=== PATIENT | female | born 1945 | race Caucasian/White ===

== ENCOUNTER 2016-06-21 13:47 | Inpatient (IN) ==
[2016-06-21] MEDS ORDERED: DUONEB NEB STA (14:13)
[2016-06-21 14:30] LABS: BASOPHILS % (AUTO) 0.3 % (0.0-3.0); EOSINOPHILS # (AUTO) 0.1 K/ul (0.0-0.7); EOSINOPHILS % (AUTO) 0.6 % (0.0-7.0); HEMATOCRIT 41.9 % (37.0-47.0); HEMOGLOBIN 14.2 g/dl (12.0-16.0); IMMATURE GRANULOCYTE % (AUTO) 0.5 % (0.0-5.0); MEAN CORPUSCULAR HEMOGLOBIN 34.8 pg (27.0-31.0); MEAN CORPUSCULAR HGB CONC 33.9 (31.8-35.4); MEAN CORPUSCULAR VOLUME 102.7 fl (81.0-99.0); MONOCYTES % (AUTO) 7.1 (0-10); NEUTROPHILS # (AUTO) 11.1 K/ul (2.0-6.9); NEUTROPHILS % (AUTO) 77.5; PLATELET COUNT 215 10^3/uL (140-440); RED BLOOD COUNT 4.08 10^6/ul (4.20-5.40); WHITE BLOOD COUNT 14.31 K/ul (4.6-10.2)
[2016-06-21 14:37] LABS: ABG BASE EXCESS 1 (-2.0-2.0); ABG HCO3 26.2 (22.0-26.0); ABG PCO2 42.4 mmHg (35-45); ABG PH 7.399 (7.35-7.45); ABG TCO2 28 (22.0-28.0)
[2016-06-21 14:47] LABS: FLU INTERNAL QC INTERNAL QC VALID; RAPID FLU A NEGATIVE (NEGATIVE); RAPID FLU B NEGATIVE (NEGATIVE)
--- NOTE | 2016-06-21 14:48 | DI ---
EXAM: CHEST FRONTAL VIEW HISTORY: Shortness of breath. COMPARISON: None FINDINGS: Heart size within normal limits. There is at least mild aortic atherosclerosis. Left-si ded pacemaker unit is noted. No acute infiltrates are seen. There is no consolidation, visible pleu ral fluid or pneumothorax. Bones reveal no acute fracture. IMPRESSION: No acute cardiopulmonary process.
[2016-06-21 14:56] LABS: CREATINE KINASE 34 U/L
--- NOTE | 2016-06-21 16:35 | ED.PDOC ---
[id number] 4d cough, wheez ,short of air Time Seen by Physician: 13:49 Mode of Arrival: Walk-In Information Source: Patient Exam Limitations: No limitations Primary Care Provider: ROSALINO GRAY Nursing and Triage Documentation Reviewed and Agree: Yes Respiratory Complaint Exam - Shortness of Air Complaint/Exam Onset/Duration: 1 day Symptoms Are: Still present Timing: Constant Initial Severity: Moderate Current Severity: Moderate Character: Reports: Dyspnea at rest, Dyspnea on exertion Aggravating: Reports: None Alleviating: Reports: Bronchodilators Associated Signs and Symptoms: Reports: Cough, Wheezing, Chills, Nasal congestion Related History: Reports: Similar episode Pulmonary Embolism Risk Factors: Reports: Bedrest Review of Systems - Review Of Systems Constitutional: Reports: Malaise, Weakness Eyes: Reports: No symptoms Ears, Nose, Mouth, Throat: Reports: No symptoms Respiratory: Reports: Cough, Short of air, Wheezing Cardiac: Reports: No symptoms GI: Reports: No symptoms : Reports: No symptoms Musculoskeletal: Reports: No symptoms Skin: Reports: No symptoms Neurological: Reports: No symptoms Endocrine: Reports: No symptoms Hematologic/Lymphatic: Reports: No symptoms All Other Systems: Reviewed and Negative Past Medical History - Past Medical History Previously Healthy: No Endocrine: Reports: Hypothyroid, Dyslipidemia Cardiovascular: Reports: Hypertension Respiratory: Reports: COPD Hematological: Reports: None Gastrointestinal: Reports: None Genitourinary: Reports: None Neuro/Psych: Reports: None Musculoskeletal: Reports: None Cancer: Reports: None Last Menstrual Period: n/a - Surgical History General Surgical History: Reports: Unknown - Family History Family History: Reports: Unknown - Social History Smoking Status: Current every day smoker Hx Substance Use: No Alcohol Screening: Occasionally Physical Exam - Physical Exam Appearance: Ill-appearing Ill-appearing: Moderate Pain Distress: Moderate Eyes: HOLGER, EOMI, Conjunctiva clear ENT: Ears normal, Nose normal, Oropharynx normal Respiratory: Wheezes Cardiovascular: RRR, Pulses normal, No rub, No murmur GI/: Soft, Nontender, No masses, Bowel sounds normal, No Organomegaly Musculoskeletal: Normal strength, ROM intact, No edema, No calf tenderness Skin: Warm, Dry, Normal color Neurological: Sensation intact, Motor intact, Reflexes intact, Cranial nerves intact, Alert, Oriented Psychiatric: Affect appropriate, Mood appropriate Physician Notification - Case Discussed Physician Notified: [email or web address] Time of Notification: 16:37 (saw pt in the ED ) Critical Care Note - Critical Care Note Total Time (mins): 0 Course - Course Hematology/Chemistry: 06/26/16 05:18 06/26/16 05:18 Orders, Labs, Meds: Lab Review 06/21/16 06/21/16 06/21/16 14:00 14:14 14:15 WBC RBC Hgb Hct MCV MCH MCHC RDW Coeff of Alisha Plt Count Immature Gran % (Auto) Neut % (Auto) Lymph % (Auto) [place] % (Auto) Eos % (Auto) Baso % (Auto) Immature Gran # (Auto) Neut # Lymph # [place] # Eos # Baso # Puncture Site Rr O2 Saturation 86.0 L ABG pH 7.399 ABG pCO2 42.4 ABG pO2 52.0 L* ABG HCO3 26.2 H ABG Total CO2 28 ABG Base Excess 1 Mal Test + FiO2 % 21.0 Sodium 129 L Potassium 3.9 Chloride 92 L Carbon Dioxide 27 Anion Gap 13.9 BUN 13 Creatinine 0.86 Estimated GFR (MDRD) 65.00 BUN/Creatinine Ratio 15.11 Glucose 99 Lactic Acid Calcium 9.3 Total Bilirubin 0.43 AST 19 ALT 10 L Alkaline Phosphatase 64 Total Creatine Kinase Troponin I B-Natriuretic Peptide Total Protein 7.8 Albumin 3.4 Globulin 4.4 Albumin/Globulin Ratio 0.77 Influenza A (Rapid) Negative Influenza B (Rapid) Negative 06/21/16 14:25 WBC 14.31 H RBC 4.08 L Hgb 14.2 Hct 41.9 MCV 102.7 H MCH 34.8 H MCHC 33.9 RDW Coeff of Alisha 13.1 Plt Count 215 Immature Gran % (Auto) 0.5 Neut % (Auto) 77.5 Lymph % (Auto) 14.0 [place] % (Auto) 7.1 Eos % (Auto) 0.6 Baso % (Auto) 0.3 Immature Gran # (Auto) 0.1 Neut # 11.1 H Lymph # 2.0 [place] # 1.0 Eos # 0.1 Baso # 0.0 Puncture Site O2 Saturation ABG pH ABG pCO2 ABG pO2 ABG HCO3 ABG Total CO2 ABG Base Excess Mal Test FiO2 % Sodium Potassium Chloride Carbon Dioxide Anion Gap BUN Creatinine Estimated GFR (MDRD) BUN/Creatinine Ratio Glucose Lactic Acid 7.0 Calcium Total Bilirubin AST ALT Alkaline Phosphatase Total Creatine Kinase 34 Troponin I < 0.0100 B-Natriuretic Peptide 338 H Total Protein Albumin Globulin Albumin/Globulin Ratio Influenza A (Rapid) Influenza B (Rapid) Orders Category Date Time Status ABG DRAW REQUEST Stat CARDIO 06/21/16 14:14 Completed EKG-(ED ONLY) Stat CARDIO 06/21/16 14:12 Completed NEBULIZER TREATMENT Routine CARDIO 06/21/16 16:40 Active NEBULIZER TREATMENT Stat CARDIO 06/21/16 14:13 Completed ED IV/MEDIPORT/POWERPORT .ONCE EMERGENCY 06/21/16 14:12 Active ABG Stat LAB 06/21/16 14:14 Completed B-TYPE NATRIURETIC PEPTIDE Stat LAB 06/21/16 14:25 Completed BLOOD CULTURE Stat LAB 06/21/16 14:25 Results CBC W/ AUTO DIFF Stat LAB 06/21/16 14:25 Completed COMPREHENSIVE METABOLIC PANEL Stat LAB 06/21/16 14:00 Completed CREATINE KINASE Stat LAB 06/21/16 14:25 Completed LACTIC ACID Stat LAB 06/21/16 14:25 Completed MOLECULAR GROUP A STREP Stat LAB 06/21/16 14:15 Completed RAPID FLU A/B Stat LAB 06/21/16 14:15 Completed STREP SCREEN Stat LAB 06/21/16 14:15 Completed TROPONIN I Stat LAB 06/21/16 14:25 Completed 0.9 % Sodium Chloride [Saline Flush] MEDS 06/21/16 14:13 Active 1 syr IVF PRN PRN Azithromycin Inj [Zithromax] 500 mg MEDS 06/21/16 16:44 Discontinued 0.9 % Sodium Chloride [Sodium Chloride] 250 ml IV ONCE Budesonide [Pulmicort 0.5 mg/2 ml] MEDS 06/21/16 17:00 Discontinued 1 vial NEB ONCE ONE Ceftriaxone Sodium [Rocephin] MEDS 06/21/16 17:13 Discontinued 1 gm .ROUTE .STK-MED ONE Ceftriaxone Sodium [Rocephin] 1 gm MEDS 06/21/16 17:00 Active 0.9 % Sodium Chloride [Sodium Chloride] 50 ml IV DAILY Ipratropium/Albuterol Neb [Duoneb] MEDS 06/21/16 14:13 Discontinued 1 vial NEB ONCE STA Levalbuterol HCl [Xopenex 1.25 mg] MEDS 06/21/16 18:00 Active 1 vial NEB RTQ6H Methylprednisolone Sod Succ/Pf [Solu-Medrol 125 mg] MEDS 06/21/16 21:00 Discontinued 60 mg IVP Q12HR Methylprednisolone Sod Succ/Pf [Solu-Medrol 40 mg] MEDS 06/21/16 16:42 Discontinued 40 mg IVP ONCE STA CHEST, 1V AP ONLY DAILY RADS 06/23/16 06:00 Completed CHEST, 1V AP ONLY Stat RADS 06/21/16 14:12 Completed Medications Generic Name Dose Route Start Last Admin Trade Name Freq PRN Reason Stop Dose Admin Acetaminophen/Hydrocodone Bitart 1 tab 06/21/16 19:06 06/25/16 14:49 [place] 5-325 PO 1 tab BID PRN Administration Mild Pain Aspirin 81 mg 06/22/16 08:00 06/25/16 08:59 Aspirin Chewable PO 81 mg DAILYWM TOM Administration Diazepam 2 mg 06/21/16 21:00 06/25/16 20:50 Valium PO 2 mg BID TOM Administration Diltiazem HCl 60 mg 06/23/16 15:00 06/25/16 20:50 Cardizem PO 60 mg Q12HR TOM Administration Fluoxetine HCl 10 mg 06/22/16 09:00 06/25/16 08:59 Prozac PO 10 mg DAILY TOM Administration Fluoxetine HCl 20 mg 06/22/16 09:00 06/25/16 08:59 Prozac PO 20 mg DAILY TOM Administration Ceftriaxone Sodium 1 gm/ 50 mls @ 75 mls/hr 06/21/16 17:00 06/25/16 08:58 Sodium Chloride IV 75 mls/hr DAILY TOM Administration Insulin Human Regular 0 unit 06/21/16 18:47 06/25/16 20:49 Humulin R SUBCUT 6 unit PRN PRN Administration hyperglycemia Protocol Ketorolac Tromethamine 30 mg 06/23/16 12:46 06/24/16 10:10 Toradol IVP 30 mg Q12H PRN Administration pain Levalbuterol HCl 1 vial 06/21/16 18:00 06/26/16 05:06 Xopenex 1.25 Mg NEB 1 vial RTQ6H TOM Administration Levothyroxine Sodium 50 mcg 06/26/16 06:30 06/26/16 05:48 Synthroid PO 50 mcg QDAC TOM Administration Metformin HCl 500 mg 06/22/16 08:00 06/25/16 16:30 Glucophage PO 500 mg BIDWM TOM Administration Metoprolol Tartrate 100 mg 06/22/16 09:00 06/25/16 20:50 Lopressor PO 100 mg BID TOM Administration Nicotine 1 patch 06/23/16 13:00 06/25/16 09:00 Nicoderm 21 Mg TD 1 patch DAILY TOM Administration Non-Formulary Medication 3 mg 06/22/16 21:00 06/25/16 22:41 Doxepin Hcl [Silenor] PO Not Given BEDTIME TOM Pravastatin Sodium 40 mg 06/21/16 21:00 06/25/16 20:50 Pravachol PO 40 mg BEDTIME TOM Administration Prednisone 10 mg 06/25/16 12:00 06/25/16 16:31 Prednisone PO 10 mg TIDWM TOM Administration Ramipril 20 mg 06/24/16 09:00 06/25/16 08:58 Altace PO 20 mg DAILY TOM Administration Risperidone 0.25 mg 06/21/16 21:00 06/25/16 20:50 Risperdal PO 0.25 mg BID TOM Administration Ropinirole HCl 2 mg 06/22/16 21:00 06/25/16 20:50 Requip PO 2 mg BEDTIME TOM Administration Sitagliptin Phosphate 100 mg 06/22/16 09:00 06/25/16 08:59 Januvia PO 100 mg DAILY TOM Administration Sodium Chloride 1 syr 06/21/16 14:13 06/24/16 05:12 Saline Flush IVF 1 syr PRN PRN Administration To flush IV Sodium Chloride 1 syr 06/26/16 05:45 06/26/16 05:48 Saline Flush IVF 1 syr Q8HR TOM Administration Zolpidem Tartrate 5 mg 06/21/16 21:00 06/25/16 20:50 Ambien PO 5 mg BEDTIME TOM Administration Discontinued Medications Generic Name Dose Route Start Last Admin Trade Name Freq PRN Reason Stop Dose Admin Acetaminophen 500 mg 06/21/16 18:40 06/21/16 19:00 Tylenol PO 06/21/16 18:41 Not Given ONCE STA Albuterol/Ipratropium 1 vial 06/21/16 14:13 06/21/16 14:28 Duoneb NEB 06/21/16 14:14 1 vial ONCE STA Administration Amlodipine Besylate 10 mg 06/22/16 09:00 06/23/16 08:05 Norvasc PO 10 mg DAILY TOM Administration Budesonide 1 vial 06/21/16 17:00 06/21/16 19:00 Pulmicort 0.5 Mg/2 Ml NEB 06/21/16 17:01 Not Given ONCE ONE Furosemide 20 mg 06/25/16 08:28 06/25/16 09:11 Lasix IVP 06/25/16 08:29 20 mg ONCE STA Administration Azithromycin 500 mg/ Sodium 250 mls @ 125 mls/hr 06/21/16 16:44 06/21/16 18: 34 Chloride IV 06/21/16 18:43 125 mls/hr ONCE STA Administration Sodium Chloride 1,000 mls @ 75 mls/hr 06/21/16 17:30 06/25/16 10:01 Sodium Chloride IV Not Given .[id number] TOM Levothyroxine Sodium 75 mcg 06/22/16 06:30 06/25/16 05:44 Synthroid PO 75 mcg QDAC TOM Administration Levothyroxine Sodium 50 mcg 06/25/16 08:29 Synthroid PO QDAC TOM Metformin HCl 500 mg 06/21/16 21:00 06/21/16 22:08 Glucophage PO 500 mg BID TOM Administration Methylprednisolone Sodium Succinate 40 mg 06/21/16 16:42 06/21/16 17:23 Solu-Medrol 40 Mg IVP 06/21/16 16:43 40 mg ONCE STA Administration Methylprednisolone Sodium Succinate 60 mg 06/21/16 21:00 Solu-Medrol 125 Mg IVP Q12HR TOM Methylprednisolone Sodium Succinate 60 mg 06/21/16 19:30 06/22/16 01:19 Solu-Medrol 125 Mg IVP 60 mg Q6H TOM Administration Methylprednisolone Sodium Succinate 60 mg 06/22/16 07:30 06/25/16 05:45 Solu-Medrol 125 Mg IVP 60 mg Q6HR TOM Administration Metoprolol Tartrate 50 mg 06/21/16 19:09 06/21/16 19:58 Lopressor PO 06/21/16 19:10 50 mg ONCE STA Administration Non-Formulary Medication 100 mg 06/21/16 21:00 06/21/16 20:03 Metoprolol Tartrate [Metoprolol Tartrate] PO Not Given BID TOM Non-Formulary Medication 3 mg 06/21/16 21:00 06/21/16 22:17 Doxepin Hcl [Silenor] PO Not Given BEDTIME TOM Non-Formulary Medication 2 mg 06/21/16 21:00 06/21/16 22:11 Ropinirole Hcl [Requip] PO 2 mg BEDTIME TOM Administration Ondansetron HCl 4 mg 06/24/16 10:08 06/24/16 10:10 Zofran 4 Mg/2 Ml IVP 06/24/16 10:09 4 mg ONCE STA Administration Ramipril 10 mg 06/22/16 09:00 06/23/16 15:09 Altace PO Not Given DAILY TOM Ramipril 10 mg 06/24/16 15:00 Altace PO 06/24/16 15:01 ONCE ONE Ramipril 10 mg 06/23/16 15:07 06/23/16 15:09 Altace PO 06/23/16 15:08 10 mg ONCE ONE Administration Ramipril 10 mg 06/23/16 15:00 06/23/16 16:22 Altace PO 06/23/16 15:01 Not Given ONCE ONE Vital Signs: Temp Pulse Resp BP Pulse Ox 06/21/16 13:49 98.4 F 78 20 125/70 86 L Departure - Departure Time of Disposition: 07:00 Disposition: ADMITTED INPATIENT Discharge Problem: COPD exacerbation, Cough Condition: Good Pt referred to PMD for follow-up: Yes Allergies/Adverse Reactions: Allergies No Known Allergies Allergy (Unverified 06/21/16 13:56) Home Medications: Ambulatory Orders Amlodipine Besylate 10 mg PO DAILY 06/21/16 Aspirin [Aspirin Chewable] 81 mg PO DAILYWM 06/21/16 Diazepam [Valium] 2 mg PO BID 06/21/16 Doxepin HCl [Silenor] 3 mg PO BEDTIME 06/21/16 Fluoxetine HCl [Prozac] 10 mg PO DAILY 06/21/16 Fluoxetine HCl [Prozac] 20 mg PO DAILY 06/21/16 Hydrocodone/Acetaminophen [Hydrocodon-Acetaminophen 5-325] 1 each PO BID PRN 11/30 Levothyroxine Sodium [Synthroid] 75 mcg PO QDAC 06/21/16 Metformin HCl [Glucophage] 500 mg PO BID 06/21/16 Metoprolol Tartrate 100 mg PO BID 06/21/16 Pravastatin Sodium [Pravachol] 40 mg PO BEDTIME 06/21/16 Ramipril 10 mg PO DAILY 06/21/16 Risperidone [Risperdal] 0.25 mg PO BID 06/21/16 Ropinirole HCl [Requip] 2 mg PO BEDTIME 06/21/16 Sitagliptin Phosphate [Januvia] 100 mg PO DAILY 06/21/16 Zolpidem Tartrate [Ambien] 5 mg PO BEDTIME 06/21/16
[2016-06-21 16:37] LABS: ALBUMIN 3.4 g/dL (3.4-5.0); ALBUMIN/GLOBULIN RATIO 0.77; ANION GAP 13.9; BILIRUBIN,TOTAL 0.43 mg/dL (0.00-1.20); BUN/CREATININE RATIO 15.11; CALCIUM 9.3 mg/dL (8.2-10.2); CREATININE 0.86 mg/dL (0.60-1.30); POTASSIUM 3.9 mmol/L (3.5-5.10); TOTAL PROTEIN 7.8 g/dL (5.8-8.1)
[2016-06-21] MEDS ORDERED: SOLU-MEDROL 40 MG IVP STA (16:42)
[2016-06-21] MEDS ORDERED: ZITHROMAX 500 MG in SODIUM CHLORIDE 250 ML IV STA (16:44)
[2016-06-21] MEDS ORDERED: PULMICORT 0.5 MG/2 ML NEB ONE (17:00)
[2016-06-21] MEDS ORDERED: ROCEPHIN ONE (17:13)
[2016-06-21] MEDS: ROCEPHIN 1 GM in SODIUM CHLORIDE 50 ML IV SCH (17:24)
[2016-06-21] MEDS: XOPENEX 1.25 MG NEB SCH ×2 (18:25→22:53)
[2016-06-21] MEDS: SODIUM CHLORIDE 1,000 ML IV SCH (18:34)
[2016-06-21] MEDS ORDERED: TYLENOL ONE (18:35)
[2016-06-21] MEDS ORDERED: TYLENOL PO STA (18:40)
[2016-06-21] MEDS ORDERED: LOPRESSOR PO STA (19:09)
[2016-06-21] MEDS: SOLU-MEDROL 125 MG IVP SCH (20:15)
[2016-06-21] MEDS ORDERED: SOLU-MEDROL 125 MG IVP SCH (21:00)
[2016-06-21] MEDS ORDERED: GLUCOPHAGE PO SCH (21:00)
[2016-06-21] MEDS ORDERED: NON-FORMULARY MEDICATION (Metoprolol Tartrate [Metoprolol Tartrate] 100 MG) PO SCH (21:00)
[2016-06-21] MEDS ORDERED: NON-FORMULARY MEDICATION (Doxepin Hcl [Silenor] 3 MG) PO SCH (21:00)
[2016-06-21] MEDS ORDERED: NON-FORMULARY MEDICATION (Ropinirole Hcl [Requip] 2 MG) PO SCH ×22 (21:00)
[2016-06-21 21:14] VITALS: BMI 29.9
[2016-06-21] MEDS ORDERED: GLUCOPHAGE ONE (21:57)
[2016-06-21] MEDS ORDERED: RISPERDAL ONE (21:58)
[2016-06-21] MEDS ORDERED: REQUIP ONE ×2 (21:58→22:11)
[2016-06-21] MEDS: HUMULIN R SUBCUT PRN (22:08)
[2016-06-21] MEDS: AMBIEN PO SCH (22:08)
[2016-06-21] MEDS: PRAVACHOL PO SCH (22:10)
[2016-06-21] MEDS: VALIUM PO SCH (22:12)
[2016-06-21] MEDS: RISPERDAL PO SCH (22:15)
[2016-06-21 23:38] LABS: CREATINE KINASE 36 U/L
[2016-06-22] MEDS: SOLU-MEDROL 125 MG IVP SCH ×4 (01:19→18:16)
[2016-06-22] MEDS: XOPENEX 1.25 MG NEB SCH ×4 (05:15→22:05)
[2016-06-22] MEDS: SYNTHROID PO SCH (06:24)
[2016-06-22] MEDS: HUMULIN R SUBCUT PRN ×4 (06:29→23:15)
[2016-06-22 07:40] LABS: BASOPHILS % (AUTO) 0.1 % (0.0-3.0); HEMATOCRIT 39.2 % (37.0-47.0); HEMOGLOBIN 13.5 g/dl (12.0-16.0); IMMATURE GRANULOCYTE % (AUTO) 0.6 % (0.0-5.0); MEAN CORPUSCULAR HEMOGLOBIN 35.1 pg (27.0-31.0); MEAN CORPUSCULAR HGB CONC 34.4 (31.8-35.4); MEAN CORPUSCULAR VOLUME 101.8 fl (81.0-99.0); MONOCYTES # (AUTO) 0.1 K/uL (0.4-2.0); MONOCYTES % (AUTO) 0.8 (0-10); NEUTROPHILS # (AUTO) 7.5 K/ul (2.0-6.9); NEUTROPHILS % (AUTO) 87.5; PLATELET COUNT 183 10^3/uL (140-440); RED BLOOD COUNT 3.85 10^6/ul (4.20-5.40)
[2016-06-22 08:18] LABS: ALANINE AMINOTRANSFERASE 10 U/L (12-78); ALBUMIN/GLOBULIN RATIO 0.68; ALKALINE PHOSPHATASE 55 U/L (53-141); ANION GAP 15.2; ASPARTATE AMINO TRANSFERASE 15 U/L (15-37); BLOOD UREA NITROGEN 14 mg/dL (7-18); CALCIUM 9.1 mg/dL (8.2-10.2); CARBON DIOXIDE 25 mmol/L (23-31); CHLORIDE 93 mmol/L (98-107); CREATINE KINASE 28 U/L; GLUCOSE 201 mg/dL (82-115); POTASSIUM 4.2 mmol/L (3.5-5.10); SODIUM 129 mmol/L (136-145); TOTAL PROTEIN 7.4 g/dL (5.8-8.1)
[2016-06-22] MEDS: ALTACE PO SCH (08:24)
[2016-06-22] MEDS: NORVASC PO SCH (08:26)
[2016-06-22] MEDS: JANUVIA PO SCH (08:26)
[2016-06-22] MEDS: ASPIRIN CHEWABLE PO SCH (08:26)
[2016-06-22] MEDS: PROZAC PO SCH ×2 (08:27)
[2016-06-22] MEDS: VALIUM PO SCH ×2 (08:28→21:15)
[2016-06-22] MEDS: LOPRESSOR PO SCH ×2 (08:28→21:16)
[2016-06-22] MEDS: RISPERDAL PO SCH ×2 (08:28→21:16)
[2016-06-22] MEDS: NORCO 5-325 PO PRN ×2 (08:29→15:39)
[2016-06-22] MEDS: GLUCOPHAGE PO SCH ×2 (08:29→16:56)
[2016-06-22] MEDS: ROCEPHIN 1 GM in SODIUM CHLORIDE 50 ML IV SCH (08:38)
[2016-06-22] MEDS ORDERED: NON-FORMULARY MEDICATION (Amlodipine Besylate [Amlodipine Besylate] 10 MG) PO SCH ×22 (09:00)
[2016-06-22] MEDS ORDERED: RAMIPRIL 10 MG PO SCH (09:00)
[2016-06-22] MEDS ORDERED: JANUVIA PO SCH (09:00)
[2016-06-22] MEDS: SODIUM CHLORIDE 1,000 ML IV SCH (13:27)
[2016-06-22] MEDS: REQUIP PO SCH (21:15)
[2016-06-22] MEDS: AMBIEN PO SCH (21:16)
[2016-06-22] MEDS: PRAVACHOL PO SCH (21:17)
[2016-06-22] MEDS: NON-FORMULARY MEDICATION (Doxepin Hcl [Silenor] 3 MG) PO SCH (23:15)
[2016-06-23] MEDS: SOLU-MEDROL 125 MG IVP SCH ×4 (00:30→18:21)
[2016-06-23] MEDS: SODIUM CHLORIDE 1,000 ML IV SCH ×2 (02:45→16:24)
[2016-06-23] MEDS: XOPENEX 1.25 MG NEB SCH ×4 (05:00→23:11)
[2016-06-23 05:16] LABS: BASOPHILS % (AUTO) 0.1 % (0.0-3.0); HEMATOCRIT 40.7 % (37.0-47.0); HEMOGLOBIN 13.5 g/dl (12.0-16.0); IMMATURE GRANULOCYTE % (AUTO) 0.6 % (0.0-5.0); LYMPHOCYTES # (AUTO) 1.4 K/uL (0.60-3.4); LYMPHOCYTES % (AUTO) 8.7 (10.0-50.0); MEAN CORPUSCULAR HEMOGLOBIN 34.2 pg (27.0-31.0); MEAN CORPUSCULAR HGB CONC 33.2 (31.8-35.4); MONOCYTES # (AUTO) 0.2 K/uL (0.4-2.0); MONOCYTES % (AUTO) 1.4 (0-10); NEUTROPHILS # (AUTO) 14.4 K/ul (2.0-6.9); NEUTROPHILS % (AUTO) 89.2; PLATELET COUNT 202 10^3/uL (140-440); RED BLOOD COUNT 3.95 10^6/ul (4.20-5.40); WHITE BLOOD COUNT 16.14 K/ul (4.6-10.2)
[2016-06-23 05:35] LABS: ALBUMIN/GLOBULIN RATIO 0.68; ANION GAP 15.4; BILIRUBIN,TOTAL 0.28 mg/dL (0.00-1.20); BUN/CREATININE RATIO 21.59; CALCIUM 9.1 mg/dL (8.2-10.2); CREATININE 0.88 mg/dL (0.60-1.30); POTASSIUM 4.4 mmol/L (3.5-5.10); TOTAL PROTEIN 7.4 g/dL (5.8-8.1)
[2016-06-23] MEDS: HUMULIN R SUBCUT PRN ×3 (05:55→20:40)
[2016-06-23] MEDS: SYNTHROID PO SCH (05:58)
[2016-06-23] MEDS: VALIUM PO SCH (08:03)
[2016-06-23] MEDS: ASPIRIN CHEWABLE PO SCH (08:04)
[2016-06-23] MEDS: LOPRESSOR PO SCH ×2 (08:04→21:43)
[2016-06-23] MEDS: PROZAC PO SCH ×2 (08:04→08:05)
[2016-06-23] MEDS: ALTACE PO SCH ×2 (08:04→15:09)
[2016-06-23] MEDS: RISPERDAL PO SCH ×2 (08:04→21:43)
[2016-06-23] MEDS: NORVASC PO SCH (08:05)
[2016-06-23] MEDS: JANUVIA PO SCH (08:05)
[2016-06-23] MEDS: ROCEPHIN 1 GM in SODIUM CHLORIDE 50 ML IV SCH (08:05)
[2016-06-23] MEDS: GLUCOPHAGE PO SCH ×2 (08:06→17:00)
--- NOTE | 2016-06-23 09:32 | DI ---
EXAM: Single view chest COMPARISON: Chest Xray from 06/21/2016 HISTORY: Shortness of breath FINDINGS: There is decreasing visualization of the left costophrenic angle which probably represents some pleural fluid and perhaps some atelectasis. There is some relative elevation of the left mars diaphragm. There is no lobar infiltrate or failure or large effusion. Cardiac and mediastinal si lhouettes are unremarkable. No acute soft tissue or osseous abnormalities. Pacemaker is stable. IMPRESSION: 1. Increasing volume loss and perhaps a small effusion left base.
[2016-06-23] MEDS: NORCO 5-325 PO PRN (10:38)
[2016-06-23] MEDS: NICODERM 21 MG TD SCH (12:51)
[2016-06-23] MEDS: TORADOL IVP PRN (12:53)
[2016-06-23] MEDS ORDERED: ALTACE PO ONE ×3 (14:49→15:07)
[2016-06-23] MEDS ORDERED: CARDIZEM ONE (15:03)
[2016-06-23] MEDS: CARDIZEM PO SCH ×2 (15:05→21:45)
[2016-06-23] MEDS: REQUIP PO SCH (21:43)
[2016-06-23] MEDS: AMBIEN PO SCH (21:43)
[2016-06-23] MEDS: PRAVACHOL PO SCH (21:43)
[2016-06-23] MEDS: NON-FORMULARY MEDICATION (Doxepin Hcl [Silenor] 3 MG) PO SCH (21:44)
[2016-06-23] MEDS ORDERED: CARDIZEM CD ONE (21:52)
[2016-06-24] MEDS: SOLU-MEDROL 125 MG IVP SCH ×5 (00:14→23:40)
[2016-06-24] MEDS: VALIUM PO SCH ×3 (01:52→21:48)
[2016-06-24] MEDS: XOPENEX 1.25 MG NEB SCH ×4 (05:01→23:15)
[2016-06-24 05:09] LABS: BASOPHILS % (AUTO) 0.2 % (0.0-3.0); HEMATOCRIT 36.8 % (37.0-47.0); HEMOGLOBIN 12.6 g/dl (12.0-16.0); IMMATURE GRANULOCYTE % (AUTO) 1.3 % (0.0-5.0); LYMPHOCYTES # (AUTO) 0.8 K/uL (0.60-3.4); LYMPHOCYTES % (AUTO) 6.4 (10.0-50.0); MEAN CORPUSCULAR HEMOGLOBIN 35.2 pg (27.0-31.0); MEAN CORPUSCULAR HGB CONC 34.2 (31.8-35.4); MEAN CORPUSCULAR VOLUME 102.8 fl (81.0-99.0); MONOCYTES # (AUTO) 0.2 K/uL (0.4-2.0); MONOCYTES % (AUTO) 1.1 (0-10); NEUTROPHILS # (AUTO) 11.9 K/ul (2.0-6.9); PLATELET COUNT 171 10^3/uL (140-440); RED BLOOD COUNT 3.58 10^6/ul (4.20-5.40); WHITE BLOOD COUNT 13.05 K/ul (4.6-10.2)
[2016-06-24 05:30] LABS: ALBUMIN 2.9 g/dL (3.4-5.0); ALBUMIN/GLOBULIN RATIO 0.78; ANION GAP 11.6; BILIRUBIN,TOTAL 0.28 mg/dL (0.00-1.20); BUN/CREATININE RATIO 29.62; CALCIUM 8.9 mg/dL (8.2-10.2); CREATININE 0.81 mg/dL (0.60-1.30); POTASSIUM 4.6 mmol/L (3.5-5.10); TOTAL PROTEIN 6.6 g/dL (5.8-8.1)
[2016-06-24] MEDS: SODIUM CHLORIDE 1,000 ML IV SCH ×2 (05:51→21:58)
--- NOTE | 2016-06-24 09:13 | CT ---
EXAM:CT head with and without contrast HISTORY: Headache for [id number] weeks COMPARISON: None TECHNIQUE: Serial axial images of the brain were obtained from the skull base to the vertex with an d without IV contrast. Contrast enhanced images were performed after 75 mL is of Omnipaque 300 IV co ntrast was administered. FINDINGS: The ventricles, cisterns and sulci demonstrates scattered generalized volume loss. There is scattered low attenuation throughout the periventricular white matter most pronounced in the sup erior frontal lobes. The castle-white matter junction is otherwise maintained. There is a focal area of low attenuation in the right basal ganglia likely representing old lacunar infarct. No midline shift or mass is identified. There is no intra or extra axial fluid collection. The paranasal sinuse s demonstrate mild mucosal thickening. The mastoid air cells are clear. The Osseous calvarium is i ntact. Contrast enhanced images demonstrate no abnormal contrast enhancing lesions. IMPRESSION: 1. No acute intracranial abnormality or contrast enhancing lesion. If further evaluation is clinic ally indicated, MRI may be obtained. 2. Scattered low attenuation throughout the periventricular white matter most consistent with micro angiopathy and questionable chronic right basal ganglia lacunar infarct. 3. Mild generalized volume loss. The 4. Minimal paranasal sinus mucosal thickening.
[2016-06-24] MEDS: LOPRESSOR PO SCH ×2 (10:00→21:47)
[2016-06-24] MEDS: CARDIZEM PO SCH ×2 (10:00→21:46)
[2016-06-24] MEDS: ALTACE PO SCH (10:00)
[2016-06-24] MEDS: ASPIRIN CHEWABLE PO SCH (10:00)
[2016-06-24] MEDS: GLUCOPHAGE PO SCH ×2 (10:00→17:58)
[2016-06-24] MEDS: PROZAC PO SCH ×2 (10:00)
[2016-06-24] MEDS: RISPERDAL PO SCH ×2 (10:00→21:46)
[2016-06-24] MEDS: NICODERM 21 MG TD SCH (10:00)
[2016-06-24] MEDS: ROCEPHIN 1 GM in SODIUM CHLORIDE 50 ML IV SCH (10:00)
[2016-06-24] MEDS: SYNTHROID PO SCH (10:00)
[2016-06-24] MEDS ORDERED: ZOFRAN 4 MG/2 ML IVP STA (10:08)
[2016-06-24] MEDS: TORADOL IVP PRN (10:10)
[2016-06-24] MEDS: JANUVIA PO SCH (10:25)
--- NOTE | 2016-06-24 10:52 | HP ---
DATE OF SERVICE: 06/21/16 REASON FOR HOSPITALIZATION: Respiratory distress. HISTORY OF PRESENT ILLNESS: 71-year-old white female was brought to the emergency room by family because of shortness of breath. The patient had cough, congestion of nearly 3 to 4 days duration getting worse. The patient says she is coughing up yellowish sputum and becoming short of breath with wheezing. REVIEW OF SYSTEMS: CONSTITUTIONAL: Fatigue, Weakness. No fever or chills. HEENT: Eyes: No visual changes. No eye pain. No eye discharge. ENT: Nasal drainage. No epistaxis. No sinus pain. Mild sore throat. No odynophagia. No ear pain. No congestion. RESPIRATORY: Cough and congestion with yellow sputum production. No hemoptysis. CARDIOVASCULAR: Pleuritic type of pain left-sided. Cough. Shortness of breath on exertion. No PND, no orthopnea. GASTROINTESTINAL: Poor appetite. She hasn't eaten for the past 24 hours. No abdominal pain. No nausea or vomiting. No diarrhea or constipation. No hematemesis. No hematochezia. GENITOURINARY: No urgency. No frequency. No dysuria. No hematuria. No obstructive symptoms. No discharge. No pain. No significant abnormal bleeding. MUSCULOSKELETAL: Generalized aches and pains as usual. NEUROLOGICAL: No double vision. No headache. No neck pain. No syncope. No seizures. No dizziness. PSYCHIATRIC: Anxious feeling. No depression. No suicidal thoughts. No homicidal thoughts. SKIN: Dry. ENDOCRINE: No weight gain, no weight loss. HEMATOLOGIC/LYMPHATIC: No anemia. No purpura. No petechiae. No prolonged or excessive bleeding. No palpable lymph nodes. PERSONAL/FAMILY/SOCIAL HISTORY: The patient's father is ; mother is , has four brothers and one sister, who are all alive. The patient is with two children. She is retired. Heavy smoker, smokes more than one pack a day. No alcohol abuse. PAST MEDICAL/SURGICAL PROBLEMS: 1. History of cholecystectomy 2. Gastric sleeve surgery 3. Hypertension 4. Depression 5. Diabetes mellitus 6. Dyslipidemia 7. Coronary artery disease 8. Hypertension 9. Dyslipidemia 10. Restless leg syndrome MEDICATIONS: (HOME) 1. Zolpidem 5 mg p.o. bedtime 2. Ropinirole 2 mg p.o. bedtime 3. Doxepin (Silenor) 3 mg p.o. bedtime 4. Ramipril 10 mg p.o. daily 5. Pravastatin 40 mg p.o. bedtime 6. Metoprolol 100 mg p.o. b.i.d. 7. Metformin 500 mg p.o. b.i.d. 8. Sitagliptin 100 g p.o. daily 9. Levothyroxine(Synthroid) 75 mcg p.o. q.d a.c. 10. Fluoxetine (Prozac) 20 mg p.o. daily 11. Hydrocodone/Acetaminophen one each p.o. b.i.d. p.r.n. 12. Diazepam (Valium) 2 mg p.o. b.i.d. 13. Aspirin 81 mg p.o. daily with meal 14. Risperidone 0.25 mg p.o. b.i.d. 15. Amlodipine 10 mg p.o. daily ALLERGIES: NKDA PHYSICAL EXAMINATION: GENERAL: The patient is oriented to time, place and person. VITAL SIGNS: Temperature 98.5, pulse 80, respiratory rate 15, BP 130/70. HEENT: Head normocephalic, atraumatic. Eyes: Extraocular muscles are intact. Pupils are equal, round and reactive to light and accommodation. Ears: No lesions. Nose appeared normal. Throat: No exudate or erythema. NECK: Supple. No JVP, no carotid bruit. No lymphadenopathy or thyromegaly. LUNGS: Decreased breath sounds with mild wheeze but good air entry. Percussion note normal. Chest symmetrical. HEART: S1, S2, no S3. No murmurs. No cyanosis or clubbing. No ascites. Pulses: Dorsalis pedis and posterior tibial pulses +1 bilaterally. ABDOMEN: Soft. Nontender. Bowel sounds active. No ascites. No CVA tenderness. No mass felt. EXTREMITIES: No edema. Full range of motion of all extremities, equal. NEUROLOGIC: No focal deficit. Cranial nerves II through XII are grossly intact. No headache, no double vision or headache. SKIN: Dry. Intact. Turgor - normal. LYMPHATIC: No palpable lymph nodes/no lymphedema. MUSCULOSKELETAL: Normal joints with no swelling. Muscle tone is normal. LABS: The patient's WBC count is borderline high. Arterial blood gases p02 52, pc02 43 , pH 7.39 with 86% saturation on room air. EKG sinus rhythm. LVH no acute changes. Poor R wave progression. Other significant findings: The patient has hyponatremia otherwise creatinine, BUN, liver profile all acceptable. ASSESSMENT: 1. ACUTE RESPIRATORY FAILURE LIKELY FROM ACUTE BRONCHITIS WITH SEVERE CHRONIC LUNG DISEASE. 2. HEAVY SMOKING. 3. PACEMAKER PLACEMENT. 4. DIABETES MELLITUS. 5. DYSLIPIDEMIA. 6. HYPOTHYROIDISM. 7. DEPRESSION. 8. HYPERTENSION. PLAN: 1. IV Solu-Medrol q.6 60 mg. 2. Rocephin IV. 3. Zithromax IV daily. 4. Nebs treatment with Xopenex and Pulmicort. 5. Daily CBC, CMP. 6. Telemetry. 7. ABGs to be monitored. 8. Oximetry to be monitored. 9. Continue most of the home medications like Amlodipine, Valium, Prozac, Levothyroxine, Januvia, Metoprolol, Pravastatin. 10. Also give IV fluids 1000 cc. Normal Saline to be infused 75 cc/hr. EDUCATION CARRIED OUT ABOUT: Counseling done for smoking. Strongly advised to quit. The patient seems to have moderate to severe COPD with multiple other medical problems. Pulmonary rehabilitation recommended strongly. CONDITION: Stable. TIME SPENT: More than 60 minutes. MTDD
--- NOTE | 2016-06-24 10:58 | PN ---
DATE OF SERVICE: 06/22/16 SUBJECTIVE: The son Gilbert is present in the room and he is also happy with her progress. He is the one that brought her down to the emergency room. Oxygen saturation on 2L is 100%. REVIEW OF SYSTEMS: CONSTITUTIONAL: No night sweats. No fever or chills. HEENT: Eyes: No visual changes. No eye pain. No eye discharge. ENT: No runny nose. No epistaxis. No sinus pain. No sore throat. No odynophagia. No congestion. RESPIRATORY: Mild cough with shortness of breath at times. CARDIOVASCULAR: No angina symptoms. No CHF symptoms. No atypical chest pain for CAD. No palpitations. Mild shortness of breath. No pleuritic pain. GASTROINTESTINAL: Appetite has improved. No abdominal pain. No nausea or vomiting. No diarrhea or constipation. No hematemesis. No hematochezia. GENITOURINARY: No urgency. No frequency. No dysuria. No hematuria. No obstructive symptoms. No discharge. No pain. No significant abnormal bleeding. MUSCULOSKELETAL: No musculoskeletal pain; no joint swelling. NEUROLOGICAL: No headache. No neck pain. No syncope. No seizures. No dizziness. PSYCHIATRIC: Not anxious. No depression. No suicidal thoughts. No homicidal thoughts. SKIN: No rash. No lesions. No wounds. ENDOCRINE: No unexplained weight loss. No weight gain. HEMATOLOGIC/LYMPHATIC: No anemia. No purpura. No petechiae. No prolonged or excessive bleeding. No palpable lymph nodes. PHYSICAL EXAMINATION: GENERAL: The patient is oriented to time, place and person. VITAL SIGNS: Temperature 98, pulse 100, respiratory rate 18, BP 160/95, pulse ox 100%. HEENT: Head normocephalic, atraumatic. Eyes: Extraocular muscles are intact. Pupils are equal, round and reactive to light and accommodation. Ears: No lesions. Nose appeared normal. Throat: No exudate or erythema. NECK: Supple. No JVD, no carotid bruit. No lymphadenopathy or thyromegaly. LUNGS: Decreased breath sounds with mild wheeze but good air entry. HEART: S1, S2, no S3. No murmurs. No cyanosis or clubbing. No ascites. Pulses: Dorsalis pedis and posterior tibial pulses +1 to +2 both sides. ABDOMEN: Soft. Nontender. Bowel sounds active. No CVA tenderness. No mass felt. EXTREMITIES: No edema. Full range of motion of all extremities, equal. NEUROLOGIC: No focal deficit. Cranial nerves II through XII are grossly intact. No headache, no double vision or headache. SKIN: Not dry. Intact. Turgor - normal. LYMPHATIC: No palpable lymph nodes/no lymphedema. MUSCULOSKELETAL: Normal joints with no swelling. Muscle tone is normal. LABS: Hemoglobin 14.2, hematocrit 41.9, WBC 14,000, normal differential. Creatinine 0.8, BUN 13, potassium 3.9. ASSESSMENT: 1. ACUTE RESPIRATORY FAILURE RESOLVED. 2. ACUTE BRONCHITIS. 3. CHRONIC LUNG DISEASE. 4. HYPERTENSION. 5. HYPONATREMIA. 6. DEPRESSION. 7. HYPOTHYROIDISM. PLAN: 1. Continue IV steroids. 2. Continue all antihypertensive medications. 3. Continue IV antibiotics. 4. Continue Nebs treatment. 5. Will do echocardiogram tomorrow. 6. Again, counseling for smoking done. Strongly advised to quit smoking. The patient seems to have moderate to severe COPD with multiple other medical problems. CONDITION: Stable. TIME SPENT: More than 30 minutes. Plan and coordination of the patient's care discussed in the presence of nurse. TY
--- NOTE | 2016-06-24 11:22 | PN ---
DATE OF SERVICE: 06/23/16 SUBJECTIVE: 71-year-old white female hospitalized with acute respiratory failure, COPD. The patient's condition has steadily improved. Her ABG on room air done yesterday showed pH 7.39 with p02 of 52, pc02 of 42, 86% saturation. The patient's saturation on 2L is 98% today. The blood pressure is also much better. REVIEW OF SYSTEMS: CONSTITUTIONAL: No night sweats. No fatigue, malaise, lethargy. No fever or chills. HEENT: Eyes: No visual changes. No eye pain. No eye discharge. ENT: No runny nose. No epistaxis. No sinus pain. No sore throat. No odynophagia. No congestion. RESPIRATORY: Mild cough and congestion. No hemoptysis. CARDIOVASCULAR: No angina symptoms. No CHF symptoms. No atypical chest pain for CAD. No palpitations. No shortness of breath. No PND, no orthopnea. No palpitations. GASTROINTESTINAL: Appetite improved. No abdominal pain. No nausea or vomiting. No diarrhea or constipation. No hematemesis. No hematochezia. GENITOURINARY: No urgency. No frequency. No dysuria. No hematuria. No obstructive symptoms. No discharge. No pain. No significant abnormal bleeding. MUSCULOSKELETAL: No musculoskeletal pain; no joint swelling. NEUROLOGICAL: No headache. No neck pain. No syncope. No seizures. No dizziness. PSYCHIATRIC: Not anxious. No depression. No suicidal thoughts. No homicidal thoughts. SKIN: No rash. No lesions. No wounds. ENDOCRINE: No unexplained weight loss. No weight gain. HEMATOLOGIC/LYMPHATIC: No anemia. No purpura. No petechiae. No prolonged or excessive bleeding. No palpable lymph nodes. PHYSICAL EXAMINATION: GENERAL: The patient is oriented to time, place and person. VITAL SIGNS: Temperature 97.8, pulse 87, respiratory rate 18, BP 138/78, pulse ox 98%. HEENT: Head normocephalic, atraumatic. Eyes: Extraocular muscles are intact. Pupils are equal, round and reactive to light and accommodation. Ears: No lesions. Nose appeared normal. Throat: No exudate or erythema. NECK: Supple. No JVD, no carotid bruit. No lymphadenopathy or thyromegaly. LUNGS: Decreased breath sounds with mild wheeze. Percussion note normal. Chest symmetrical. HEART: S1, S2, no S3. No murmurs. No cyanosis or clubbing. No ascites. Pulses: Dorsalis pedis and posterior tibial pulses +1 to +2 both sides. ABDOMEN: Soft. Nontender. Bowel sounds active. No CVA tenderness. No mass felt. EXTREMITIES: No edema. Full range of motion of all extremities, equal. NEUROLOGIC: No focal deficit. Cranial nerves II through XII are grossly intact. No headache, no double vision or headache. SKIN: Not dry. Intact. Turgor - normal. LYMPHATIC: No palpable lymph nodes/no lymphedema. MUSCULOSKELETAL: Normal joints with no swelling. Muscle tone is normal. LABS: Hemoglobin 13.5, hematocrit 40, WBC 16,000, normal differential. Creatinine 0.8 , BUN 19, potassium 4.4, glucose 188. Echocardiogram shows LVH, normal LV contractility, enlarged LA cavity. ASSESSMENT: 1. ACUTE RESPIRATORY FAILURE WITH ACUTE BRONCHITIS 2. HEAVY SMOKING (The patient's daughter, Trini, is in the room and she says she is not going to buy her anymore cigarettes, she has decided to quit). 3. HYPERTENSION 4. PACEMAKER 5. HISTORY OF DIABETES 6. HISTORY OF CHRONIC HYPONATREMIA PLAN: 1. Continue the same IV antibiotics, steroids, nebs treatment. 2. Will discontinue Amlodipine and put her on Cardizem 60 mg twice a day. 3. Altace to be increased to 20 mg p.o. daily. 4. The patient has been having some headaches lately the past several months. The family wants CT scan or MRI to be done, will do it. 5. The patient is again advised not to drink too much water or fluids because of hyponatremia. The patient's hyponatremia could be from chronic antipsychotic and depression medications that she has been on. CONDITION: Stable. TIME SPENT: More than 30 minutes. Plan and coordination of the patient's care discussed in the presence of nurse. TY
[2016-06-24] MEDS: HUMULIN R SUBCUT PRN ×3 (12:20→22:02)
[2016-06-24] MEDS ORDERED: ALTACE PO ONE ×2 (15:00)
[2016-06-24] MEDS: REQUIP PO SCH (21:45)
[2016-06-24] MEDS: AMBIEN PO SCH (21:47)
[2016-06-24] MEDS: PRAVACHOL PO SCH (21:48)
[2016-06-24] MEDS: NON-FORMULARY MEDICATION (Doxepin Hcl [Silenor] 3 MG) PO SCH (21:49)
[2016-06-25] MEDS: XOPENEX 1.25 MG NEB SCH ×4 (04:49→23:04)
[2016-06-25 05:30] LABS: BASOPHILS % (AUTO) 0.2 % (0.0-3.0); HEMOGLOBIN 12.7 g/dl (12.0-16.0); IMMATURE GRANULOCYTE % (AUTO) 1.7 % (0.0-5.0); LYMPHOCYTES # (AUTO) 0.8 K/uL (0.60-3.4); LYMPHOCYTES % (AUTO) 7.4 (10.0-50.0); MEAN CORPUSCULAR HEMOGLOBIN 34.4 pg (27.0-31.0); MEAN CORPUSCULAR HGB CONC 33.4 (31.8-35.4); MONOCYTES # (AUTO) 0.2 K/uL (0.4-2.0); MONOCYTES % (AUTO) 1.6 (0-10); NEUTROPHILS # (AUTO) 9.3 K/ul (2.0-6.9); NEUTROPHILS % (AUTO) 89.1; PLATELET COUNT 193 10^3/uL (140-440); RED BLOOD COUNT 3.69 10^6/ul (4.20-5.40); WHITE BLOOD COUNT 10.46 K/ul (4.6-10.2)
[2016-06-25] MEDS: SYNTHROID PO SCH (05:44)
[2016-06-25] MEDS: SOLU-MEDROL 125 MG IVP SCH (05:45)
[2016-06-25 06:05] LABS: ALBUMIN 2.9 g/dL (3.4-5.0); ALBUMIN/GLOBULIN RATIO 0.83; ANION GAP 12.3; BILIRUBIN,TOTAL 0.3 mg/dL (0.00-1.20); BUN/CREATININE RATIO 26.82; CALCIUM 8.7 mg/dL (8.2-10.2); CREATININE 0.82 mg/dL (0.60-1.30); POTASSIUM 4.3 mmol/L (3.5-5.10); TOTAL PROTEIN 6.4 g/dL (5.8-8.1)
[2016-06-25] MEDS: HUMULIN R SUBCUT PRN ×4 (06:29→20:49)
[2016-06-25] MEDS ORDERED: LASIX IVP STA (08:28)
[2016-06-25] MEDS ORDERED: SYNTHROID PO SCH (08:29)
[2016-06-25] MEDS: ALTACE PO SCH (08:58)
[2016-06-25] MEDS: ROCEPHIN 1 GM in SODIUM CHLORIDE 50 ML IV SCH (08:58)
[2016-06-25] MEDS: CARDIZEM PO SCH ×2 (08:59→20:50)
[2016-06-25] MEDS: PROZAC PO SCH ×2 (08:59)
[2016-06-25] MEDS: ASPIRIN CHEWABLE PO SCH (08:59)
[2016-06-25] MEDS: GLUCOPHAGE PO SCH ×2 (08:59→16:30)
[2016-06-25] MEDS: VALIUM PO SCH ×2 (08:59→20:50)
[2016-06-25] MEDS: JANUVIA PO SCH (08:59)
[2016-06-25] MEDS: RISPERDAL PO SCH ×2 (09:00→20:50)
[2016-06-25] MEDS: LOPRESSOR PO SCH ×2 (09:00→20:50)
[2016-06-25] MEDS: NICODERM 21 MG TD SCH (09:00)
[2016-06-25] MEDS: SODIUM CHLORIDE 1,000 ML IV SCH (10:01)
--- NOTE | 2016-06-25 10:58 | PN ---
DATE OF SERVICE: 06/24/16 SUBJECTIVE: The patient is a 71 year old white female hospitalized with acute bronchitis and severe COPD. The patient had bilateral wheezing. At present time she is sitting in the chair and trying to eat her breakfast and she doesn't have any wheezing anymore. She is feeling better and she is able to talk in full sentences. REVIEW OF SYSTEMS: CONSTITUTIONAL: No night sweats. No fatigue, malaise, lethargy. No fever or chills. HEENT: Eyes: No visual changes. No eye pain. No eye discharge. ENT: No runny nose. No epistaxis. No sinus pain. No sore throat. No odynophagia. No congestion. RESPIRATORY: Mild cough, no congestion. No hemoptysis. No wheezing heard. CARDIOVASCULAR: No angina symptoms. No CHF symptoms. No atypical chest pain for CAD. No palpitations. No shortness of breath.No. PND. No Orthopnea. GASTROINTESTINAL: No abdominal pain. No nausea or vomiting. No diarrhea or constipation. No hematemesis. No hematochezia. Appetite has improved. GENITOURINARY: No urgency. No frequency. No dysuria. No hematuria. No obstructive symptoms. No discharge. No pain. No significant abnormal bleeding. MUSCULOSKELETAL: No musculoskeletal pain; no joint swelling. NEUROLOGICAL: No headache. No neck pain. No syncope. No seizures. No dizziness. PSYCHIATRIC: Not anxious. No depression. No suicidal thoughts. No homicidal thoughts. SKIN: No rash. No lesions. No wounds. ENDOCRINE: No unexplained weight loss. No weight gain. HEMATOLOGIC/LYMPHATIC: No anemia. No purpura. No petechiae. No prolonged or excessive bleeding. No palpable lymph nodes. PHYSICAL EXAMINATION: GENERAL: The patient is oriented to time, place and person. VITAL SIGNS: Temperature 97.6, pulse 90, respiratory rate 24, blood pressure 134/67 and pulse ox 91%. HEENT: Head normocephalic, atraumatic. Eyes: Extraocular muscles are intact. Pupils are equal, round and reactive to light and accommodation. Ears: No lesions. Nose appeared normal. Throat: No exudate or erythema. NECK: Supple. No JVD, no carotid bruit. No lymphadenopathy or thyromegaly. LUNGS: Decreased breath sounds but clear to auscultation. Percussion note normal. Chest symmetrical. HEART: S1, S2, no S3. No murmurs. No cyanosis or clubbing. No ascites. Pulses: Dorsalis pedis and posterior tibial pulses +1 to +2 both sides. ABDOMEN: Soft. Nontender. Bowel sounds active. No CVA tenderness. No mass felt. EXTREMITIES: No edema. Full range of motion of all extremities, equal. NEUROLOGIC: No focal deficit. Cranial nerves II through XII are grossly intact. No headache, no double vision or headache. SKIN: Not dry. Intact. Turgor - normal. LYMPHATIC: No palpable lymph nodes/no lymphedema. MUSCULOSKELETAL: Normal joints with no swelling. Muscle tone is normal. LABS: hgb 12.6, hct 36, WBC 13,000 normal differential, creatinine 0.8, BUN 24, potassium 4.6, glucose 191, T4 TSH normal and BNP 338. ASSESSMENT: 1. Acute respiratory failure 2. Acute bronchitis 3. COPD seems to have been brought under control with IV steroids, IV antibiotics. PLAN: 1. The patient's pulse is down and the blood pressure is under control. The patient is on Cardizem 60mg twice a day. 2. Side of effects of steroids discussed including avascular necrosis of femoral head, cataract and osteoporosis. CONDITION: Stable TIME SPENT: More than 30 minutes. Plan and coordination of the patient's care discussed in the presence of nurse. TY
--- NOTE | 2016-06-25 11:45 | DI ---
EXAM: Single AP view of the chest HISTORY: Chest congestion. COMPARISON: Chest x-ray 06/23/2016 FINDINGS: Cardiomediastinal silhouette is unchanged with stable lead wires. There is no pneumothora x or pleural effusion. There are linear opacities in the left lung base which are relatively unchan ged from prior exam. There is no new or acute consolidation. The osseous structures are unremarkab le. IMPRESSION: 1. Linear opacities in the left lung base likely represent atelectasis versus fibrosis. 2. Stable cardiomediastinal silhouette and lead wires.
[2016-06-25] MEDS: PREDNISONE PO SCH ×2 (12:10→16:31)
[2016-06-25] MEDS: NORCO 5-325 PO PRN (14:49)
[2016-06-25] MEDS: REQUIP PO SCH (20:50)
[2016-06-25] MEDS: PRAVACHOL PO SCH (20:50)
[2016-06-25] MEDS: AMBIEN PO SCH (20:50)
[2016-06-25] MEDS: NON-FORMULARY MEDICATION (Doxepin Hcl [Silenor] 3 MG) PO SCH (22:41)
[2016-06-26] MEDS: XOPENEX 1.25 MG NEB SCH ×2 (05:06→11:06)
[2016-06-26 05:23] LABS: BASOPHILS % (AUTO) 0.3 % (0.0-3.0); HEMATOCRIT 37.7 % (37.0-47.0); HEMOGLOBIN 12.8 g/dl (12.0-16.0); IMMATURE GRANULOCYTE % (AUTO) 1.4 % (0.0-5.0); LYMPHOCYTES # (AUTO) 1.1 K/uL (0.60-3.4); LYMPHOCYTES % (AUTO) 9.9 (10.0-50.0); MEAN CORPUSCULAR HEMOGLOBIN 34.6 pg (27.0-31.0); MEAN CORPUSCULAR VOLUME 101.9 fl (81.0-99.0); MONOCYTES # (AUTO) 0.7 K/uL (0.4-2.0); MONOCYTES % (AUTO) 6.6 (0-10); NEUTROPHILS # (AUTO) 9.1 K/ul (2.0-6.9); NEUTROPHILS % (AUTO) 81.8; PLATELET COUNT 199 10^3/uL (140-440); WHITE BLOOD COUNT 11.11 K/ul (4.6-10.2)
[2016-06-26 05:41] LABS: ALBUMIN 2.7 g/dL (3.4-5.0); ALBUMIN/GLOBULIN RATIO 0.82; ANION GAP 12.8; BILIRUBIN,TOTAL 0.35 mg/dL (0.00-1.20); BUN/CREATININE RATIO 27.5; CALCIUM 8.7 mg/dL (8.2-10.2); CREATININE 0.8 mg/dL (0.60-1.30); POTASSIUM 3.8 mmol/L (3.5-5.10)
[2016-06-26 05:51] VITALS: BP 150/77; TEMP 97.8
[2016-06-26] MEDS ORDERED: SYNTHROID PO SCH (06:30)
[2016-06-26] MEDS: ROCEPHIN 1 GM in SODIUM CHLORIDE 50 ML IV SCH (08:37)
[2016-06-26] MEDS: NICODERM 21 MG TD SCH (08:37)
[2016-06-26] MEDS: ALTACE PO SCH (08:37)
[2016-06-26] MEDS: ASPIRIN CHEWABLE PO SCH (08:38)
[2016-06-26] MEDS: GLUCOPHAGE PO SCH (08:38)
[2016-06-26] MEDS: VALIUM PO SCH (08:38)
[2016-06-26] MEDS: PROZAC PO SCH ×2 (08:38→08:39)
[2016-06-26] MEDS: JANUVIA PO SCH (08:38)
[2016-06-26] MEDS: LOPRESSOR PO SCH (08:38)
[2016-06-26] MEDS: CARDIZEM PO SCH (08:38)
[2016-06-26] MEDS: PREDNISONE PO SCH ×2 (08:39→11:38)
[2016-06-26] MEDS: RISPERDAL PO SCH (08:39)
[2016-06-26] MEDS: NORCO 5-325 PO PRN (08:39)
--- NOTE | 2016-06-26 09:36 | PN ---
DATE OF SERVICE: 06/25/16 SUBJECTIVE: The patient is a 71 year old white female hospitalized with acute respiratory failure with acute bronchitis and chronic lungs disease. The patient's condition has steadily improved. She is feeling better and she wants to go home. The patient would benefit from using a nebulizer four times a day. This was discussed with the patient by doctor and case management. The usage and care of the nebulizer was discussed with the patient by embedded case manager and arrangements will be set up for deliver of equipment for tomorrow's discharge. REVIEW OF SYSTEMS: CONSTITUTIONAL: No night sweats. No fatigue, malaise, lethargy. No fever or chills. HEENT: Eyes: No visual changes. No eye pain. No eye discharge. ENT: No runny nose. No epistaxis. No sinus pain. No sore throat. No odynophagia. No congestion. RESPIRATORY: Mild cough, no congestion. No hemoptysis. CARDIOVASCULAR: No angina symptoms. No CHF symptoms. No atypical chest pain for CAD. No palpitations. Less shortness of breath. No PND. No Orthopnea. GASTROINTESTINAL: No abdominal pain. No nausea or vomiting. No diarrhea or constipation. No hematemesis. No hematochezia. GENITOURINARY: No urgency. No frequency. No dysuria. No hematuria. No obstructive symptoms. No discharge. No pain. No significant abnormal bleeding. MUSCULOSKELETAL: No musculoskeletal pain; no joint swelling. NEUROLOGICAL: No headache. No neck pain. No syncope. No seizures. No dizziness. PSYCHIATRIC: Not anxious. No depression. No suicidal thoughts. No homicidal thoughts. SKIN: No rash. No lesions. No wounds. ENDOCRINE: No unexplained weight loss. No weight gain. HEMATOLOGIC/LYMPHATIC: No anemia. No purpura. No petechiae. No prolonged or excessive bleeding. No palpable lymph nodes. PHYSICAL EXAMINATION: GENERAL: The patient is oriented to time, place and person. VITAL SIGNS: Temperature 97.7, pulse 80, respiratory rate 24, blood pressure 154/80 and pulse ox 98% HEENT: Head normocephalic, atraumatic. Eyes: Extraocular muscles are intact. Pupils are equal, round and reactive to light and accommodation. Ears: No lesions. Nose appeared normal. Throat: No exudate or erythema. NECK: Supple. No JVD, no carotid bruit. No lymphadenopathy or thyromegaly. LUNGS: Decreased breath sounds with mild wheeze but good air entry. Percussion note normal. Chest symmetrical. HEART: S1, S2, no S3. No murmurs. No cyanosis or clubbing. No ascites. Pulses: Dorsalis pedis and posterior tibial pulses +1 to +2 both sides. ABDOMEN: Soft. Nontender. Bowel sounds active. No CVA tenderness. No mass felt. EXTREMITIES: No edema. Full range of motion of all extremities, equal. NEUROLOGIC: No focal deficit. Cranial nerves II through XII are grossly intact. No headache, no double vision or headache. SKIN: Not dry. Intact. Turgor - normal. LYMPHATIC: No palpable lymph nodes/no lymphedema. MUSCULOSKELETAL: Normal joints with no swelling. Muscle tone is normal. LABS: Hgb 12.7, hct 38, WBC 10,400 normal differential, creatinine 0.8, BUN 22, potassium 4.3, glucose 191, BNP 338 on 06/21/16, T4 TSH level high so patient's dose of Synthroid was decreased to 50mcg from 75mg. ASSESSMENT: 1. Acute respiratory failure 2. Acute bronchitis 3. Chronic lungs disease PLAN: 1. Discontinue The Solu-Medrol 2. begin Prednisone 10mg PO three times a day 3. Discontinue IV fluids 4. Give Lasix 20mg IC x1 dose only 5. CXR and BNP CONDITION: Stable TIME SPENT: More than 30 minutes. Plan and coordination of the patient's care discussed in the presence of nurse. APRILD
--- NOTE | 2016-06-26 12:05 | ECHO2D ---
Date of Exam: 06/23/16 Ordering Physician: ROSALINO GRAY Reason for Echo: RESPIRATORY FAILURE, PACEMAKER, CHF M-Mode Normal Adult Results LV Dimensions Normal Adult Results AoV Opening excursions >1.6 >1.8 LVEDD-base- 3.5-5.8 4.6 Ao root dimensions 2.0-3.7 3.4 LVESD-base- 3.1-4.6 L. Atrium dimensions 1.9-3.8 4.1 Post. Wall thickness 0.8-1.1 1.2 IV septum (thickness) 0.7-1.2 1.3 Post. Wall excursion 0.72-1.3 NORMAL Septal motion NORMAL Systolic motion R. Ventricular cavity 1.5-2.0 NORMAL LVEF 60% 56% Paradoxical septal wall motion NORMAL 2-D : NORMAL VALVES--NORMAL LEFT VENTRICULAR CONTRACTILITY--NO EFFUSION, NO THROMBUS, ENLARGED LEFT ATRIAL CAVITY--NORMAL LEFT VENTRICLE CAVITY SIZE M-MODE: MV: NORMAL AV: NORMAL TV: NORMAL PV: CHAMBER SIZE: ENLARGED LEFT ATRIAL CAVITY WALL MOTION: NORMAL PERICARDIUM: NORMAL INTERPRETATION: 1. LEFT VENTRICULAR HYPERTROPHY WITH ENLARGED LEFT ATRIAL CAVITY 2. NORMAL LEFT VENTRICULAR CONTRACTILITY 3. NORMAL VALVES MTDD
--- NOTE | 2016-06-26 15:48 | CM.DICTOOL ---
ADMISSION: 06/21/16 17:16 DISCHARGE: 06/26/16 DATE OF SERVICE: 06/26/16 FINAL DIAGNOSIS COPD EXACERBATION, ACUTE ACUTE RESPIRATORY FAILURE HYPERTENSION DM, TYPE 2 DYSLIPIDEMIA CAD DEPRESSION/ANXIETY GASTRIC SLEEVE SURGERY CHOLECYSTECTOMY LAST VITALS Temp Pulse Resp BP Pulse Ox 97.8 F 96 H 22 150/77 H 95 06/26/16 05:49 06/26/16 05:49 06/26/16 05:49 06/26/16 05:49 06/26/16 05:49 ACTIVE MEDICATIONS Acetaminophen/Hydrocodone Bitart ([place] 5-325) 1 tab PO BID PRN PRN Reason: Mild Pain Last Admin: 06/26/16 08:39 Dose: 1 tab Aspirin (Aspirin Chewable) 81 mg PO DAILYWM [facility] Last Admin: 06/26/16 08:38 Dose: 81 mg Diazepam (Valium) 2 mg PO BID [facility] Last Admin: 06/26/16 08:38 Dose: 2 mg Diltiazem HCl (Cardizem) 60 mg PO Q12HR [facility] (NEWLY ADDED) Last Admin: 06/26/16 08:38 Dose: 60 mg Fluoxetine HCl (Prozac) 30 mg PO DAILY [facility] Last Admin: 06/26/16 08:39 Dose: 10 mg Levothyroxine Sodium (Synthroid) 50 mcg PO QDAC [facility] (WAS 75 MCG) Last Admin: 06/26/16 05:48 Dose: 50 mcg Metformin HCl (Glucophage) 500 mg PO BIDWM [facility] Last Admin: 06/26/16 08:38 Dose: 500 mg Metoprolol Tartrate (Lopressor) 100 mg PO BID [facility] Last Admin: 06/26/16 08:38 Dose: 100 mg Doxepin Hcl [Silenor] 3 mg PO BEDTIME [facility] Last Admin: 06/25/16 22:41 Dose: Not Given Pravastatin Sodium (Pravachol) 40 mg PO BEDTIME [facility] Last Admin: 06/25/16 20:50 Dose: 40 mg Prednisone (Prednisone) 10 mg PO TAPER [facility] (NEW RX) Last Admin: 06/26/16 11:38 Dose: 10 mg Ramipril (Altace) 20 mg PO DAILY [facility] (WAS 10 MG) Last Admin: 06/26/16 08:37 Dose: 20 mg Risperidone (Risperdal) 0.25 mg PO BID [facility] Last Admin: 06/26/16 08:39 Dose: 0.25 mg Ropinirole HCl (Requip) 2 mg PO BEDTIME [facility] Last Admin: 06/25/16 20:50 Dose: 2 mg Sitagliptin Phosphate (Januvia) 100 mg PO DAILY [facility] Last Admin: 06/26/16 08:38 Dose: 100 mg Zolpidem Tartrate (Ambien) 5 mg PO BEDTIME [facility] Last Admin: 06/25/16 20:50 Dose: 5 mg AMLODIPINE 10 MG PO DAILY WAS DISCONTINUED DURING THE HOSPITAL STAY DENOTES MEDICATION CHANGES OR NEW MEDICATIONS ADDED DURING THIS STAY THAT WILL BE CONTINUED AFTER DISCHARGE ALLERGIES No Known Allergies Allergy (Unverified 06/21/16 13:56) NEW PRESCRIPTIONS: 1) KEFLEX 500 MG, TAKE ONE TABLET BY MOUTH EVERY 8 HOURS FOR 5 (FIVE) DAYS 2) PREDNISONE 10 MG, TAKE ONE TABLET BY MOUTH THREE TIMES DAILY FOR 5 DAYS, THEN 10 MG TWICE DAILY FOR 5 DAYS, THEN 10 MG DAILY FOR 5 DAYS THEN STOP. TAKE THIS MEDICATION WITH FOOD 3) DUONEBS FOUR TIMES DAILY AND PRN (ONE MONTH PRESCRIPTION FOR [employer]) [facility] PATIENT WILL REFILL 4) ZOLPIDEM TRTRATE (AMBIEN) 5 MG, TAKE ONE BY MOUTH AT BEDTIME PRN INSOMNIA 5) CARDIZEM 60 MG, TAKE ONE TABLET BY MOUTH EVERY 12 HOURS 6) LEVOTHYROXINE SODIUM (SYNTHROID) 50 MCG, TAKE ONE TABLET BY MOUTH EVERY MORNING 7) RAMIPRIL (ALTACE) 20 MG, TAKE ONE TABLET BY MOUTH DAILY SMOKING: SMOKING CESSATION TEACHING PROVIDED DURING THIS STAY AVOID SECONDHAND SMOKE DISEASE SPECIFIC EDUCATION: COPD NEBULIZER BREATHING TREATMENTS HOME MEDICATIONS NEW PRESCRIPTIONS FOLLOW UP LAB REVIEW: 06/26/16 05:18 06/26/16 05:18 06/26/16 05:18: WBC 11.11 H, RBC 3.70 L, Hgb 12.8, Hct 37.7, MCV 101.9 H, MCH 34.6 H, MCHC 34.0, RDW Coeff of Alisha 12.9, Plt Count 199, Immature Gran % (Auto) 1.4, Neut % (Auto) 81.8, Lymph % (Auto) 9.9 L, [place] % (Auto) 6.6, Eos % (Auto) 0.0, Baso % (Auto) 0.3, Immature Gran # (Auto) 0.2, Neut # 9.1 H, Lymph # 1.1, [place] # 0.7, Eos # 0.0, Baso # 0.0, Sodium 132 L, Potassium 3.8, Chloride 97 L, Carbon Dioxide 26, Anion Gap 12.8, BUN 22 H, Creatinine 0.80, Estimated GFR ( MDRD) 70.00, BUN/Creatinine Ratio 27.50, Glucose 145 H, Calcium 8.7, Total Bilirubin 0.35, AST 15, ALT 19, Alkaline Phosphatase 55, Total Protein 6.0, Albumin 2.7 L, Globulin 3.3, Albumin/Globulin Ratio 0.82 PLAN: DISCHARGE HOME TODAY. RETURN TO THE OFFICE TO SEE DR. GRAY IN 5-7 DAYS. PLEASE PHONE TO SCHEDULE YOUR APPOINTMENT ([phone]) [facility] PATIENT WILL CALL TO MAKE ARRANGEMENTS TO DELIVER YOUR NEBULIZER FOR BREATHING TREATMENTS PHONE # [phone] RESUME YOUR HOME MEDICATIONS PER LIST PROVIDED BY THE NURSING STAFF DO NOT TAKE YOUR AMLODIPINE BESYLATE (NORVASC) NOTE THE CHANGE IN SYNTHROID (LEVOTHYROXINE SODIUM) DOSE NOTE THE CHANGE IN ALTACE (RAMIPRIL) DOSE NEW PRESCRIPTIONS: 1) KEFLEX 500 MG, TAKE ONE TABLET BY MOUTH EVERY 8 HOURS FOR 5 (FIVE) DAYS 2) PREDNISONE 10 MG, TAKE ONE TABLET BY MOUTH THREE TIMES DAILY FOR 5 DAYS, THEN 10 MG TWICE DAILY FOR 5 DAYS, THEN 10 MG DAILY FOR 5 DAYS THEN STOP. TAKE THIS MEDICATION WITH FOOD 3) DUONEBS FOUR TIMES DAILY AND PRN (ONE MONTHS SUPPLY FROM [employer]) [facility] PATIENT WILL REFILL 4) ZOLPIDEM TRTRATE (AMBIEN) 5 MG, TAKE ONE BY MOUTH AT BEDTIME PRN INSOMNIA 5) CARDIZEM 60 MG, TAKE ONE TABLET BY MOUTH EVERY 12 HOURS 6) LEVOTHYROXINE SODIUM (SYNTHROID) 50 MCG, TAKE ONE TABLET BY MOUTH EVERY MORNING 7) RAMIPRIL (ALTACE) 20 MG, TAKE ONE TABLET BY MOUTH DAILY ACTIVITY: GET PLENTY OF REST AT HOME. GRADUALLY INCREASE YOUR ACTIVITY LEVEL ACCORDING TO YOUR TOLERATION DIET: HEALTHY HEART STAY WELL HYDRATED SUMMARY: THE PATIENT IS ALERT AND ORIENTED X3. SHE CURRENTLY RESIDES AT HOME WITH HER DAUGHTER AND SON-IN-LAW. SHE DESIRES TO RETURN THERE AT DISCHARGE. SHE HAS A ROLLING WALKER TO ASSIST WITH AMBULATING AND OXYGEN AT HOME. WE HAVE ARRANGED FOR A NEBULIZER FOR BREATHING TREATMENTS WELL. HER SKIN TURGOR IS INTACT. THE HYDRATION STATUS IS IMPROVED. THERE ARE NO DECUBITUS ULCERS AT DISCHARGE. THE PATIENT IS AFEBRILE AND HAS SHOWN CLINICAL IMPROVEMENT. SHE WILL BE DISCHARGED HOME TODAY. ROSALINO GRAY M.D.
--- NOTE | 2016-06-27 10:49 | PN ---
DATE OF SERVICE: 06/26/16 SUBJECTIVE: The patient is a 71 year old white female hospitalized with acute respiratory failure, acute bronchitis, severe chronic lung disease. She patient has continued to smoke. Hopefully she will quit smoking because her lung functions are poor. REVIEW OF SYSTEMS: CONSTITUTIONAL: No night sweats. No fatigue, malaise, lethargy. No fever or chills. Feeling a lot better and wants to go home. HEENT: Eyes: No visual changes. No eye pain. No eye discharge. ENT: No runny nose. No epistaxis. No sinus pain. No sore throat. No odynophagia. No congestion. RESPIRATORY: Still cough some, no congestion. No hemoptysis. No audible wheezing. CARDIOVASCULAR: No angina symptoms. No CHF symptoms. No atypical chest pain for CAD. No palpitations. No shortness of breath. No PND. No orthopnea. GASTROINTESTINAL: No abdominal pain. No nausea or vomiting. No diarrhea or constipation. No hematemesis. No hematochezia. GENITOURINARY: No urgency. No frequency. No dysuria. No hematuria. No obstructive symptoms. No discharge. No pain. No significant abnormal bleeding. MUSCULOSKELETAL: No musculoskeletal pain; no joint swelling. NEUROLOGICAL: No headache. No neck pain. No syncope. No seizures. No dizziness. PSYCHIATRIC: Not anxious. No depression. No suicidal thoughts. No homicidal thoughts. SKIN: No rash. No lesions. No wounds. ENDOCRINE: No unexplained weight loss. No weight gain. HEMATOLOGIC/LYMPHATIC: No anemia. No purpura. No petechiae. No prolonged or excessive bleeding. No palpable lymph nodes. PHYSICAL EXAMINATION: GENERAL: The patient is oriented to time, place and person. VITAL SIGNS: Temperature 97.8, pulse 96, respiratory rate 22, blood pressure 150/77 and pulse ox 95%. HEENT: Head normocephalic, atraumatic. Eyes: Extraocular muscles are intact. Pupils are equal, round and reactive to light and accommodation. Ears: No lesions. Nose appeared normal. Throat: No exudate or erythema. NECK: Supple. No JVD, no carotid bruit. No lymphadenopathy or thyromegaly. LUNGS: Decreased breath sounds with mild wheeze. Percussion note normal. Chest symmetrical. HEART: S1, S2, no S3. No murmurs. No cyanosis or clubbing. No ascites. Pulses: Dorsalis pedis and posterior tibial pulses +1 to +2 both sides. ABDOMEN: Soft. Nontender. Bowel sounds active. No CVA tenderness. No mass felt. EXTREMITIES: No edema. Full range of motion of all extremities, equal. NEUROLOGIC: No focal deficit. Cranial nerves II through XII are grossly intact. No headache, no double vision or headache. SKIN: Not dry. Intact. Turgor - normal. LYMPHATIC: No palpable lymph nodes/no lymphedema. MUSCULOSKELETAL: Normal joints with no swelling. Muscle tone is normal. LABS: Hgb 12.8, hct 37, WBC 11,000 normal differential, creatinine 0.8, BUN 22, potassium 3.8 and glucose 145. ASSESSMENT: 1. Acute respiratory failure, resolved 2. Chronic lung disease 3. Smoking 4. Hypertension 5. Diabetes Mellitus 6. BMI of 30 PLAN : 1. Discharge the patient home on Keflex and Prednisone 2. NEBS treatment to be started as patient is not on NEBS 3. The patient's BMI is 30, counseling done for weight loss TIME SPENT: More than 30 minutes. Plan and coordination of the patient's care discussed in the presence of nurse. TY
--- NOTE | 2016-06-27 11:16 | DS ---
DATE OF SERVICE: 06/26/16 FINAL DIAGNOSIS: 1. GAS TESTER exacerbation, acute 2. Acute respiratory failure 3. Hypertension 4. Diabetes Mellitus, type 2 5. Dyslipidemia 6. Coronary artery disease 7. Depression/ anxiety 8. Gastric sleeve surgery 9. Cholecystectomy LAST VITALS: Temperature 97.8, pulse 96, respiratory 22, blood pressure 150/77 and pulse ox 95%. DISCHARGE INSTRUCTIONS: Discharge home today. Return to the office to see Dr. Mckeon in 5-7 days. [facility] will call to make arrangements to deliver nebulizer for breathing treatments. Resume home medications as per list provided by nursing staff. Do not take Amlodipine Besylate. Note the change in Synthroid dose. Not the change in Altace dose. Counseling for smoking done. The patient hasn't smoked ever since she has been in the hospital. The daughter was present for few days and she says that she will not buy anymore cigarettes for her. MEDICATIONS AT DISCHARGE: [place] 5-325 PO twice a day PRN Aspirin 81mg PO daily Valium 2mg PO twice a day Cardizem 60mg PO Q 12 hours Prozac 30mg PO daily Synthroid 50mcg Po QDAC Glucophage 500mg PO twice a day Lopressor 100mg PO twice a day Silenor 3mg PO bedtime Pravachol 40mg PO bedtime Prednisone 10mg PO Taper Altace 20mg PO daily Risperdal 2mg PO bedtime Januvia 100mg PO daily Ambien 5mg PO bedtime Amlodipine discontinued during hospital stay ALLERGIES: No known allergies NEW PRESCRIPTIONS: Keflex 500mg Take one tablet by mouth every 8 hours for 5 days Prednisone 10mg take one tablet by mouth three times daily for 5 days, then 10mg twice daily for 5 days, then 10mg daily for 5 days then stop. Take this medication with food DUONEBS four times daily and PRN (one Month prescription for [facility]) [facility] will refill Ambien 5mg take one by mouth at bedtime PRN insomnia Cardizem 60mg take one tablet by mouth every 12 hours Synthroid 50mcg take one tablet by mouth every morning Altace 20mg take one tablet by mouth daily. DIET INSTRUCTIONS: Healthy heart Stay well hydrated. ACTIVITY: Get plenty of rest at home. Gradually increase your activity level according to toleration. SMOKING: Smoking Cessation teaching provided during this stay Avoid secondhand smoke DISEASE SPECIFIC EDUCATION: COPD Nebulizer breathing treatment Home medications New prescriptions Follow up HOSPITAL COURSE: The patient is a 71 year old white female hospitalized with acute respiratory failure, acute bronchitis and chronic lung disease. The patient was treated with IV steroids, IV antibiotics Zithromax and Rocephin. The patient's condition improved and she was also given NEBS and oxygen. The patient's oxygen saturation on room air was more than 90%. The Synthroid dose was decreased to 50mg as her T4 level was slightly elevated. The patient is strongly advised to lose weight. She has BMI of 30. Also counseling for smoking done. Side effects of Prednisone discussed like avascular necrosis of the femoral bone and osteoporosis. The patient was able to transfer as she hasn't been as active.at home. TIME SPENT: More than 60 minutes. TY
--- NOTE | 2016-06-27 11:21 | PN ---
06/21/16: Level 5 06/22/16: Intermediate 06/23/16: Intermediate 06/24/16: Intermediate 06/25/16: Intermediate 06/26/16: D as in discharged. MTDD
== END 2016-06-26 16:00 | disposition home or self-care (01) | DRG 190 ==
LOC: ED 13:47 → MEDSURG B 17:16
PROVIDERS: ADMIT Internal Medicine; ATTEND Internal Medicine
DX: J44.0 Chronic obstructive pulmonary disease with (acute) lower respiratory infection (principal); J96.00 Acute respiratory failure, unspecified whether with hypoxia or hypercapnia; E87.1 Hypo-osmolality and hyponatremia; J90 Pleural effusion, not elsewhere classified; J20.9 Acute bronchitis, unspecified; J44.1 Chronic obstructive pulmonary disease with (acute) exacerbation; I10 Essential (primary) hypertension; E11.9 Type 2 diabetes mellitus without complications; F32.9 Major depressive disorder, single episode, unspecified; E03.9 Hypothyroidism, unspecified; I51.7 Cardiomegaly; F17.210 Nicotine dependence, cigarettes, uncomplicated; R05 Cough; Z68.30 Body mass index [BMI] 30.0-30.9, adult; Z79.899 Other long term (current) drug therapy; Z79.84 Long term (current) use of oral hypoglycemic drugs; Z95.0 Presence of cardiac pacemaker
CPT/HCPCS: 36415; 80053; 82550; 82803; 82962; 83605; 83880; 84439; 84443; 84484; 85025; 87040; 87651; 87804; 87880; 93005; 93010; 94640; 96365; 96375; 99284

== ENCOUNTER 2016-10-04 10:28 | Outpatient (CLI) ==
--- NOTE | 2016-10-04 11:36 | US ---
EXAM: Ultrasound venous Doppler bilateral lower extremity HISTORY: Bilateral leg pain and edema COMPARISON: None TECHNIQUE: Venous duplex ultrasound of the right and left lower extremity was performed using color , castle-scale, and Doppler flow imaging. FINDINGS: There is normal color flow and castle scale appearance of the right and left common femoral , greater saphenous, profunda femoral, femoral, popliteal, peroneal, posterior tibial, and (left) an terior tibial veins without evidence of intraluminal thrombus. Compression and augmentation is norm al. Right anterior tibial veins not visualized. Left lower extremity subcutaneous edema. IMPRESSION: No right or left lower extremity deep venous thrombosis at the visualized levels.
--- NOTE | 2016-10-04 11:44 | DI ---
EXAM: Chest two views HISTORY: Shortness of breath, smoking COMPARISON: 06/25/2016 TECHNIQUE: Two views of the chest were performed FINDINGS: Left-sided cardiac pacer. Left basilar subsegmental atelectasis and/or scarring, unchang ed. No airspace consolidation There is no pleural effusion or pneumothorax. The heart is normal i n size. The mediastinal contour is unchanged, noting atherosclerosis. There are no acute abnormali ties of the bones. Mild chronic compression deformity T12. IMPRESSION: No acute cardiopulmonary process.
== END 2016-10-04 10:29 | disposition home or self-care (01) ==
LOC: RAD 10:28
PROVIDERS: ATTEND Internal Medicine
DX: R06.02 Shortness of breath (principal); R60.0 Localized edema; M79.605 Pain in left leg; M79.604 Pain in right leg; F17.210 Nicotine dependence, cigarettes, uncomplicated

== ENCOUNTER 2016-12-18 06:16 | Inpatient (IN) ==
[2016-12-18] MEDS ORDERED: SODIUM CHLORIDE 1,000 ML IV STA (06:35)
[2016-12-18] MEDS ORDERED: ZOFRAN 4 MG/2 ML IVP STA (06:36)
--- NOTE | 2016-12-18 06:42 | ED.PDOC ---
General Stated Complaint: shes got uri symptoms with nausea Time Seen by Physician: 06:41 Mode of Arrival: Wheelchair Information Source: Patient Exam Limitations: No limitations Nursing and Triage Documentation Reviewed and Agree: Yes <MACVANDANA - Last Filed: 12/18/16 06:43> <EMMA RAYGOZA - Last Filed: 12/18/16 10:13> ED Provider: Dr. EMMA RAYGOZA Chief Complaint: Respiratory Complaint Primary Care Provider: ROSALINO GRAY Respiratory Complaint Exam - Respiratory Complaint/Exam Onset/Duration: less than 24hrs Symptoms Are: Still present Timing: Constant Initial Severity: Mild Current Severity: Mild Location: Chest Character: Reports: Non-productive cough Aggravating: Reports: URI Alleviating: Reports: Spontaneous resolution Associated Signs and Symptoms: Reports: Fever, URI, Nasal congestion, Decreased oral intake. Denies: Rapid breathing, Dyspnea, Chills, Chest pain, Pleuritic chest pain, Wheezing, Hemoptysis, Dizziness, Calf pain, Calf swelling, Edema, Hoarseness, Sinus discomfort, Vomiting, Sore throat, Weight loss, Increased thirst, Increased appetite, Increased urination History of Healthcare-Acquired Pneumonia: No Pseudomonas Risk Factors: Reports: None Status Asthmaticus Risk Factors: Reports: None Home Oxygen Use: No Recent Stress Test: No Recent Echo/LV Function: No Current Antibiotic Use: No Current Asthma Medication Use: No Respiratory Distress: None Inadequate Respiratory Effort: No Dysphagia Present: No Stridor Present: No JVD Present: No Accessory Muscle Use: No Retractions: Not Present Diminished Breath Sounds: No Sinus Tenderness: None Grunting Respirations: No Kussmaul Respirations: No Differential Diagnoses: Pneumonia, Bronchitis Non-Traumatic Chest Pain Syncope: EKG Performed <MACVANDANA Last Filed: 12/18/16 06:43> Review of Systems - Review Of Systems Constitutional: Reports: No symptoms Eyes: Reports: No symptoms Ears, Nose, Mouth, Throat: Reports: No symptoms Respiratory: Reports: Cough Cardiac: Reports: No symptoms GI: Reports: Nausea : Reports: No symptoms Musculoskeletal: Reports: No symptoms Skin: Reports: No symptoms Neurological: Reports: No symptoms Endocrine: Reports: No symptoms Hematologic/Lymphatic: Reports: No symptoms All Other Systems: Reviewed and Negative <MACVANDANA - Last Filed: 12/18/16 06:43> Past Medical History - Past Medical History Previously Healthy: No Endocrine: Reports: Hypothyroid, Dyslipidemia Cardiovascular: Reports: Hypertension Respiratory: Reports: COPD Hematological: Reports: None Gastrointestinal: Reports: None Genitourinary: Reports: None Neuro/Psych: Reports: None Musculoskeletal: Reports: None Cancer: Reports: None Last Menstrual Period: hysterectomy - Surgical History General Surgical History: Reports: Unknown - Family History Family History: Reports: Unknown - Social History Smoking Status: Current every day smoker, Heavy tobacco smoker Hx Substance Use: No Alcohol Screening: Occasionally Lives: With family <VANDANA WATTS - Last Filed: 12/18/16 06:43> Physical Exam - Physical Exam Appearance: Well-appearing, No pain distress, Well-nourished Eyes: HOLGER ENT: Ears normal, Nose normal, Oropharynx normal Neck: Supple Respiratory: Airway patent, Breath sounds clear, Breath sounds equal, Respirations nonlabored Cardiovascular: RRR, Pulses normal, No rub, No murmur GI/: Soft, Nontender, No masses, Bowel sounds normal, No Organomegaly Musculoskeletal: Normal strength, ROM intact, No edema, No calf tenderness Skin: Warm Neurological: Sensation intact Psychiatric: Affect appropriate <VANDANA WATTS - Last Filed: 12/18/16 06:43> Physician Notification - Case Discussed Physician Notified: dr raygoza Time of Notification: 07:00 <VANDANA WATTS - Last Filed: 12/18/16 06:43> Critical Care Note - Critical Care Note Total Time (mins): 0 <EMMA RAYGOZA - Last Filed: 12/18/16 10:13> Course - Course Hematology/Chemistry: 12/18/16 07:00 12/18/16 07:00 <EMMA RAYGOZA - Last Filed: 12/18/16 10:13> - Course Orders, Labs, Meds: Lab Review 12/18/16 12/18/16 12/18/16 06:50 07:00 07:41 WBC 16.71 H RBC 4.35 Hgb 14.3 Hct 40.8 MCV 93.8 MCH 32.9 H MCHC 35.0 RDW Coeff of Alisha 14.8 Plt Count 252 Immature Gran % (Auto) 0.5 Neut % (Auto) 87.6 Lymph % (Auto) 6.5 L Coffey % (Auto) 4.8 Eos % (Auto) 0.4 Baso % (Auto) 0.2 Immature Gran # (Auto) 0.1 Neut # 14.6 H Lymph # 1.1 Coffey # 0.8 Eos # 0.1 Baso # 0.0 PT INR APTT D-Dimer (Manual) 1418.55 Puncture Site R rad O2 Saturation 82.0 L ABG pH 7.454 H ABG pCO2 47.2 H ABG pO2 45.0 L* ABG HCO3 33.1 H ABG Total CO2 35 H ABG Base Excess 9 H Mal Test + FiO2 % 21.0 Sodium 136 Potassium 3.2 L Chloride 94 L Carbon Dioxide 33 H Anion Gap 12.2 BUN 10 Creatinine 0.79 Estimated GFR (MDRD) 71.00 BUN/Creatinine Ratio 12.65 Glucose 154 H Calcium 8.9 Total Bilirubin 0.47 AST 30 ALT 23 Alkaline Phosphatase 53 Total Creatine Kinase 48 Troponin I 0.0130 B-Natriuretic Peptide 570 H Total Protein 6.9 Albumin 3.3 L Globulin 3.6 Albumin/Globulin Ratio 0.92 Amylase 82 Lipase 61 TSH 1.787 Free T4 1.32 H Urine Color Yellow Urine Clarity Clear Urine pH 7.0 Ur Specific [place] 1.020 Urine Protein 3+ Urine Glucose (UA) Negative Urine Ketones Negative Urine Blood Trace-lysed Urine Nitrite Negative Urine Bilirubin Negative Urine Urobilinogen 0.2 Ur Leukocyte Esterase Negative Urine Microscopic RBC 0-2 Urine Microscopic WBC 0-2 Ur Squamous Epith Cells 5-10 Ur Renal Epithelial Cell 0-2 Amorphous Sediment 1+ Urine Bacteria Trace Urine Mucus Trace Influenza A (Rapid) Negative Influenza B (Rapid) Negative 12/18/16 08:18 WBC RBC Hgb Hct MCV MCH MCHC RDW Coeff of Alisha Plt Count Immature Gran % (Auto) Neut % (Auto) Lymph % (Auto) Coffey % (Auto) Eos % (Auto) Baso % (Auto) Immature Gran # (Auto) Neut # Lymph # Coffey # Eos # Baso # PT 10.0 INR 0.97 APTT 23.0 L D-Dimer (Manual) Puncture Site O2 Saturation ABG pH ABG pCO2 ABG pO2 ABG HCO3 ABG Total CO2 ABG Base Excess Mal Test FiO2 % Sodium Potassium Chloride Carbon Dioxide Anion Gap BUN Creatinine Estimated GFR (MDRD) BUN/Creatinine Ratio Glucose Calcium Total Bilirubin AST ALT Alkaline Phosphatase Total Creatine Kinase Troponin I B-Natriuretic Peptide Total Protein Albumin Globulin Albumin/Globulin Ratio Amylase Lipase TSH Free T4 Urine Color Urine Clarity Urine pH Ur Specific [place] Urine Protein Urine Glucose (UA) Urine Ketones Urine Blood Urine Nitrite Urine Bilirubin Urine Urobilinogen Ur Leukocyte Esterase Urine Microscopic RBC Urine Microscopic WBC Ur Squamous Epith Cells Ur Renal Epithelial Cell Amorphous Sediment Urine Bacteria Urine Mucus Influenza A (Rapid) Influenza B (Rapid) Orders Category Date Time Status ADMIT PATIENT INPATIENT .TO [facility] (MONITORED BED) ADMISSION 12/18/16 10: 00 Ordered ABG DRAW REQUEST Stat CARDIO 12/18/16 06:35 Completed EKG-(ED ONLY) Stat CARDIO 12/18/16 06:34 Completed EKG-(ED ONLY) Stat CARDIO 12/18/16 08:18 Ordered EKG-(IP & OP ONLY) DAILY CARDIO 12/19/16 06:00 Ordered EKG-(IP & OP ONLY) DAILY CARDIO 12/20/16 06:00 Ordered EKG-(IP & OP ONLY) DAILY CARDIO 12/21/16 06:00 Ordered NEBULIZER TREATMENT Routine CARDIO 12/18/16 10:07 Ordered OXYGEN Routine CARDIO 12/18/16 10:01 Ordered ACTIVITY .Complete BR CARE 12/18/16 10:00 Ordered BLOOD GLUCOSE MONITORING ACCUCHECK Q6H CARE 12/18/16 10:05 Ordered GIVE HS SNACK 2100 CARE 12/18/16 10:05 Ordered INTAKE & OUTPUT Q8HR CARE 12/18/16 10:05 Ordered NPO REMINDER: IMAGING ONCE CARE 12/18/16 08:14 Active TELEMETRY MONITORING TELE CARE 12/18/16 10:01 Ordered VITAL SIGNS Q8HR CARE 12/18/16 10:00 Ordered ADA 1800 IVON. DIET DIETARY 12/18/16 Lunch Ordered HS SNACK DIETARY 12/18/16 Dinner Ordered REGULAR DIET DIETARY 12/18/16 Lunch Ordered [employer] [ED DIRECTOR PRODUCT MANAGEMENT APPLIED] .ONCE EMERGENCY 12/18/16 06:54 Active IV [ED IV/MEDIPORT/POWERPORT] .ONCE EMERGENCY 12/18/16 06:35 Active ABG Stat LAB 12/18/16 06:50 Completed AMYLASE Stat LAB 12/18/16 07:00 Completed BLOOD CULTURE Stat LAB 12/18/16 07:00 Received BNP [B-TYPE NATRIURETIC PEPTIDE] Stat LAB 12/18/16 07:00 Completed CBC W/ AUTO DIFF DAILY@0600 LAB 12/19/16 06:00 Ordered CBC W/ AUTO DIFF DAILY@0600 LAB 12/20/16 06:00 Ordered CBC W/ AUTO DIFF DAILY@0600 LAB 12/21/16 06:00 Ordered CBC W/ AUTO DIFF DAILY@0600 LAB 12/22/16 06:00 Ordered CBC W/ AUTO DIFF DAILY@0600 LAB 12/23/16 06:00 Ordered CBC W/ AUTO DIFF DAILY@0600 LAB 12/24/16 06:00 Ordered CBC W/ AUTO DIFF DAILY@0600 LAB 12/25/16 06:00 Ordered CBC W/ AUTO DIFF DAILY@0600 LAB 12/26/16 06:00 Ordered CBC W/ AUTO DIFF DAILY@0600 LAB 12/27/16 06:00 Ordered CBC W/ AUTO DIFF DAILY@0600 LAB 12/28/16 06:00 Ordered CBC W/ AUTO DIFF DAILY@0600 LAB 12/29/16 06:00 Ordered CBC W/ AUTO DIFF DAILY@0600 LAB 12/30/16 06:00 Ordered CBC W/ AUTO DIFF DAILY@0600 LAB 12/31/16 06:00 Ordered CBC W/ AUTO DIFF DAILY@0600 LAB 01/01/17 06:00 Ordered CBC W/ AUTO DIFF DAILY@0600 LAB 01/02/17 06:00 Ordered CBC W/ AUTO DIFF DAILY@0600 LAB 01/03/17 06:00 Ordered CBC W/ AUTO DIFF DAILY@0600 LAB 01/04/17 06:00 Ordered CBC W/ AUTO DIFF DAILY@0600 LAB 01/05/17 06:00 Ordered CBC W/ AUTO DIFF DAILY@0600 LAB 01/06/17 06:00 Ordered CBC W/ AUTO DIFF DAILY@0600 LAB 01/07/17 06:00 Ordered CBC W/ AUTO DIFF Stat LAB 12/18/16 07:00 Completed COMPREHENSIVE METABOLIC PANEL DAILY@0600 LAB 12/19/16 06:00 Ordered COMPREHENSIVE METABOLIC PANEL DAILY@0600 LAB 12/20/16 06:00 Ordered COMPREHENSIVE METABOLIC PANEL DAILY@0600 LAB 12/21/16 06:00 Ordered COMPREHENSIVE METABOLIC PANEL DAILY@0600 LAB 12/22/16 06:00 Ordered COMPREHENSIVE METABOLIC PANEL DAILY@0600 LAB 12/23/16 06:00 Ordered COMPREHENSIVE METABOLIC PANEL DAILY@0600 LAB 12/24/16 06:00 Ordered COMPREHENSIVE METABOLIC PANEL DAILY@0600 LAB 12/25/16 06:00 Ordered COMPREHENSIVE METABOLIC PANEL DAILY@0600 LAB 12/26/16 06:00 Ordered COMPREHENSIVE METABOLIC PANEL DAILY@0600 LAB 12/27/16 06:00 Ordered COMPREHENSIVE METABOLIC PANEL DAILY@0600 LAB 12/28/16 06:00 Ordered COMPREHENSIVE METABOLIC PANEL DAILY@0600 LAB 12/29/16 06:00 Ordered COMPREHENSIVE METABOLIC PANEL DAILY@0600 LAB 12/30/16 06:00 Ordered COMPREHENSIVE METABOLIC PANEL DAILY@0600 LAB 12/31/16 06:00 Ordered COMPREHENSIVE METABOLIC PANEL DAILY@0600 LAB 01/01/17 06:00 Ordered COMPREHENSIVE METABOLIC PANEL DAILY@0600 LAB 01/02/17 06:00 Ordered COMPREHENSIVE METABOLIC PANEL DAILY@0600 LAB 01/03/17 06:00 Ordered COMPREHENSIVE METABOLIC PANEL DAILY@0600 LAB 01/04/17 06:00 Ordered COMPREHENSIVE METABOLIC PANEL DAILY@0600 LAB 01/05/17 06:00 Ordered COMPREHENSIVE METABOLIC PANEL DAILY@0600 LAB 01/06/17 06:00 Ordered COMPREHENSIVE METABOLIC PANEL DAILY@0600 LAB 01/07/17 06:00 Ordered COMPREHENSIVE METABOLIC PANEL Stat LAB 12/18/16 07:00 Completed CREATINE KINASE Q8H LAB 12/18/16 16:15 Ordered CREATINE KINASE Q8H LAB 12/19/16 00:15 Ordered CREATINE KINASE Stat LAB 12/18/16 07:00 Completed D-DIMER Stat LAB 12/18/16 07:00 Completed FREE T4 (FREE THYROXINE) Stat LAB 12/18/16 07:00 Completed LIPASE Stat LAB 12/18/16 07:00 Completed MOLECULAR GROUP A STREP Stat LAB 12/18/16 07:00 Results PARTIAL THROMBOPLASTIN TIME Stat LAB 12/18/16 08:18 Completed PT WITH INR Stat LAB 12/18/16 08:18 Completed RAPID FLU A/B Stat LAB 12/18/16 07:00 Completed STREP SCREEN Stat LAB 12/18/16 07:00 Results THYROID STIMULATING HORMONE Stat LAB 12/18/16 07:00 Completed TROPONIN I Q8H LAB 12/18/16 16:15 Ordered TROPONIN I Q8H LAB 12/19/16 00:15 Ordered TROPONIN I Stat LAB 12/18/16 07:00 Completed URINALYSIS C & S IF INDICATED Stat LAB 12/18/16 07:41 Completed 0.9 % Sodium Chloride [Saline Flush] MEDS 12/18/16 06:35 Active 1 syr IVF PRN PRN Amlodipine Besylate [Amlodipine Besylate] MEDS 12/19/16 09:00 Ordered 10 mg PO DAILY Aspirin [Aspirin Chewable] MEDS 12/19/16 08:00 Ordered 81 mg PO DAILYWM Aztreonam [Azactam] 1 gm MEDS 12/18/16 10:10 Ordered 0.9 % Sodium Chloride [Sodium Chloride] 50 ml IV ONCE Ceftriaxone Sodium [Rocephin] 1 gm MEDS 12/18/16 10:00 Ordered 0.9 % Sodium Chloride [Sodium Chloride] 50 ml IV DAILY Diazepam [Valium] MEDS 12/18/16 21:00 Ordered 2 mg PO BID Diltiazem HCl [Cardizem] MEDS 12/19/16 09:00 Ordered 60 mg PO DAILY Enoxaparin Sodium [Lovenox] MEDS 12/18/16 10:08 Stat 80 mg SUBCUT ONCE STA Insulin Regular, Human [Humulin R] MEDS 12/18/16 10:06 Ordered See Protocol SUBCUT PRN PRN Ipratropium/Albuterol Neb [Duoneb] MEDS 12/18/16 12:00 Ordered 1 vial NEB RTQ6H Levothyroxine Sodium [Synthroid] MEDS 12/19/16 06:30 Ordered 50 mcg PO QDAC Methylprednisolone Sod Succ/Pf [Solu-Medrol 125 mg] MEDS 12/18/16 10:08 Stat 125 mg IVP ONCE STA Metoprolol Tartrate [Metoprolol Tartrate] MEDS 12/18/16 21:00 Ordered 100 mg PO BID Ondansetron HCl/Pf [Zofran 4 mg/2 ml] MEDS 12/18/16 06:36 Discontinued 4 mg IVP ONCE STA Pravastatin Sodium [Pravachol] MEDS 12/18/16 21:00 Ordered 40 mg PO BEDTIME Ramipril [Ramipril] MEDS 12/19/16 09:00 Ordered 10 mg PO DAILY Ropinirole HCl [Requip] MEDS 12/18/16 21:00 Ordered 2 mg PO BEDTIME Sitagliptin Phosphate [Januvia] MEDS 12/19/16 09:00 Ordered 100 mg PO DAILY Sodium Chloride 0.9% [Sodium Chloride] 1,000 ml MEDS 12/18/16 06:35 Active IV 100 mls/hr Sodium Chloride 0.9% [Sodium Chloride] 1,000 ml MEDS 12/18/16 10:00 Ordered IV 75 mls/hr CHEST, 1V AP ONLY DAILY RADS 12/20/16 06:[address] ABDOMEN/PELVIS WO CONTRAST Stat RADS 12/18/16 06:[address] CHEST PE PROTOCOL Stat RADS 12/18/16 08:[address] CHEST W/O CONTRAST Stat RADS 12/18/16 06:36 Completed U/S VENOUS SCAN SARA LEGS Stat RADS 12/18/16 08:15 Ordered Medications Generic Name Dose Route Start Last Admin Trade Name Freq PRN Reason Stop Dose Admin Albuterol/Ipratropium 1 vial 12/18/16 12:00 Duoneb NEB RTQ6H TOM Aspirin 81 mg 12/19/16 08:00 Aspirin Chewable PO DAILYWM TOM Diazepam 2 mg 12/18/16 21:00 Valium PO BID TOM Diltiazem HCl 60 mg 12/19/16 09:00 Cardizem PO DAILY TOM Sodium Chloride 1,000 mls @ 100 mls/hr 12/18/16 06:35 12/18/16 07:25 Sodium Chloride IV 12/18/16 16:34 100 mls/hr .Q10H STA Administration Sodium Chloride 1,000 mls @ 75 mls/hr 12/18/16 10:00 Sodium Chloride IV .[id number] TOM Ceftriaxone Sodium 1 gm/ 50 mls @ 75 mls/hr 12/18/16 10:00 Sodium Chloride IV DAILY TOM Aztreonam 1 gm/ Sodium 50 mls @ 75 mls/hr 12/18/16 10:10 Chloride IV 12/18/16 10:49 ONCE STA Insulin Human Regular 0 unit 12/18/16 10:06 Humulin R SUBCUT PRN PRN Hyperglycemica Protocol Levothyroxine Sodium 50 mcg 12/19/16 06:30 Synthroid PO QDAC TOM Non-Formulary Medication 10 mg 12/19/16 09:00 Amlodipine Besylate [Amlodipine Besylate] PO DAILY TOM Non-Formulary Medication 100 mg 12/18/16 21:00 Metoprolol Tartrate [Metoprolol Tartrate] PO BID TOM Non-Formulary Medication 10 mg 12/19/16 09:00 Ramipril [Ramipril] PO DAILY TOM Non-Formulary Medication 2 mg 12/18/16 21:00 Ropinirole Hcl [Requip] PO BEDTIME TOM Non-Formulary Medication 100 mg 12/19/16 09:00 Sitagliptin Phosphate [Januvia] PO DAILY TOM Pravastatin Sodium 40 mg 12/18/16 21:00 Pravachol PO BEDTIME TOM Sodium Chloride 1 syr 12/18/16 06:35 12/18/16 07:24 Saline Flush IVF 1 syr PRN PRN Administration To flush IV Discontinued Medications Generic Name Dose Route Start Last Admin Trade Name Adri PRN Reason Stop Dose Admin Enoxaparin Sodium 80 mg 12/18/16 10:08 Lovenox SUBCUT 12/18/16 10:09 ONCE STA Methylprednisolone Sodium Succinate 125 mg 12/18/16 10:08 Solu-Medrol 125 Mg IVP 12/18/16 10:09 ONCE STA Ondansetron HCl 4 mg 12/18/16 06:36 12/18/16 07:26 Zofran 4 Mg/2 Ml IVP 12/18/16 06:37 4 mg ONCE STA Administration Vital Signs: Temp Pulse Resp BP Pulse Ox 12/18/16 06:22 97.3 F L 104 H 20 134/69 83 L Departure <CELSOVANDANA OVIEDO - Last Filed: 12/18/16 06:43> - Departure Time of Disposition: 10:11 (ADMITTED AFTER DISCUSSION OF LABS AND IMAGING BY PMD , PMD WOULD LIKE DOUBLE ANTIBIOTICS STEROIDS AND NEB'S ) Pt referred to PMD for follow-up: Yes (ADMITTED ) Disposition Discussed With: Patient <EMMA RAYGOZA - Last Filed: 12/18/16 10:13> - Departure Disposition: ADMITTED INPATIENT Discharge Problem: Pneumonia Qualifiers: Pneumonia type: due to unspecified organism Laterality: right Lung location: lower lobe of lung Qualifier Code: (J18.1) Lobar pneumonia, unspecified organism Condition: Good Additional Instructions: Please call your Family Physician as soon as possible to schedule a follow-up appointment. Allergies/Adverse Reactions: Allergies No Known Allergies Allergy (Verified 12/18/16 06:29) Home Medications: Ambulatory Orders Amlodipine Besylate 10 mg PO DAILY 06/21/16 Aspirin [Aspirin Chewable] 81 mg PO DAILYWM 06/21/16 Diazepam [Valium] 2 mg PO BID 06/21/16 Fluoxetine HCl [Prozac] 10 mg PO DAILY 06/21/16 Fluoxetine HCl [Prozac] 20 mg PO DAILY 06/21/16 Hydrocodone/Acetaminophen [Hydrocodon-Acetaminophen 5-325] 1 each PO BID PRN 11/30 Levothyroxine Sodium [Synthroid] 50 mcg PO QDAC 06/21/16 Metformin HCl [Glucophage] 500 mg PO BID 06/21/16 Metoprolol Tartrate 100 mg PO BID 06/21/16 Pravastatin Sodium [Pravachol] 40 mg PO BEDTIME 06/21/16 Ramipril 10 mg PO DAILY 06/21/16 Risperidone [Risperdal] 0.25 mg PO BID 06/21/16 Ropinirole HCl [Requip] 2 mg PO BEDTIME 06/21/16 Sitagliptin Phosphate [Januvia] 100 mg PO DAILY 06/21/16 Calcium Carbonate [Calcium] 1,500 mg PO DAILY 12/18/16 Diltiazem HCl 60 mg PO DAILY 12/18/16 Melatonin 10 mg PO BEDTIME 12/18/16 Memantine HCl/Donepezil HCl [Namzaric 28 mg-10 mg Capsule] 1 each PO DIRECTED 12/18/16 Multivitamin W-Minerals/Lutein [A Thru Z Advanced Formula Tab] 1 each PO DAILY 12/18/16
[2016-12-18 06:58] LABS: ABG BASE EXCESS 9 (-2.0-2.0); ABG HCO3 33.1 (22.0-26.0); ABG PCO2 47.2 mmHg (35-45); ABG PH 7.454 (7.35-7.45); ABG TCO2 35 (22.0-28.0)
[2016-12-18 07:18] LABS: BASOPHILS % (AUTO) 0.2 % (0.0-3.0); EOSINOPHILS # (AUTO) 0.1 K/ul (0.0-0.7); EOSINOPHILS % (AUTO) 0.4 % (0.0-7.0); HEMATOCRIT 40.8 % (37.0-47.0); HEMOGLOBIN 14.3 g/dl (12.0-16.0); IMMATURE GRANULOCYTE % (AUTO) 0.5 % (0.0-5.0); LYMPHOCYTES # (AUTO) 1.1 K/uL (0.60-3.4); LYMPHOCYTES % (AUTO) 6.5 (10.0-50.0); MEAN CORPUSCULAR HEMOGLOBIN 32.9 pg (27.0-31.0); MEAN CORPUSCULAR VOLUME 93.8 fl (81.0-99.0); MONOCYTES # (AUTO) 0.8 K/uL (0.4-2.0); MONOCYTES % (AUTO) 4.8 (0-10); NEUTROPHILS # (AUTO) 14.6 K/ul (2.0-6.9); NEUTROPHILS % (AUTO) 87.6; PLATELET COUNT 252 10^3/uL (140-440); RED BLOOD COUNT 4.35 10^6/ul (4.20-5.40); WHITE BLOOD COUNT 16.71 K/ul (4.6-10.2)
[2016-12-18 07:32] LABS: FLU INTERNAL QC INTERNAL QC VALID; RAPID FLU A NEGATIVE (NEGATIVE); RAPID FLU B NEGATIVE (NEGATIVE)
[2016-12-18 07:47] LABS: BILIRUBIN,URINE Negative (NEGATIVE); KETONES,URINE Negative (NEGATIVE); LEUKOCYTE ESTERASE ,URINE Negative (NEGATIVE); NITRITE,URINE Negative (NEGATIVE); PROTEIN,URINE 3+ (NEGATIVE); URINE, BLOOD Trace-lysed (NEGATIVE)
[2016-12-18 07:52] LABS: ADD URINE MICROSCOPIC YES
[2016-12-18 07:53] LABS: ALBUMIN 3.3 g/dL (3.4-5.0); ALBUMIN/GLOBULIN RATIO 0.92; ANION GAP 12.2; BILIRUBIN,TOTAL 0.47 mg/dL (0.00-1.20); BUN/CREATININE RATIO 12.65; CALCIUM 8.9 mg/dL (8.2-10.2); CREATININE 0.79 mg/dL (0.60-1.30); POTASSIUM 3.2 mmol/L (3.5-5.10); TOTAL PROTEIN 6.9 g/dL (5.8-8.1); TROPONIN I 0.013 ng/ml (0.0000-0.4000)
[2016-12-18 07:54] LABS: BACTERIA,URINE TRACE (NOT PRESENT)
--- NOTE | 2016-12-18 07:54 | CT ---
EXAM: CT Abdomen without contrast. CT Pelvis without contrast. HISTORY: Nausea. Fever. COMPARISON: None available. TECHNIQUE: Multiple axial images of the abdomen and pelvis were obtained without intravenous contra st. Images were reformatted in the coronal plane. FINDINGS: Please note that evaluation of the abdominal and pelvic structures is limited due to lack of intravenous contrast. Pacemaker leads partially seen in the heart. There is consolidation in the medial left lower lobe w hich may have increased from a chest CT dated 09/06/2015. There is interlobular septal thickening a nd ground-glass opacities in the right lung base. Degenerative changes seen in the spine with mild superior endplate compression deformities of L2 and T12. Osteoarthritic changes of the hips noted, greater on the right which are severe. Liver demonstrates a nodular surface contour. Gallbladder is absent. Pancreas, spleen, adrenal gla nds demonstrate normal contour. Possible exophytic 1.8 cm left renal cortical lesion on axial image 28 with internal density of 28 HU. Punctate nonobstructing right renal calculus versus renal vascu lar calcification. There is no hydronephrosis. The bowel is normal in course and caliber without evidence for obstruction or inflammatory process. Diverticula are present in the colon. The appendix is not seen. Uterus is absent. Small amount o f air noted within the urinary bladder. Extensive atherosclerotic calcifications present. No free fluid or free air detected. IMPRESSION: 1. Air within the urinary bladder which could be due to recent catheterization or cystitis. 2. Cirrhotic liver morphology. 3. Diverticulosis. 4. Extensive atherosclerosis. 5. Chronic left lower lobe consolidation which has worsened. Correlation with chest CT recommended . 6. Right lower lobe ground-glass opacities and interlobular septal thickening could be reflective o f mild effacement edema or pneumonia.
--- NOTE | 2016-12-18 07:59 | CT ---
EXAM: CT chest without contrast HISTORY: Cough with nausea COMPARISON: Chest x-ray 10/04/2016 and multiple priors including CT chest 09/06/2015 TECHNIQUE: Serial axial images of the chest were obtained from the lung apices to the upper abdomen without contrast. These were viewed in multiple planes. FINDINGS: The thyroid is normal. The visualized vessels demonstrates moderate atherosclerotic dise ase of the aorta without aneurysm or stenosis. The heart is normal in size without pericardial effu misty. There are multiple mediastinal lymph nodes present with a precarinal lymph node measuring 1.4 cm in diameter on axial image 29. Hilar lymphadenopathy cannot be evaluated due to lack of contras t. Multiple nonenlarged mediastinal lymph nodes are present. No axillary lymph nodes are identifie d. There is no pneumothorax. There is a left lower lobe consolidation and ground-glass which has mildl y worsened since 09/06/2015 likely representing a chronic process. The adjacent airways demonstrate some mild central debris and narrowing. There is volume loss in the left lower lobe. The airways a re patent. Soft tissues in the upper abdomen demonstrate prior cholecystectomy. There is moderate atherosclero tic disease. The gallbladder has been removed. These are better evaluated on same day CT abdomen p umang. The osseous structures demonstrate superior endplate deformity at T12 unchanged from 2016. IMPRESSION: 1. Consolidation and ground-glass with volume loss in the left lower lobe suggestive of chronic ate lectasis. Component of pneumonia/infection cannot be excluded. 2. Scattered mediastinal lymph nodes and enlarged precarinal lymph node is present and likely react luis. 3. Mild central debris within the left lower lobe airways may represent chronic small airways infla mmation/infection versus mild aspiration. 4. Moderate atherosclerotic disease and unchanged superior endplate compression deformity at T12.
--- NOTE | 2016-12-18 09:41 | CT ---
EXAM: CTA chest for PE HISTORY: Elevated D-dimer and shortness of breath with hysterectomy and pacemaker. COMPARISON: CT chest 12/18/[address] chest 09/05/2016 TECHNIQUE: CTA of the chest was performed from the lung apices to the upper abdomen after 100 ml of Omnipaque IV contrast was administered using PE protocol. 3-D imaging was also provided. FINDINGS: There is no filling defect in the pulmonary arteries to the level of the subsegmental pul monary arteries. The heart is normal without signs of ventricular strain. There is atherosclerotic disease of the aorta. Pulmonary arteries are unchanged. The heart is unchanged. Mediastinal and hilar lymph nodes are redemonstrated as seen on same day CT chest. The thyroid is unremarkable. There is no pneumothorax. The consolidation and ground-glass in the medial left lower lobe demonstr ates mild contrast enhancement consistent with chronic atelectasis. There is airway thickening to t his area in the left lower lobe with volume loss. There is minimal patchy ground-glass and respirato ry motion present. Soft tissues in the upper to our abdomen demonstrate atherosclerotic disease and prior cholecystecto my. The osseous structures are unchanged. IMPRESSION: 1. No pulmonary embolism. 2. Contrast enhancement in the consolidation in the medial left lower lobe with volume loss consist ent with chronic atelectasis with adjacent mild ground-glass. The airway thickening to the left low er lobe may represent chronic process versus retained secretions versus minimal aspiration. 3. Mediastinal lymph nodes are redemonstrated. 4. No significant change when compared to same day study.
--- NOTE | 2016-12-18 10:06 | US ---
EXAM: Bilateral lower extremity venous Doppler HISTORY: Concern for DVT with lower extremity pain and swelling. COMPARISON: Lower extremity Doppler 10/04/[address] PE same day TECHNIQUE: Sonographic and Doppler evaluation of the bilateral lower extremity vessels from the com mon femoral through the anterior tibial veins were obtained. Augmentation and compression technique s were also performed. FINDINGS: There is spontaneous Doppler flow seen in the bilateral lower extremity veins from the co mmon femoral through the anterior tibial veins. There is normal compression and augmentation throug hout the lower extremity veins. There is no visualized reflux. Sonographic appearance of the soft tissues demonstrate calcific atherosclerotic disease. There is lower extremity edema. IMPRESSION: 1. No lower extremity thrombus. 2. Calcific atherosclerotic disease and mild subcutaneous edema.
[2016-12-18] MEDS ORDERED: SOLU-MEDROL 125 MG IVP STA (10:08)
[2016-12-18] MEDS ORDERED: LOVENOX SUBCUT STA ×2 (10:08→10:38)
[2016-12-18] MEDS ORDERED: AZACTAM 1 GM in SODIUM CHLORIDE 50 ML IV STA (10:10)
[2016-12-18] MEDS ORDERED: AZACTAM ONE (10:33)
[2016-12-18 11:27] VITALS: BMI 30.6
[2016-12-18] MEDS: ROCEPHIN 1 GM in SODIUM CHLORIDE 50 ML IV SCH (11:28)
[2016-12-18] MEDS: SODIUM CHLORIDE 1,000 ML IV SCH ×2 (11:29→22:45)
[2016-12-18] MEDS: DUONEB NEB SCH ×3 (11:51→22:30)
[2016-12-18] MEDS: NICODERM 21 MG TD SCH (13:21)
[2016-12-18] MEDS ORDERED: LANOXIN IVP STA (14:47)
[2016-12-18] MEDS: CARDIZEM PO SCH ×2 (15:11→20:48)
[2016-12-18 16:56] LABS: TROPONIN I 0.028 ng/ml (0.0000-0.4000)
[2016-12-18] MEDS: HUMULIN R SUBCUT PRN ×2 (17:17→20:53)
[2016-12-18] MEDS: LOPRESSOR PO SCH (20:48)
[2016-12-18] MEDS: VALIUM PO SCH (20:48)
[2016-12-18] MEDS: PRAVACHOL PO SCH (20:48)
[2016-12-18] MEDS: REQUIP PO SCH (20:48)
[2016-12-18] MEDS ORDERED: NON-FORMULARY MEDICATION (Metoprolol Tartrate [Metoprolol Tartrate] 100 MG) PO SCH (21:00)
[2016-12-18] MEDS ORDERED: NON-FORMULARY MEDICATION (Ropinirole Hcl [Requip] 2 MG) PO SCH ×22 (21:00)
[2016-12-19 00:29] LABS: HEMATOCRIT 37.6 % (37.0-47.0); HEMOGLOBIN 12.7 g/dl (12.0-16.0); IMMATURE GRANULOCYTE % (AUTO) 0.7 % (0.0-5.0); LYMPHOCYTES # (AUTO) 0.7 K/uL (0.60-3.4); LYMPHOCYTES % (AUTO) 10.1 (10.0-50.0); MEAN CORPUSCULAR HEMOGLOBIN 31.9 pg (27.0-31.0); MEAN CORPUSCULAR HGB CONC 33.8 (31.8-35.4); MEAN CORPUSCULAR VOLUME 94.5 fl (81.0-99.0); MONOCYTES # (AUTO) 0.2 K/uL (0.4-2.0); MONOCYTES % (AUTO) 2.4 (0-10); NEUTROPHILS # (AUTO) 5.8 K/ul (2.0-6.9); NEUTROPHILS % (AUTO) 86.8; PLATELET COUNT 211 10^3/uL (140-440); RED BLOOD COUNT 3.98 10^6/ul (4.20-5.40); WHITE BLOOD COUNT 6.72 K/ul (4.6-10.2)
[2016-12-19 01:16] LABS: ALBUMIN 2.7 g/dL (3.4-5.0); ALBUMIN/GLOBULIN RATIO 0.82; ANION GAP 11.9; BILIRUBIN,TOTAL 0.23 mg/dL (0.00-1.20); BUN/CREATININE RATIO 17.64; CALCIUM 8.7 mg/dL (8.2-10.2); CREATININE 0.85 mg/dL (0.60-1.30); POTASSIUM 3.9 mmol/L (3.5-5.10)
[2016-12-19 01:22] LABS: TROPONIN I 0.039 ng/ml (0.0000-0.4000)
[2016-12-19] MEDS: DUONEB NEB SCH (05:02)
[2016-12-19] MEDS: HUMULIN R SUBCUT PRN ×4 (05:45→21:13)
[2016-12-19] MEDS ORDERED: SYNTHROID PO SCH (06:30)
[2016-12-19] MEDS ORDERED: SOLU-MEDROL 125 MG IVP STA (08:04)
[2016-12-19] MEDS ORDERED: XOPENEX 1.25 MG NEB STA (08:06)
[2016-12-19] MEDS ORDERED: LASIX IVP STA (08:30)
[2016-12-19] MEDS: JANUVIA PO SCH (08:57)
[2016-12-19] MEDS: LOPRESSOR PO SCH ×2 (08:57→20:02)
[2016-12-19] MEDS: ASPIRIN CHEWABLE PO SCH (08:57)
[2016-12-19] MEDS: VALIUM PO SCH ×2 (08:57→20:02)
[2016-12-19] MEDS: NORVASC PO SCH (08:58)
[2016-12-19] MEDS ORDERED: RAMIPRIL 10 MG PO SCH (09:00)
[2016-12-19] MEDS: NICODERM 21 MG TD SCH (09:00)
[2016-12-19] MEDS ORDERED: CARDIZEM PO SCH (09:00)
[2016-12-19] MEDS ORDERED: NON-FORMULARY MEDICATION (Amlodipine Besylate [Amlodipine Besylate] 10 MG) PO SCH ×22 (09:00)
[2016-12-19] MEDS ORDERED: ALTACE PO SCH (09:00)
[2016-12-19] MEDS ORDERED: NON-FORMULARY MEDICATION (Sitagliptin Phosphate [Januvia] 100 MG) PO SCH ×22 (09:00)
[2016-12-19] MEDS: LOVENOX SUBCUT SCH (09:01)
--- NOTE | 2016-12-19 09:29 | PCM.PROG ---
Attending Provider: ATTENDING PROVIDER: Dr. ROSALINO GRAY DATE OF SERVICE: 12/19/16 SUBJECTIVE: This 71 year old WHITE/ F was hospitalized 12/18/16. The patient is seen with Elsy, Nurse Practitioner. The patient is lying in bed, states she is feeling sick to her stomach. Cough is worse today. She is afebrile. REVIEW OF SYSTEMS: CONSTITUTIONAL: Weakness. No night sweats. No fever or chills. HEENT: Eyes: No visual changes. No eye pain. No eye discharge. ENT: No runny nose. No epistaxis. No sinus pain. No odynophagia. No congestion. RESPIRATORY: Cough and congestion. No hemoptysis. CARDIOVASCULAR: No angina symptoms. No CHF symptoms. No atypical chest pain for CAD. No palpitations. No shortness of breath. GASTROINTESTINAL: Nausea. No vomiting. No abdominal pain. No diarrhea or constipation. No hematemesis. No hematochezia. GENITOURINARY: No urgency. No frequency. No dysuria. No hematuria. No obstructive symptoms. No discharge. No pain. No significant abnormal bleeding. MUSCULOSKELETAL: No musculoskeletal pain; no joint swelling. NEUROLOGICAL: Awake, alert, oriented to time, place and person. No headache. No neck pain. No syncope. No seizures. No dizziness. PSYCHIATRIC: Not anxious. No depression. No suicidal thoughts. No homicidal thoughts. SKIN: No rash. No lesions. No wounds. ENDOCRINE: No unexplained weight loss. No weight gain. HEMATOLOGIC/LYMPHATIC: No anemia. No purpura. No petechiae. No prolonged or excessive bleeding. No palpable lymph nodes. PHYSICAL EXAMINATION: GENERAL: The patient is awake, alert and oriented, lying in bed in no distress. VITAL SIGNS: Temperature 98.2 F, Pulse 88, Respiratory Rate 24, BP 176/89, Pulse Ox 98% HEENT: Head normocephalic, atraumatic. Eyes: Extraocular muscles are intact. Pupils are equal, round and reactive to light and accommodation. Ears: No lesions. Nose appeared normal. Throat: No exudate or erythema. NECK: Supple. No JVD, no carotid bruit. No lymphadenopathy or thyromegaly. LUNGS: Inspiratory and expiratory wheeze bilaterally. Percussion note normal. Chest symmetrical. HEART: S1, S2, no S3. No murmurs. No cyanosis or clubbing. No ascites. Pulses: Dorsalis pedis and posterior tibial pulses +1 to +2 both sides. ABDOMEN: Soft. Non-tender. Bowel sounds active. No CVA tenderness. No mass felt. EXTREMITIES: No edema. Full range of motion of all extremities, equal. NEUROLOGIC: No focal deficit. Cranial nerves II through XII are grossly intact. No headache, no double vision or headache. SKIN: Not dry. Intact. Turgor-normal. LYMPHATIC: No palpable lymph nodes/no lymphedema. MUSCULOSKELETAL: Normal joints with no swelling. Muscle tone is normal. LAB REVIEW: 12/19/16 00:20 12/19/16 00:20 12/19/16 00:20: WBC 6.72 D, RBC 3.98 L, Hgb 12.7, Hct 37.6, MCV 94.5, MCH 31.9 H, MCHC 33.8, RDW Coeff of Alisha 14.5, Plt Count 211, Immature Gran % (Auto) 0.7, Neut % (Auto) 86.8, Lymph % (Auto) 10.1, Swift % (Auto) 2.4, Eos % (Auto) 0.0, Baso % (Auto) 0.0, Immature Gran # (Auto) 0.1, Neut # 5.8, Lymph # 0.7, Swift # 0.2 L, Eos # 0.0, Baso # 0.0, Sodium 134 L, Potassium 3.9, Chloride 94 L, Carbon Dioxide 32 H, Anion Gap 11.9, BUN 15, Creatinine 0.85, Estimated GFR ( MDRD) 66.00, BUN/Creatinine Ratio 17.64, Glucose 161 H, Calcium 8.7, Total Bilirubin 0.23, AST 21, ALT 21, Alkaline Phosphatase 41 L, Total Creatine Kinase 26, Troponin I 0.0390, Total Protein 6.0, Albumin 2.7 L, Globulin 3.3, Albumin/Globulin Ratio 0.82 12/18/16 16:30: Total Creatine Kinase 38, Troponin I 0.0280 ASSESSMENT: 1. Pneumonia 2. Acute respiratory failure 3. History of CHF 4. Hypertension 5. CAD 6. Dyslipidemia 7. Pacemaker PLAN: 1. Up and about 2. Lasix 20 mg IV push 3. Cardizem increase to 90 mg b.i.d. 4. IV fluids 40 mL/hr 5. Decadron 1 cc 6. Protonix 40 mg once a day 7. Zofran 4 mg q.8 p.r.n. 8. Solu-Medrol IV q.8hr one dose now Plan and coordination of the patient's care discussed in the presence of Sales Support Associate and nurse. CONDITION: Stable SCRIBED BY: MAKI REBOLLEDO Slitter Creaser Slotter Operator scribed while in presence of service performed by Dr. ROSALINO GRAY/ELSY BIANCHI APRN on 12/19/16 ([id number])
[2016-12-19] MEDS: PROTONIX PO SCH (09:30)
--- NOTE | 2016-12-19 09:42 | PN ---
DATE OF SERVICE: 12/18/16 ADMIT NOTE SUBJECTIVE: The patient was seen and examined in the emergency room. The patient had acute respiratory failure, pneumonia. REVIEW OF SYSTEMS: CONSTITUTIONAL: No night sweats. No fatigue, malaise, lethargy. No fever or chills. HEENT: Eyes: No visual changes. No eye pain. No eye discharge. ENT: No runny nose. No epistaxis. No sinus pain. No sore throat. No odynophagia. No congestion. RESPIRATORY: No cough, no congestion. No hemoptysis. CARDIOVASCULAR: No angina symptoms. No CHF symptoms. No atypical chest pain for CAD. No palpitations. No shortness of breath. GASTROINTESTINAL: No abdominal pain. No nausea or vomiting. No diarrhea or constipation. No hematemesis. No hematochezia. GENITOURINARY: No urgency. No frequency. No dysuria. No hematuria. No obstructive symptoms. No discharge. No pain. No significant abnormal bleeding. MUSCULOSKELETAL: No musculoskeletal pain; no joint swelling. NEUROLOGICAL: No headache. No neck pain. No syncope. No seizures. No dizziness. PSYCHIATRIC: Not anxious. No depression. No suicidal thoughts. No homicidal thoughts. SKIN: No rash. No lesions. No wounds. ENDOCRINE: No unexplained weight loss. No weight gain. HEMATOLOGIC/LYMPHATIC: No anemia. No purpura. No petechiae. No prolonged or excessive bleeding. No palpable lymph nodes. PHYSICAL EXAMINATION: GENERAL: The patient is alert. VITAL SIGNS: Oxygen saturation 92% with 2 liters. HEENT: Head normocephalic, atraumatic. Eyes: Extraocular muscles are intact. Pupils are equal, round and reactive to light and accommodation. Ears: No lesions. Nose appeared normal. Throat: No exudate or erythema. NECK: Supple. No JVD, no carotid bruit. No lymphadenopathy or thyromegaly. LUNGS: Decreased with mild wheeze bilaterally. Percussion note normal. Chest symmetrical. HEART: S1, S2, no S3. No murmurs. No cyanosis or clubbing. No ascites. Pulses: Dorsalis pedis and posterior tibial pulses +1 to +2 both sides. ABDOMEN: Soft. Nontender. Bowel sounds active. No CVA tenderness. No mass felt. EXTREMITIES: Trace edema. Full range of motion of all extremities, equal. NEUROLOGIC: No focal deficit. Cranial nerves II through XII are grossly intact. No headache, no double vision or headache. SKIN: Not dry. Intact. Turgor - normal. LYMPHATIC: No palpable lymph nodes/no lymphedema. MUSCULOSKELETAL: Normal joints with no swelling. Muscle tone is normal. LABS: Hgb 14, hct 40, WBC 16,000 normal differential, creatinine 0.7, BUN 10, potassium 3.2, T4 TSH normal, BNP 570. ASSESSMENT: 1. Pneumonia 2. Respiratory failure 3. Acute respiratory failure on chronic respiratory failure which was compensated. 4. History of chronic disease 5. Dementia 6. Mild Multiple CVA 7. Depression 8. Diabetes Mellitus 9. Hypertension 10.Severe DJD, generalized 11.Coronary artery disease 12.Status post cholecystectomy 13.Gastric stapled surgery several years ago 14.Status post pacemaker CONDITION: Stable PLAN: 1. The patient is going to be on IV steroids 2. IV antibiotics 3. NEBS Treatment TIME SPENT: More than 30 minutes. Plan and coordination of the patient's care discussed in the presence of nurse. TY
[2016-12-19] MEDS: CARDIZEM PO SCH ×2 (09:55→20:03)
[2016-12-19] MEDS: ROCEPHIN 1 GM in SODIUM CHLORIDE 50 ML IV SCH (09:55)
[2016-12-19] MEDS: XOPENEX 1.25 MG NEB SCH ×3 (12:42→22:40)
--- NOTE | 2016-12-19 13:10 | HP ---
DATE OF SERVICE: 12/18/16 HISTORY OF PRESENT ILLNESS: This is a 71-year-old female who was brought in from home by her son complaining of shortness of breath along with nausea. She states she had been coughing for the past two days with worsening shortness of breath. She had eaten this morning, had not vomited but was still feeling nauseated. The patient has been a long time smoker and has COPD and wears oxygen at night at home. SOCIAL HISTORY: The patient is a one pack per day smoker for the past 50 years. She currently lives at home with her daughter. She has assistance of a daytime sitter off and on. She recently has become more forgetful and had been started on Namzaric for dementia. The patient denies any alcohol or illicit drug use. PAST MEDICAL: 1. Mild dementia 2. History of CVA, multiple 3. COPD 4. Diabetes mellitus type 2 5. Hypertension 6. Dyslipidemia 7. Osteoarthritis 8. Degenerative joint disease of the spine 9. Insomnia 10. General anxiety disorder 11. Depression 12. Coronary artery disease 13. Restless leg syndrome 14. CHF 15. History of leg edema 16. Pacemaker put in by Dr. Ballesteros PAST SURGICAL HISTORY: 1. Status post cholecystectomy 2. Pacemaker Dr. Ballesteros MEDICATIONS: (HOME) 1. Ropinirole 2 mg p.o. bedtime 2. Ramipril 10 mg p.o. daily 3. Pravastatin 40 mg p.o. bedtime 4. Metoprolol 100 mg p.o. b.i.d. 5. Metformin 500 mg p.o. b.i.d. 6. Sitagliptin 100 mg p.o. daily 7. Levothyroxine 50 mcg p.o. q.d a.c. 8. Fluoxetine 20 mg p.o. daily 9. Hydrocodone/Acetaminophen one each p.o. b.i.d. p.r.n. 10. Diazepam 2 mg p.o. b.i.d. 11. Aspirin 81 mg p.o. daily with meal 12. Risperidone 0.25 mg p.o. b.i.d. 13. Amlodipine 10 mg p.o. daily 14. Melatonin 10 mg p.o. bedtime 15. Calcium Carbonate 1,500 mg p.o. daily 16. Multivitamin W-minerals/lutein (A-Z advanced formula) one each p.o. daily 17. Memantine/Donepezil one each p.o. as directed 18. Diltiazem 60 mg p.o. daily ALLERGIES: NKDA LABS AT TIME OF ADMISSION: White blood count was 16.71, hemoglobin 14.3, hematocrit 40.8, platelets 252. D. dimer was 1,418. ABGs showed an 02 saturation of 82, pc02 47.2, p02 45, bicarb 33.1, total c02 35 with a base excess of 9. Potassium 3.2, sodium 136, BUN 10, creatinine 0.79, glucose 154, AST 30, ALT 23, Alkaline phosphatase 53. BNP 570, TSH 1.787. Amylase 82, lipase 61. Urine had 3+ protein with trace ketones, trace bacteria, trace mucus, was negative for leuks. IMAGING: CT of the abdomen showed chronic left lower lobe consolidation which has worsened with right lower lobe ground glass opacities which could be mild effacement edema or pneumonia, cirrhosis of the liver. CTA of the chest showed no pulmonary embolism. Venous scan was negative for DVT. REVIEW OF SYSTEMS: CONSTITUTIONAL: Reports generalized weakness. No night sweats. No fever or chills. HEENT: Eyes: No visual changes. No eye pain. No eye discharge. ENT: No runny nose. No epistaxis. No sinus pain. No sore throat. No odynophagia. No ear pain. No congestion. RESPIRATORY: Shortness of breath and cough, no congestion. No hemoptysis. CARDIOVASCULAR: No angina symptoms. No CHF symptoms. No atypical chest pain for CAD. No palpitations. No shortness of breath. No PND, no orthopnea. GASTROINTESTINAL: Nausea with no vomiting. No abdominal pain. No diarrhea or constipation. No hematemesis. No hematochezia. GENITOURINARY: No urgency. No frequency. No dysuria. No hematuria. No obstructive symptoms. No discharge. No pain. No significant abnormal bleeding. MUSCULOSKELETAL: Generalized weakness. No musculoskeletal pain. No joint swelling. No arthritis. NEUROLOGICAL: No headache. No neck pain. No syncope. No seizures. No dizziness. PSYCHIATRIC: Not anxious. No depression. No suicidal thoughts. No homicidal thoughts. SKIN: No breakdown. ENDOCRINE: No unexplained weight loss. No weight gain. HEMATOLOGIC/LYMPHATIC: No anemia. No purpura. No petechiae. No prolonged or excessive bleeding. No palpable lymph nodes. PHYSICAL EXAMINATION: GENERAL: The patient is well-appearing in mild respiratory distress. Well- nourished. HEENT: Head normocephalic, atraumatic. Eyes: Extraocular muscles are intact. Pupils are equal, round and reactive to light and accommodation. Ears: No lesions. Nose appeared normal. Throat: No exudate or erythema. NECK: Supple, no carotid bruits. No JVD. LUNGS: Diminished bilaterally. Clear to auscultation. Percussion note normal. Chest symmetrical. HEART: Regular rate and rhythm. S1, S2, no S3. No murmurs, clicks or rubs. ABDOMEN: Soft. Nontender. Bowel sounds active times four quadrants. No hepatosplenomegaly. No CVA tenderness. No mass felt. EXTREMITIES: Trace edema bilateral lower extremities. Full range of motion of all extremities, equal. NEUROLOGIC: Alert and oriented times three. No focal deficit. Cranial nerves II through XII are grossly intact. No headache, no double vision or headache. SKIN: Not dry. Intact. Turgor - normal. LYMPHATIC: No palpable lymph nodes/no lymphedema. MUSCULOSKELETAL: Generalized weakness. Range of motion intact. Normal joints with no swelling. Muscle tone is normal. ASSESSMENT: 1. ACUTE RESPIRATORY FAILURE AND PNEUMONIA 2. HISTORY OF CHRONIC RENAL FAILURE 3. SEVERE COPD 4. LIVER CIRRHOSIS BY CT SCAN PLAN: 1. The patient will be admitted to the floor, placed on routine telemetry orders. 2. Routine nebulizer will be ordered to be done q.4 to 6 hr. 3. Oxygen as needed to keep 02 sat above 90%. 4. Accu-Cheks q.6hr. 5. Monitor intake and output q.8hr. 6. Regular diet. 7. CBC and CMP daily. 8. The patient will be started on Rocephin 1 gm q.24hr. 9. We will continue home medications. 10. Sliding scale insulin. 11. She will be placed on Solu-Medrol 125 mg q.8hr. 12. I will place her on DVT precautions with Lovenox 80 mg daily. 13. Zofran 4 mg q.8hr as needed for nausea. 14. We will follow with her daily during the course of her stay. TIME SPENT: More than 70 minutes. [facility]
[2016-12-19] MEDS: SODIUM CHLORIDE 1,000 ML IV SCH ×2 (13:38→16:02)
[2016-12-19] MEDS: SOLU-MEDROL 125 MG IVP SCH ×2 (13:40→20:02)
[2016-12-19] MEDS ORDERED: TYLENOL PO STA (19:50)
[2016-12-19] MEDS: REQUIP PO SCH (20:02)
[2016-12-19] MEDS: PRAVACHOL PO SCH (20:03)
[2016-12-20 04:58] LABS: BASOPHILS % (AUTO) 0.2 % (0.0-3.0); HEMATOCRIT 38.5 % (37.0-47.0); HEMOGLOBIN 13.2 g/dl (12.0-16.0); IMMATURE GRANULOCYTE % (AUTO) 0.9 % (0.0-5.0); LYMPHOCYTES # (AUTO) 0.7 K/uL (0.60-3.4); LYMPHOCYTES % (AUTO) 5.7 (10.0-50.0); MEAN CORPUSCULAR HGB CONC 34.3 (31.8-35.4); MEAN CORPUSCULAR VOLUME 93.2 fl (81.0-99.0); MONOCYTES # (AUTO) 0.2 K/uL (0.4-2.0); MONOCYTES % (AUTO) 1.4 (0-10); NEUTROPHILS # (AUTO) 11.7 K/ul (2.0-6.9); NEUTROPHILS % (AUTO) 91.8; PLATELET COUNT 233 10^3/uL (140-440); RED BLOOD COUNT 4.13 10^6/ul (4.20-5.40); WHITE BLOOD COUNT 12.74 K/ul (4.6-10.2)
[2016-12-20] MEDS: XOPENEX 1.25 MG NEB SCH ×4 (05:13→23:34)
[2016-12-20 05:23] LABS: ALBUMIN 3.1 g/dL (3.4-5.0); ALBUMIN/GLOBULIN RATIO 0.89; ANION GAP 16.4; BILIRUBIN,TOTAL 0.29 mg/dL (0.00-1.20); BUN/CREATININE RATIO 25.58; CALCIUM 8.8 mg/dL (8.2-10.2); CREATININE 0.86 mg/dL (0.60-1.30); POTASSIUM 4.4 mmol/L (3.5-5.10); TOTAL PROTEIN 6.6 g/dL (5.8-8.1)
[2016-12-20] MEDS: SYNTHROID PO SCH (05:55)
[2016-12-20] MEDS: PROTONIX PO SCH (05:55)
[2016-12-20] MEDS: HUMULIN R SUBCUT PRN ×3 (05:55→21:03)
[2016-12-20] MEDS: SOLU-MEDROL 125 MG IVP SCH ×3 (05:56→20:50)
[2016-12-20 08:36] LABS: ABG BASE EXCESS 6 (-2.0-2.0); ABG HCO3 30.1 (22.0-26.0); ABG PCO2 45.3 mmHg (35-45); ABG PH 7.431 (7.35-7.45); ABG TCO2 31 (22.0-28.0)
--- NOTE | 2016-12-20 08:55 | PCM.PROG ---
Attending Provider: ATTENDING PROVIDER: Dr. ROSALINO GRAY DATE OF SERVICE: 12/20/16 SUBJECTIVE: This 71 year old WHITE/ F was hospitalized 12/18/16. The patient is seen with Elsy, Nurse Practitioner. The patient is lying in bed; still wheezing but shortness of breath has improved from yesterday. The patient is drinking lots of water. She is tolerating diet. REVIEW OF SYSTEMS: CONSTITUTIONAL: No night sweats. No fatigue, malaise, lethargy. No fever or chills. HEENT: Eyes: No visual changes. No eye pain. No eye discharge. ENT: No runny nose. No epistaxis. No sinus pain. No odynophagia. No congestion. RESPIRATORY: Cough and congestion. No hemoptysis. CARDIOVASCULAR: No angina symptoms. No CHF symptoms. No atypical chest pain for CAD. No palpitations. Shortness of breath. GASTROINTESTINAL: No abdominal pain. No nausea or vomiting. No diarrhea or constipation. No hematemesis. No hematochezia. GENITOURINARY: No urgency. No frequency. No dysuria. No hematuria. No obstructive symptoms. No discharge. No pain. No significant abnormal bleeding. MUSCULOSKELETAL: No musculoskeletal pain; no joint swelling. NEUROLOGICAL: Awake, alert, oriented to time, place and person. No headache. No neck pain. No syncope. No seizures. No dizziness. PSYCHIATRIC: Not anxious. No depression. No suicidal thoughts. No homicidal thoughts. SKIN: No rash. No lesions. No wounds. ENDOCRINE: No unexplained weight loss. No weight gain. HEMATOLOGIC/LYMPHATIC: No anemia. No purpura. No petechiae. No prolonged or excessive bleeding. No palpable lymph nodes. PHYSICAL EXAMINATION: GENERAL: The patient is awake, alert and oriented, lying in bed in no distress. VITAL SIGNS: Temperature 98.1 F, Pulse 87, Respiratory Rate 20, BP 184/85, Pulse Ox 96% HEENT: Head normocephalic, atraumatic. Eyes: Extraocular muscles are intact. Pupils are equal, round and reactive to light and accommodation. Ears: No lesions. Nose appeared normal. Throat: No exudate or erythema. NECK: Supple. No JVD, no carotid bruit. No lymphadenopathy or thyromegaly. LUNGS: Bilateral inspiratory and expiratory wheezing. Percussion note normal. Chest symmetrical. HEART: S1, S2, no S3. Irregular. No murmurs. No cyanosis or clubbing. No ascites. Pulses: Dorsalis pedis and posterior tibial pulses +1 to +2 both sides. ABDOMEN: Soft. Non-tender. Bowel sounds active. No CVA tenderness. No mass felt. EXTREMITIES: No edema. Full range of motion of all extremities, equal. NEUROLOGIC: No focal deficit. Cranial nerves II through XII are grossly intact. No headache, no double vision or headache. SKIN: Not dry. Intact. Turgor-normal. LYMPHATIC: No palpable lymph nodes/no lymphedema. MUSCULOSKELETAL: Normal joints with no swelling. Muscle tone is normal. LAB REVIEW: 12/20/16 04:30 12/20/16 04:30 12/20/16 04:30: WBC 12.74 H D, RBC 4.13 L, Hgb 13.2, Hct 38.5, MCV 93.2, MCH 32.0 H, MCHC 34.3, RDW Coeff of Alisha 14.6, Plt Count 233, Immature Gran % (Auto) 0.9, Neut % (Auto) 91.8, Lymph % (Auto) 5.7 L, Bremer % (Auto) 1.4, Eos % (Auto) 0.0, Baso % (Auto) 0.2, Immature Gran # (Auto) 0.1, Neut # 11.7 H, Lymph # 0.7, Bremer # 0.2 L, Eos # 0.0, Baso # 0.0, Sodium 130 L, Potassium 4.4, Chloride 89 L , Carbon Dioxide 29, Anion Gap 16.4, BUN 22 H, Creatinine 0.86, Estimated GFR ( MDRD) 65.00, BUN/Creatinine Ratio 25.58, Glucose 191 H, Calcium 8.8, Total Bilirubin 0.29, AST 27, ALT 25, Alkaline Phosphatase 50 L, Total Protein 6.6, Albumin 3.1 L, Globulin 3.5, Albumin/Globulin Ratio 0.89 ASSESSMENT: 1. Pneumonia 2. Acute respiratory failure 3. History of CHF 4. Hypertension 5. CAD 6. Dyslipidemia 7. Pacemaker 8. Hyponatremia PLAN: 1. Repeat chest x-ray 2. Up and about 3. Continue Duonebs 4. Continue Xopenex Plan and coordination of the patient's care discussed in the presence of Seo Team Lead and nurse. CONDITION: Stable SCRIBED BY: MAKI REBOLLEDO, Hydrostatic Tester scribed while in presence of service performed by Dr. ROSALINO GRAY/ESLY BIANCHI APRN on 12/20/16 ([id number])
[2016-12-20] MEDS: ASPIRIN CHEWABLE PO SCH (08:57)
[2016-12-20] MEDS: CARDIZEM PO SCH ×2 (08:58→20:17)
[2016-12-20] MEDS: NORVASC PO SCH (08:58)
[2016-12-20] MEDS: JANUVIA PO SCH (08:59)
[2016-12-20] MEDS: VALIUM PO SCH ×2 (08:59→20:18)
[2016-12-20] MEDS: LOPRESSOR PO SCH ×2 (08:59→20:17)
[2016-12-20] MEDS: COZAAR PO SCH (08:59)
[2016-12-20] MEDS: HYDROCHLOROTHIAZIDE PO SCH (08:59)
[2016-12-20] MEDS: NICODERM 21 MG TD SCH (09:00)
[2016-12-20] MEDS: LOVENOX SUBCUT SCH (09:00)
[2016-12-20] MEDS: ROCEPHIN 1 GM in SODIUM CHLORIDE 50 ML IV SCH (09:02)
--- NOTE | 2016-12-20 09:55 | PN ---
DATE OF SERVICE: 12/19/16 SUBJECTIVE: The patient was seen with Nurse Practitioner The patient is a 71 year old white female was hospitalized with pneumonia and respiratory failure. The patient's condition has steadily improved but this morning she was wheezing and in mild distress. REVIEW OF SYSTEMS: CONSTITUTIONAL: No night sweats. No fatigue, malaise, lethargy. No fever or chills. HEENT: Eyes: No visual changes. No eye pain. No eye discharge. ENT: No runny nose. No epistaxis. No sinus pain. No sore throat. No odynophagia. No congestion. RESPIRATORY: No cough, no congestion. No hemoptysis. CARDIOVASCULAR: No angina symptoms. No CHF symptoms. No atypical chest pain for CAD. No palpitations. No shortness of breath. GASTROINTESTINAL: No abdominal pain. No nausea or vomiting. No diarrhea or constipation. No hematemesis. No hematochezia. GENITOURINARY: No urgency. No frequency. No dysuria. No hematuria. No obstructive symptoms. No discharge. No pain. No significant abnormal bleeding. MUSCULOSKELETAL: No musculoskeletal pain; no joint swelling. NEUROLOGICAL: No headache. No neck pain. No syncope. No seizures. No dizziness. PSYCHIATRIC: Not anxious. No depression. No suicidal thoughts. No homicidal thoughts. SKIN: No rash. No lesions. No wounds. ENDOCRINE: No unexplained weight loss. No weight gain. HEMATOLOGIC/LYMPHATIC: No anemia. No purpura. No petechiae. No prolonged or excessive bleeding. No palpable lymph nodes. PHYSICAL EXAMINATION: GENERAL: The patient is oriented to time, place and person. VITAL SIGNS: Blood pressure 176/89 and pulse 88. HEENT: Head normocephalic, atraumatic. Eyes: Extraocular muscles are intact. Pupils are equal, round and reactive to light and accommodation. Ears: No lesions. Nose appeared normal. Throat: No exudate or erythema. NECK: Supple. No JVD, no carotid bruit. No lymphadenopathy or thyromegaly. LUNGS: Decreased breath sounds with mild wheeze. Percussion note normal. Chest symmetrical. HEART: S1, S2, no S3. No murmurs. No cyanosis or clubbing. No ascites. Pulses: Dorsalis pedis and posterior tibial pulses +1 to +2 both sides. ABDOMEN: Soft. Nontender. Bowel sounds active. No CVA tenderness. No mass felt. EXTREMITIES: No edema. Full range of motion of all extremities, equal. NEUROLOGIC: No focal deficit. Cranial nerves II through XII are grossly intact. No headache, no double vision or headache. SKIN: Not dry. Intact. Turgor - normal. LYMPHATIC: No palpable lymph nodes/no lymphedema. MUSCULOSKELETAL: Normal joints with no swelling. Muscle tone is normal. LABS: Are acceptable PLAN: 1. Increase the Cardizem dose to 90mg twice a day 2. 20mg IV Lasix 3. Solu-Cortef 125mg 4. Navane Q 8 hours Later on I checked the patient at 2 pm and the patient was feeling a lot better and she had no distress and no wheezing. Ate good lunch. TIME SPENT: More than 30 minutes. Plan and coordination of the patient's care discussed in the presence of nurse. TY
[2016-12-20] MEDS: SODIUM CHLORIDE 1,000 ML IV SCH ×2 (10:00→21:03)
--- NOTE | 2016-12-20 15:03 | DI ---
Exam: Two x-rays of the chest. Comparison: CTA PE protocol performed 12/18/2016. Reason for exam: Wheezing short of breath. Pneumonia. FINDINGS: No pneumothorax or pleural effusion. There is a retrocardiac airspace opacity with air b ronchograms. The cardiac silhouette is unchanged. Operative changes are seen after implanted intra cardiac device placement. Degenerative changes are seen in both shoulders. Impression: 1. Similar appearing retrocardiac consolidation likely pneumonia. 2. Otherwise, no significant interval change.
[2016-12-20] MEDS: TYLENOL PO PRN (17:47)
[2016-12-20] MEDS: REQUIP PO SCH (20:17)
[2016-12-20] MEDS: PRAVACHOL PO SCH (20:18)
[2016-12-21] MEDS: SOLU-MEDROL 125 MG IVP SCH ×3 (03:59→20:16)
[2016-12-21 04:52] LABS: BASOPHILS % (AUTO) 0.2 % (0.0-3.0); HEMATOCRIT 37.8 % (37.0-47.0); HEMOGLOBIN 13.3 g/dl (12.0-16.0); LYMPHOCYTES # (AUTO) 0.7 K/uL (0.60-3.4); LYMPHOCYTES % (AUTO) 5.8 (10.0-50.0); MEAN CORPUSCULAR HEMOGLOBIN 32.2 pg (27.0-31.0); MEAN CORPUSCULAR HGB CONC 35.2 (31.8-35.4); MEAN CORPUSCULAR VOLUME 91.5 fl (81.0-99.0); MONOCYTES # (AUTO) 0.2 K/uL (0.4-2.0); MONOCYTES % (AUTO) 1.7 (0-10); NEUTROPHILS # (AUTO) 10.5 K/ul (2.0-6.9); NEUTROPHILS % (AUTO) 91.3; PLATELET COUNT 255 10^3/uL (140-440); RED BLOOD COUNT 4.13 10^6/ul (4.20-5.40); WHITE BLOOD COUNT 11.46 K/ul (4.6-10.2)
[2016-12-21] MEDS: XOPENEX 1.25 MG NEB SCH ×4 (05:03→23:26)
[2016-12-21 05:12] LABS: ALBUMIN/GLOBULIN RATIO 0.94; ANION GAP 16.5; BILIRUBIN,TOTAL 0.31 mg/dL (0.00-1.20); BUN/CREATININE RATIO 27.83; CALCIUM 8.5 mg/dL (8.2-10.2); CREATININE 0.97 mg/dL (0.60-1.30); POTASSIUM 4.5 mmol/L (3.5-5.10); TOTAL PROTEIN 6.2 g/dL (5.8-8.1)
[2016-12-21] MEDS: PROTONIX PO SCH (05:43)
[2016-12-21] MEDS: HUMULIN R SUBCUT PRN ×4 (05:43→20:21)
[2016-12-21] MEDS: SYNTHROID PO SCH (05:43)
[2016-12-21] MEDS: ROCEPHIN 1 GM in SODIUM CHLORIDE 50 ML IV SCH (08:34)
[2016-12-21] MEDS: ASPIRIN CHEWABLE PO SCH (08:35)
[2016-12-21] MEDS: LOVENOX SUBCUT SCH (08:35)
[2016-12-21] MEDS: COZAAR PO SCH (08:35)
[2016-12-21] MEDS: JANUVIA PO SCH (08:35)
[2016-12-21] MEDS: LOPRESSOR PO SCH ×2 (08:35→20:15)
[2016-12-21] MEDS: HYDROCHLOROTHIAZIDE PO SCH (08:36)
[2016-12-21] MEDS: NORVASC PO SCH (08:36)
[2016-12-21] MEDS: CARDIZEM PO SCH ×2 (08:36→20:15)
[2016-12-21] MEDS: NICODERM 21 MG TD SCH (08:37)
[2016-12-21] MEDS: VALIUM PO SCH ×2 (08:37→20:14)
[2016-12-21] MEDS: PRAVACHOL PO SCH (20:14)
[2016-12-21] MEDS: REQUIP PO SCH (20:14)
[2016-12-22] MEDS: XOPENEX 1.25 MG NEB SCH ×4 (05:09→23:03)
[2016-12-22] MEDS: SYNTHROID PO SCH (05:31)
[2016-12-22] MEDS: PROTONIX PO SCH (05:31)
[2016-12-22] MEDS: SOLU-MEDROL 125 MG IVP SCH (05:31)
[2016-12-22 05:59] LABS: BASOPHILS % (AUTO) 0.1 % (0.0-3.0); HEMATOCRIT 40.3 % (37.0-47.0); HEMOGLOBIN 14.2 g/dl (12.0-16.0); IMMATURE GRANULOCYTE % (AUTO) 1.4 % (0.0-5.0); LYMPHOCYTES # (AUTO) 0.5 K/uL (0.60-3.4); LYMPHOCYTES % (AUTO) 5.1 (10.0-50.0); MEAN CORPUSCULAR HEMOGLOBIN 31.8 pg (27.0-31.0); MEAN CORPUSCULAR HGB CONC 35.2 (31.8-35.4); MEAN CORPUSCULAR VOLUME 90.4 fl (81.0-99.0); MONOCYTES # (AUTO) 0.2 K/uL (0.4-2.0); MONOCYTES % (AUTO) 2.2 (0-10); NEUTROPHILS # (AUTO) 9.4 K/ul (2.0-6.9); NEUTROPHILS % (AUTO) 91.2; PLATELET COUNT 269 10^3/uL (140-440); RED BLOOD COUNT 4.46 10^6/ul (4.20-5.40); WHITE BLOOD COUNT 10.34 K/ul (4.6-10.2)
[2016-12-22] MEDS: HUMULIN R SUBCUT PRN ×4 (06:07→20:27)
[2016-12-22 06:26] LABS: ALBUMIN 3.1 g/dL (3.4-5.0); ALBUMIN/GLOBULIN RATIO 0.94; ANION GAP 16.2; BILIRUBIN,TOTAL 0.34 mg/dL (0.00-1.20); BUN/CREATININE RATIO 31.18; CALCIUM 8.8 mg/dL (8.2-10.2); CREATININE 0.93 mg/dL (0.60-1.30); POTASSIUM 4.2 mmol/L (3.5-5.10); TOTAL PROTEIN 6.4 g/dL (5.8-8.1)
[2016-12-22] MEDS: NORVASC PO SCH (08:09)
[2016-12-22] MEDS: JANUVIA PO SCH (08:09)
[2016-12-22] MEDS: HYDROCHLOROTHIAZIDE PO SCH (08:09)
[2016-12-22] MEDS: COZAAR PO SCH (08:09)
[2016-12-22] MEDS: CARDIZEM PO SCH ×2 (08:09→20:25)
[2016-12-22] MEDS: LOVENOX SUBCUT SCH (08:10)
[2016-12-22] MEDS: LOPRESSOR PO SCH ×2 (08:10→20:26)
[2016-12-22] MEDS: ASPIRIN CHEWABLE PO SCH (08:10)
[2016-12-22] MEDS: NICODERM 21 MG TD SCH (08:10)
[2016-12-22] MEDS: ROCEPHIN 1 GM in SODIUM CHLORIDE 50 ML IV SCH (08:14)
[2016-12-22] MEDS: VALIUM PO SCH ×2 (08:19→20:27)
[2016-12-22] MEDS ORDERED: PREDNISONE PO STA (12:42)
[2016-12-22] MEDS ORDERED: PHENERGAN WITH CODEINE 6.25/10 MG/5 ML PO PRN (12:46)
[2016-12-22] MEDS ORDERED: APRESOLINE ONE (12:57)
[2016-12-22] MEDS: APRESOLINE PO SCH (13:01)
[2016-12-22] MEDS: GLUCOPHAGE PO SCH (17:00)
[2016-12-22] MEDS: REQUIP PO SCH (20:25)
[2016-12-22] MEDS: PRAVACHOL PO SCH (20:25)
[2016-12-23] MEDS ORDERED: APRESOLINE ONE (00:22)
[2016-12-23] MEDS: APRESOLINE PO SCH ×3 (00:24→20:55)
[2016-12-23 04:58] LABS: BASOPHILS % (AUTO) 0.1 % (0.0-3.0); HEMATOCRIT 39.3 % (37.0-47.0); HEMOGLOBIN 13.8 g/dl (12.0-16.0); LYMPHOCYTES # (AUTO) 0.7 K/uL (0.60-3.4); LYMPHOCYTES % (AUTO) 5.7 (10.0-50.0); MEAN CORPUSCULAR HEMOGLOBIN 31.8 pg (27.0-31.0); MEAN CORPUSCULAR HGB CONC 35.1 (31.8-35.4); MEAN CORPUSCULAR VOLUME 90.6 fl (81.0-99.0); MONOCYTES # (AUTO) 0.7 K/uL (0.4-2.0); MONOCYTES % (AUTO) 5.7 (0-10); NEUTROPHILS # (AUTO) 10.9 K/ul (2.0-6.9); NEUTROPHILS % (AUTO) 87.5; PLATELET COUNT 278 10^3/uL (140-440); RED BLOOD COUNT 4.34 10^6/ul (4.20-5.40); WHITE BLOOD COUNT 12.48 K/ul (4.6-10.2)
[2016-12-23] MEDS: XOPENEX 1.25 MG NEB SCH ×4 (05:03→23:50)
[2016-12-23 05:28] LABS: ALBUMIN 2.9 g/dL (3.4-5.0); ALBUMIN/GLOBULIN RATIO 0.81; ANION GAP 15.9; BILIRUBIN,TOTAL 0.31 mg/dL (0.00-1.20); BUN/CREATININE RATIO 33.69; CALCIUM 8.6 mg/dL (8.2-10.2); CREATININE 0.92 mg/dL (0.60-1.30); POTASSIUM 3.9 mmol/L (3.5-5.10); TOTAL PROTEIN 6.5 g/dL (5.8-8.1)
[2016-12-23] MEDS: PROTONIX PO SCH (05:35)
[2016-12-23] MEDS: SYNTHROID PO SCH (05:35)
[2016-12-23] MEDS: HUMULIN R SUBCUT PRN ×4 (05:35→21:15)
[2016-12-23] MEDS: LOPRESSOR PO SCH ×2 (08:23→20:56)
[2016-12-23] MEDS: ROCEPHIN 1 GM in SODIUM CHLORIDE 50 ML IV SCH (08:23)
[2016-12-23] MEDS: CARDIZEM PO SCH ×2 (08:24→20:56)
[2016-12-23] MEDS: NORVASC PO SCH (08:24)
[2016-12-23] MEDS: GLUCOPHAGE PO SCH (08:24)
[2016-12-23] MEDS: PREDNISONE PO SCH (08:24)
[2016-12-23] MEDS: JANUVIA PO SCH (08:24)
[2016-12-23] MEDS: ASPIRIN CHEWABLE PO SCH (08:25)
[2016-12-23] MEDS: HYDROCHLOROTHIAZIDE PO SCH (08:25)
[2016-12-23] MEDS: NICODERM 21 MG TD SCH (08:26)
[2016-12-23] MEDS: LOVENOX SUBCUT SCH (08:26)
[2016-12-23] MEDS: VALIUM PO SCH ×2 (08:26→20:55)
[2016-12-23] MEDS: COZAAR PO SCH (08:26)
--- NOTE | 2016-12-23 08:56 | PN ---
DATE OF SERVICE: 12/20/16 SUBJECTIVE: The patient is a 71 year old white female hospitalized with pneumonia. The patient's condition has steadily improved. Yesterday she was wheezing and was mild respiratory distress in the morning and after that she was given steroids and diarrhetic. The patient's condition has improved. The patient was seen and examined with the Nurse Practitioner. PHYSICAL EXAMINATION: GENERAL: The patient is , lying/sitting in bed in no distress. VITAL SIGNS: 184/85 HEENT: Head normocephalic, atraumatic. Eyes: Extraocular muscles are intact. Pupils are equal, round and reactive to light and accommodation. Ears: No lesions. Nose appeared normal. Throat: No exudate or erythema. NECK: Supple. No JVD, no carotid bruit. No lymphadenopathy or thyromegaly. LUNGS: More air entry with much less wheezing then before. Percussion note normal. Chest symmetrical. HEART: S1, S2, no S3. No murmurs. No cyanosis or clubbing. No ascites. Pulses: Dorsalis pedis and posterior tibial pulses +1 to +2 both sides. ABDOMEN: Soft. Nontender. Bowel sounds active. No CVA tenderness. No mass felt. EXTREMITIES: No edema. Full range of motion of all extremities, equal. NEUROLOGIC: No focal deficit. Cranial nerves II through XII are grossly intact. No headache, no double vision or headache. SKIN: Not dry. Intact. Turgor - normal. LYMPHATIC: No palpable lymph nodes/no lymphedema. MUSCULOSKELETAL: Normal joints with no swelling. Muscle tone is normal. PLAN: 1. Altace has been discontinued 2. Hyzaar has been added. CONDITION: Stable. TIME SPENT: More than 30 minutes. Plan and coordination of the patient's care discussed in the presence of nurse. TY
--- NOTE | 2016-12-23 09:40 | PN ---
DATE OF SERVICE: 12/21/16 SUBJECTIVE: The patient is a 71 year old white female hospitalized with pneumonia and COPD with wheezing. The patient's condition has steadily improved. REVIEW OF SYSTEMS: CONSTITUTIONAL: No night sweats. No fatigue, malaise, lethargy. No fever or chills. HEENT: Eyes: No visual changes. No eye pain. No eye discharge. ENT: No runny nose. No epistaxis. No sinus pain. No sore throat. No odynophagia. No congestion. RESPIRATORY: No cough, no congestion. No hemoptysis. CARDIOVASCULAR: No angina symptoms. No CHF symptoms. No atypical chest pain for CAD. No palpitations. Mild shortness of breath. No. PND. No Orthopnea. GASTROINTESTINAL: No abdominal pain. No nausea or vomiting. No diarrhea or constipation. No hematemesis. No hematochezia. Appetite has improved. GENITOURINARY: No urgency. No frequency. No dysuria. No hematuria. No obstructive symptoms. No discharge. No pain. No significant abnormal bleeding. MUSCULOSKELETAL: No musculoskeletal pain; no joint swelling. NEUROLOGICAL: No headache. No neck pain. No syncope. No seizures. No dizziness. PSYCHIATRIC: Not anxious. No depression. No suicidal thoughts. No homicidal thoughts. SKIN: No rash. No lesions. No wounds. ENDOCRINE: No unexplained weight loss. No weight gain. HEMATOLOGIC/LYMPHATIC: No anemia. No purpura. No petechiae. No prolonged or excessive bleeding. No palpable lymph nodes. PHYSICAL EXAMINATION: GENERAL: The patient is oriented to time, place and person. VITAL SIGNS: Temperature 97, pulse 80, respiratory rate 20, blood pressure 160/ 80 and pulse ox 95%. HEENT: Head normocephalic, atraumatic. Eyes: Extraocular muscles are intact. Pupils are equal, round and reactive to light and accommodation. Ears: No lesions. Nose appeared normal. Throat: No exudate or erythema. NECK: Supple. No JVD, no carotid bruit. No lymphadenopathy or thyromegaly. LUNGS: Decreased breath sounds with mild expiratory wheeze. Percussion note normal. Chest symmetrical. HEART: S1, S2, no S3. No murmurs. No cyanosis or clubbing. No ascites. Pulses: Dorsalis pedis and posterior tibial pulses +1 to +2 both sides. ABDOMEN: Soft. Nontender. Bowel sounds active. No CVA tenderness. No mass felt. EXTREMITIES: No edema. Full range of motion of all extremities, equal. NEUROLOGIC: No focal deficit. Cranial nerves II through XII are grossly intact. No headache, no double vision or headache. SKIN: Not dry. Intact. Turgor - normal. LYMPHATIC: No palpable lymph nodes/no lymphedema. MUSCULOSKELETAL: Normal joints with no swelling. Muscle tone is normal. LABS: Hgb 13, hct 37, WBC 11,000 normal differential, creatinine 0.9, BUN 77, sodium 126. ASSESSMENT: 1. Acute pneumonitis 2. Asthmatic bronchitis, resolving 3. Hypertension 4. CVA 5. Dyslipidemia 6. Diabetes Mellitus, seems to be resolving PLAN: 1. Will discontinue IV fluids 2. Fluid restriction 1,500 cc 3. Daily CBC and CMP 4. Again advised deep breathing exercises 5. Spirometry discussed with the patient. TIME SPENT: More than 30 minutes. Plan and coordination of the patient's care discussed in the presence of nurse. TY
--- NOTE | 2016-12-23 10:29 | PCM.PROG ---
Attending Provider: ATTENDING PROVIDER: Dr. ROSALINO GRAY DATE OF SERVICE: 12/23/16 SUBJECTIVE: This 71 year old WHITE/ F was hospitalized 12/18/16. The patient is seen with Elsy Bianchi APRN. The patient is sleeping in bed. She is alert. Condition is stable. The patient is still coughing which is nonproductive. The patient has been up, walks with walker. REVIEW OF SYSTEMS: CONSTITUTIONAL: Weakness. No night sweats. No fever or chills. HEENT: Eyes: No visual changes. No eye pain. No eye discharge. ENT: No runny nose. No epistaxis. No sinus pain. No odynophagia. No congestion. RESPIRATORY: No cough, no congestion. No hemoptysis. CARDIOVASCULAR: No angina symptoms. No CHF symptoms. No atypical chest pain for CAD. No palpitations. No shortness of breath. GASTROINTESTINAL: No abdominal pain. No nausea or vomiting. No diarrhea or constipation. No hematemesis. No hematochezia. GENITOURINARY: No urgency. No frequency. No dysuria. No hematuria. No obstructive symptoms. No discharge. No pain. No significant abnormal bleeding. MUSCULOSKELETAL: No musculoskeletal pain; no joint swelling. NEUROLOGICAL: Awake, alert, oriented to time, place and person. No headache. No neck pain. No syncope. No seizures. No dizziness. PSYCHIATRIC: Not anxious. No depression. No suicidal thoughts. No homicidal thoughts. SKIN: No rash. No lesions. No wounds. ENDOCRINE: No unexplained weight loss. No weight gain. HEMATOLOGIC/LYMPHATIC: No anemia. No purpura. No petechiae. No prolonged or excessive bleeding. No palpable lymph nodes. PHYSICAL EXAMINATION: GENERAL: The patient is awake, alert and oriented, lying in bed in no distress. VITAL SIGNS: Temperature 98.1 F, Pulse 101, Respiratory Rate 22, BP 122/74, Pulse Ox 91% HEENT: Head normocephalic, atraumatic. Eyes: Extraocular muscles are intact. Pupils are equal, round and reactive to light and accommodation. Ears: No lesions. Nose appeared normal. Throat: No exudate or erythema. NECK: Supple. No JVD, no carotid bruit. No lymphadenopathy or thyromegaly. LUNGS: Diminished breath sounds bilaterally, bilateral wheezing. Clear to auscultation. Percussion note normal. Chest symmetrical. HEART: S1, S2, no S3. Irregular with atrial fibrillation. No cyanosis or clubbing. No ascites. Pulses: Dorsalis pedis and posterior tibial pulses +1 to +2 both sides. ABDOMEN: Soft. Non-tender. Bowel sounds active. No CVA tenderness. No mass felt. EXTREMITIES: No edema. Full range of motion of all extremities, equal. NEUROLOGIC: No focal deficit. Cranial nerves II through XII are grossly intact. No headache, no double vision or headache. SKIN: Not dry. Intact. Turgor-normal. LYMPHATIC: No palpable lymph nodes/no lymphedema. MUSCULOSKELETAL: Normal joints with no swelling. Muscle tone is normal. LAB REVIEW: 12/23/16 04:45 12/23/16 04:45 12/23/16 04:45: WBC 12.48 H, RBC 4.34, Hgb 13.8, Hct 39.3, MCV 90.6, MCH 31.8 H , MCHC 35.1, RDW Coeff of Alisha 13.8, Plt Count 278, Immature Gran % (Auto) 1.0, Neut % (Auto) 87.5, Lymph % (Auto) 5.7 L, [place] % (Auto) 5.7, Eos % (Auto) 0.0, Baso % (Auto) 0.1, Immature Gran # (Auto) 0.1, Neut # 10.9 H, Lymph # 0.7, [place] # 0.7, Eos # 0.0, Baso # 0.0, Sodium 130 L, Potassium 3.9, Chloride 89 L, Carbon Dioxide 29, Anion Gap 15.9, BUN 31 H, Creatinine 0.92, Estimated GFR ( MDRD) 60.00, BUN/Creatinine Ratio 33.69, Glucose 186 H, Calcium 8.6, Total Bilirubin 0.31, AST 33, ALT 67, Alkaline Phosphatase 55, Total Protein 6.5, Albumin 2.9 L, Globulin 3.6, Albumin/Globulin Ratio 0.81 ASSESSMENT: 1. Pneumonia 2. Acute respiratory failure 3. History of CHF 4. Hypertension 5. CAD 6. Dyslipidemia 7. Pacemaker 8. Hyponatremia improving PLAN: 1. Continue present treatment 2. The patient is up and about as tolerated Plan and coordination of the patient's care discussed in the presence of Leaf Size Picker and nurse. CONDITION: Stable SCRIBED BY: MAKI REBOLLEDO, Floor Molder scribed while in presence of service performed by Dr. ROSALINO GRAY/ELSY BIANCHI APRN on 12/23/16 ([id number])
--- NOTE | 2016-12-23 11:31 | PN ---
DATE OF SERVICE: 12/22/16 SUBJECTIVE: The patient is a 71 year old white female hospitalized with pneumonia, asthmatic bronchitis type of symptoms. The patient has been treated with Steroids and antibiotics. The patient's condition has improved. The patient's Lazcano Catheter was taken out and she has been able to urinate without any problems. She has dry cough especially at night. We put on her Phenergan with codeine as needed. REVIEW OF SYSTEMS: CONSTITUTIONAL: No night sweats. No fatigue, malaise, lethargy. No fever or chills. HEENT: Eyes: No visual changes. No eye pain. No eye discharge. ENT: No runny nose. No epistaxis. No sinus pain. No sore throat. No odynophagia. No congestion. RESPIRATORY: Mild cough and congestion. No hemoptysis. CARDIOVASCULAR: No angina symptoms. No CHF symptoms. No atypical chest pain for CAD. No palpitations. No shortness of breath. GASTROINTESTINAL: No abdominal pain. No nausea or vomiting. No diarrhea or constipation. No hematemesis. No hematochezia. Improved appetite. GENITOURINARY: No urgency. No frequency. No dysuria. No hematuria. No obstructive symptoms. No discharge. No pain. No significant abnormal bleeding. MUSCULOSKELETAL: No musculoskeletal pain; no joint swelling. NEUROLOGICAL: No headache. No neck pain. No syncope. No seizures. No dizziness. PSYCHIATRIC: Not anxious. No depression. No suicidal thoughts. No homicidal thoughts. SKIN: No rash. No lesions. No wounds. ENDOCRINE: No unexplained weight loss. No weight gain. HEMATOLOGIC/LYMPHATIC: No anemia. No purpura. No petechiae. No prolonged or excessive bleeding. No palpable lymph nodes. PHYSICAL EXAMINATION: GENERAL: The patient is oriented to time, place and person. VITAL SIGNS: Temperature 97.4, pulse 76, respiratory rate 20, blood pressure 160/78 and pulse ox 95%. HEENT: Head normocephalic, atraumatic. Eyes: Extraocular muscles are intact. Pupils are equal, round and reactive to light and accommodation. Ears: No lesions. Nose appeared normal. Throat: No exudate or erythema. NECK: Supple. No JVD, no carotid bruit. No lymphadenopathy or thyromegaly. LUNGS: Decreased breath sounds but clear with mild wheeze. Percussion note normal. Chest symmetrical. HEART: S1, S2, no S3. No murmurs. No cyanosis or clubbing. No ascites. Pulses: Dorsalis pedis and posterior tibial pulses +1 to +2 both sides. ABDOMEN: Soft. Nontender. Bowel sounds active. No CVA tenderness. No mass felt. EXTREMITIES: No edema. Full range of motion of all extremities, equal. NEUROLOGIC: No focal deficit. Cranial nerves II through XII are grossly intact. No headache, no double vision or headache. SKIN: Not dry. Intact. Turgor - normal. LYMPHATIC: No palpable lymph nodes/no lymphedema. MUSCULOSKELETAL: Normal joints with no swelling. Muscle tone is normal. LABS: hgb 14.2, hct 40, WBC 10,000 normal differential, creatinine 0.9, BUN 29 and potassium 4.2 and sodium 128 which is rising. ASSESSMENT: 1. Acute bronchitis/pneumonitis resolving 2. Hyponatremia seems to be resolving PLAN: 1. Lazcano Catheter is out and still has dry cough. 2. The patient's blood sugar is 211 will discontinue IV Solu-Medrol and put her on Prednisone 20mg PO daily 3. The patient's hypertension is difficult to control with lots of medications she is on. Will add Hydralazine 25mg twice a day 4. The patient's Altace has been discontinued and put her on Cozaar 100mg PO daily, Hydrochlorothiazide along with all of her other medications. CONDITION: Stable. TIME SPENT: More than 30 minutes. Plan and coordination of the patient's care discussed in the presence of nurse. TY
--- NOTE | 2016-12-23 16:52 | RS.BEDDYS ---
Subjective Number of treatment sessions: 1 Date of Evaluation: 12/23/16 Date of Onset/Injury/Change in Status: 12/18/16 Treatment Diagnosis: Pneumonia, acute respiratory failure Prior Level of Function.....Patient was independent with: Caregiving (Pt lived with daughter and son-in-law and received assistance for ADLS. Pt was reported to have poor self-care. No prior hx of swallowing deficits were reported. ) Current Level of Function: This 71 year old female was referred for skilled ST due to consistent chest congestion without change control manager five hospitalized days of steriod and antibiotic treatment. Pt has a hx of CVA, COPD, and CHF which may attribute to chest congestion. At the bedside no overt s/s of aspiration were noted and pt maintained oxygen saturation levels with numbers dropping 1-2 levels with swallowing tasks. Audible wheezes were noted during evaluation. Pt became SOB with swallowing tasks. Current Diet: regular with thin liquids. Current Subjective/complaints:: Pt reported no concerns with swallow function. MEDICARE SALES REPRESENTATIVE noted pt with residual facial and lingual weakness with right side droop, from prior CVA. Nursing reported no deficits with swallow function during meals or medication administration. Medical History Comments:: Pneumonia, hx of CVA, acute respiratory failure, hx CHF, CAD, pacemaker, dementia, COPD, depression. Hx Home Medications: Refer to current medications for complete list. Patient's Goals: Pt to clear chest congestion. MEDICARE SALES REPRESENTATIVE to place pt on safest and least restrictive diet texture. General Information - General Patient Orientation: Person, Situation Ability to Follow Directions: Good Oral Expression Ability: Mild Impairment (Mild-moderate slurred speech quality.) Oral-Facial Assessment - Face Facial Symmetry: Right Droop - Dental/Labial Teeth Characteristics: Missing (edentulous) Lip Protrusion: Droops Right Lip Retraction: Droops Right Puff Cheeks: Reduced Strength - Lingual Protrusion: Reduced ROM Retraction: Reduced ROM Tip Lateralization: Discoordination Tip Elevation: Discoordination Comments: Moderate deficits with all lingual movements. Large tongue. Food Presentation - Solids Food Presented: Mechanical Soft (Finger food. self fed.) Behaviors/Comments: No difficulty with textures noted. Pt masticated with minimal difficulty due to edentulous status. Cleared texture with minimal to no oral residue. - Liquids Liquid Presented: Thin (Via straw and open cup) Behaviors/Comments: No overt s/s of aspiration noted over 10 trials. Pt noted with SOB 3x, oxygen saturation dropped 1-2 numbers. Audible wheezes throughout evaluation. - Recommendations: Dysphagia Evaluation Dietary Recommendations: Normal Dysphagia Swallow Precautions/Strategies: Sitting Upright (90 deg) - Summary Dysphagia Evaluation Summary: At the bedside pt appears to have no difficulty with thin liquids or mechanical soft diet texture. No overt s/s of aspiration were noted. Pt had audible wheezes prior to evaluation and verbalized SOB had been consistent during hospital stay. MEDICARE SALES REPRESENTATIVE recommends a modified barium swallow study to rule out silent aspiration. Further Therapy Indicated?: Yes Rehab Potential: Good Functional Reporting G Codes: Current CI Goal CI Severity Impairment Rationale: Pt at risk for aspiration due to hx of stroke. Short Term Goals Problem: Chest congestion Goal #1: Pt to follow safe swallow strategies with 100% accuracy Goal to be met by: 12/27/16 Problem: SOB Goal #2: Pt to complete pacing with meals to decrease SOB Goal to be met by: 12/27/16 Sporting Goods Sales Associate Goals Problem: Swallowing Goal #1: Pt to tolerate thin liquids with regular diet w/o overt s/s of aspiration Plan Duration of Treatment: 1 Week Frequency of Treatment: 1-2 times a week. Anticipated Discharge Destination: Home (With daughter as caregiver.) Comments: MEDICARE SALES REPRESENTATIVE recommends a MBSS to rule out silent aspiration due to consistent chest congestion and hx of CVA may have residual sensory affects.
[2016-12-23] MEDS: ZOFRAN TAB PO PRN (17:29)
[2016-12-23] MEDS: REQUIP PO SCH (20:55)
[2016-12-23] MEDS: PRAVACHOL PO SCH (20:56)
[2016-12-24 04:45] LABS: BASOPHILS % (AUTO) 0.2 % (0.0-3.0); EOSINOPHILS % (AUTO) 0.2 % (0.0-7.0); HEMOGLOBIN 13.6 g/dl (12.0-16.0); IMMATURE GRANULOCYTE % (AUTO) 1.4 % (0.0-5.0); LYMPHOCYTES # (AUTO) 1.9 K/uL (0.60-3.4); LYMPHOCYTES % (AUTO) 16.8 (10.0-50.0); MEAN CORPUSCULAR HEMOGLOBIN 31.7 pg (27.0-31.0); MEAN CORPUSCULAR HGB CONC 34.9 (31.8-35.4); MEAN CORPUSCULAR VOLUME 90.9 fl (81.0-99.0); MONOCYTES # (AUTO) 1.2 K/uL (0.4-2.0); MONOCYTES % (AUTO) 10.7 (0-10); NEUTROPHILS # (AUTO) 7.8 K/ul (2.0-6.9); NEUTROPHILS % (AUTO) 70.7; PLATELET COUNT 249 10^3/uL (140-440); RED BLOOD COUNT 4.29 10^6/ul (4.20-5.40); WHITE BLOOD COUNT 10.99 K/ul (4.6-10.2)
[2016-12-24] MEDS: XOPENEX 1.25 MG NEB SCH ×4 (04:48→23:05)
[2016-12-24 05:04] LABS: ALBUMIN 2.8 g/dL (3.4-5.0); ALBUMIN/GLOBULIN RATIO 0.93; ANION GAP 14.8; CALCIUM 8.5 mg/dL (8.2-10.2); POTASSIUM 3.8 mmol/L (3.5-5.10); TOTAL PROTEIN 5.8 g/dL (5.8-8.1)
[2016-12-24 05:05] LABS: BILIRUBIN,TOTAL 0.35 mg/dL (0.00-1.20); BUN/CREATININE RATIO 31.7; CREATININE 0.82 mg/dL (0.60-1.30)
[2016-12-24] MEDS: SYNTHROID PO SCH (05:38)
[2016-12-24] MEDS: PROTONIX PO SCH (05:39)
[2016-12-24] MEDS: GLUCOPHAGE PO SCH ×3 (06:59→17:45)
[2016-12-24] MEDS: APRESOLINE PO SCH ×2 (09:35→20:29)
[2016-12-24] MEDS: CARDIZEM PO SCH ×2 (09:37→20:30)
[2016-12-24] MEDS: COZAAR PO SCH (09:38)
[2016-12-24] MEDS: VALIUM PO SCH ×2 (09:38→20:30)
[2016-12-24] MEDS: ELIQUIS PO SCH ×2 (09:39→20:28)
[2016-12-24] MEDS: KEFLEX PO SCH ×3 (09:40→20:28)
[2016-12-24] MEDS: JANUVIA PO SCH (09:40)
[2016-12-24] MEDS: PREDNISONE PO SCH (09:41)
[2016-12-24] MEDS: LOPRESSOR PO SCH ×2 (09:41→20:29)
[2016-12-24] MEDS: HYDROCHLOROTHIAZIDE PO SCH (09:42)
[2016-12-24] MEDS: NORVASC PO SCH (09:43)
[2016-12-24] MEDS: NICODERM 21 MG TD SCH (09:43)
[2016-12-24] MEDS: ASPIRIN CHEWABLE PO SCH (09:59)
--- NOTE | 2016-12-24 10:00 | PN ---
DATE OF SERVICE: 12/23/16 SUBJECTIVE: The patient is a 71 year old white female seen with the Nurse Practitioner. The patient's condition is stable and her chest x-ray still shows retrocardiac consolidation which I think is atelectasis. REVIEW OF SYSTEMS: CONSTITUTIONAL: No night sweats. No fatigue, malaise, lethargy. No fever or chills. HEENT: Eyes: No visual changes. No eye pain. No eye discharge. ENT: No runny nose. No epistaxis. No sinus pain. No sore throat. No odynophagia. No congestion. RESPIRATORY: No cough, no congestion. No hemoptysis. CARDIOVASCULAR: No angina symptoms. No CHF symptoms. No atypical chest pain for CAD. No palpitations. No shortness of breath. No. PND. No Orthopnea. GASTROINTESTINAL: No abdominal pain. No nausea or vomiting. No diarrhea or constipation. No hematemesis. No hematochezia. GENITOURINARY: No urgency. No frequency. No dysuria. No hematuria. No obstructive symptoms. No discharge. No pain. No significant abnormal bleeding. MUSCULOSKELETAL: No musculoskeletal pain; no joint swelling. NEUROLOGICAL: No headache. No neck pain. No syncope. No seizures. No dizziness. PSYCHIATRIC: Not anxious. No depression. No suicidal thoughts. No homicidal thoughts. SKIN: No rash. No lesions. No wounds. ENDOCRINE: No unexplained weight loss. No weight gain. HEMATOLOGIC/LYMPHATIC: No anemia. No purpura. No petechiae. No prolonged or excessive bleeding. No palpable lymph nodes. PHYSICAL EXAMINATION: VITAL SIGNS: Blood pressure is better today 122/74. HEENT: Head normocephalic, atraumatic. Eyes: Extraocular muscles are intact. Pupils are equal, round and reactive to light and accommodation. Ears: No lesions. Nose appeared normal. Throat: No exudate or erythema. NECK: Supple. No JVD, no carotid bruit. No lymphadenopathy or thyromegaly. LUNGS: Clear to auscultation. Percussion note normal. Chest symmetrical. HEART: S1, S2, no S3. No murmurs. No cyanosis or clubbing. No ascites. Pulses: Dorsalis pedis and posterior tibial pulses +1 to +2 both sides. ABDOMEN: Soft. Nontender. Bowel sounds active. No CVA tenderness. No mass felt. EXTREMITIES: No edema. Full range of motion of all extremities, equal. NEUROLOGIC: No focal deficit. Cranial nerves II through XII are grossly intact. No headache, no double vision or headache. SKIN: Not dry. Intact. Turgor - normal. LYMPHATIC: No palpable lymph nodes/no lymphedema. MUSCULOSKELETAL: Normal joints with no swelling. Muscle tone is normal. PLAN: 1. Hydralazine was added yesterday. 2. The patient had echocardiogram done today which showed LVH with normal LV contractility and calcified mitral anulus. LA cavity is 4.5cm. 3. The patient is stable and will discharged on Eliquis 4. Eliquis and Norval blood thinners discussed. The patient's prefers Norval blood thinners. No Coumadin. Side effects like GI bleed and intracranial bleed been discussed. TIME SPENT: More than 30 minutes. Plan and coordination of the patient's care discussed in the presence of nurse. TY
--- NOTE | 2016-12-24 11:22 | PCM.PROG ---
Attending Provider: ATTENDING PROVIDER: Dr. ROSALINO GRAY DATE OF SERVICE: 12/24/16 SUBJECTIVE: This 71 year old WHITE/ F was hospitalized 12/18/16. The patient is seen with Elsy, Nurse Practitioner. The patient is alert. She is eating well and is up and about. Swallow study done yesterday and recommendation for barium swallow to be done for aspiration. The patient is encouraged to be up and about more today. REVIEW OF SYSTEMS: CONSTITUTIONAL: No night sweats. No fatigue, malaise, lethargy. No fever or chills. HEENT: Eyes: No visual changes. No eye pain. No eye discharge. ENT: No runny nose. No epistaxis. No sinus pain. No odynophagia. No congestion. RESPIRATORY: Less cough and congestion. No hemoptysis. CARDIOVASCULAR: No angina symptoms. No CHF symptoms. No atypical chest pain for CAD. No palpitations. No shortness of breath. GASTROINTESTINAL: Appetite is good. No abdominal pain. No nausea or vomiting. No diarrhea or constipation. No hematemesis. No hematochezia. GENITOURINARY: No urgency. No frequency. No dysuria. No hematuria. No obstructive symptoms. No discharge. No pain. No significant abnormal bleeding. MUSCULOSKELETAL: No musculoskeletal pain; no joint swelling. NEUROLOGICAL: Awake, alert, oriented to time, place and person. No headache. No neck pain. No syncope. No seizures. No dizziness. PSYCHIATRIC: Not anxious. No depression. No suicidal thoughts. No homicidal thoughts. SKIN: No rash. No lesions. No wounds. ENDOCRINE: No unexplained weight loss. No weight gain. HEMATOLOGIC/LYMPHATIC: No anemia. No purpura. No petechiae. No prolonged or excessive bleeding. No palpable lymph nodes. PHYSICAL EXAMINATION: GENERAL: The patient is awake, alert and oriented, lying/sitting in bed in no distress. VITAL SIGNS: Temperature 97.4 F, Pulse 84, Respiratory Rate 20, BP 140/62, Pulse Ox 97% HEENT: Head normocephalic, atraumatic. Eyes: Extraocular muscles are intact. Pupils are equal, round and reactive to light and accommodation. Ears: No lesions. Nose appeared normal. Throat: No exudate or erythema. NECK: Supple. No JVD, no carotid bruit. No lymphadenopathy or thyromegaly. LUNGS: Diminished breath sounds bilaterally but improved. No wheezing. Percussion note normal. Chest symmetrical. HEART: S1, S2, no S3. No murmurs. Irregular consistent with atrial fibrillation. No cyanosis or clubbing. No ascites. Pulses: Dorsalis pedis and posterior tibial pulses +1 to +2 both sides. ABDOMEN: Soft. Non-tender. Bowel sounds active. No CVA tenderness. No mass felt. EXTREMITIES: No edema. Full range of motion of all extremities, equal. NEUROLOGIC: No focal deficit. Cranial nerves II through XII are grossly intact. No headache, no double vision or headache. SKIN: Not dry. Intact. Turgor-normal. LYMPHATIC: No palpable lymph nodes/no lymphedema. MUSCULOSKELETAL: Normal joints with no swelling. Muscle tone is normal. LAB REVIEW: 12/24/16 04:42 12/24/16 04:42 12/24/16 04:42: WBC 10.99 H, RBC 4.29, Hgb 13.6, Hct 39.0, MCV 90.9, MCH 31.7 H , MCHC 34.9, RDW Coeff of Alisha 14.1, Plt Count 249, Immature Gran % (Auto) 1.4, Neut % (Auto) 70.7, Lymph % (Auto) 16.8, [place] % (Auto) 10.7 H, Eos % (Auto) 0.2 , Baso % (Auto) 0.2, Immature Gran # (Auto) 0.2, Neut # 7.8 H, Lymph # 1.9, [place] # 1.2, Eos # 0.0, Baso # 0.0, Sodium 129 L, Potassium 3.8, Chloride 87 L, Carbon Dioxide 31, Anion Gap 14.8, BUN 26 H, Creatinine 0.82, Estimated GFR ( MDRD) 68.00, BUN/Creatinine Ratio 31.70, Glucose 130 H D, Calcium 8.5, Total Bilirubin 0.35, AST 35, ALT 66, Alkaline Phosphatase 59, Total Protein 5.8, Albumin 2.8 L, Globulin 3.0, Albumin/Globulin Ratio 0.93 ASSESSMENT: 1. Pneumonia improved 2. Acute respiratory failure resolved 3. History of CHF 4. Hypertension 5. CAD 6. Dyslipidemia 7. Pacemaker 8. Hyponatremia improving PLAN: 1. Change to Keflex 500 mg p.o. t.i.d. 2. Encouraged to walk more. 3. Schedule Barium Swallow. Plan and coordination of the patient's care discussed in the presence of Heading Machine Operator and nurse. CONDITION: Stable SCRIBED BY: Grace LLANOSist scribed while in presence of service performed by Dr. ROSALINO GRAY/ELSY BIANCHI APRN on 12/24/16 ([id number])
[2016-12-24] MEDS: HUMULIN R SUBCUT PRN ×3 (11:37→20:26)
[2016-12-24] MEDS: PRAVACHOL PO SCH (20:29)
[2016-12-24] MEDS: REQUIP PO SCH (20:30)
[2016-12-25 04:49] LABS: BASOPHILS % (AUTO) 0.3 % (0.0-3.0); EOSINOPHILS # (AUTO) 0.1 K/ul (0.0-0.7); EOSINOPHILS % (AUTO) 1.1 % (0.0-7.0); HEMATOCRIT 37.7 % (37.0-47.0); HEMOGLOBIN 13.4 g/dl (12.0-16.0); IMMATURE GRANULOCYTE % (AUTO) 1.1 % (0.0-5.0); LYMPHOCYTES # (AUTO) 2.2 K/uL (0.60-3.4); LYMPHOCYTES % (AUTO) 19.9 (10.0-50.0); MEAN CORPUSCULAR HEMOGLOBIN 32.4 pg (27.0-31.0); MEAN CORPUSCULAR HGB CONC 35.5 (31.8-35.4); MEAN CORPUSCULAR VOLUME 91.1 fl (81.0-99.0); MONOCYTES % (AUTO) 9.4 (0-10); NEUTROPHILS # (AUTO) 7.5 K/ul (2.0-6.9); NEUTROPHILS % (AUTO) 68.2; PLATELET COUNT 236 10^3/uL (140-440); RED BLOOD COUNT 4.14 10^6/ul (4.20-5.40); WHITE BLOOD COUNT 10.96 K/ul (4.6-10.2)
[2016-12-25] MEDS: XOPENEX 1.25 MG NEB SCH ×2 (05:03→12:37)
[2016-12-25 05:09] LABS: ALBUMIN 2.8 g/dL (3.4-5.0); ALBUMIN/GLOBULIN RATIO 1.08; ANION GAP 14.1; BILIRUBIN,TOTAL 0.46 mg/dL (0.00-1.20); BUN/CREATININE RATIO 26.58; CALCIUM 8.2 mg/dL (8.2-10.2); CREATININE 0.79 mg/dL (0.60-1.30); POTASSIUM 4.1 mmol/L (3.5-5.10); TOTAL PROTEIN 5.4 g/dL (5.8-8.1)
[2016-12-25] MEDS: KEFLEX PO SCH ×2 (05:29→12:37)
[2016-12-25] MEDS: SYNTHROID PO SCH (05:30)
[2016-12-25] MEDS: PROTONIX PO SCH (05:30)
--- NOTE | 2016-12-25 07:20 | ECHO2D ---
Date of Exam: 12/23/16 Ordering Physician: ROSALINO GRAY Reason for Echo: A-FIB, SOB, CHEST CONGESTION, PACEMAKER M-Mode Normal Adult Results LV Dimensions Normal Adult Results AoV Opening excursions >1.6 >1.6 LVEDD-base- 3.5-5.8 4.5 Ao root dimensions 2.0-3.7 3.2 LVESD-base- 3.1-4.6 L. Atrium dimensions 1.9-3.8 4.6 Post. Wall thickness 0.8-1.1 1.3 IV septum (thickness) 0.7-1.2 1.3 Post. Wall excursion 0.72-1.3 NORMAL Septal motion NORMAL Systolic motion R. Ventricular cavity 1.5-2.0 NORMAL LVEF 60% 63% Paradoxical septal wall motion NORMAL 2-D : NORMAL LEFT VENTRICULAR CONTRACTILITY--NO EFFUSION, NO THROMBUS, ENLARGED LEFT ATRIAL CAVITY, NORMAL LEFT VENTRICLE SIZE, NORMAL VALVES DOPPLER WITH COLOR FLOW: MODERATE AORTIC REGURGITATION M-MODE: MV: CALCIFIC MITRAL VALVE ANNULUS AV: NORMAL TV: NORMAL PV: CHAMBER SIZE: ENLARGED LEFT ATRIAL CAVITY WALL MOTION: NORMAL PERICARDIUM: NORMAL INTERPRETATION: 1. LEFT VENTRICULAR HYPERTROPHY WITH ENLARGED LEFT ATRIAL CAVITY 2. NORMAL LEFT VENTRICULAR CONTRACTILITY 3. CALCIFIC MITRAL VALVE ANNULUS MTDD
[2016-12-25] MEDS: TYLENOL PO PRN (07:45)
[2016-12-25] MEDS: ZOFRAN TAB PO PRN (08:57)
[2016-12-25] MEDS: ELIQUIS PO SCH (09:10)
[2016-12-25] MEDS: JANUVIA PO SCH (09:11)
[2016-12-25] MEDS: NORVASC PO SCH (09:11)
[2016-12-25] MEDS: LOPRESSOR PO SCH (09:11)
[2016-12-25] MEDS: VALIUM PO SCH (09:12)
[2016-12-25] MEDS: PREDNISONE PO SCH (09:12)
[2016-12-25] MEDS: COZAAR PO SCH (09:12)
[2016-12-25] MEDS: GLUCOPHAGE PO SCH (09:13)
[2016-12-25] MEDS: HYDROCHLOROTHIAZIDE PO SCH (09:13)
[2016-12-25] MEDS: APRESOLINE PO SCH (09:13)
[2016-12-25] MEDS: CARDIZEM PO SCH (09:13)
[2016-12-25] MEDS: NICODERM 21 MG TD SCH (09:14)
--- NOTE | 2016-12-25 11:04 | PN ---
DATE OF SERVICE: 12/24/16 SUBJECTIVE: The patient was seen with nurse practitioner. This is a 71-year-old white female hospitalized with pneumonia. The patient's condition has been stable. She will be started on Eliquis 5 twice a day because of atrial fibrillation, which has been steady. The left atrium size is 4.5. The hyponatremia is improving. The patient likely has aspiration pneumonitis. The consolidation seen on retrocardiac area likely atelectasis. Barium swallow will be done. Will have patient up and about. The patient has old lacunar infarct. No evidence of hemorrhagic stroke in the past. The side effect of Eliquis with GI bleed and intracranial bleed discussed with the patient and family - daughter. CONDITION: Stable. TIME SPENT: More than 30 minutes. Plan and coordination of the patient's care discussed in the presence of nurse. TY
[2016-12-25 11:07] VITALS: BP 125/69; TEMP 97.1
[2016-12-25] MEDS: HUMULIN R SUBCUT PRN (11:28)
--- NOTE | 2016-12-25 11:43 | PCM.PROG ---
Attending Provider: ATTENDING PROVIDER: Dr. ROSALINO GRAY DATE OF SERVICE: 12/25/16 SUBJECTIVE: This 71 year old WHITE/ F was hospitalized 12/18/16. The patient is seen with Elsy, Nurse Practitioner. The patient states she is ready to go home. She is feeling better, eating well, up and about walking with assistance of a walker. The patient will be discharged ute today, lives with daughter. REVIEW OF SYSTEMS: CONSTITUTIONAL: Weakness, improved. No night sweats. No fever or chills. HEENT: Eyes: No visual changes. No eye pain. No eye discharge. ENT: No runny nose. No epistaxis. No sinus pain. No odynophagia. No congestion. RESPIRATORY: Cough has improved. No hemoptysis. CARDIOVASCULAR: No angina symptoms. No CHF symptoms. No atypical chest pain for CAD. No palpitations. Less shortness of breath. GASTROINTESTINAL: No abdominal pain. No nausea or vomiting. No diarrhea or constipation. No hematemesis. No hematochezia. GENITOURINARY: No urgency. No frequency. No dysuria. No hematuria. No obstructive symptoms. No discharge. No pain. No significant abnormal bleeding. MUSCULOSKELETAL: No musculoskeletal pain; no joint swelling. NEUROLOGICAL: Awake, alert, oriented to time, place and person. No headache. No neck pain. No syncope. No seizures. No dizziness. PSYCHIATRIC: Not anxious. No depression. No suicidal thoughts. No homicidal thoughts. SKIN: No rash. No lesions. No wounds. ENDOCRINE: No unexplained weight loss. No weight gain. HEMATOLOGIC/LYMPHATIC: No anemia. No purpura. No petechiae. No prolonged or excessive bleeding. No palpable lymph nodes. PHYSICAL EXAMINATION: GENERAL: The patient is awake, alert and oriented, sitting in chair in no distress. VITAL SIGNS: Temperature 97.5 F, Pulse 82, Respiratory Rate 20, BP 156/84, Pulse Ox 100% HEENT: Head normocephalic, atraumatic. Eyes: Extraocular muscles are intact. Pupils are equal, round and reactive to light and accommodation. Ears: No lesions. Nose appeared normal. Throat: No exudate or erythema. NECK: Supple. No JVD, no carotid bruit. No lymphadenopathy or thyromegaly. LUNGS: Diminished breath sounds bilaterally. No wheeze. Percussion note normal. Chest symmetrical. HEART: S1, S2, no S3. No murmurs. Irregular. No cyanosis or clubbing. No ascites. Pulses: Dorsalis pedis and posterior tibial pulses +1 to +2 both sides. ABDOMEN: Soft. Non-tender. Bowel sounds active. No CVA tenderness. No mass felt. EXTREMITIES: No edema. Full range of motion of all extremities, equal. NEUROLOGIC: No focal deficit. Cranial nerves II through XII are grossly intact. No headache, no double vision or headache. SKIN: Not dry. Intact. Turgor-normal. LYMPHATIC: No palpable lymph nodes/no lymphedema. MUSCULOSKELETAL: Normal joints with no swelling. Muscle tone is normal. LAB REVIEW: 12/25/16 04:44 12/25/16 04:44 12/25/16 04:44: WBC 10.96 H, RBC 4.14 L, Hgb 13.4, Hct 37.7, MCV 91.1, MCH 32.4 H, MCHC 35.5 H, RDW Coeff of Alisha 14.0, Plt Count 236, Immature Gran % (Auto) 1.1 , Neut % (Auto) 68.2, Lymph % (Auto) 19.9, [place] % (Auto) 9.4, Eos % (Auto) 1.1, Baso % (Auto) 0.3, Immature Gran # (Auto) 0.1, Neut # 7.5 H, Lymph # 2.2, [place] # 1.0, Eos # 0.1, Baso # 0.0, Sodium 128 L, Potassium 4.1, Chloride 84 L, Carbon Dioxide 34 H, Anion Gap 14.1, BUN 21 H, Creatinine 0.79, Estimated GFR ( MDRD) 71.00, BUN/Creatinine Ratio 26.58, Glucose 111, Calcium 8.2, Total Bilirubin 0.46, AST 24, ALT 54, Alkaline Phosphatase 56, Total Protein 5.4 L, Albumin 2.8 L, Globulin 2.6, Albumin/Globulin Ratio 1.08 ASSESSMENT: 1. Pneumonia improved 2. Acute respiratory failure resolved 3. Atrial fibrillation on Eliquis 4. History of CHF 5. Hypertension 6. CAD 7. Dyslipidemia 8. Pacemaker 9. Hyponatremia improving PLAN: 1. Discharge home. 2. Continue Prednisone for 3 more days at 20 mg daily. 3. Continue Elqiuis for new onset atrial fibrillation. Discussed side effects of Eliquis with the patient to include GI bleed, intracranial bleed. She voiced understanding and is in agreement. 4. Continue Keflex 500 mg t.i.d. for 7 more days. 5. Three step test to determine if patient needs oxygen at home. 6. Outpatient barium swallow on Friday. 7. Will have the patient followup in one week. Plan and coordination of the patient's care discussed in the presence of Tan Room Supervisor and nurse CONDITION: Stable SCRIBED BY: MAKI REBOLLEDO Detective Chief scribed while in presence of service performed by Dr. ROSALINO GRAY/ELSY BIANCHI APRN on 12/25/16 ([id number])
--- NOTE | 2016-12-26 13:32 | PN ---
DATE OF SERVICE: 12/25/16 DISCHARGE NOTE SUBJECTIVE: The patient was seen with Nurse Practitioner. The patient is a 71 year old white female hospitalized with pneumonia. The patient's condition has steadily improved and she is feeling a lot better. She is up and about with help. REVIEW OF SYSTEMS: CONSTITUTIONAL: No night sweats. No fatigue, malaise, lethargy. No fever or chills. HEENT: Eyes: No visual changes. No eye pain. No eye discharge. ENT: No runny nose. No epistaxis. No sinus pain. No sore throat. No odynophagia. No congestion. RESPIRATORY: No cough, no congestion. No hemoptysis. CARDIOVASCULAR: No angina symptoms. No CHF symptoms. No atypical chest pain for CAD. No palpitations. No shortness of breath. GASTROINTESTINAL: No abdominal pain. No nausea or vomiting. No diarrhea or constipation. No hematemesis. No hematochezia. GENITOURINARY: No urgency. No frequency. No dysuria. No hematuria. No obstructive symptoms. No discharge. No pain. No significant abnormal bleeding. MUSCULOSKELETAL: No musculoskeletal pain; no joint swelling. NEUROLOGICAL: No headache. No neck pain. No syncope. No seizures. No dizziness. PSYCHIATRIC: Not anxious. No depression. No suicidal thoughts. No homicidal thoughts. SKIN: No rash. No lesions. No wounds. ENDOCRINE: No unexplained weight loss. No weight gain. HEMATOLOGIC/LYMPHATIC: No anemia. No purpura. No petechiae. No prolonged or excessive bleeding. No palpable lymph nodes. PHYSICAL EXAMINATION: VITAL SIGNS: Temperature 97.5, pulse 82, respiratory rate 20, blood pressure 156/84 and pulse ox 100%. HEENT: Head normocephalic, atraumatic. Eyes: Extraocular muscles are intact. Pupils are equal, round and reactive to light and accommodation. Ears: No lesions. Nose appeared normal. Throat: No exudate or erythema. NECK: Supple. No JVD, no carotid bruit. No lymphadenopathy or thyromegaly. LUNGS: Decreased breath sounds but clear to auscultation. Percussion note normal. Chest symmetrical. HEART: S1, S2, no S3. No murmurs. No cyanosis or clubbing. No ascites. Pulses: Dorsalis pedis and posterior tibial pulses +1 to +2 both sides. ABDOMEN: Soft. Nontender. Bowel sounds active. No CVA tenderness. No mass felt. EXTREMITIES: No edema. Full range of motion of all extremities, equal. NEUROLOGIC: No focal deficit. Cranial nerves II through XII are grossly intact. No headache, no double vision or headache. SKIN: Not dry. Intact. Turgor - normal. LYMPHATIC: No palpable lymph nodes/no lymphedema. MUSCULOSKELETAL: Normal joints with no swelling. Muscle tone is normal. ASSESSMENT: 1. Pneumonia 2. Atrial fibrillation, discussed the complications and the complications of medication Eliquis like GI bleed and intracranial bleed also advised not to take any non-steroidal anti-inflammatory with it PLAN: 1. The patient will be discharged on Keflex and steroids. CONDITION: Stable. TIME SPENT: More than 30 minutes. Plan and coordination of the patient's care discussed in the presence of nurse. TY
--- NOTE | 2016-12-26 13:34 | PN ---
12/18/16: Level 5 12/19/16: Intermediate 12/20/16: Intermediate 12/21/16: Intermediate 12/22/16: Intermediate 12/23/16: Intermediate 12/24/16: Brief 12/25/16: D as in discharge MTDD
--- NOTE | 2017-01-07 10:39 | DS ---
DATE OF SERVICE: 12/25/16 FINAL DIAGNOSIS: 1. PNEUMONIA 2. HYPONATREMIA 3. POSSIBLE SILENT DYSPHAGIA SECONDARY TO CVA HISTORY 4. ATRIAL FIBRILLATION, CONTROLLED VENTRICULAR RATE 5. HYPERTENSION 6. CAD 7. DYSLIPIDEMIA 8. CONGESTIVE HEART FAILURE 9. MILD DEMENTIA 10. HISTORY OF MULTIPLE CVA'S 11. COPD 12. DIABETES MELLITUS, TYPE 2 13. 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 INSOMNIA 16. GENERAL ANXIETY DISORDER 17. DEPRESSION 18. RESTLESS LEG SYNDROME 19. LEG EDEMA BY HISTORY 20. PACEMAKER INSERTION, DR. HEREDIA 21. CHOLECYSTECTOMY V/S AT DISCHARGE: Temperature 97.1, pulse 18, respiratory rate 70, BP 125/69, pulse ox 97. DISCHARGE INSTRUCTIONS: Followup appointment with Dr. Mckeon in one week. Please phone the office to schedule your followup appointment . MEDICATIONS AT DISCHARGE: 1. Ropinirole (Requip) 2 mg p.o. bedtime 2. Ramipril 10 mg p.o. daily 3. Pravastatin (Pravachol) 40 mg p.o. bedtime 4. Metoprolol 100 mg p.o. b.i.d. 5. Metformin 500 mg p.o. b.i.d. 6. Sitagliptin (Januvia) 100 mg p.o. daily 7. Levothyroxine (Synthroid) 50 mcg p.o. q.d a.c. 8. Fluoxetine (Prozac) 20 mg p.o. daily 9. Hydrocodone/Acetaminophen one each p.o. b.i.d. p.r.n. 10. Diazepam (Valium) 2 mg p.o. b.i.d. 11. Risperidone 0.25 mg p.o. b.i.d. 12. Amlodipine 10 mg p.o. daily 13. Melatonin 10 mg p.o. bedtime 14. Calcium 1,500 mg p.o. daily 15. Multivitamin with minerals/Lutein one each p.o. daily 16. Memantine HCI/Donepezil one each p.o. as directed NEW PRESCRIPTIONS: DO NOT TAKE YOUR ASPIRIN 1. Continue to use your supplemental oxygen at home 2. Diltiazem 90 mg p.o. q.12hr 3. Apixaban (Eliquis) 5 mg p.o.b.i.d. 4. Hydralazine 25 mg p.o.q.12hr 5. Losartan/Hydrochlorothiazide one each p.o. daily 6. Prednisone 20 mg p.o. daily with meal 7. Cephalexin (Keflex) 500 mg p.o. q.12hr p.r.n. DIET INSTRUCTIONS: Consistent carbs ACTIVITY: Get plenty of rest at home. Gradually increase your activity level according to your toleration. SMOKING: Smoking cessation teaching has been provided for the patient. She does not verbalize her intent to stop. She will require reinforcement of teaching and continued encouragement for complete cessation. DISEASE SPECIFIC EDUCATION: Followup HOSPITAL COURSE: This is a 71-year-old female who arrived at [facility] Emergency Room complaining that she was short of breath and had nausea. The patient has a long history of COPD and is a one pack per day smoker and has been for the past 30 to 40 years. ABGs in the emergency room showed an oxygen saturation of 82, pH 7.454, pc02 47.2, p02 45, bicarb 33.1, total co2 35, base excess of 9. Potassium low at 3.2 , BUN 10 and creatinine 0.79. BNP was elevated at 570. Chest x-ray revealed that she had a right lower lobe pneumonia along with acute COPD exacerbation. Her vital signs upon arrival in the ER, temperature 97.3, pulse 104, respirations 20, BP 134/69 and pulse ox 83. The patient was subsequently admitted to the regular Med/Surg floor. SHe was placed on IV Solu-Medrol 120 mg q.8hr along with Rocephin IV daily and IV fluids. She was placed on routine telemetry orders. Over the course of her hospital stay, her routine telemetry began to show consistent atrial fibrillation. She had not had a history of consistent atrial fibrillation in the past. She was placed on Lovenox daily in order to prevent blood clots. Also upon admission, her white count was 16.71 with hemoglobin 14.3 and hematocrit of 40.8. On the second day of the hospital stay, the patient had reported a worsening in respiratory status. She had bilateral rhonchi as well as bilateral wheezing. We increased her neb treatments to q.4 to 6hr. She was up to 3L on oxygen. We increased the frequency of her IV steroids to q.6hr. She also had a venous scan of her legs during the course of her hospital stay, which was negative. After the first two days, the patient started steadily improving. After she began to get up and walk for the past two days her breathing has improved remarkably. On the day of discharge, she no longer has any wheezing. Her oxygen saturation is 100% on 2L. Heart rate is steady at 82, respirations 20. She has been afebrile. Her white count has improved since admission and was 10.96 today along with a steady hemoglobin of 13.4 and 37.7 hematocrit. We were concerned with the possibility of aspiration syndrome and a swallow study was done by Speech Therapy which recommended a followup Barium Swallow. This is scheduled to be done on Friday as an outpatient. She remained on Lovenox during her hospital stay due to her persistent atrial fibrillation, which is a new finding likely brought on due to her acute respiratory failure at admission. Because of this, she was on Lovenox during her hospital stay and yesterday she was placed on Eliquis 5 mg p.o. b.i.d. which she will be discharged home on. Atrial fibrillation risks have been discussed. The benefits and risks with Eliquis regarding GI bleed and intracranial bleed have been discussed in detail with the patient by myself and the nurses. Ms. Montilla also developed some hyponatremia during the course of her stay which she appears to be asymptomatic. Sodium 128 today. She has been placed on 1500 cc fluid restriction which she will go home on. The patient states she is doing much better today. She has been eating 100% of her meals. She had wanted to go home yesterday but we delayed due to placement of starting of Eliquis and persistent atrial fibrillation. Her rate has been controlled. Pulse was 82 on day of discharge today. She will be discharged home on Prednisone 20 mg daily for the next three days. Keflex 500 mg p.o. t.i.d for the next seven days. She will start Eliquis 5 mg b.i.d. and continue this. We will discharge her today. She is to followup with us in the office in one week. She also has an appointment for a barium swallow to be done this Friday in order for her dysphagia. She is encouraged to continue to be up and about and walk with assistance of a walker at home. The nurses will perform a three-step oxygen test to see if she qualifies for a portable oxygen. TIME SPENT: More than 60 minutes. TY
== END 2016-12-25 15:45 | disposition home or self-care (01) | DRG 177 ==
LOC: ED 06:16 → MEDSURG B 10:14
PROVIDERS: ADMIT Internal Medicine; ATTEND Internal Medicine
DX: J69.0 Pneumonitis due to inhalation of food and vomit (principal); J96.20 Acute and chronic respiratory failure, unspecified whether with hypoxia or hypercapnia; J44.1 Chronic obstructive pulmonary disease with (acute) exacerbation; J98.11 Atelectasis; E87.1 Hypo-osmolality and hyponatremia; I48.1 Persistent atrial fibrillation; I51.7 Cardiomegaly; R06.02 Shortness of breath; R13.19 Other dysphagia; I10 Essential (primary) hypertension; I25.10 Atherosclerotic heart disease of native coronary artery without angina pectoris; E78.5 Hyperlipidemia, unspecified; I50.9 Heart failure, unspecified; F03.90 Unspecified dementia, unspecified severity, without behavioral disturbance, psychotic disturbance, mood disturbance, and anxiety; E11.9 Type 2 diabetes mellitus without complications; M19.90 Unspecified osteoarthritis, unspecified site; M47.9 Spondylosis, unspecified; G47.00 Insomnia, unspecified; F41.8 Other specified anxiety disorders; G25.81 Restless legs syndrome; R60.0 Localized edema; R39.9 Unspecified symptoms and signs involving the genitourinary system; R11.0 Nausea; F17.200 Nicotine dependence, unspecified, uncomplicated; Z86.73 Personal history of transient ischemic attack (TIA), and cerebral infarction without residual deficits; Z95.0 Presence of cardiac pacemaker; Z79.4 Long term (current) use of insulin; Z79.899 Other long term (current) drug therapy
CPT/HCPCS: 36415; 80053; 81001; 82150; 82550; 82803; 82962; 83690; 83880; 84439; 84443; 84484; 85025; 85379; 85610; 85730; 87040; 87651; 87804; 87880; 93005; 93010; 94640; 94761; 96361; 96365; 96372; 96375; 99223; 99232; 99239; 99284

== ENCOUNTER 2016-12-27 08:41 | Outpatient (CLI) ==
--- NOTE | 2016-12-27 10:10 | DI ---
EXAM: Modified barium swallow. History: Congestion and cough. Technique: Lateral video fluoroscopy was performed in conjunction with speech therapy using multiple consistencies to evaluate swallowing function. Findings / impression: No aspiration or penetration was observed. No degenerative changes of the v isualized cervical spine. Please see dedicated speech pathology report for additional details.
--- NOTE | 2016-12-27 10:28 | RS.MODBRM ---
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 Pt is independent with feeding and swallowing skills, walks with an assisitive device and can complete toileting routine.) Current Level of Function: This 71 year old female was referred for a bedside swallow evaluation as an inpatient at the hospital on 12/24/16. At the bedside pt presented without overt s/s of aspiration. However, pt has a hx of multiple strokes and moderate residual lingual and facial weakness. Pt also has COPD and CHF. Pt was consuming a regular diet texture with thin liquids. Daughter reported pt has demonstrated coughing episodes with food and liquid textures in the home environment. She also reported recent cognitive changes resulting in decreased expressive communication of wants/needs, initiating requests or conversation, and response to questions. Current Diet: Regular diet texture with thin liquids. Current Subjective/complaints:: REGISTERED RADIATION THERAPIST noted pt with passive behavior requiring verbal questioning to initiate communication or respond to verbal questions. Pt verbalized limited awareness of situation and reasoning why swallow study was to be completed. Pt had no concerns with swallow function. Daughter reported concerns with coughing episodes that occur occasionally. She is also concerned about current cognitive status. REGISTERED RADIATION THERAPIST had recently assesed pt at the bedside due to unresolved chest congestion. No overt s/s of aspiraiton were noted at the bedside. MBSS was completed to rule out silent aspiration due to hx of multiple CVAs, with residual lingual and facial weakness. Medical History Comments:: pneunomia, acute respiratory failure, CHF, HTN, CAD, pacemaker, dementia, COPD, Depression. Hx Home Medications: Refer to current medications for complete list. Patient's Goals: To consume safest and least restrictive diet texture. Food Presented Thin Liquid: cup (multiple trials and consecutive drinks.), straw (1x) Vanilla Wafer: 1/4 cookie (two bites. self fed.) Barium Tablet: Tablet (difficulty with tablet.) Oral Phase - Oral Phase Labial Closure: Mild Impairment Bolus Formation: Mild Impairment Mastication: Mild Impairment Lingual Movement: Moderate Impairment A/P Propulsion: Moderate Impairment Premature Vallecular Pooling: Coating Oral Residue: Scant Comments:: Mild difficulty with lingual ROM resulting in minimal residue, which pt can clear with liquids. Pharyngeal Phase Pharyngeal Response: WFL Base of Tongue: Moderate Impairment Epiglottic Movement: WFL Laryngeal Excursion: WFL Vallecular Residue: Coating Pyriform Residue: Scant Comments:: No aspiration or penetration noted with consecutive drinks of thin liquids. Laryngeal burping noted, which REGISTERED RADIATION THERAPIST attributes to swallowing air with between drinks. Premature spillage to valleculae, however, pt swallow response WNL to clear liquids without risk for aspiration. Summary and Recommendations - Recommendations PO Diet: Mechanical Soft, Thin Liquids, Cup Sips ONLY-NO STRAWS (Due to SOB with drinking.) Comments:: REGISTERED RADIATION THERAPIST recommends pt to utilize compensatory swallow strategies and safe swallow precautions at this time. Pt demonstrates SOB during a short duration of PO intake, which may cause episodes of coughing due to pt taking deep breaths with food residue on base of tongue. Soft texture recommended to decrease residue and time spent with mastication period for shorter duration with PO intake. Pt is at minimal risk for aspiration. Medications to be crushed and placed in pudding/applesauce to reduce risk for aspiration with whole pills. Pt had moderate difficulty clearing barium pill, requiring two swallows with thin liquids. No aspiration observed on MBSS. Further Therapy Indicated?: No Functional Reporting G Codes: Current CJ Goal CJ Discharge CJ Severity Impairment Rationale: Pt is on mechanical soft diet texture with thin liquids. Short Term Goals Problem: Chest congestion Goal #1: Pt to follow safe swallow strategies with 100% accuracy Goal to be met by: 12/27/16 Problem: SOB Goal #2: Pt to complete pacing with meals to decrease SOB Goal to be met by: 12/27/16 Longterm Goals Problem: Swallowing Goal #1: Pt to tolerate thin liquids with [facility] soft diet w/o overt s/s of aspiration Plan Duration of Treatment: One Time Treatment Anticipated Discharge Destination: Home Comments: No further therapy indicated at this time. Future follow-up recommended with ST if coughing episodes increase to frequently.
== END 2016-12-27 08:42 | disposition home or self-care (01) ==
LOC: RAD 08:41
PROVIDERS: ATTEND Internal Medicine
DX: R09.89 Other specified symptoms and signs involving the circulatory and respiratory systems (principal); R05 Cough; Z86.73 Personal history of transient ischemic attack (TIA), and cerebral infarction without residual deficits

== ENCOUNTER 2017-01-12 11:38 | Outpatient (CLI) | END 2017-01-12 11:39 | disposition home or self-care (01) | LOC: NONPT 11:38 | PROVIDERS: ATTEND Family Medicine | DX: A04.7 Enterocolitis due to Clostridium difficile (principal) | CPT/HCPCS: 87015; 87045; 87899 ==

== ENCOUNTER 2017-03-22 11:11 | Emergency (ER) | payer OTHER ==
[2017-03-22] MEDS ORDERED: DUONEB NEB STA (11:23)
[2017-03-22] MEDS ORDERED: SOLU-MEDROL 125 MG IVP STA (11:28)
--- NOTE | 2017-03-22 11:32 | ED.PDOC ---
General ED Provider: Dr. ALEX CALVIN Chief Complaint: Cough Stated Complaint: Luca is a 71 year old female who comes to the ER with 2 days of increasing shortness of breath. Had aspiration Pnemonia 3 months ago and had a prolonged hospitalization. She is brought in by Her niece. Time Seen by Physician: 11:29 Information Source: Patient, Family Primary Care Provider: ROSALINO GRAY Nursing and Triage Documentation Reviewed and Agree: Yes Respiratory Complaint Exam - Shortness of Air Complaint/Exam Onset/Duration: 2 days Symptoms Are: Still present Timing: Constant Initial Severity: Moderate Current Severity: Severe Character: Reports: Dyspnea at rest Aggravating: Reports: Movement, URI, Weather Alleviating: Reports: None Associated Signs and Symptoms: Reports: Cough, Rapid breathing, Labored breathing. Denies: Chest pain, Chills History of Healthcare-Acquired Pneumonia: No Pulmonary Embolism Risk Factors: Reports: None Pseudomonas Risk Factors: Reports: Repeat Antibx in 3 months, Chronic steriod use Tuberculosis Risk Factors: Reports: Corticosteriod use Home Oxygen Use: Yes (30 liters ) Recent Stress Test: No Recent Echo/LV Function: No Respiratory Distress: Moderate Stridor Present: No Tracheal Deviation: No Subcutaneous Emphysema: No Accessory Muscle Use: Yes Retractions: Supraclavicular Diminished Breath Sounds: No Prolonged Expiratory Phase: Yes Unable to Speak Full Sentences: No Fatigue: No Leg Swelling: No Mohsen's Sign Present: No Grunting Respirations: No Kussmaul Respirations: No Differential Diagnoses: Asthma, CHF, Pneumonia, Pneumothorax Quality Indicator For Non-Traumatic Chest Pain/Syncope: EKG Performed Related Surgical History: Reports: None Review of Systems - Review Of Systems Constitutional: Reports: Weakness Respiratory: Reports: Cough, Short of air, Wheezing Cardiac: Denies: Chest pain GI: Reports: No symptoms : Reports: No symptoms Musculoskeletal: Reports: No symptoms Skin: Reports: No symptoms Neurological: Reports: Anxiety All Other Systems: Reviewed and Negative Past Medical History - Past Medical History Previously Healthy: No Endocrine: Reports: Hypothyroid, Dyslipidemia Cardiovascular: Reports: Hypertension Respiratory: Reports: COPD Hematological: Reports: None Gastrointestinal: Reports: None Genitourinary: Reports: None Neuro/Psych: Reports: None Musculoskeletal: Reports: None Cancer: Reports: None - Surgical History General Surgical History: Reports: Unknown - Family History Family History: Reports: Unknown - Social History Smoking Status: Current every day smoker, Heavy tobacco smoker Hx Substance Use: No Alcohol Screening: Occasionally Physical Exam - Physical Exam Appearance: Ill-appearing Ill-appearing: Severe Eyes: HOLGER, EOMI, Conjunctiva clear Respiratory: Rhonchi, Wheezes GI/: Soft, Nontender Musculoskeletal: Normal strength, ROM intact, No edema, No calf tenderness Skin: Warm, Dry, Normal color Neurological: Sensation intact, Motor intact, Cranial nerves intact, Alert, Oriented Psychiatric: Anxious Re-Evaluation - Re-Evaluation Time of Re-Evaluation: 13:00 Status: Improved Lungs: Other (Less wheezing) Physician Notification - Case Discussed Physician Notified: Sarah Time of Notification: 13:10 (accepted to [facility]. ) Physician Notified: Dr Gray Time of Notification: 12:00 (Recommends transfer to [facility] ) Critical Care Note - Critical Care Note Total Time (mins): 45 Course - Course Hematology/Chemistry: 03/22/17 11:25 03/22/17 11:25 Orders, Labs, Meds: Lab Review 03/22/17 03/22/17 03/22/17 10:45 11:23 11:25 WBC 7.82 RBC 3.54 L Hgb 10.9 L Hct 31.7 L MCV 89.5 MCH 30.8 MCHC 34.4 RDW Coeff of Alisha 13.2 Plt Count 175 Immature Gran % (Auto) 0.5 Neut % (Auto) 71.6 Lymph % (Auto) 16.8 [place] % (Auto) 10.0 Eos % (Auto) 0.8 Baso % (Auto) 0.3 Immature Gran # (Auto) 0.0 Neut # 5.6 Lymph # 1.3 [place] # 0.8 Eos # 0.1 Baso # 0.0 D-Dimer (Manual) Puncture Site Rr O2 Saturation 81.0 L ABG pH 7.385 ABG pCO2 61.0 H ABG pO2 48.0 L* ABG HCO3 36.5 H ABG Total CO2 38 H ABG Base Excess 11 H Mal Test + O2 Delivery Device Nc Oxygen Liter Flow 3.00 FiO2 % 34.0 Sodium Potassium Chloride Carbon Dioxide Anion Gap BUN Creatinine Estimated GFR (MDRD) BUN/Creatinine Ratio Glucose Lactic Acid Calcium Total Bilirubin AST ALT Alkaline Phosphatase Total Creatine Kinase Troponin I B-Natriuretic Peptide Total Protein Albumin Globulin Albumin/Globulin Ratio Procalcitonin < 0.05 Influenza A (Rapid) Influenza B (Rapid) 03/22/17 03/22/17 03/22/17 11:25 11:25 11:25 WBC RBC Hgb Hct MCV MCH MCHC RDW Coeff of Alisha Plt Count Immature Gran % (Auto) Neut % (Auto) Lymph % (Auto) [place] % (Auto) Eos % (Auto) Baso % (Auto) Immature Gran # (Auto) Neut # Lymph # [place] # Eos # Baso # D-Dimer (Manual) 917.12 Puncture Site O2 Saturation ABG pH ABG pCO2 ABG pO2 ABG HCO3 ABG Total CO2 ABG Base Excess Mal Test O2 Delivery Device Oxygen Liter Flow FiO2 % Sodium 123 L Potassium 3.6 Chloride 78 L Carbon Dioxide 37 H Anion Gap 11.6 BUN 28 H Creatinine 1.48 H Estimated GFR (MDRD) 35.00 BUN/Creatinine Ratio 18.91 Glucose 101 Lactic Acid Calcium 9.8 Total Bilirubin 0.74 AST 24 ALT 18 Alkaline Phosphatase 45 L Total Creatine Kinase 33 Troponin I 0.0120 B-Natriuretic Peptide 770 H Total Protein 7.2 Albumin 3.7 Globulin 3.5 Albumin/Globulin Ratio 1.06 Procalcitonin Influenza A (Rapid) Influenza B (Rapid) 03/22/17 03/22/17 11:45 12:00 WBC RBC Hgb Hct MCV MCH MCHC RDW Coeff of Alisha Plt Count Immature Gran % (Auto) Neut % (Auto) Lymph % (Auto) [place] % (Auto) Eos % (Auto) Baso % (Auto) Immature Gran # (Auto) Neut # Lymph # [place] # Eos # Baso # D-Dimer (Manual) Puncture Site O2 Saturation ABG pH ABG pCO2 ABG pO2 ABG HCO3 ABG Total CO2 ABG Base Excess Mal Test O2 Delivery Device Oxygen Liter Flow FiO2 % Sodium Potassium Chloride Carbon Dioxide Anion Gap BUN Creatinine Estimated GFR (MDRD) BUN/Creatinine Ratio Glucose Lactic Acid 7.6 Calcium Total Bilirubin AST ALT Alkaline Phosphatase Total Creatine Kinase Troponin I B-Natriuretic Peptide Total Protein Albumin Globulin Albumin/Globulin Ratio Procalcitonin Influenza A (Rapid) Negative Influenza B (Rapid) Negative Orders Category Date Time Status ABG DRAW REQUEST Stat CARDIO 03/22/17 11:24 Completed EKG-(ED ONLY) Stat CARDIO 03/22/17 11:23 Completed NEBULIZER TREATMENT Stat CARDIO 03/22/17 11:24 Completed ED APPLY O2 .ONCE EMERGENCY 03/22/17 11:23 Active ED IV/MEDIPORT/POWERPORT .ONCE EMERGENCY 03/22/17 11:23 Active ABG Stat LAB 03/22/17 11:23 Completed B-TYPE NATRIURETIC PEPTIDE Stat LAB 03/22/17 11:25 Completed BLOOD CULTURE Stat LAB 03/22/17 11:28 Ordered CBC W/ AUTO DIFF Stat LAB 03/22/17 11:25 Completed COMPREHENSIVE METABOLIC PANEL Stat LAB 03/22/17 11:25 Completed CREATINE KINASE Stat LAB 03/22/17 11:25 Completed D-DIMER Stat LAB 03/22/17 11:25 Completed FLU A & B RAPID TEST [RAPID FLU A/B] Stat LAB 03/22/17 12:00 Completed LACTIC ACID Stat LAB 03/22/17 11:45 Completed PROCALCITONIN Stat LAB 03/22/17 10:45 Completed TROPONIN I Stat LAB 03/22/17 11:25 Completed 0.9 % Sodium Chloride [Saline Flush] MEDS 03/22/17 11:23 Discontinued 1 syr IVF PRN PRN Ipratropium/Albuterol Neb [Duoneb] MEDS 03/22/17 11:23 Discontinued 1 vial NEB ONCE STA Methylprednisolone Sod Succ/Pf [Solu-Medrol 125 mg] MEDS 03/22/17 11:28 Discontinued 125 mg IVP ONCE STA Piperacillin Sodium/Tazobactam [Zosyn 3.375 gm] 3.375 MEDS 03/22/17 11:36 Discontinued gm 0.9 % Sodium Chloride [Sodium Chloride] 100 ml IV ONCE CHEST, 1V AP ONLY Stat RADS 03/22/17 11:23 Completed Medications Discontinued Medications Generic Name Dose Route Start Last Admin Trade Name Freq PRN Reason Stop Dose Admin Albuterol/Ipratropium 1 vial 03/22/17 11:23 03/22/17 11:43 Duoneb NEB 03/22/17 11:24 1 vial ONCE STA Administration Piperacillin Sod/Tazobactam 100 mls @ 100 mls/hr 03/22/17 11:36 03/22/17 12: 14 Sod 3.375 gm/ Sodium Chloride IV 03/22/17 12:35 100 mls/hr ONCE STA Administration Methylprednisolone Sodium Succinate 125 mg 03/22/17 11:28 03/22/17 12:16 Solu-Medrol 125 Mg IVP 03/22/17 11:29 125 mg ONCE STA Administration Sodium Chloride 1 syr 03/22/17 11:23 03/22/17 12:16 Saline Flush IVF 1 syr PRN PRN Administration To flush IV Vital Signs: Temp Pulse Resp BP Pulse Ox 03/22/17 12:12 93 L 03/22/17 11:12 96.9 F L 69 20 112/58 L 85 L Departure - Departure Time of Disposition: 13:08 Disposition: TSF SHORT-TRM HOSP Discharge Problem: Pneumonia Qualifiers: Pneumonia type: due to unspecified organism Laterality: left Lung location: lower lobe of lung Qualified Code(s): J18.1 - Lobar pneumonia, unspecified organism Acute renal failure (ARF) Qualifiers: Acute renal failure type: unspecified Qualified Code(s): N17.9 - Acute kidney failure, unspecified Condition: Fair Pt referred to PMD for follow-up: Yes Allergies/Adverse Reactions: Allergies No Known Allergies Allergy (Verified 12/18/16 06:29) Home Medications: Ambulatory Orders Amlodipine Besylate 10 mg PO DAILY 06/21/16 Diazepam [Valium] 2 mg PO BID 06/21/16 Fluoxetine HCl [Prozac] 10 mg PO DAILY 06/21/16 Fluoxetine HCl [Prozac] 20 mg PO DAILY 06/21/16 Hydrocodone/Acetaminophen [Hydrocodon-Acetaminophen 5-325] 1 each PO BID PRN 11/30 Levothyroxine Sodium [Synthroid] 50 mcg PO QDAC 06/21/16 Metformin HCl [Glucophage] 500 mg PO BID 06/21/16 Metoprolol Tartrate 100 mg PO BID 06/21/16 Pravastatin Sodium [Pravachol] 40 mg PO BEDTIME 06/21/16 Ramipril 10 mg PO DAILY 06/21/16 Risperidone [Risperdal] 0.25 mg PO BID 06/21/16 Ropinirole HCl [Requip] 2 mg PO BEDTIME 06/21/16 Sitagliptin Phosphate [Januvia] 100 mg PO DAILY 06/21/16 Calcium Carbonate [Calcium] 1,500 mg PO DAILY 12/18/16 Melatonin 10 mg PO BEDTIME 12/18/16 Memantine HCl/Donepezil HCl [Namzaric 28 mg-10 mg Capsule] 1 each PO DIRECTED 12/18/16 Multivitamin W-Minerals/Lutein [A Thru Z Advanced Formula Tab] 1 each PO DAILY 12/18/16 Apixaban [Eliquis] 5 mg PO BID #60 tablet 12/25/16 Cephalexin [Keflex] 500 mg PO Q12HR #14 capsule 12/25/16 Diltiazem HCl [Cardizem] 90 mg PO Q12HR #60 tablet 12/25/16 Hydralazine HCl [Apresoline] 25 mg PO Q12H #60 tablet 12/25/16 Losartan/Hydrochlorothiazide [Hyzaar 100-12.5 Tablet] 1 each PO DAILY #30 tablet 12/25/16 Prednisone 20 mg PO DAILYWM #3 tablet 12/25/16 Pt. Stabilized Within Hospital's Capabilities/Transferred To: [facility] Transfer Form Completed: Yes Disposition Discussed With: Patient, Family
[2017-03-22 11:33] LABS: ABG PH 7.385 (7.35-7.45)
[2017-03-22 11:36] LABS: ABG BASE EXCESS 11 (-2.0-2.0); ABG HCO3 36.5 (22.0-26.0); ABG TCO2 38 (22.0-28.0)
[2017-03-22] MEDS ORDERED: ZOSYN 3.375 GM 3.375 GM in SODIUM CHLORIDE 100 ML IV STA (11:36)
--- NOTE | 2017-03-22 11:43 | DI ---
EXAM: Chest 1 view. HISTORY: Cough, short of breath COMPARISON: 12/20/2016 FINDINGS: There is cardiomegaly with left-sided dual lead permanent pacemaker. There is decreased l edgar volume or partial expiration. No definite pleural effusion No evidence of congestive heart failu re . There is bibasilar atelectasis and probable mild pneumonia in the left lower lobe. Impression 1. Cardiomegaly and aortic atherosclerosis without congestive heart failure. 2. Bibasilar atelectasis and probable pneumonia medial left lower lobe.
[2017-03-22 11:48] LABS: BASOPHILS % (AUTO) 0.3 % (0.0-3.0); EOSINOPHILS # (AUTO) 0.1 K/ul (0.0-0.7); EOSINOPHILS % (AUTO) 0.8 % (0.0-7.0); HEMATOCRIT 31.7 % (37.0-47.0); HEMOGLOBIN 10.9 g/dl (12.0-16.0); IMMATURE GRANULOCYTE % (AUTO) 0.5 % (0.0-5.0); LYMPHOCYTES # (AUTO) 1.3 K/uL (0.60-3.4); LYMPHOCYTES % (AUTO) 16.8 (10.0-50.0); MEAN CORPUSCULAR HEMOGLOBIN 30.8 pg (27.0-31.0); MEAN CORPUSCULAR HGB CONC 34.4 (31.8-35.4); MEAN CORPUSCULAR VOLUME 89.5 fl (81.0-99.0); MONOCYTES # (AUTO) 0.8 K/uL (0.4-2.0); NEUTROPHILS # (AUTO) 5.6 K/ul (2.0-6.9); NEUTROPHILS % (AUTO) 71.6; PLATELET COUNT 175 10^3/uL (140-440); RED BLOOD COUNT 3.54 10^6/ul (4.20-5.40); WHITE BLOOD COUNT 7.82 K/ul (4.6-10.2)
[2017-03-22 11:57] VITALS: BP 112/58; TEMP 96.9; BMI 30.9
[2017-03-22 12:14] LABS: ALBUMIN 3.7 g/dL (3.4-5.0); ALBUMIN/GLOBULIN RATIO 1.06; ANION GAP 11.6; BILIRUBIN,TOTAL 0.74 mg/dL (0.00-1.20); BUN/CREATININE RATIO 18.91; CALCIUM 9.8 mg/dL (8.2-10.2); CREATININE 1.48 mg/dL (0.60-1.30); POTASSIUM 3.6 mmol/L (3.5-5.10); TOTAL PROTEIN 7.2 g/dL (5.8-8.1); TROPONIN I 0.012 ng/ml (0.0000-0.4000)
[2017-03-22 12:31] LABS: FLU INTERNAL QC INTERNAL QC VALID; RAPID FLU A NEGATIVE (NEGATIVE); RAPID FLU B NEGATIVE (NEGATIVE)
== END 2017-03-22 13:30 | disposition short-term general hospital (02) ==
LOC: ED 11:11
DX: J18.1 Lobar pneumonia, unspecified organism (principal); N17.9 Acute kidney failure, unspecified; J44.9 Chronic obstructive pulmonary disease, unspecified; E03.9 Hypothyroidism, unspecified; E78.5 Hyperlipidemia, unspecified; I10 Essential (primary) hypertension; F17.210 Nicotine dependence, cigarettes, uncomplicated; Z79.899 Other long term (current) drug therapy
CPT/HCPCS: 36415; 80053; 82550; 82803; 83605; 83880; 84145; 84484; 85025; 85379; 87040; 87804; 93005; 93010; 94640; 96365; 96375; 99285

== ENCOUNTER 2017-05-02 20:08 | Inpatient (IN) ==
[2017-05-02] MEDS ORDERED: SOLU-MEDROL 125 MG IVP STA (20:16)
[2017-05-02] MEDS ORDERED: DUONEB NEB STA (20:16)
[2017-05-02] MEDS ORDERED: XOPENEX 1.25 MG NEB STA (20:16)
[2017-05-02 20:46] LABS: BASOPHILS % (AUTO) 0.1 % (0.0-3.0); EOSINOPHILS % (AUTO) 0.2 % (0.0-7.0); HEMATOCRIT 32.2 % (37.0-47.0); HEMOGLOBIN 11.3 g/dl (12.0-16.0); IMMATURE GRANULOCYTE % (AUTO) 0.7 % (0.0-5.0); LYMPHOCYTES # (AUTO) 1.6 K/uL (0.60-3.4); LYMPHOCYTES % (AUTO) 8.4 (10.0-50.0); MEAN CORPUSCULAR HEMOGLOBIN 29.9 pg (27.0-31.0); MEAN CORPUSCULAR HGB CONC 35.1 (31.8-35.4); MEAN CORPUSCULAR VOLUME 85.2 fl (81.0-99.0); MONOCYTES # (AUTO) 1.2 K/uL (0.4-2.0); MONOCYTES % (AUTO) 5.9 (0-10); NEUTROPHILS # (AUTO) 16.5 K/ul (2.0-6.9); NEUTROPHILS % (AUTO) 84.7; PLATELET COUNT 156 10^3/uL (140-440); RED BLOOD COUNT 3.78 10^6/ul (4.20-5.40)
[2017-05-02 20:49] LABS: ABG BASE EXCESS 1 (-2.0-2.0); ABG HCO3 26 (22.0-26.0); ABG PCO2 40.4 mmHg (35-45); ABG PH 7.416 (7.35-7.45); ABG TCO2 27 (22.0-28.0)
[2017-05-02 21:07] LABS: ALBUMIN 3.2 g/dL (3.4-5.0); ALBUMIN/GLOBULIN RATIO 1.07; BILIRUBIN,TOTAL 0.38 mg/dL (0.00-1.20); BUN/CREATININE RATIO 24.69; CALCIUM 8.8 mg/dL (8.2-10.2); CREATININE 0.81 mg/dL (0.60-1.30); TOTAL PROTEIN 6.2 g/dL (5.8-8.1)
[2017-05-02 21:13] LABS: TROPONIN I 0.022 ng/ml (0.0000-0.4000)
[2017-05-02 21:31] LABS: FLU INTERNAL QC INTERNAL QC VALID; RAPID FLU A NEGATIVE (NEGATIVE); RAPID FLU B NEGATIVE (NEGATIVE)
[2017-05-02] MEDS ORDERED: CATAPRES PO STA (21:54)
--- NOTE | 2017-05-02 22:00 | CT ---
EXAM: CT of the chest without contrast. HISTORY: Shortness of breath. PROCEDURE: Contiguous axial CT images of the chest without contrast with coronal and sagittal reform ats. FINDINGS: The heart is mildly enlarged. There is a two lead automatic implantable cardiac defibrilla tor. The thoracic aorta is within normal limits in diameter. There are coronary artery calcification s. There is an enlarged pretracheal lymph node measuring up to 1.2 cm in short axis. There is ill-de fined soft tissue density in the left lower lobe bronchi. There is left lower lobe consolidation. Th ere is minimal right basilar dependent atelectasis. There are degenerative changes in the spine. Ther e is a T12 compression fracture which appears chronic. The adrenal glands and visualized portion of t he liver are normal in appearance. Impression: Left lower lobe consolidation consistent with atelectasis and/or pneumonia. Ill-defined soft tissue density in the left lower lobe bronchi. The differential diagnosis includes an endobronchial lesion versus secretions. Pretracheal lymphadenopathy as described. Recommend follow-up CT in 3 months to confirm stability. Minimal right basilar dependent atelectasis. Mild cardiomegaly. Atherosclerotic vascular disease.
--- NOTE | 2017-05-02 22:35 | ED.PDOC ---
General ED Provider: Dr. VANDANA HOUSTON-ER Chief Complaint: Shortness of Air Stated Complaint: im sob Time Seen by Physician: 20:10 Mode of Arrival: Walk-In Information Source: Patient, Family Exam Limitations: No limitations Primary Care Provider: ROSALINO CASTELLANOS Nursing and Triage Documentation Reviewed and Agree: Yes Respiratory Complaint Exam - Shortness of Air Complaint/Exam Onset/Duration: today Symptoms Are: Still present Timing: Constant Initial Severity: Mild Current Severity: Moderate Character: Reports: Dyspnea at rest Aggravating: Reports: None Alleviating: Reports: None Associated Signs and Symptoms: Reports: Labored breathing. Denies: Cough, Wheezing, Chest pain with cough, Chest pain, Fever, Chills, Diaphoresis, Nasal congestion, Dizziness, Calf pain, Calf swelling, Edema, Rapid breathing, Decreased intake Related History: Reports: Similar episode History of Healthcare-Acquired Pneumonia: Admit w/in last 30 days Pulmonary Embolism Risk Factors: Reports: None Cardiac Risk Factors: Reports: Diabetes Pseudomonas Risk Factors: Reports: Chronic Lung Disease Tuberculosis Risk Factors: Reports: Chronic Resp. Faliure Home Oxygen Use: Yes Recent Stress Test: No Recent Echo/LV Function: No Respiratory Distress: None Stridor Present: No Tracheal Deviation: No Subcutaneous Emphysema: No Accessory Muscle Use: No Retractions: Not Present Diminished Breath Sounds: No Prolonged Expiratory Phase: No Unable to Speak Full Sentences: No Fatigue: No Leg Swelling: No Mohsen's Sign Present: No Grunting Respirations: No Kussmaul Respirations: No Differential Diagnoses: CHF, Pulmonary Edema, Pneumonia Quality Indicator For Non-Traumatic Chest Pain/Syncope: EKG Performed Review of Systems - Review Of Systems Constitutional: Reports: Weakness Eyes: Reports: No symptoms Ears, Nose, Mouth, Throat: Reports: No symptoms Respiratory: Reports: Cough, Short of air Cardiac: Reports: No symptoms GI: Reports: No symptoms : Reports: No symptoms Musculoskeletal: Reports: No symptoms Skin: Reports: No symptoms Neurological: Reports: No symptoms Endocrine: Reports: No symptoms Hematologic/Lymphatic: Reports: No symptoms All Other Systems: Reviewed and Negative Past Medical History - Past Medical History Previously Healthy: No Endocrine: Reports: Hypothyroid, Dyslipidemia Cardiovascular: Reports: Hypertension Respiratory: Reports: COPD Hematological: Reports: None Gastrointestinal: Reports: None Genitourinary: Reports: None Neuro/Psych: Reports: None Musculoskeletal: Reports: None Cancer: Reports: None Last Menstrual Period: YEARS - Surgical History General Surgical History: Reports: Unknown - Family History Family History: Reports: Unknown - Social History Smoking Status: Former smoker Hx Substance Use: No Alcohol Screening: None Lives: With family - Immunizations Tetanus Shot up to Date: Yes Physical Exam - Physical Exam Appearance: Well-appearing, No pain distress, Well-nourished Eyes: HOLGER, EOMI, Conjunctiva clear ENT: Ears normal, Nose normal, Oropharynx normal Neck: Supple Respiratory: Crackles, Rhonchi Cardiovascular: RRR GI/: Soft Musculoskeletal: Normal strength, ROM intact, No edema, No calf tenderness Skin: Warm, Dry, Normal color Neurological: Sensation intact, Motor intact, Reflexes intact, Cranial nerves intact, Alert, Oriented Psychiatric: Affect appropriate, Mood appropriate Interpretation - Radiology Interpretation Radiology Interpretation By: Radiologist Radiology Results: Positive Exam Interpreted: CT Scan ("slightly decreased consolidation in the left lower lobe") Re-Evaluation - Re-Evaluation Time of Re-Evaluation: 23:06 Status: Improved Vital Signs Stable: Yes Pain Level: 0 Appearance: NAD Lungs: Clear Skin: Warm and Dry Neuro: Alert and Oriented X3 CV: RRR Physician Notification - Case Discussed Physician Notified: dr castellanos--we discussed her labs and ct scan Time of Notification: 23:07 Critical Care Note - Critical Care Note Total Time (mins): 30 Course - Course Hematology/Chemistry: 05/02/17 20:43 05/02/17 20:43 Orders, Labs, Meds: Lab Review 05/02/17 05/02/17 05/02/17 20:15 20:43 20:43 WBC 19.50 H RBC 3.78 L Hgb 11.3 L Hct 32.2 L MCV 85.2 MCH 29.9 MCHC 35.1 RDW Coeff of Alisha 14.1 Plt Count 156 Immature Gran % (Auto) 0.7 Neut % (Auto) 84.7 Lymph % (Auto) 8.4 L [place] % (Auto) 5.9 Eos % (Auto) 0.2 Baso % (Auto) 0.1 Immature Gran # (Auto) 0.1 Neut # 16.5 H Lymph # 1.6 [place] # 1.2 Eos # 0.0 Baso # 0.0 Puncture Site Lb O2 Saturation 99.0 ABG pH 7.416 ABG pCO2 40.4 ABG pO2 121.0 H ABG HCO3 26 ABG Total CO2 27 ABG Base Excess 1 Mal Test + O2 Delivery Device Bnc Oxygen Liter Flow 2.00 FiO2 % 28.0 Sodium 119 L* Potassium 4.0 Chloride 84 L Carbon Dioxide 24 Anion Gap 15.0 BUN 20 H Creatinine 0.81 Estimated GFR (MDRD) 69.00 BUN/Creatinine Ratio 24.69 Glucose 251 H Calcium 8.8 Total Bilirubin 0.38 AST 23 ALT 33 Alkaline Phosphatase 86 Total Creatine Kinase Troponin I B-Natriuretic Peptide Total Protein 6.2 Albumin 3.2 L Globulin 3.0 Albumin/Globulin Ratio 1.07 Urine Color Urine Clarity Urine pH Ur Specific [place] Urine Protein Urine Glucose (UA) Urine Ketones Urine Blood Urine Nitrite Urine Bilirubin Urine Urobilinogen Ur Leukocyte Esterase Urine Microscopic WBC Ur Squamous Epith Cells Influenza A (Rapid) Influenza B (Rapid) 05/02/17 05/02/17 05/02/17 20:43 20:43 21:12 WBC RBC Hgb Hct MCV MCH MCHC RDW Coeff of Alisha Plt Count Immature Gran % (Auto) Neut % (Auto) Lymph % (Auto) [place] % (Auto) Eos % (Auto) Baso % (Auto) Immature Gran # (Auto) Neut # Lymph # [place] # Eos # Baso # Puncture Site O2 Saturation ABG pH ABG pCO2 ABG pO2 ABG HCO3 ABG Total CO2 ABG Base Excess Mal Test O2 Delivery Device Oxygen Liter Flow FiO2 % Sodium Potassium Chloride Carbon Dioxide Anion Gap BUN Creatinine Estimated GFR (MDRD) BUN/Creatinine Ratio Glucose Calcium Total Bilirubin AST ALT Alkaline Phosphatase Total Creatine Kinase 43 Troponin I 0.0220 B-Natriuretic Peptide 918 H Total Protein Albumin Globulin Albumin/Globulin Ratio Urine Color Urine Clarity Urine pH Ur Specific [place] Urine Protein Urine Glucose (UA) Urine Ketones Urine Blood Urine Nitrite Urine Bilirubin Urine Urobilinogen Ur Leukocyte Esterase Urine Microscopic WBC Ur Squamous Epith Cells Influenza A (Rapid) Negative Influenza B (Rapid) Negative 05/02/17 22:35 WBC RBC Hgb Hct MCV MCH MCHC RDW Coeff of Alisha Plt Count Immature Gran % (Auto) Neut % (Auto) Lymph % (Auto) [place] % (Auto) Eos % (Auto) Baso % (Auto) Immature Gran # (Auto) Neut # Lymph # [place] # Eos # Baso # Puncture Site O2 Saturation ABG pH ABG pCO2 ABG pO2 ABG HCO3 ABG Total CO2 ABG Base Excess Mal Test O2 Delivery Device Oxygen Liter Flow FiO2 % Sodium Potassium Chloride Carbon Dioxide Anion Gap BUN Creatinine Estimated GFR (MDRD) BUN/Creatinine Ratio Glucose Calcium Total Bilirubin AST ALT Alkaline Phosphatase Total Creatine Kinase Troponin I B-Natriuretic Peptide Total Protein Albumin Globulin Albumin/Globulin Ratio Urine Color Yellow Urine Clarity Clear Urine pH 6.0 Ur Specific [place] 1.020 Urine Protein 3+ Urine Glucose (UA) Trace Urine Ketones Negative Urine Blood Trace-lysed Urine Nitrite Negative Urine Bilirubin Negative Urine Urobilinogen 0.2 Ur Leukocyte Esterase Negative Urine Microscopic WBC 0-2 Ur Squamous Epith Cells 0-2 Influenza A (Rapid) Influenza B (Rapid) Orders Category Date Time Status ABG DRAW REQUEST Stat CARDIO 05/02/17 20:15 Completed EKG-(ED ONLY) Stat CARDIO 05/02/17 20:15 Completed EKG-(ED ONLY) Stat CARDIO 05/02/17 22:42 Ordered NEBULIZER TREATMENT Stat CARDIO 05/02/17 20:17 Completed ED IV/MEDIPORT/POWERPORT .ONCE EMERGENCY 05/02/17 20:16 Active ABG Stat LAB 05/02/17 20:15 Completed BLOOD CULTURE (ED ONLY) Stat LAB 05/02/17 20:43 Received BNP [B-TYPE NATRIURETIC PEPTIDE] Stat LAB 05/02/17 20:43 Completed CBC W/ AUTO DIFF Stat LAB 05/02/17 20:43 Completed COMPREHENSIVE METABOLIC PANEL Stat LAB 05/02/17 20:43 Completed CREATINE KINASE Stat LAB 05/02/17 20:43 Completed RAPID FLU A/B Stat LAB 05/02/17 21:12 Completed TROPONIN I Stat LAB 05/02/17 20:43 Completed URINALYSIS C & S IF INDICATED Stat LAB 05/02/17 22:35 Completed 0.9 % Sodium Chloride [Saline Flush] MEDS 05/02/17 20:16 Ordered 1 syr IVF PRN PRN 0.9 % Sodium Chloride [Sodium Chloride] 100 ml MEDS 05/02/17 23:00 Ordered Diltiazem HCl Inj [Cardizem Inj] 125 mg IV 5 mg/hr Clonidine HCl [Catapres] MEDS 05/02/17 21:54 Discontinued 0.1 mg PO ONCE STA Ipratropium/Albuterol Neb [Duoneb] MEDS 05/02/17 20:16 Discontinued 1 vial NEB ONCE STA Levalbuterol HCl [Xopenex 1.25 mg] MEDS 05/02/17 20:16 Discontinued 1 vial NEB ONCE STA Methylprednisolone Sod Succ/Pf [Solu-Medrol 125 mg] MEDS 05/02/17 20:16 Discontinued 125 [address] IVP ONCE STA CT CHEST W/O CONTRAST Stat RADS 05/02/17 20:17 Completed Medications Generic Name Dose Route Start Last Admin Trade Name Freq PRN Reason Stop Dose Admin Diltiazem HCl 125 mg/ Sodium 125 mls @ 5 mls/hr 05/02/17 23:00 Chloride IV .Q24H TOM Protocol 5 MG/HR Sodium Chloride 1 syr 05/02/17 20:16 05/02/17 20:43 Saline Flush IVF 1 syr PRN PRN Administration To flush IV Discontinued Medications Generic Name Dose Route Start Last Admin Trade Name Freq PRN Reason Stop Dose Admin Albuterol/Ipratropium 1 vial 05/02/17 20:16 05/02/17 21:19 Duoneb NEB 05/02/17 20:17 1 vial ONCE STA Administration Clonidine 0.1 mg 05/02/17 21:54 05/02/17 22:00 Catapres PO 05/02/17 21:55 0.1 mg ONCE STA Administration Levalbuterol HCl 1 vial 05/02/17 20:16 05/02/17 20:45 Xopenex 1.25 Mg NEB 05/02/17 20:17 1 vial ONCE STA Administration Methylprednisolone Sodium Succinate 125 mg 05/02/17 20:16 05/02/17 20:41 Solu-Medrol 125 Mg IVP 05/02/17 20:17 125 mg ONCE STA Administration Vital Signs: Temp Pulse Resp BP Pulse Ox 05/02/17 22:37 109 H 17 191/122 H 98 05/02/17 20:08 98.1 F 113 H 24 161/88 H 98 Departure - Departure Time of Disposition: 23:07 Disposition: ADMITTED INPATIENT Discharge Problem: Hyponatremia Pneumonia Qualifiers: Pneumonia type: due to unspecified organism Laterality: left Lung location: lower lobe of lung Qualified Code(s): J18.1 - Lobar pneumonia, unspecified organism Instructions: Hyponatremia (ED) Condition: Stable Pt referred to PMD for follow-up: Yes Allergies/Adverse Reactions: Allergies No Known Allergies Allergy (Verified 04/14/17 12:13) Home Medications: Ambulatory Orders Diazepam [Valium] 2 mg PO BID 06/21/16 Fluoxetine HCl [Prozac] 10 mg PO 3 TIMES PER WEEK 06/21/16 Fluoxetine HCl [Prozac] 20 mg PO DAILY 06/21/16 Hydrocodone/Acetaminophen [Hydrocodon-Acetaminophen 5-325] 1 each PO BID PRN 11/30 Levothyroxine Sodium [Synthroid] 50 mcg PO QDAC 06/21/16 Metformin HCl [Glucophage] 500 mg PO BID 06/21/16 Metoprolol Tartrate 100 mg PO BID 06/21/16 Ramipril 10 mg PO DAILY 06/21/16 Ropinirole HCl [Requip] 2 mg PO BEDTIME 06/21/16 Sitagliptin Phosphate [Januvia] 100 mg PO DAILY 06/21/16 Calcium Carbonate [Calcium] 1,500 mg PO DAILY 12/18/16 Melatonin 10 mg PO BEDTIME 12/18/16 Multivit with Minerals/Lutein [A Thru Z Advanced Formula Tab] 1 each PO DAILY Apixaban [Eliquis] 5 mg PO BID #60 tablet 12/25/16 Diltiazem HCl [Cardizem] 90 mg PO Q12HR #60 tablet 12/25/16 Prednisone 10 mg PO BIDWM #21 tablet 04/22/17 Furosemide 20 mg PO 2 TIMES PER WEEK 05/02/17 Losartan Potassium [Cozaar] 50 mg PO 2 TIMES PER WEEK 05/02/17 Disposition Discussed With: Patient, Family
[2017-05-02 22:47] LABS: BILIRUBIN,URINE Negative (NEGATIVE); KETONES,URINE Negative (NEGATIVE); LEUKOCYTE ESTERASE ,URINE Negative (NEGATIVE); NITRITE,URINE Negative (NEGATIVE); PROTEIN,URINE 3+ (NEGATIVE); URINE, BLOOD Trace-lysed (NEGATIVE)
[2017-05-02 23:04] LABS: ADD URINE MICROSCOPIC YES
[2017-05-02] MEDS ORDERED: TYLENOL PO PRN (23:09)
[2017-05-02] MEDS ORDERED: NON-FORMULARY MEDICATION (Losartan Potassium 50 MG) PO SCH (23:15)
[2017-05-02] MEDS ORDERED: PROZAC PO STA ×2 (23:16→23:18)
[2017-05-02] MEDS ORDERED: ZOFRAN 4 MG/2 ML IVP PRN (23:28)
[2017-05-02] MEDS ORDERED: VANCOMYCIN 1 GM in SODIUM CHLORIDE 250 ML IV SCH (23:29)
[2017-05-02] MEDS ORDERED: CARDIZEM INJ ONE (23:44)
[2017-05-03 00:21] VITALS: BMI 29.9
[2017-05-03] MEDS: CARDIZEM INJ 125 MG in SODIUM CHLORIDE 100 ML IV SCH (00:33)
[2017-05-03] MEDS: SODIUM CHLORIDE 1,000 ML IV SCH (02:57)
[2017-05-03] MEDS: XOPENEX 0.63 MG NEB SCH ×3 (05:00→21:15)
[2017-05-03 05:17] LABS: BASOPHILS % (AUTO) 0.1 % (0.0-3.0); HEMATOCRIT 32.3 % (37.0-47.0); HEMOGLOBIN 11.4 g/dl (12.0-16.0); IMMATURE GRANULOCYTE % (AUTO) 0.8 % (0.0-5.0); LYMPHOCYTES # (AUTO) 0.6 K/uL (0.60-3.4); LYMPHOCYTES % (AUTO) 5.3 (10.0-50.0); MEAN CORPUSCULAR HEMOGLOBIN 29.8 pg (27.0-31.0); MEAN CORPUSCULAR HGB CONC 35.3 (31.8-35.4); MEAN CORPUSCULAR VOLUME 84.6 fl (81.0-99.0); MONOCYTES # (AUTO) 0.1 K/uL (0.4-2.0); NEUTROPHILS # (AUTO) 9.9 K/ul (2.0-6.9); NEUTROPHILS % (AUTO) 92.8; PLATELET COUNT 150 10^3/uL (140-440); RED BLOOD COUNT 3.82 10^6/ul (4.20-5.40); WHITE BLOOD COUNT 10.67 K/ul (4.6-10.2)
[2017-05-03 05:44] LABS: ALBUMIN 3.2 g/dL (3.4-5.0); ANION GAP 14.5; BILIRUBIN,TOTAL 0.65 mg/dL (0.00-1.20); BUN/CREATININE RATIO 21.33; CALCIUM 8.6 mg/dL (8.2-10.2); CREATININE 0.75 mg/dL (0.60-1.30); POTASSIUM 4.5 mmol/L (3.5-5.10); TOTAL PROTEIN 6.4 g/dL (5.8-8.1)
[2017-05-03] MEDS ORDERED: SYNTHROID ONE (05:59)
[2017-05-03] MEDS: HUMULIN R SUBCUT PRN ×3 (06:01→17:35)
[2017-05-03] MEDS ORDERED: SYNTHROID PO SCH (06:30)
[2017-05-03] MEDS ORDERED: PREDNISONE PO SCH (08:00)
[2017-05-03] MEDS: ALTACE PO SCH (08:43)
[2017-05-03] MEDS: VALIUM PO SCH ×2 (08:44→21:55)
[2017-05-03] MEDS: LOPRESSOR PO SCH ×2 (08:44→21:55)
[2017-05-03] MEDS: MULTIVITAMIN TABLET PO SCH (08:44)
[2017-05-03] MEDS: JANUVIA PO SCH (08:44)
[2017-05-03] MEDS: SOLU-MEDROL 40 MG IVP SCH ×2 (08:45→21:55)
[2017-05-03] MEDS: ELIQUIS PO SCH ×2 (08:45→21:55)
[2017-05-03] MEDS ORDERED: NON-FORMULARY MEDICATION (Sitagliptin Phosphate [Januvia] 100 MG) PO SCH ×22 (09:00)
[2017-05-03] MEDS ORDERED: NON-FORMULARY MEDICATION (Metoprolol Tartrate [Metoprolol Tartrate] 100 MG) PO SCH (09:00)
[2017-05-03] MEDS ORDERED: PROZAC PO SCH (09:00)
[2017-05-03] MEDS ORDERED: XOPENEX 0.63 MG NEB SCH (09:00)
[2017-05-03] MEDS ORDERED: CALCIUM CARBONATE 1500 MG PO SCH (09:00)
[2017-05-03] MEDS ORDERED: RAMIPRIL 10 MG PO SCH (09:00)
[2017-05-03] MEDS ORDERED: CALCIUM 500 + VIT D 200 MG TABLET PO SCH (09:30)
[2017-05-03] MEDS: VASOTEC IV IVP PRN (10:18)
[2017-05-03] MEDS: ROCEPHIN 1 GM in SODIUM CHLORIDE 50 ML IV SCH (10:50)
[2017-05-03] MEDS: COZAAR PO SCH (10:50)
[2017-05-03] MEDS ORDERED: PROZAC PO STA (11:54)
[2017-05-03] MEDS: VANCOMYCIN 500 MG in SODIUM CHLORIDE 100 ML IV SCH ×3 (12:33→22:39)
[2017-05-03] MEDS: PROZAC PO SCH (16:57)
[2017-05-03] MEDS ORDERED: NON-FORMULARY MEDICATION (Ropinirole Hcl [Requip] 2 MG) PO SCH ×22 (21:00)
[2017-05-03] MEDS: REQUIP PO SCH (21:40)
[2017-05-03] MEDS: NON-FORMULARY MEDICATION (Melatonin [Melatonin] 10 MG) PO SCH (22:45)
[2017-05-04] MEDS: CARDIZEM INJ 125 MG in SODIUM CHLORIDE 100 ML IV SCH (03:19)
[2017-05-04] MEDS: XOPENEX 0.63 MG NEB SCH ×3 (05:00→23:25)
[2017-05-04 05:01] LABS: BASOPHILS % (AUTO) 0.1 % (0.0-3.0); HEMOGLOBIN 11.5 g/dl (12.0-16.0); IMMATURE GRANULOCYTE % (AUTO) 0.7 % (0.0-5.0); LYMPHOCYTES # (AUTO) 0.5 K/uL (0.60-3.4); LYMPHOCYTES % (AUTO) 5.1 (10.0-50.0); MEAN CORPUSCULAR HEMOGLOBIN 30.3 pg (27.0-31.0); MEAN CORPUSCULAR HGB CONC 35.9 (31.8-35.4); MEAN CORPUSCULAR VOLUME 84.4 fl (81.0-99.0); MONOCYTES # (AUTO) 0.4 K/uL (0.4-2.0); MONOCYTES % (AUTO) 3.3 (0-10); NEUTROPHILS # (AUTO) 9.7 K/ul (2.0-6.9); NEUTROPHILS % (AUTO) 90.8; PLATELET COUNT 150 10^3/uL (140-440); RED BLOOD COUNT 3.79 10^6/ul (4.20-5.40); WHITE BLOOD COUNT 10.67 K/ul (4.6-10.2)
[2017-05-04 05:20] LABS: ALBUMIN 3.1 g/dL (3.4-5.0); ALBUMIN/GLOBULIN RATIO 0.97; ANION GAP 12.6; BILIRUBIN,TOTAL 0.46 mg/dL (0.00-1.20); BUN/CREATININE RATIO 21.73; CALCIUM 8.4 mg/dL (8.2-10.2); CREATININE 0.69 mg/dL (0.60-1.30); POTASSIUM 4.6 mmol/L (3.5-5.10); TOTAL PROTEIN 6.3 g/dL (5.8-8.1)
[2017-05-04] MEDS: SYNTHROID PO SCH (06:47)
[2017-05-04] MEDS: HUMULIN R SUBCUT PRN ×2 (07:39→20:40)
[2017-05-04] MEDS: COZAAR PO SCH (08:45)
[2017-05-04] MEDS: ALTACE PO SCH (08:46)
[2017-05-04] MEDS: ROCEPHIN 1 GM in SODIUM CHLORIDE 50 ML IV SCH (08:46)
[2017-05-04] MEDS: MULTIVITAMIN TABLET PO SCH (08:46)
[2017-05-04] MEDS: LOPRESSOR PO SCH ×2 (08:46→20:41)
[2017-05-04] MEDS: JANUVIA PO SCH (08:46)
[2017-05-04] MEDS: ELIQUIS PO SCH ×2 (08:47→20:42)
[2017-05-04] MEDS: CALCIUM 500 + VIT D 200 MG TABLET PO SCH (08:47)
[2017-05-04] MEDS: NORCO 5-325 PO PRN (08:58)
[2017-05-04] MEDS: VALIUM PO SCH ×2 (08:58→20:41)
[2017-05-04] MEDS: SOLU-MEDROL 40 MG IVP SCH ×2 (10:02→20:40)
[2017-05-04] MEDS: VANCOMYCIN 500 MG in SODIUM CHLORIDE 100 ML IV SCH ×2 (10:03→20:40)
[2017-05-04] MEDS: SODIUM CHLORIDE 3% 500 ML IV SCH (10:54)
[2017-05-04] MEDS: VESICARE PO SCH (14:30)
[2017-05-04] MEDS: PROZAC PO SCH ×2 (14:30→19:13)
[2017-05-04] MEDS: GLUCOPHAGE PO SCH (19:13)
[2017-05-04] MEDS: CARDIZEM PO SCH ×2 (20:41)
[2017-05-04] MEDS: REQUIP PO SCH (20:41)
[2017-05-04] MEDS: NON-FORMULARY MEDICATION (Melatonin [Melatonin] 10 MG) PO SCH (20:42)
[2017-05-05] MEDS: SODIUM CHLORIDE 3% 500 ML IV SCH (01:40)
[2017-05-05] MEDS: CARDIZEM INJ 125 MG in SODIUM CHLORIDE 100 ML IV SCH ×2 (01:48→23:14)
[2017-05-05] MEDS: XOPENEX 0.63 MG NEB SCH ×3 (05:07→21:19)
[2017-05-05] MEDS: VASOTEC IV IVP PRN (05:24)
[2017-05-05] MEDS ORDERED: LASIX TAB PO SCH (06:30)
[2017-05-05] MEDS: SYNTHROID PO SCH (06:35)
[2017-05-05] MEDS: HUMULIN R SUBCUT PRN ×4 (06:43→20:31)
[2017-05-05 06:48] LABS: HEMATOCRIT 32.8 % (37.0-47.0); HEMOGLOBIN 11.6 g/dl (12.0-16.0); IMMATURE GRANULOCYTE % (AUTO) 0.5 % (0.0-5.0); LYMPHOCYTES # (AUTO) 0.6 K/uL (0.60-3.4); MEAN CORPUSCULAR HEMOGLOBIN 30.4 pg (27.0-31.0); MEAN CORPUSCULAR HGB CONC 35.4 (31.8-35.4); MEAN CORPUSCULAR VOLUME 85.9 fl (81.0-99.0); MONOCYTES # (AUTO) 0.4 K/uL (0.4-2.0); MONOCYTES % (AUTO) 4.1 (0-10); NEUTROPHILS # (AUTO) 8.4 K/ul (2.0-6.9); NEUTROPHILS % (AUTO) 89.4; PLATELET COUNT 166 10^3/uL (140-440); RED BLOOD COUNT 3.82 10^6/ul (4.20-5.40); WHITE BLOOD COUNT 9.45 K/ul (4.6-10.2)
[2017-05-05 07:07] LABS: ALBUMIN 3.1 g/dL (3.4-5.0); ANION GAP 11.4; BILIRUBIN,TOTAL 0.46 mg/dL (0.00-1.20); BUN/CREATININE RATIO 25.33; CALCIUM 8.4 mg/dL (8.2-10.2); CREATININE 0.75 mg/dL (0.60-1.30); POTASSIUM 4.4 mmol/L (3.5-5.10); TOTAL PROTEIN 6.2 g/dL (5.8-8.1)
[2017-05-05] MEDS ORDERED: SOLU-MEDROL 40 MG IVP SCH (08:33)
[2017-05-05] MEDS: LOPRESSOR PO SCH ×2 (09:57→20:32)
[2017-05-05] MEDS: JANUVIA PO SCH (09:57)
[2017-05-05] MEDS: ROCEPHIN 1 GM in SODIUM CHLORIDE 50 ML IV SCH (09:57)
[2017-05-05] MEDS: ELIQUIS PO SCH ×2 (09:58→20:32)
[2017-05-05] MEDS: GLUCOPHAGE PO SCH ×2 (09:58→16:52)
[2017-05-05] MEDS: VALIUM PO SCH ×2 (09:58→20:32)
[2017-05-05] MEDS: CALCIUM 500 + VIT D 200 MG TABLET PO SCH (09:58)
[2017-05-05] MEDS: VESICARE PO SCH (09:58)
[2017-05-05] MEDS: MULTIVITAMIN TABLET PO SCH (09:58)
[2017-05-05] MEDS: CARDIZEM PO SCH ×3 (09:58→20:32)
[2017-05-05] MEDS: COZAAR PO SCH ×2 (09:58→20:32)
[2017-05-05] MEDS: SOLU-MEDROL 125 MG IVP SCH ×2 (09:59→20:31)
[2017-05-05] MEDS: PROZAC PO SCH ×2 (10:02→16:52)
[2017-05-05] MEDS: SODIUM CHLORIDE 1,000 ML IV SCH ×2 (10:30→11:23)
[2017-05-05] MEDS: VANCOMYCIN 500 MG in SODIUM CHLORIDE 100 ML IV SCH (10:31)
[2017-05-05] MEDS ORDERED: CARDIZEM PO ONE (10:35)
[2017-05-05] MEDS: VANCOMYCIN 750 MG in SODIUM CHLORIDE 250 ML IV SCH ×2 (10:36→20:31)
--- NOTE | 2017-05-05 11:38 | PCM.PROG ---
Attending Provider: ATTENDING PROVIDER: Dr. ROSALINO GRAY This patient is seen with Elsy Estrada, Nurse Practitioner. DATE OF SERVICE: 05/05/17 SUBJECTIVE: This 71 year old WHITE/ F was hospitalized 05/02/17. The patient is lying in bed resting well in no distress. Sodium has improved. REVIEW OF SYSTEMS: CONSTITUTIONAL: Weakness. No night sweats. No fever or chills. HEENT: Eyes: No visual changes. No eye pain. No eye discharge. ENT: No runny nose. No epistaxis. No sinus pain. No odynophagia. No congestion. RESPIRATORY: Cough and congestion. No hemoptysis. No shortness of breath. CARDIOVASCULAR: No angina symptoms. No CHF symptoms. No atypical chest pain for CAD. No palpitations. No orthopnea.. GASTROINTESTINAL: No abdominal pain. No nausea or vomiting. No diarrhea or constipation. No hematemesis. No hematochezia. GENITOURINARY: No urgency. No frequency. No dysuria. No hematuria. No obstructive symptoms. No discharge. No pain. No significant abnormal bleeding. MUSCULOSKELETAL: No musculoskeletal pain; no joint swelling. NEUROLOGICAL: Awake, alert, oriented to time, place and person. No headache. No neck pain. No syncope. No seizures. No dizziness. PSYCHIATRIC: Not anxious. No depression. No suicidal thoughts. No homicidal thoughts. SKIN: No rash. No lesions. No wounds. ENDOCRINE: No unexplained weight loss. No weight gain. HEMATOLOGIC/LYMPHATIC: No anemia. No purpura. No petechiae. No prolonged or excessive bleeding. No palpable lymph nodes. PHYSICAL EXAMINATION: GENERAL: The patient is lying in bed in no distress. resting comfortably VITAL SIGNS: Temperature 97.9 F, Pulse 89, Respiratory Rate 15, BP 180/100, Pulse Ox 99% HEENT: Head normocephalic, atraumatic. Eyes: Extraocular muscles are intact. Pupils are equal, round and reactive to light and accommodation. Ears: No lesions. Nose appeared normal. Throat: No exudate or erythema. NECK: Supple. No JVD, no carotid bruit. No lymphadenopathy or thyromegaly. LUNGS: Diminished breath sounds bilaterally. Clear to auscultation. Percussion note normal. Chest symmetrical. HEART: Irregular heart rate. S1, S2, no S3. No murmurs. No cyanosis or clubbing. No ascites. Pulses: Dorsalis pedis and posterior tibial pulses +1 to +2 both sides. ABDOMEN: Soft. Non-tender. Bowel sounds active. No CVA tenderness. No mass felt. EXTREMITIES: No edema. Full range of motion of all extremities, equal. NEUROLOGIC: No focal deficit. Cranial nerves II through XII are grossly intact. No headache, no double vision or headache. SKIN: Not dry. Intact. Turgor-normal. LYMPHATIC: No palpable lymph nodes/no lymphedema. MUSCULOSKELETAL: Normal joints with no swelling. Muscle tone is normal. LAB REVIEW: 05/05/17 06:43 05/05/17 06:43 05/05/17 06:43: Sodium 127 L, Potassium 4.4, Chloride 93 L, Carbon Dioxide 27, Anion Gap 11.4, BUN 19 H, Creatinine 0.75, Estimated GFR (MDRD) 76.00, BUN/ Creatinine Ratio 25.33, Glucose 209 H, Calcium 8.4, Total Bilirubin 0.46, AST 27 , ALT 51, Alkaline Phosphatase 55, Total Protein 6.2, Albumin 3.1 L, Globulin 3.1, Albumin/Globulin Ratio 1.00 05/05/17 06:43: WBC 9.45, RBC 3.82 L, Hgb 11.6 L, Hct 32.8 L, MCV 85.9, MCH 30.4 , MCHC 35.4, RDW Coeff of Alisha 14.6, Plt Count 166, Immature Gran % (Auto) 0.5, Neut % (Auto) 89.4, Lymph % (Auto) 6.0 L, [place] % (Auto) 4.1, Eos % (Auto) 0.0, Baso % (Auto) 0.0, Immature Gran # (Auto) 0.1, Neut # 8.4 H, Lymph # 0.6, [place] # 0.4, Eos # 0.0, Baso # 0.0 ASSESSMENT: 1. Hyponatremia 2. Atrial fibrillation with RVR 3. Left lower lobe pneumonia PLAN: 1. CBC and CMP today and daily 2. Solu-Medrol 125 mg b.i.d. 3. Increase Cozaar 50 mg b.i.d. 4. One more dose of NS 3% then D/C Plan and coordination of the patient's care discussed in the presence of Potato Pancake Frier and nurse. CONDITION: Stable SCRIBED BY: MAKI REBOLLEDO, [employer] scribed while in presence of service performed by Dr. Gray/Elsy Estrada APRN on 05/05/17 ([id number])
--- NOTE | 2017-05-05 15:11 | PN ---
DATE OF SERVICE: 05/04/17 SUBJECTIVE: 71-year-old white female hospitalized with multiple medical problems like hyponatremia, possibility of pneumonia which is remote. Chest x-ray continuously shows atelectasis with consolidation. In fact, she has no fever, no chills. No cough, no congestion. In any case the patient is on Rocephin and Vancomycin just to be on the prevention side. The patient's Ramipril has been discontinued. Cozaar is given 50 twice a day. She has borderline hypertension. Today it is 155/93. The patient is noncompliant. Because there is no one to take care of her. The daughter works. The patient needs slow hydration. We are going to change the IV fluid to 3% Normal Saline over 24 hours because sodium is staying around 120. She has continued to drink a lot of water - advised not to. PHYSICAL EXAMINATION: HEENT: Head normocephalic, atraumatic. Eyes: Extraocular muscles are intact. Pupils are equal, round and reactive to light and accommodation. Ears: No lesions. Nose appeared normal. Throat: No exudate or erythema. NECK: Supple. No JVD, no carotid bruit. No lymphadenopathy or thyromegaly. LUNGS: Decreased breath sounds but clear to auscultation. Percussion note normal. Chest symmetrical. HEART: S1, S2, no S3. No murmurs. No cyanosis or clubbing. No ascites. Pulses: Dorsalis pedis and posterior tibial pulses +1 to +2 both sides. ABDOMEN: Soft. Nontender. Bowel sounds active. No CVA tenderness. No mass felt. EXTREMITIES: No edema. Full range of motion of all extremities, equal. NEUROLOGIC: No focal deficit. Cranial nerves II through XII are grossly intact. No headache, no double vision or headache. SKIN: Not dry. Intact. Turgor - normal. LYMPHATIC: No palpable lymph nodes/no lymphedema. MUSCULOSKELETAL: Normal joints with no swelling. Muscle tone is normal. ASSESSMENT: Respiratory status is stable with oxygen saturation 96% on room air. CONDITION: Stable TIME SPENT: More than 30 minutes. Plan and coordination of the patient's care discussed in the presence of nurse. TY
[2017-05-05] MEDS: NORCO 5-325 PO PRN (18:33)
[2017-05-05] MEDS: REQUIP PO SCH (20:32)
[2017-05-05] MEDS: NON-FORMULARY MEDICATION (Melatonin [Melatonin] 10 MG) PO SCH (20:33)
[2017-05-06 05:00] LABS: BASOPHILS % (AUTO) 0.1 % (0.0-3.0); HEMATOCRIT 31.8 % (37.0-47.0); HEMOGLOBIN 11.1 g/dl (12.0-16.0); IMMATURE GRANULOCYTE % (AUTO) 0.7 % (0.0-5.0); LYMPHOCYTES # (AUTO) 0.4 K/uL (0.60-3.4); LYMPHOCYTES % (AUTO) 5.1 (10.0-50.0); MEAN CORPUSCULAR HEMOGLOBIN 30.1 pg (27.0-31.0); MEAN CORPUSCULAR HGB CONC 34.9 (31.8-35.4); MEAN CORPUSCULAR VOLUME 86.2 fl (81.0-99.0); MONOCYTES # (AUTO) 0.1 K/uL (0.4-2.0); MONOCYTES % (AUTO) 1.3 (0-10); NEUTROPHILS % (AUTO) 92.8; PLATELET COUNT 185 10^3/uL (140-440); RED BLOOD COUNT 3.69 10^6/ul (4.20-5.40)
[2017-05-06] MEDS: XOPENEX 0.63 MG NEB SCH ×3 (05:10→21:15)
[2017-05-06 05:22] LABS: ALBUMIN/GLOBULIN RATIO 1.11; ANION GAP 11.4; BILIRUBIN,TOTAL 0.35 mg/dL (0.00-1.20); BUN/CREATININE RATIO 28.39; CALCIUM 8.8 mg/dL (8.2-10.2); CREATININE 0.81 mg/dL (0.60-1.30); POTASSIUM 4.4 mmol/L (3.5-5.10); TOTAL PROTEIN 5.7 g/dL (5.8-8.1)
[2017-05-06] MEDS: VASOTEC IV IVP PRN ×2 (05:31→16:15)
[2017-05-06] MEDS: SYNTHROID PO SCH (05:31)
[2017-05-06] MEDS: HUMULIN R SUBCUT PRN ×4 (06:11→20:43)
[2017-05-06] MEDS: ROCEPHIN 1 GM in SODIUM CHLORIDE 50 ML IV SCH (09:25)
[2017-05-06] MEDS: JANUVIA PO SCH (09:25)
[2017-05-06] MEDS: VESICARE PO SCH (09:26)
[2017-05-06] MEDS: LOPRESSOR PO SCH ×2 (09:26→20:42)
[2017-05-06] MEDS: MULTIVITAMIN TABLET PO SCH (09:26)
[2017-05-06] MEDS: CARDIZEM PO SCH ×2 (09:26→20:42)
[2017-05-06] MEDS: PROZAC PO SCH ×2 (09:26→16:53)
[2017-05-06] MEDS: GLUCOPHAGE PO SCH ×2 (09:26→16:53)
[2017-05-06] MEDS: CALCIUM 500 + VIT D 200 MG TABLET PO SCH (09:26)
[2017-05-06] MEDS: ELIQUIS PO SCH ×2 (09:26→20:42)
[2017-05-06] MEDS: COZAAR PO SCH ×2 (09:27→20:42)
[2017-05-06] MEDS: VALIUM PO SCH ×2 (09:27→20:42)
[2017-05-06] MEDS: VANCOMYCIN 750 MG in SODIUM CHLORIDE 250 ML IV SCH ×2 (10:13→20:42)
--- NOTE | 2017-05-06 11:10 | PCM.PROG ---
Attending Provider: ATTENDING PROVIDER: Dr. ROSALINO GRAY This patient is seen with Elsy Estrada, Nurse Practitioner. DATE OF SERVICE: 05/06/17 SUBJECTIVE: This 71 year old WHITE/ F was hospitalized 05/02/17. The patient is lying in bed, alert. Sodium 126 today. She is not following fluid restriction. Blood pressure has improved. REVIEW OF SYSTEMS: CONSTITUTIONAL: Weakness. No night sweats. No fever or chills. HEENT: Eyes: No visual changes. No eye pain. No eye discharge. ENT: No runny nose. No epistaxis. No sinus pain. No odynophagia. No congestion. RESPIRATORY: No cough, no congestion. No hemoptysis. No shortness of breath. CARDIOVASCULAR: No angina symptoms. No CHF symptoms. No atypical chest pain for CAD. No palpitations. No orthopnea.. GASTROINTESTINAL: No abdominal pain. No nausea or vomiting. No diarrhea or constipation. No hematemesis. No hematochezia. GENITOURINARY: No urgency. No frequency. No dysuria. No hematuria. No obstructive symptoms. No discharge. No pain. No significant abnormal bleeding. MUSCULOSKELETAL: No musculoskeletal pain; no joint swelling. NEUROLOGICAL: Awake, alert, oriented to person with bouts of confusion. No neck pain. No syncope. No seizures. No dizziness. PSYCHIATRIC: Not anxious. No depression. No suicidal thoughts. No homicidal thoughts. SKIN: No rash. No lesions. No wounds. ENDOCRINE: No unexplained weight loss. No weight gain. HEMATOLOGIC/LYMPHATIC: No anemia. No purpura. No petechiae. No prolonged or excessive bleeding. No palpable lymph nodes. PHYSICAL EXAMINATION: GENERAL: The patient is awake, alert and oriented, lying/sitting in bed in no distress. VITAL SIGNS: Temperature 98.2 F, Pulse 94, Respiratory Rate 20, BP 148/82, Pulse Ox 94% HEENT: Head normocephalic, atraumatic. Eyes: Extraocular muscles are intact. Pupils are equal, round and reactive to light and accommodation. Ears: No lesions. Nose appeared normal. Throat: No exudate or erythema. NECK: Supple. No JVD, no carotid bruit. No lymphadenopathy or thyromegaly. LUNGS: Diminished breath sounds. Clear to auscultation. Percussion note normal. Chest symmetrical. HEART: Irregular heart rate. S1, S2, no S3. No murmurs. No cyanosis or clubbing. No ascites. Pulses: Dorsalis pedis and posterior tibial pulses +1 to +2 both sides. ABDOMEN: Soft. Non-tender. Bowel sounds active. No CVA tenderness. No mass felt. EXTREMITIES: No edema. Full range of motion of all extremities, equal. NEUROLOGIC: No focal deficit. Cranial nerves II through XII are grossly intact. No headache, no double vision or headache. SKIN: Not dry. Intact. Turgor-normal. LYMPHATIC: No palpable lymph nodes/no lymphedema. MUSCULOSKELETAL: Normal joints with no swelling. Muscle tone is normal. LAB REVIEW: 05/06/17 04:15 05/06/17 04:15 05/06/17 04:15: Sodium 126 L, Potassium 4.4, Chloride 93 L, Carbon Dioxide 26, Anion Gap 11.4, BUN 23 H, Creatinine 0.81, Estimated GFR (MDRD) 69.00, BUN/ Creatinine Ratio 28.39, Glucose 246 H, Calcium 8.8, Total Bilirubin 0.35, AST 19 , ALT 41, Alkaline Phosphatase 65, Total Protein 5.7 L, Albumin 3.0 L, Globulin 2.7, Albumin/Globulin Ratio 1.11 05/06/17 04:15: WBC 8.60, RBC 3.69 L, Hgb 11.1 L, Hct 31.8 L, MCV 86.2, MCH 30.1 , MCHC 34.9, RDW Coeff of Alisha 14.5, Plt Count 185, Immature Gran % (Auto) 0.7, Neut % (Auto) 92.8, Lymph % (Auto) 5.1 L, [place] % (Auto) 1.3, Eos % (Auto) 0.0, Baso % (Auto) 0.1, Immature Gran # (Auto) 0.1, Neut # 8.0 H, Lymph # 0.4 L, [place] # 0.1 L, Eos # 0.0, Baso # 0.0 05/05/17 09:09: Vancomycin Trough 9.08 L ASSESSMENT: 1. Hyponatremia 2. Atrial fibrillation with RVR 3. Left lower lobe pneumonia PLAN: 1. D/C IV fluids 2. Strict 1500 cc fluid restriction 3. CBC, CMP tomorrow Plan and coordination of the patient's care discussed in the presence of Optical Assistant and nurse. CONDITION: Stable SCRIBED BY: MAKI REBOLLEDO Jackscre[employer] Worker scribed while in presence of service performed by Dr. Gray/Elsy Estrada APRN on 05/06/17 ([id number])
[2017-05-06] MEDS: SOLU-MEDROL 125 MG IVP SCH ×2 (11:43→20:43)
--- NOTE | 2017-05-06 13:53 | HP ---
DATE OF SERVICE: 05/02/17 REASON FOR HOSPITALIZATION: Shortness of air. HISTORY OF PRESENT ILLNESS: 71-year-old white female hospitalized with shortness of air. The patient on further workup had mildly labored breathing with cough, congestion. According to the patient, she was feeling fine. The last couple of days she started with weakness and shortness of breath with cough and congestion. The patient has been recently treated for pneumonia/bronchitis/respiratory failure. Her respiratory status has improved remarkably in the past couple of weeks. She seems to be getting worse. Her other problem according to the ER physician was hyponatremia. Sodium 127 and 128 as an outpatient. It went up to 130 but in a few days it has gone down below 120. PAST MEDICAL HISTORY: Chronic respiratory failure Hypertension Cor pulmonale Depression with anxiety syndrome Hypothyroidism Diabetes mellitus Hypertension Atrial fibrillation REVIEW OF SYSTEMS: CONSTITUTIONAL: Weakness. No night sweats. No fever or chills. HEENT: Eyes: No visual changes. No eye pain. No eye discharge. ENT: No runny nose. No epistaxis. No sinus pain. No sore throat. No odynophagia. No ear pain. No congestion. RESPIRATORY: Cough and congestion. No hemoptysis. Shortness of breath. CARDIOVASCULAR: No angina symptoms. No CHF symptoms. No atypical chest pain for CAD. No palpitations. No orthopnea. GASTROINTESTINAL: No abdominal pain. No nausea or vomiting. No diarrhea or constipation. No hematemesis. No hematochezia. GENITOURINARY: No urgency. No frequency. No dysuria. No hematuria. No obstructive symptoms. No discharge. No pain. No significant abnormal bleeding. MUSCULOSKELETAL: No musculoskeletal pain. No joint swelling. No arthritis. NEUROLOGICAL: No headache. No neck pain. No syncope. No seizures. No dizziness. PSYCHIATRIC: Not anxious. No depression. No suicidal thoughts. No homicidal thoughts. SKIN: No rash. No lesions. No wounds. ENDOCRINE: No unexplained weight loss. No weight gain. HEMATOLOGIC/LYMPHATIC: No anemia. No purpura. No petechiae. No prolonged or excessive bleeding. No palpable lymph nodes. PERSONAL/FAMILY/SOCIAL HISTORY: The patient lives with the help of daughter. Nonsmoker. No alcohol abuse. Practically does all activity of daily living except for bathing. MEDICATIONS: Valium 2 mg p.o. twice a day Prozac 30 mg p.o. daily Hydrocodone p.r.n. twice a day Levothyroxine 50 mcg p.o. daily Metformin 500 mg twice a day Metoprolol 100 mg twice a day Enalapril 10 mg p.o. daily Requip 2 mg at bedtime Januvia 100 mg p.o. daily Apixaban 5 mg p.o. twice a day Diltiazem 90 mg p.o. q.12hr Prednisone 10 mg p.o. b.i.d. Lasix 20 mg p.r.n. Losartan 50 mg p.o. daily ALLERGIES: NONE PHYSICAL EXAMINATION: GENERAL: The patient is oriented to time, place and person. VITAL SIGNS: Temperature 98.1, pulse 113, respiratory rate 24, BP 161/88 with 98 % saturation on 2L. HEENT: Head normocephalic, atraumatic. Eyes: Extraocular muscles are intact. Pupils are equal, round and reactive to light and accommodation. Ears: No lesions. Nose appeared normal. Throat: No exudate or erythema. Mucous membranes normal. NECK: Supple. No JVD, no carotid bruit. No lymphadenopathy or thyromegaly. LUNGS: Decreased breath sounds. Clear to auscultation. Percussion note normal. Chest symmetrical. HEART: S1, S2, no S3. No murmurs. No cyanosis or clubbing. No ascites. Pulses: Dorsalis pedis and posterior tibial pulses +1 bilaterally. ABDOMEN: Soft. Nontender. Bowel sounds active. No CVA tenderness. No mass felt. EXTREMITIES: Trace pedal edema. Full range of motion of all extremities, equal. NEUROLOGIC: Mental status is normal. Oriented to time, place and person. No focal deficit. Cranial nerves II through XII are grossly intact. No headache, no double vision or headache. SKIN: Dry. Intact. Turgor - normal. LYMPHATIC: No palpable lymph nodes/no lymphedema. MUSCULOSKELETAL: Normal joints with no swelling. Muscle tone is normal. LABORATORY: Hemoglobin 11.3, hematocrit 32, WBC 19,000, normal differential. Creatinine 0.8 , BUN 20, potassium 4, sodium 119. ABG p02 121, pc02 40, pH 7.41 with 99% saturation on 2L. BNP 18, creatinine and troponin negative. UA shows trace glucose, negative for leukocyte esterase. EKG showed atrial fibrillation. No acute changes. LVH with strain. CT scan of the chest showed possibility of atelectasis versus pneumonia left lower lobe. Mild cardiomegaly. ASHD. Pretrachial lymphadenopathy which seems to be reactive. ASSESSMENT: 1. Hyponatremia seems to be the main concern with weakness. 2. Chronic lung disease with atelectasis. 3. Possibility of pneumonia exists with bronchitis. 4. Atrial fibrillation. 5. Hypertension. 6. Depression. 7. Diabetes mellitus. 8. Noncompliance with patient living by herself. The daughter is trying her best to take care of her and it looks like she does good for awhile and then everything seems to be falling apart. 9. The patient's prognosis is not good considering her situation. The [facility] be in the prison where she is taken care of and her medications are given regularly and vitals are taken regularly. This discussion has been with the family, daughter and the patient frequently lately. PLAN: 1. Give IV Vancomycin and IV Rocephin 2. IV steroids 3. Nebs treatment 4. IV fluids with Normal Saline 5. Daily CBC, CMP 6. Vasotec 1.25 IV q.8 for systolic blood pressure 160 7. Cozaar needs to be 50 mg twice a day 8. Discontinue Ramipril 9. Continue Telemetry PAST SURGICAL HISTORY: 1. Status post cholecystectomy 2. Pacemaker, Dr. Ballesteros CONDITION: Stable PROGNOSIS: Not good. The patient was seen and examined on 05/02/17. TIME SPENT: More than 70 minutes. MTDD
--- NOTE | 2017-05-06 14:10 | PN ---
DATE OF SERVICE: 05/03/17 SUBJECTIVE: 71-year-old white female hospitalized with hyponatremia, probably bronchitis. The patient looks a lot better. She is not in any distress. She is sleepy but awake, oriented to place and person. REVIEW OF SYSTEMS: CONSTITUTIONAL: No night sweats. No fatigue, malaise, lethargy. No fever or chills. HEENT: Eyes: No visual changes. No eye pain. No eye discharge. ENT: No runny nose. No epistaxis. No sinus pain. No sore throat. No odynophagia. No congestion. RESPIRATORY: No cough, no congestion. No hemoptysis. Breathing is a lot better. CARDIOVASCULAR: No angina symptoms. No CHF symptoms. No atypical chest pain for CAD. No palpitations. No orthopnea. GASTROINTESTINAL: Appetite has improved. No abdominal pain. No nausea or vomiting. No diarrhea or constipation. No hematemesis. No hematochezia. GENITOURINARY: No urgency. No frequency. No dysuria. No hematuria. No obstructive symptoms. No discharge. No pain. No significant abnormal bleeding. MUSCULOSKELETAL: No musculoskeletal pain; no joint swelling. NEUROLOGICAL: No headache. No neck pain. No syncope. No seizures. No dizziness. PSYCHIATRIC: Not anxious. No depression. No suicidal thoughts. No homicidal thoughts. SKIN: No rash. No lesions. No wounds. ENDOCRINE: No unexplained weight loss. No weight gain. HEMATOLOGIC/LYMPHATIC: No anemia. No purpura. No petechiae. No prolonged or excessive bleeding. No palpable lymph nodes. PHYSICAL EXAMINATION: GENERAL: The patient is oriented to person and place. VITAL SIGNS: Temperature 98.1, pulse 98, respiratory rate 20, BP 171/109, pulse ox 98%. HEENT: Head normocephalic, atraumatic. Eyes: Extraocular muscles are intact. Pupils are equal, round and reactive to light and accommodation. Ears: No lesions. Nose appeared normal. Throat: No exudate or erythema. NECK: Supple. No JVD, no carotid bruit. No lymphadenopathy or thyromegaly. LUNGS: Decreased breath sounds but clear to auscultation. Percussion note normal. Chest symmetrical. HEART: S1, S2, no S3. No murmurs. No cyanosis or clubbing. No ascites. Pulses: Dorsalis pedis and posterior tibial pulses +1 to +2 both sides. ABDOMEN: Soft. Nontender. Bowel sounds active. No CVA tenderness. No mass felt. EXTREMITIES: No edema. Full range of motion of all extremities, equal. NEUROLOGIC: No focal deficit. Cranial nerves II through XII are grossly intact. No headache, no double vision or headache. SKIN: Not dry. Intact. Turgor - normal. LYMPHATIC: No palpable lymph nodes/no lymphedema. MUSCULOSKELETAL: Normal joints with no swelling. Muscle tone is normal. ASSESSMENT: 1. PNEUMONITIS/ATELECTASIS/BRONCHITIS WITH CHRONIC RESPIRATORY FAILURE 2. HYPERTENSION PLAN: 1. Give Rocephin, Vancomycin, steroids and nebs treatment 2. Will add Vasotec 0.125 q.8 p.r.n. for blood pressure over 160. 3. Will give Cozaar 50 mg twice a day. 4. Discontinue Ramipril. 5. Advised to get up and try to walk. Exercise is discussed with the patient. CONDITION: Stable. TIME SPENT: More than 30 minutes. Plan and coordination of the patient's care discussed in the presence of nurse. TY
[2017-05-06] MEDS: SODIUM CHLORIDE 1,000 ML IV SCH (15:43)
[2017-05-06] MEDS: REQUIP PO SCH (20:41)
[2017-05-06] MEDS: NON-FORMULARY MEDICATION (Melatonin [Melatonin] 10 MG) PO SCH (20:45)
[2017-05-06] MEDS: NORCO 5-325 PO PRN (20:45)
[2017-05-06] MEDS: CARDIZEM INJ 125 MG in SODIUM CHLORIDE 100 ML IV SCH (23:15)
[2017-05-07] MEDS: XOPENEX 0.63 MG NEB SCH ×2 (05:07→14:43)
[2017-05-07 05:21] LABS: BASOPHILS % (AUTO) 0.1 % (0.0-3.0); HEMATOCRIT 32.3 % (37.0-47.0); HEMOGLOBIN 11.2 g/dl (12.0-16.0); IMMATURE GRANULOCYTE % (AUTO) 0.3 % (0.0-5.0); LYMPHOCYTES # (AUTO) 0.4 K/uL (0.60-3.4); MEAN CORPUSCULAR HEMOGLOBIN 29.6 pg (27.0-31.0); MEAN CORPUSCULAR HGB CONC 34.7 (31.8-35.4); MEAN CORPUSCULAR VOLUME 85.4 fl (81.0-99.0); MONOCYTES # (AUTO) 0.1 K/uL (0.4-2.0); MONOCYTES % (AUTO) 1.6 (0-10); NEUTROPHILS # (AUTO) 8.2 K/ul (2.0-6.9); PLATELET COUNT 202 10^3/uL (140-440); RED BLOOD COUNT 3.78 10^6/ul (4.20-5.40); WHITE BLOOD COUNT 8.83 K/ul (4.6-10.2)
[2017-05-07 05:44] LABS: ALBUMIN 3.1 g/dL (3.4-5.0); ALBUMIN/GLOBULIN RATIO 1.07; ANION GAP 12.3; BILIRUBIN,TOTAL 0.44 mg/dL (0.00-1.20); BUN/CREATININE RATIO 30.95; CALCIUM 9.1 mg/dL (8.2-10.2); CREATININE 0.84 mg/dL (0.60-1.30); POTASSIUM 4.3 mmol/L (3.5-5.10)
[2017-05-07] MEDS: HUMULIN R SUBCUT PRN ×2 (05:54→11:58)
[2017-05-07] MEDS: SYNTHROID PO SCH (05:54)
[2017-05-07] MEDS: CALCIUM 500 + VIT D 200 MG TABLET PO SCH (08:46)
[2017-05-07] MEDS: JANUVIA PO SCH (08:46)
[2017-05-07] MEDS: COZAAR PO SCH (08:46)
[2017-05-07] MEDS: CARDIZEM PO SCH (08:47)
[2017-05-07] MEDS: ELIQUIS PO SCH (08:47)
[2017-05-07] MEDS: PROZAC PO SCH (08:48)
[2017-05-07] MEDS: VESICARE PO SCH (08:48)
[2017-05-07] MEDS: MULTIVITAMIN TABLET PO SCH (08:48)
[2017-05-07] MEDS: LOPRESSOR PO SCH (08:48)
[2017-05-07] MEDS: GLUCOPHAGE PO SCH (08:49)
[2017-05-07] MEDS: ROCEPHIN 1 GM in SODIUM CHLORIDE 50 ML IV SCH (08:49)
--- NOTE | 2017-05-07 11:24 | CM.DICTOOL ---
ADMISSION: 05/02/17 23:15 DISCHARGE: 05/07/17 DATE OF SERVICE: 05/07/17 FINAL DIAGNOSIS HYPONATREMIA A-FIB WITH RAPID VENTRICULAR RESPONSE, NOW CONTROLLED LEFT LOWER PNEUMONIA (CT 04/14/[address] 05/02/17) HYPERTENSION COPD DM, TYPE 2 GENERALIZED ANXIETY DISORDER DYSLIPIDEMIA RESTLESS LEG SYNDROME HYPOTHYROIDISM OSTEOARTHRITIS DJD SPINE CVA BY HISTORY PACEMAKER INSERTION, DR. HEREDIA FORMER SMOKER LAST 2-D ECHO 12/30 LVEF 63%, LVH LAST VITALS Temp Pulse Resp BP Pulse Ox 98.4 F 104 H 20 133/82 96 05/07/17 10:00 05/07/17 10:00 05/07/17 10:00 05/07/17 10:00 05/07/17 10:00 ACTIVE MEDICATIONS Acetaminophen/Hydrocodone Bitart ([place] 5-325) 1 tab PO BID PRN PRN Reason: MODERATE PAIN Last Admin: 05/06/17 20:45 Dose: 1 tab Apixaban (Eliquis) 5 mg PO BID [facility] Last Admin: 05/07/17 08:47 Dose: 5 mg Calcium/Vitamin D (Calcium 500 + Vit D 200 Mg Tablet) 1 each PO DAILY [facility] Last Admin: 05/07/17 08:46 Dose: 1 each Diazepam (Valium) 2 mg PO BID [facility] Last Admin: 05/06/17 20:42 Dose: 2 mg Diltiazem HCl (Cardizem) 120 mg PO Q12HR [facility] (INCREASEC DOSE FROM 90 MG) Last Admin: 05/07/17 08:47 Dose: 120 mg Fluoxetine HCl (Prozac) 20 mg PO DAILY [facility] Last Admin: 05/07/17 08:48 Dose: 20 mg Fluoxetine HCl (Prozac) 10 mg PO QPM [facility] Last Admin: 05/06/17 16:53 Dose: 10 mg Furosemide (Lasix Tab) 20 mg PO MoFr@0630 [facility] Last Admin: 05/05/17 06:35 Dose: 20 mg Levothyroxine Sodium (Synthroid) 50 mcg PO QDAC [facility] Last Admin: 05/07/17 05:54 Dose: 50 mcg Losartan Potassium (Cozaar) 50 mg PO BID [facility] Last Admin: 05/07/17 08:46 Dose: 50 mg Metformin HCl (Glucophage) 500 mg PO BIDWM [facility] Last Admin: 05/07/17 08:49 Dose: 500 mg Metoprolol Tartrate (Lopressor) 100 mg PO BID [facility] Last Admin: 05/07/17 08:48 Dose: 100 mg Multivitamins (Multivitamin Tablet) 1 tab PO DAILY [facility] Last Admin: 05/07/17 08:48 Dose: 1 tab Melatonin [Melatonin] 10 mg PO BEDTIME [facility] Last Admin: 05/06/17 20:45 Dose: Not Given Ropinirole HCl (Requip) 2 mg PO BEDTIME [facility] Last Admin: 05/06/17 20:41 Dose: 2 mg Sitagliptin Phosphate (Januvia) 100 mg PO DAILY [facility] Last Admin: 05/07/17 08:46 Dose: 100 mg Solifenacin (Vesicare) 5 mg PO DAILY [facility] (NEW PRESCRIPTIONS) Last Admin: 05/07/17 08:48 Dose: 5 mg ALLERGIES No Known Allergies Allergy (Verified 04/14/17 12:13) NEW PRESCRIPTIONS: PLEASE NOTE THE INCREASE IN YOUR CARDIZEM TO 120 MG BY MOUTH TWICE DAILY PLEASE NOTE YOUR RAMIPRIL (ALTACE) HAS BEEN DISCONTINUED NEW PRESCRIPTIONS KEFLEX 500 MG, TAKE ONE CAPSULE BY MOUTH EVERY 8 HOURS FOR 7 DAYS PREDNISONE 10 MG, TAKE ONE TABLET BY MOUTH TWICE DAILY WITH FOOD FOR 7 DAYS SOLIFENACIN (VESICARE) 5 MG, TAKE ONE TABLET BY MOUTH DAILY SMOKING: FORMER SMOKER DISEASE SPECIFIC EDUCATION: HYPONATREMIA FLUID RESTRICTION PNEUMONIA HOME MEDICATIONS NEW PRESCRIPTIONS FOLLOW UP LAB REVIEW: 05/07/17 05:05 05/07/17 05:05 05/07/17 08:30: Vancomycin Trough 15.54 D 05/07/17 05:05: Sodium 125 L, Potassium 4.3, Chloride 90 L, Carbon Dioxide 27, Anion Gap 12.3, BUN 26 H, Creatinine 0.84, Estimated GFR (MDRD) 66.00, BUN/ Creatinine Ratio 30.95, Glucose 238 H, Calcium 9.1, Total Bilirubin 0.44, AST 16 , ALT 38, Alkaline Phosphatase 64, Total Protein 6.0, Albumin 3.1 L, Globulin 2.9, Albumin/Globulin Ratio 1.07 05/07/17 05:05: WBC 8.83, RBC 3.78 L, Hgb 11.2 L, Hct 32.3 L, MCV 85.4, MCH 29.6 , MCHC 34.7, RDW Coeff of Alisha 14.6, Plt Count 202, Immature Gran % (Auto) 0.3, Neut % (Auto) 93.0, Lymph % (Auto) 5.0 L, [place] % (Auto) 1.6, Eos % (Auto) 0.0, Baso % (Auto) 0.1, Immature Gran # (Auto) 0.0, Neut # 8.2 H, Lymph # 0.4 L, [place] # 0.1 L, Eos # 0.0, Baso # 0.0 PLAN: DISCHARGE HOME TODAY RETURN TO SEE DR. GRAY IN THE OFFICE ON 05/15/17 AT 11 A.M. RESUME YOUR HOME MEDICATIONS PER LIST PROVIDED BY THE NURSING STAFF PLEASE NOTE THE INCREASE IN YOUR CARDIZEM TO 120 MG BY MOUTH TWICE DAILY PLEASE NOTE YOUR RAMIPRIL (ALTACE) HAS BEEN DISCONTINUED NEW PRESCRIPTIONS KEFLEX 500 MG, TAKE ONE CAPSULE BY MOUTH EVERY 8 HOURS FOR 7 DAYS PREDNISONE 10 MG, TAKE ONE TABLET BY MOUTH TWICE DAILY WITH FOOD FOR 7 DAYS SOLIFENACIN (VESICARE) 5 MG, TAKE ONE TABLET BY MOUTH DAILY ACTIVITY CONTINUE THE FLUID RESTRICTION AT HOME 1500 ML/24 HOURS (50 OZS/24 HOURS) GET PLENTY OF REST AT HOME. GRADUALLY INCREASE YOUR ACTIVITY LEVEL ACCORDING TO YOUR TOLERATION DIET CONSISTENT CARBS SUMMARY THE PATIENT IS ALERT AND ORIENTED X3. SHE CURRENTLY RESIDES AT HOME WITH HER DAUGHTER AND SON-IN-LAW. THE DAUGHTER IS VERY SUPPORTIVE OF MS. AGUIRRE' NEEDS. SHE HAS A ROLLING WALKER AND GLUCOMETER WITH BLOOD SUGAR TESTING SUPPLIES AT HOME. SHE DESIRES TO RETURN HOME AT DISCHARGE. SHE AND HER DAUGHTER STRONGLY DESIRED DISCHARGE TODAY. THE TWO HAVE BEEN RESISTANT TO INSTRUCTIONS FOR FLUID RESTRICTION DUE TO THE HYPONATREMIA. WE WILL REINFORCE THESE INSTRUCTIONS TO BE FOLLOWED AT HOME. WE WILL FOLLOW UP WITH THE PATIENT IN THE OFFICE ON 05/15/17 AT 11 A.M. CURRENT CODE STATUS FULL CODE CLIFTON BIANCHI APRN ROSALINO GRAY M.D.
--- NOTE | 2017-05-07 12:26 | PCM.PROG ---
Attending Provider: ATTENDING PROVIDER: Dr. ROSALINO GRAY This patient is seen with Elsy Estrada, Nurse Practitioner. DATE OF SERVICE: 05/07/17 SUBJECTIVE: This 71 year old WHITE/ F was hospitalized 05/02/17. The patient is lying in bed, alert. REVIEW OF SYSTEMS: CONSTITUTIONAL: No night sweats. No fatigue, malaise, lethargy. No fever or chills. HEENT: Eyes: No visual changes. No eye pain. No eye discharge. ENT: No runny nose. No epistaxis. No sinus pain. No odynophagia. No congestion. RESPIRATORY: Cough and congestion. No hemoptysis. No shortness of breath. CARDIOVASCULAR: No angina symptoms. No CHF symptoms. No atypical chest pain for CAD. No palpitations. No orthopnea.. GASTROINTESTINAL: No abdominal pain. No nausea or vomiting. No diarrhea or constipation. No hematemesis. No hematochezia. GENITOURINARY: No urgency. No frequency. No dysuria. No hematuria. No obstructive symptoms. No discharge. No pain. No significant abnormal bleeding. MUSCULOSKELETAL: No musculoskeletal pain; no joint swelling. NEUROLOGICAL: Awake, alert with bouts of confusion. No headache. No neck pain. No syncope. No seizures. No dizziness. PSYCHIATRIC: Not anxious. No depression. No suicidal thoughts. No homicidal thoughts. SKIN: No rash. No lesions. No wounds. ENDOCRINE: No unexplained weight loss. No weight gain. HEMATOLOGIC/LYMPHATIC: No anemia. No purpura. No petechiae. No prolonged or excessive bleeding. No palpable lymph nodes. PHYSICAL EXAMINATION: GENERAL: The patient is awake, alert with bouts of confusion lying in bed in no distress. VITAL SIGNS: Temperature 98.3 F, Pulse 85, Respiratory Rate 20, BP 155/78, Pulse Ox 91% HEENT: Head normocephalic, atraumatic. Eyes: Extraocular muscles are intact. Pupils are equal, round and reactive to light and accommodation. Ears: No lesions. Nose appeared normal. Throat: No exudate or erythema. NECK: Supple. No JVD, no carotid bruit. No lymphadenopathy or thyromegaly. LUNGS: Diminished breath sounds bilaterally. Clear to auscultation. Percussion note normal. Chest symmetrical. HEART: Irregular heart rate. S1, S2, no S3. No murmurs. No cyanosis or clubbing. No ascites. Pulses: Dorsalis pedis and posterior tibial pulses +1 to +2 both sides. ABDOMEN: Soft. Non-tender. Bowel sounds active. No CVA tenderness. No mass felt. EXTREMITIES: No edema. Full range of motion of all extremities, equal. NEUROLOGIC: No focal deficit. Cranial nerves II through XII are grossly intact. No headache, no double vision or headache. SKIN: Not dry. Intact. Turgor-normal. LYMPHATIC: No palpable lymph nodes/no lymphedema. MUSCULOSKELETAL: Normal joints with no swelling. Muscle tone is normal. LAB REVIEW: 05/07/17 05:05 05/07/17 05:05 05/07/17 05:05: Sodium 125 L, Potassium 4.3, Chloride 90 L, Carbon Dioxide 27, Anion Gap 12.3, BUN 26 H, Creatinine 0.84, Estimated GFR (MDRD) 66.00, BUN/ Creatinine Ratio 30.95, Glucose 238 H, Calcium 9.1, Total Bilirubin 0.44, AST 16 , ALT 38, Alkaline Phosphatase 64, Total Protein 6.0, Albumin 3.1 L, Globulin 2.9, Albumin/Globulin Ratio 1.07 05/07/17 05:05: WBC 8.83, RBC 3.78 L, Hgb 11.2 L, Hct 32.3 L, MCV 85.4, MCH 29.6 , MCHC 34.7, RDW Coeff of Alisha 14.6, Plt Count 202, Immature Gran % (Auto) 0.3, Neut % (Auto) 93.0, Lymph % (Auto) 5.0 L, [place] % (Auto) 1.6, Eos % (Auto) 0.0, Baso % (Auto) 0.1, Immature Gran # (Auto) 0.0, Neut # 8.2 H, Lymph # 0.4 L, [place] # 0.1 L, Eos # 0.0, Baso # 0.0 ASSESSMENT: 1. Hyponatremia 2. Atrial fibrillation with RVR 3. Left lower lobe pneumonia PLAN: 1. Repeat chest x-ray 2. Fluid restriction 1500 3. The patient's daughter would like the patient to be discharged home today. The daughter does not want fluid restriction and she does continue to drink. She does fine with sodium of 125 and 126 and the effects of hyponatremia discussed with patient and daughter. Plan and coordination of the patient's care discussed in the presence of Healthcare Economics Consultant and nurse. CONDITION: STABLE SCRIBED BY: MAKI REBOLLEDO Compressor Operator scribed while in presence of service performed by Dr. Gray/Elsy Estrada APRN on 05/07/17 ([id number])
[2017-05-07 14:25] VITALS: BP 162/78; TEMP 98.5
--- NOTE | 2017-05-07 15:06 | DI ---
Exam: Two x-rays of the chest. Comparison: 04/17/2017. Reason for exam: Left lower lobe pneumonia. FINDINGS: Operative changes are seen after implanted intracardiac device placement. No pneumothorax. Patchy airspace opacities are seen in the left lung base. The cardiac silhouette is not enlarged. Impression: Similar appearing left basilar atelectasis or pneumonia
--- NOTE | 2017-05-07 15:09 | PN ---
DATE OF SERVICE: 05/07/17 SUBJECTIVE: 71-year-old white female doing fine. Hyponatremia is stable with sodium of 125- 126. She has continued to drink a lot of water. Her fluid intake is tremendously high. The daughter and the patient refuse to restrict her fluid. She was given hypertonic Normal Saline. Her usual sodium is 125-126 with sodium of 119-120, her mental status is stable. She has chronic hyponatremia from compulsive water drinking. Her cardiovascular and respiratory status is stable. Her oxygen saturation on room air is more than 90%. The patient's condition is stable. Explained about hyponatremia and its effects. CONDITION AT TIME OF DISCHARGE: Stable. The patient was seen and examined with the nurse practitioner and correctional case manager. TIME SPENT: More than 30 minutes. Plan and coordination of the patient's care discussed in the presence of nurse. TY
--- NOTE | 2017-05-07 15:10 | PN ---
CODING FOR BILLING 05/02/17 LEVEL 5 05/03/17 INTERMEDIATE 05/04/17 INTERMEDIATE 05/05/17 INTERMEDIATE 05/06/17 INTERMEDIATE 05/07/17 DISCHARGE MTDD
[2017-05-07] MEDS: VALIUM PO SCH (15:47)
[2017-05-07] MEDS: VANCOMYCIN 750 MG in SODIUM CHLORIDE 250 ML IV SCH (15:52)
--- NOTE | 2017-05-11 11:35 | DS ---
DATE OF SERVICE: 05/07/17 FINAL DIAGNOSIS: 1. HYPONATREMIA 2. ATRIAL FIBRILLATION WITH RAPID VENTRICULAR RESPONSE, NOW CONTROLLED 3. LEFT LOWER PNEUMONIA (CT 04/14/[address] 05/02/17) 4. HYPERTENSION 5. COPD 6. DIABETES MELLITUS TYPE 2 7. GENERALIZED ANXIETY DISORDER 8. DYSLIPIDEMIA 9. RESTLESS LEG SYNDROME 10. HYPOTHYROIDISM 11. 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 CVA BY HISTORY 14. PACEMAKER INSERTION, DR. HEREDIA 15. FORMER SMOKER 16. LAST 1-D ECHO 12/30 LVEF 63%, LVH DISCHARGE INSTRUCTIONS: Followup appointment: Return to see Dr. Mckeon in the office on 05/15/17 at 11 a.m. MEDICATIONS AT DISCHARGE: [place] 5-325 one tab p.o. b.i.d. p.r.n. Eliquis 5 mg p.o. b.i.d. TOM Calcium 500 +Vitamin D 200 mg) one each p.o. daily TOM Valium 2 mg p.o. b.i.d. TOM Cardizem 120 mg p.o. q.12h TOM (increased dose from 90 mg) Prozac 20 mg p.o. daily TOM Prozac 10 mg p.o. q.p.m. TOM Lasix 20 mg p.o. MoFr@0630 TOM Synthroid 50 mcg p.o. q.d. a.c. TOM Cozaar 50 mg p.o. b.i.d. TOM Glucophage 500 mg p.o. b.i.d. with meal TOM Lopressor 100 mg p.o. b.i.d. TOM Multivitamin one tab p.o. daily TOM Melatonin 10 mg p.o. bedtime TOM Requip 2 mg p.o. bedtime TOM Januvia 100 mg p.o.d aily TOM Vesicare 5 mg p.o.d aily TOM (new prescription) NEW PRESCRIPTIONS: Please note your increase in Cardizem to 120 mg p.o. twice daily Please note your Ramipril (Altace) has been discontinued Keflex 500 mg p.o. one by mouth every 8 hours for 7 days Prednisone 10 mg one tablet p.o. twice daily with food for 7 days Solifenacin (Vesicare) 5 mg take one tablet p.o. daily DIET INSTRUCTIONS: Consistent Carbs ACTIVITY: Continue the fluid restriction at home 1500/mL/24 hours (50 ozs/24 hours) Get plenty of rest at home. Gradually increase your activity level according to your toleration. SMOKING: Former smoker DISEASE SPECIFIC EDUCATION: Hyponatremia Fluid restriction Pneumonia Home medications New prescriptions Followup HOSPITAL COURSE: This 71-year-old white female who presented to the emergency room brought in by her daughter complaining of confusion, weakness, not as alert. It was found that she had severe hyponatremia at 117. She was subsequently admitted, placed on IV fluids. She did require IV rehydration with Normal Saline at 3% Hypertonic solution which she received for 3 days. While on the Hypertonic solution her sodium did improve. It was stopped two days ago. She has since had a sodium of 127 on and then today 125. Her daughter is her primary supervisor dyer and power of traffic law attorney and she has refused to hold her to a 1500 cc fluid restriction which was strongly advised regarding her sodium level. It is to be noted though that she is high functioning and is normally around 125 on sodium and does well with no confusion and is asymptomatic between 124 to 127. The daughter and the patient states that she would like to go home today. Chest x-ray on admission revealed left lower lobe pneumonia. Repeat chest showed that this was improving. She has been on Rocephin 1 gm IV daily as well as finished a course of Zithromax 500 mg daily for 3 days. She will go home on Keflex 500 mg t.i.d. for one week along with Prednisone 10 mg b.i.d. for one week. She has been receiving Solu-Medrol 125 mg q.12hr. She is no longer coughing. She states she is feeling well. Chest x-ray showed improvement. Again, she has been off IV fluids for 2 days and seems to be steady at 125. The importance of the fluid restriction was discussed with the daughter. It is strongly advised that she hold to 1500 cc fluid restriction whenever she arrives at home. Her blood pressure had been elevated over the course of her stay and we did increase her Cozaar to 50 mg b.i.d.. She was admitted on routine telemetry at the time of admission, she was on atrial fibrillation which is not new; however, she was in atrial fibrillation with rapid ventricular response. We increased her Cardizem to 120 mg b.i.d. and she has tolerated that well. Today, on day of discharge, temperature 98.3, heart rate 85, respirations 20, BP 155/78. Pulse ox is 93% on 2L. The patient will go home to her daughter's house. She currently has [facility] which will resume there. The risk of the hyponatremia have been discussed in detail with the patient and her family. Again they requested they go home. Again it is to be noted that she functions well and is asymptomatic with the sodium of 125. We will follow up with her on Friday with a repeat CMP prior to the appointment. Her family and she are instructed to go to the emergency room over the course of the next several days if symptoms do not continue to improve. TIME SPENT: More than 60 minutes. TY
== END 2017-05-07 16:55 | disposition home health service (06) | DRG 194 ==
LOC: ED 20:08 → SCU 23:15 → MEDSURG B 05-05 05:45
PROVIDERS: ADMIT Internal Medicine; ATTEND Internal Medicine
DX: J18.1 Lobar pneumonia, unspecified organism (principal); E87.1 Hypo-osmolality and hyponatremia; J98.11 Atelectasis; R06.02 Shortness of breath; R53.1 Weakness; E11.9 Type 2 diabetes mellitus without complications; I48.91 Unspecified atrial fibrillation; I10 Essential (primary) hypertension; J44.9 Chronic obstructive pulmonary disease, unspecified; F41.1 Generalized anxiety disorder; E78.5 Hyperlipidemia, unspecified; G25.81 Restless legs syndrome; E03.9 Hypothyroidism, unspecified; M19.90 Unspecified osteoarthritis, unspecified site; M47.9 Spondylosis, unspecified; Z79.01 Long term (current) use of anticoagulants; Z79.84 Long term (current) use of oral hypoglycemic drugs; Z79.899 Other long term (current) drug therapy; Z60.2 Problems related to living alone; Z95.0 Presence of cardiac pacemaker; Z86.73 Personal history of transient ischemic attack (TIA), and cerebral infarction without residual deficits; Z87.891 Personal history of nicotine dependence
CPT/HCPCS: 36415; 80053; 80202; 81001; 82550; 82803; 82962; 83880; 84484; 85025; 87040; 87081; 87804; 93005; 93010; 94640; 96361; 96374; 96375; 99284

== ENCOUNTER 2017-07-15 11:03 | Inpatient (IN) | payer OTHER ==
[2017-07-15 11:34] VITALS: BMI 35.1
[2017-07-15] MEDS ORDERED: ATROPINE SULFATE PFS IVP PRN (11:44)
[2017-07-15] MEDS ORDERED: VISTARIL INJ IM PRN (11:44)
[2017-07-15] MEDS ORDERED: MORPHINE 4 MG/ML VIAL IVP PRN (11:44)
[2017-07-15] MEDS ORDERED: TYLENOL PO PRN (11:44)
[2017-07-15] MEDS ORDERED: NITROSTAT SL PRN (11:44)
[2017-07-15] MEDS: XOPENEX 1.25 MG NEB SCH ×4 (11:57→23:29)
[2017-07-15] MEDS: ROCEPHIN 1 GM in SODIUM CHLORIDE 50 ML IV SCH (13:24)
[2017-07-15] MEDS: LASIX IVP SCH (13:25)
[2017-07-15] MEDS: ZITHROMAX PO SCH (13:26)
--- NOTE | 2017-07-15 14:16 | DI ---
EXAM: Single view of the chest. History: Short of breath Comparison: Chest radiograph 05/07/2017 Findings: Mild cardiomegaly new Pacer device. Interstitial edema and small bilateral pleural effus ions. No pneumothorax. No acute osseous abnormalities. Atherosclerotic vascular calcifications. Impression: Mild cardiomegaly with interstitial edema and small bilateral pleural effusions
[2017-07-15] MEDS ORDERED: XOPENEX 1.25 MG NEB STA (15:53)
[2017-07-15] MEDS ORDERED: ZOFRAN 4 MG/2 ML IVP STA (16:07)
[2017-07-15] MEDS: SOLU-CORTEF 250 MG IVP SCH ×3 (16:13→20:04)
[2017-07-15] MEDS: GLUCOPHAGE PO SCH (17:31)
[2017-07-15] MEDS: LOPRESSOR PO SCH (20:05)
[2017-07-15] MEDS: ELIQUIS PO SCH (20:05)
[2017-07-15] MEDS: VALIUM PO SCH (20:06)
[2017-07-15] MEDS: NON-FORMULARY MEDICATION (Melatonin [Melatonin] 10 MG) PO SCH (20:06)
[2017-07-15] MEDS: REQUIP PO SCH (20:06)
[2017-07-15] MEDS ORDERED: NON-FORMULARY MEDICATION (Diltiazem Hcl [Diltiazem Hcl] 90 MG) PO SCH (21:00)
[2017-07-15] MEDS ORDERED: NON-FORMULARY MEDICATION (Metoprolol Tartrate [Metoprolol Tartrate] 100 MG) PO SCH (21:00)
[2017-07-15] MEDS ORDERED: NON-FORMULARY MEDICATION (Ropinirole Hcl [Requip] 2 MG) PO SCH (21:00)
[2017-07-16] MEDS: XOPENEX 1.25 MG NEB SCH ×4 (05:30→22:51)
[2017-07-16] MEDS: SOLU-CORTEF 250 MG IVP SCH ×3 (05:44→21:11)
[2017-07-16] MEDS: SYNTHROID PO SCH (05:45)
[2017-07-16] MEDS: LASIX IVP SCH (05:45)
[2017-07-16] MEDS ORDERED: SYNTHROID PO SCH (06:30)
[2017-07-16] MEDS: ROCEPHIN 1 GM in SODIUM CHLORIDE 50 ML IV SCH (08:37)
[2017-07-16] MEDS: ASPIRIN EC PO SCH (08:41)
[2017-07-16] MEDS: CALCIUM 500 + VIT D 200 MG TABLET PO SCH (08:41)
[2017-07-16] MEDS: LOPRESSOR PO SCH ×2 (08:42→21:10)
[2017-07-16] MEDS: GLUCOPHAGE PO SCH ×2 (08:43→17:10)
[2017-07-16] MEDS: COZAAR PO SCH (08:43)
[2017-07-16] MEDS: JANUVIA PO SCH (08:43)
[2017-07-16] MEDS: PROZAC PO SCH ×2 (08:44)
[2017-07-16] MEDS: MULTIVITAMIN TABLET PO SCH (08:44)
[2017-07-16] MEDS: ZITHROMAX PO SCH (08:45)
[2017-07-16] MEDS: ELIQUIS PO SCH ×2 (08:46→21:10)
[2017-07-16] MEDS: VALIUM PO SCH ×2 (08:51→21:10)
[2017-07-16] MEDS ORDERED: NON-FORMULARY MEDICATION (Calcium Carbonate [Calcium] 600 MG) PO SCH (09:00)
[2017-07-16] MEDS ORDERED: NON-FORMULARY MEDICATION (Sitagliptin Phosphate [Januvia] 100 MG) PO SCH (09:00)
--- NOTE | 2017-07-16 09:26 | PCM.PROG ---
Attending Provider: ATTENDING PROVIDER: Dr. ROSALINO GRAY DATE OF SERVICE: 07/16/17 SUBJECTIVE: This 72 year old WHITE/ F was hospitalized 07/15/17 with acute respiratory failure, The patient is sleeping and breathing a lot better. REVIEW OF SYSTEMS: CONSTITUTIONAL: No night sweats. No fatigue, malaise, lethargy. No fever or chills. HEENT: Eyes: No visual changes. No eye pain. No eye discharge. ENT: No runny nose. No epistaxis. No sinus pain. No odynophagia. No congestion. RESPIRATORY: No cough, no congestion. No hemoptysis. No shortness of breath. CARDIOVASCULAR: No angina symptoms. No CHF symptoms. No atypical chest pain for CAD. No palpitations. No orthopnea.. GASTROINTESTINAL: No abdominal pain. No nausea or vomiting. No diarrhea or constipation. No hematemesis. No hematochezia. GENITOURINARY: No urgency. No frequency. No dysuria. No hematuria. No obstructive symptoms. No discharge. No pain. No significant abnormal bleeding. MUSCULOSKELETAL: No musculoskeletal pain; no joint swelling. NEUROLOGICAL: Awake, alert, oriented to time, place and person. No headache. No neck pain. No syncope. No seizures. No dizziness. PSYCHIATRIC: Not anxious. No depression. No suicidal thoughts. No homicidal thoughts. SKIN: No rash. No lesions. No wounds. ENDOCRINE: No unexplained weight loss. No weight gain. HEMATOLOGIC/LYMPHATIC: No anemia. No purpura. No petechiae. No prolonged or excessive bleeding. No palpable lymph nodes. PHYSICAL EXAMINATION: GENERAL: The patient is asleep lying in bed in no distress. VITAL SIGNS: Temperature 97.8 F, Pulse 111, Respiratory Rate 20, BP 153/92, Pulse Ox 96% HEENT: Head normocephalic, atraumatic. Eyes: Extraocular muscles are intact. Pupils are equal, round and reactive to light and accommodation. Ears: No lesions. Nose appeared normal. Throat: No exudate or erythema. NECK: Supple. No JVD, no carotid bruit. No lymphadenopathy or thyromegaly. LUNGS: Good air entry and no wheezing. Percussion note normal. Chest symmetrical. HEART: S1, S2, no S3. No murmurs. No cyanosis or clubbing. No ascites. Pulses: Dorsalis pedis and posterior tibial pulses +1 to +2 both sides. ABDOMEN: Soft. Non-tender. Bowel sounds active. No CVA tenderness. No mass felt. EXTREMITIES: No edema. Full range of motion of all extremities, equal. NEUROLOGIC: No focal deficit. Cranial nerves II through XII are grossly intact. No headache, no double vision or headache. SKIN: Warm and dry. Intact. Turgor-normal. LYMPHATIC: No palpable lymph nodes/no lymphedema. MUSCULOSKELETAL: Normal joints with no swelling. Muscle tone is normal. LAB REVIEW: 07/16/17 04:00 07/16/17 04:00 07/16/17 04:50: Puncture Site Rr, O2 Saturation 97.0, ABG pH 7.391, ABG pCO2 54.5 H, ABG pO2 97.0, ABG HCO3 33.1 H, ABG Total CO2 35 H, ABG Base Excess 8 H, Mal Test +, FiO2 % 32.0 07/16/17 04:00: Sodium 141, Potassium 4.7, Chloride 101, Carbon Dioxide 32 H, Anion Gap 12.7, BUN 22 H, Creatinine 1.07, Estimated GFR (MDRD) 50.00, BUN/ Creatinine Ratio 20.56, Glucose 163 H D, Calcium 9.4, Total Bilirubin 0.5, AST 35, ALT 30, Alkaline Phosphatase 63, Total Protein 6.8, Albumin 3.1 L, Globulin 3.7, Albumin/Globulin Ratio 0.84 07/16/17 04:00: WBC 7.49, RBC 3.51 L, Hgb 10.2 L, Hct 33.0 L, MCV 94.0, MCH 29.1 , MCHC 30.9 L, RDW Coeff of Alisha 16.7 H, Plt Count 218, Immature Gran % (Auto) 0.5, Neut % (Auto) 79.7, Lymph % (Auto) 13.9, [place] % (Auto) 5.7, Eos % (Auto) 0.1, Baso % (Auto) 0.1, Immature Gran # (Auto) 0.0, Neut # 6.0, Lymph # 1.0, [place] # 0.4, Eos # 0.0, Baso # 0.0 07/15/17 19:35: Total Creatine Kinase 25, Troponin I 0.0150 07/15/17 14:00: Urine Color Yellow, Urine Clarity Turbid, Urine pH 6.0, Ur Specific [place] 1.020, Urine Protein 2+, Urine Glucose (UA) Negative, Urine Ketones Negative, Urine Blood 1+, Urine Nitrite Positive, Urine Bilirubin Negative, Urine Urobilinogen 0.2, Ur Leukocyte Esterase 2+, Urine Microscopic RBC 2-5, Urine Microscopic WBC 30-50, Ur Squamous Epith Cells Not present, Urine Bacteria 4+ 07/15/17 12:41: Sodium 141, Potassium 4.7, Chloride 103, Carbon Dioxide 31, Anion Gap 11.7, BUN 20 H, Creatinine 1.03, Estimated GFR (MDRD) 52.00, BUN/ Creatinine Ratio 19.41, Glucose 94, Calcium 9.3, Total Bilirubin 0.5, AST 39 H, ALT 34, Alkaline Phosphatase 69, Total Creatine Kinase 27, Troponin I 0.0150, Total Protein 6.8, Albumin 3.1 L, Globulin 3.7, Albumin/Globulin Ratio 0.84 07/15/17 12:41: WBC 9.64, RBC 3.38 L, Hgb 10.2 L, Hct 32.1 L, MCV 95.0, MCH 30.2 , MCHC 31.8, RDW Coeff of Alisha 17.0 H, Plt Count 222, Immature Gran % (Auto) 0.4 , Neut % (Auto) 73.9, Lymph % (Auto) 14.6, [place] % (Auto) 9.5, Eos % (Auto) 1.3, Baso % (Auto) 0.3, Immature Gran # (Auto) 0.0, Neut # 7.1 H, Lymph # 1.4, [place] # 0.9, Eos # 0.1, Baso # 0.0 07/15/17 11:44: Puncture Site Rbrach, O2 Saturation 92.0 L, ABG pH 7.378, ABG pCO2 51.8 H, ABG pO2 67.0 L, ABG HCO3 30.5 H, ABG Total CO2 32 H, ABG Base Excess 5 H, O2 Delivery Device Nc, Oxygen Liter Flow 3.00 ASSESSMENT: Please see below. Acute respiratory failure seems to have resolved Chronic lung disease Hypertension Congestive heart failure Anemia Diabetes mellitus PLAN: Continue steroids, Antibiotics, NEBS and IV Lasix Chest xray did show pulmonary congestion with possible chf Clinically CHF has resolved ABG on room air Will cut down oxygen to 2 liters. Plan and coordination of the patient's care discussed in the presence of English Drawer and nurse. CONDITION: Stable SCRIBED BY: Abimael CALLE scribed while in presence of service performed by Dr. ROSALINO GRAY on 07/16/17 ([id number])
[2017-07-16] MEDS: CARDIZEM PO SCH ×4 (09:58→21:10)
[2017-07-16] MEDS: ZOFRAN 4 MG/2 ML IVP PRN ×2 (15:48→21:18)
--- NOTE | 2017-07-16 16:27 | RS.PTINEVL ---
Subjective - Patient information Date of Evaluation: 07/16/17 Date of Arrival on Unit: 07/15/17 Admitted From:: Home Diagnosis: acute respiratory failure Usual Living Arrangement: With Others Living Arrangement Comments: Lives with daughter, son in law Home Environment: House, Ramp Medical History: Hypertension, CVA/TIA, COPD, Diabetes, CHF, Arthritis Medical History Comments:: anxiety and depression, hypothyroid, pacemaker LATEX ALLERGY?: No Subjective Information/ Patient Comments:: pt states she is nauseated this pm. - Level of function Prior to this admission, the patient could do the following:: Partially Dependent Ambulation, Perform Benefits Advisor/Cooking Current Level of Function: Partially Dependent Current Equipment Used at Home: O2, rollator rwx Interventions - Objective Patient Orientation: Person, Place Current Interventions: IV's, Oxygen, Telemetry, [place] Catheter Range of Motion - ROM Right Upper Extremity AROM: WFL's Left Upper Extremity AROM: WFL's Right Lower Extremity AROM: WFL's Left Lower Extremity AROM: WFL's Muscle Strength - Muscle Strength Right Upper Extremity Strength: Mild Weakness (shld flex 3+/5, elbow flex/ext 4- /5,) Left Upper Extremity Strength: Mild Weakness (shld flex 3+/5, elbow flex/ext 4-/ 5,) Right Lower Extremity Strength: Mild Weakness (hip flex 3+/5, knee flex/ext 4-/5 , ankle Df/PF 4-/5) Left Lower Extremity Strength: Mild Weakness (hip flex 3+/5, knee flex/ext 4-/5 , ankle Df/PF 4-/5) Sensation - Sensation Right Upper Extremity Sensation: Intact/Normal Left Upper Extremity Sensation: Intact/Normal Right Lower Extremity Sensation: Intact/Normal Left Lower Extremity Sensation: Impaired (n/t LLE) Palpation Palpation Findings: None/Normal Balance - Sitting Balance and Reactions Static Sitting Balance: Good Dynamic Sitting Balance: Fair Sitting Equilibrium Reactions: Delayed Left, Delayed Right Sitting Protective Reactions: Delayed Left, Delayed Right - Standing Balance and Reactions Static Standing Balance: Fair Dynamic Standing Balance: Poor Standing Equilibrium Reactions: Absent Left, Absent Right Standing Protective Reactions: Absent Left, Absent Right - Comments Balance Assessment Comments: pt with decreased step length and flexed posture with occasional loss of balance backward during gait requiring min assist to correct. Functional Mobility - Transfers Sit to Stand: Min Assist, 1 person assist Stand to Sit: Min Assist, 1 person assist - Safety Awareness Safety Awareness: Fair Ambulation - Ambulation Assistive Device Used: Rolling Walker Orthotic/Prosthetic Device: No Distance: 15ft Assistance needed with Ambulation: Min Assist, 1 person assist, 2 person assist Gait Deviations: Forward posture, Short stride, Deviates from path Ambulation Comments: pt amb with occasional scissoring and decreased step length , pt became nauseated during amb. Factors Affecting Ambulation: Decreased Balance, Breathing/O2 Saturation, Weakness, Decreased Safety, Limited Endurance, Limited Sensation Treatment time - Time with patient Total treatment time: 30 Patient Education - Education Patient Education: Activity Modification, Education of Plan of Care Teaching Recipient: Patient Teaching Methods: Discussion (Discussion regarding POC ) Assessment - Assessment Problem List:: Decreased level of function, Requires training/education, Decreased safety/Risk of falls, Weakness, Cognitive status limits abilities Rehab Potential: Good Further Therapy Indicated?: Yes Evaluation Complexity: HISTORY: Medium (CHF, DM, COPD, ), EXAM OF BODY SYSTEMS: Medium (SOA, decreased balance, decreased strength), CLINICAL PRESENTATION: Medium (evolving pt in SCU), CLINICAL DECISION MAKING: Medium Short Term Goals GOAL #1: pt demonstrate independence with bed mobility Goal to be met by: 07/18/17 GOAL #2: pt transfer sup to/from sit to/from stand CGA to min x 1 Goal to be met by: 07/18/17 GOAL #3: pt amb 50ft with rwx with no LOB with CGA to min x 1 Goal to be met by: 07/18/17 Fdc Goals GOAL #1: pt transfer sup to/from sit to/from stand with supervision Goal to be met by: 07/21/17 GOAL #2: pt amb functional household distances with rwx with SBA with no LOB Goal to be met by: 07/21/17 GOAL #3: pt with improved BLE strength to 4 to 4+/5 independent with HEP Goal to be met by: 07/21/17 Plan Plan of Care: Therapeutic EX, Therapeutic Activity, Self-Care/Home Management Other:: gait training Frequency of Treatment: 1-2 X day, as tolerated Duration of Treatment: 5 days Anticipated Discharge Destination: Home Has the Physician been added for Co-signature?: Yes
[2017-07-16] MEDS: REQUIP PO SCH (21:09)
[2017-07-16] MEDS: NORCO 5-325 PO PRN (21:10)
[2017-07-16] MEDS: NON-FORMULARY MEDICATION (Melatonin [Melatonin] 10 MG) PO SCH (21:12)
[2017-07-17] MEDS: SOLU-CORTEF 250 MG IVP SCH ×3 (04:12→21:11)
[2017-07-17] MEDS: XOPENEX 1.25 MG NEB SCH ×4 (05:19→23:30)
[2017-07-17] MEDS: SYNTHROID PO SCH (05:35)
[2017-07-17] MEDS: ZOFRAN 4 MG/2 ML IVP PRN ×2 (05:35→15:12)
[2017-07-17] MEDS: LASIX IVP SCH (05:35)
[2017-07-17] MEDS: CARAFATE PO SCH ×4 (08:46→21:10)
[2017-07-17] MEDS: JANUVIA PO SCH (08:47)
[2017-07-17] MEDS: PROTONIX PO SCH ×2 (08:47→17:16)
[2017-07-17] MEDS: CALCIUM 500 + VIT D 200 MG TABLET PO SCH (08:47)
[2017-07-17] MEDS: MULTIVITAMIN TABLET PO SCH (08:48)
[2017-07-17] MEDS: LOPRESSOR PO SCH ×2 (08:48→21:10)
[2017-07-17] MEDS: ASPIRIN EC PO SCH (08:48)
[2017-07-17] MEDS: GLUCOPHAGE PO SCH ×2 (08:49→17:17)
[2017-07-17] MEDS: PROZAC PO SCH ×2 (08:49)
[2017-07-17] MEDS: CARDIZEM PO SCH ×4 (08:49→21:10)
[2017-07-17] MEDS: COZAAR PO SCH (08:50)
[2017-07-17] MEDS: ROCEPHIN 1 GM in SODIUM CHLORIDE 50 ML IV SCH (08:51)
[2017-07-17] MEDS: ELIQUIS PO SCH ×2 (08:51→21:09)
[2017-07-17] MEDS: ZITHROMAX PO SCH (08:55)
[2017-07-17] MEDS: VALIUM PO SCH ×2 (08:55→21:09)
--- NOTE | 2017-07-17 10:22 | PCM.PROG ---
Attending Provider: ATTENDING PROVIDER: Dr. ROSALINO GRAY This patient is seen with Elsy Estrada, Nurse Practitioner. DATE OF SERVICE: 07/17/17 SUBJECTIVE: This 72 year old WHITE/ F was hospitalized 07/15/17. The patient is sitting in chair. She still complains of nausea off and on. Labs improving. Blood pressure is slightly elevated. Alert. REVIEW OF SYSTEMS: CONSTITUTIONAL: Weakness. No night sweats. No malaise, lethargy. No fever or chills. HEENT: Eyes: No visual changes. No eye pain. No eye discharge. ENT: No runny nose. No epistaxis. No sinus pain. No odynophagia. No congestion. RESPIRATORY: Shortness of breath. No cough, no congestion. No hemoptysis. CARDIOVASCULAR: No angina symptoms. No CHF symptoms. No atypical chest pain for CAD. No palpitations. No orthopnea.. GASTROINTESTINAL: Nausea. No abdominal pain. No vomiting. No diarrhea or constipation. No hematemesis. No hematochezia. GENITOURINARY: No urgency. No frequency. No dysuria. No hematuria. No obstructive symptoms. No discharge. No pain. No significant abnormal bleeding. MUSCULOSKELETAL: No musculoskeletal pain; no joint swelling. NEUROLOGICAL: Awake, alert, oriented to time, place and person. No headache. No neck pain. No syncope. No seizures. No dizziness. PSYCHIATRIC: Not anxious. No depression. No suicidal thoughts. No homicidal thoughts. SKIN: No rash. No lesions. No wounds. ENDOCRINE: No unexplained weight loss. No weight gain. HEMATOLOGIC/LYMPHATIC: No anemia. No purpura. No petechiae. No prolonged or excessive bleeding. No palpable lymph nodes. PHYSICAL EXAMINATION: GENERAL: The patient is awake, alert and oriented, sitting in chair in no distress. VITAL SIGNS: Temperature 96.9 F, Pulse 115, Respiratory Rate 18, BP 155/94, Pulse Ox 98% HEENT: Head normocephalic, atraumatic. Eyes: Extraocular muscles are intact. Pupils are equal, round and reactive to light and accommodation. Ears: No lesions. Nose appeared normal. Throat: No exudate or erythema. NECK: Supple. No JVD, no carotid bruit. No lymphadenopathy or thyromegaly. LUNGS: Diminished breath sounds. Clear to auscultation. Percussion note normal. Chest symmetrical. HEART: Irregular heart rate. S1, S2, no S3. No murmurs. No cyanosis or clubbing. No ascites. Pulses: Dorsalis pedis and posterior tibial pulses +1 to +2 both sides. ABDOMEN: Soft. Non-tender. Bowel sounds active. No CVA tenderness. No mass felt. EXTREMITIES: No edema. Full range of motion of all extremities, equal. NEUROLOGIC: No focal deficit. Cranial nerves II through XII are grossly intact. No headache, no double vision or headache. SKIN: Not dry. Intact. Turgor-normal. LYMPHATIC: No palpable lymph nodes/no lymphedema. MUSCULOSKELETAL: Normal joints with no swelling. Muscle tone is normal. LAB REVIEW: 07/17/17 04:30 07/17/17 04:30 07/17/17 04:30: Sodium 138, Potassium 4.4, Chloride 98, Carbon Dioxide 30, Anion Gap 14.4, BUN 25 H, Creatinine 1.12, Estimated GFR (MDRD) 48.00, BUN/ Creatinine Ratio 22.32, Glucose 203 H, Calcium 9.5, Total Bilirubin 0.4, AST 27 , ALT 26, Alkaline Phosphatase 60, Total Protein 6.7, Albumin 3.1 L, Globulin 3.6, Albumin/Globulin Ratio 0.86 07/17/17 04:30: WBC 11.12 H, RBC 3.43 L, Hgb 10.0 L, Hct 31.4 L, MCV 91.5, MCH 29.2, MCHC 31.8, RDW Coeff of Alisha 16.3 H, Plt Count 225, Immature Gran % (Auto) 0.5, Neut % (Auto) 89.0, Lymph % (Auto) 7.3 L, [place] % (Auto) 3.1, Eos % (Auto) 0.0, Baso % (Auto) 0.1, Immature Gran # (Auto) 0.1, Neut # 9.9 H, Lymph # 0.8, [place] # 0.3 L, Eos # 0.0, Baso # 0.0 07/17/17 04:05: Puncture Site Lr, O2 Saturation 87.0 L, ABG pH 7.473 H, ABG pCO2 48.0 H, ABG pO2 62.0 L, ABG HCO3 35.2 H, ABG Total CO2 37 H, ABG Base Excess 12 H, Mal Test +, FiO2 % 21.0 07/16/17 04:25: Vitamin B12 674 07/16/17 04:25: Iron 26 L, TIBC 368, % Saturation 7, Unsat Iron Binding 342 H, Ferritin 34.39, Folate 16.2, TSH 2.281, Free T4 1.08 07/16/17 04:25: Reticulocyte % (Auto) 3.94, Absolute Retic 0.1387, Retic Hgb Equivalent 29.0 ASSESSMENT: Acute respiratory failure seems to have resolved Chronic lung disease Hypertension Congestive heart failure Anemia Diabetes mellitus Atrial Fibrillation Nausea PLAN: Protonix 40 mg b.i.d. Will review if previous CT of abdomen was done Continue telemetry Plan and coordination of the patient's care discussed in the presence of Air Moving Technician and nurse. CONDITION: Stable SCRIBED BY: MAKI REBOLLEDO Kitchen Manager scribed while in presence of service performed by Dr. Gray/Elsy Estrada APRN on 07/17/17 ([id number])
[2017-07-17] MEDS: REQUIP PO SCH (21:09)
[2017-07-17] MEDS: NON-FORMULARY MEDICATION (Melatonin [Melatonin] 10 MG) PO SCH (21:10)
[2017-07-18] MEDS: XOPENEX 1.25 MG NEB SCH ×2 (04:48→11:07)
[2017-07-18] MEDS: LASIX IVP SCH (05:38)
[2017-07-18] MEDS: PROTONIX PO SCH (05:38)
[2017-07-18] MEDS: SYNTHROID PO SCH (05:38)
[2017-07-18] MEDS: SOLU-CORTEF 250 MG IVP SCH ×2 (05:38→13:19)
[2017-07-18] MEDS: ZOFRAN 4 MG/2 ML IVP PRN (05:38)
[2017-07-18] MEDS: CARAFATE PO SCH ×2 (05:38→13:19)
[2017-07-18] MEDS ORDERED: CARDIZEM PO SCH (09:00)
[2017-07-18] MEDS ORDERED: MICRO-K CAP PO SCH (09:00)
[2017-07-18] MEDS: COZAAR PO SCH (09:37)
[2017-07-18] MEDS: ELIQUIS PO SCH (09:37)
[2017-07-18] MEDS: VALIUM PO SCH (09:37)
[2017-07-18] MEDS: CALCIUM 500 + VIT D 200 MG TABLET PO SCH (09:37)
[2017-07-18] MEDS: JANUVIA PO SCH (09:37)
[2017-07-18] MEDS: PROZAC PO SCH ×2 (09:38→09:39)
[2017-07-18] MEDS: GLUCOPHAGE PO SCH (09:38)
[2017-07-18] MEDS: ASPIRIN EC PO SCH (09:38)
[2017-07-18] MEDS: MULTIVITAMIN TABLET PO SCH (09:38)
[2017-07-18] MEDS: LOPRESSOR PO SCH (09:38)
[2017-07-18] MEDS: ROCEPHIN 1 GM in SODIUM CHLORIDE 50 ML IV SCH (09:39)
[2017-07-18] MEDS: NORCO 5-325 PO PRN (09:43)
[2017-07-18 10:41] VITALS: TEMP 97.9
--- NOTE | 2017-07-18 12:00 | CM.DICTOOL ---
ADMISSION: 07/15/17 11:03 DISCHARGE: 2017 DATE OF SERVICE: 07/18/17 FINAL DIAGNOSIS ACUTE RESPIRATORY FAILURE ACUTE BRONCHITIS CHF COPD ANEMIA UTI, KLEBSIELLA PNEUMONIAE ATRIAL FIBRILLATION, ON ELIQUIS ANXIETY DEPRESSION HYPOTHYROIDISM DM OSTEOARTHRITIS COPD RLS PACEMAKER - DATE UNKNOWN INSERTION HYPERTENSION HEADACHES DEMENTIA CATARACTS (SCHEDULED FOR CATARACT EXTRACTION) STROKE LAST VITALS Temp Pulse Resp BP Pulse Ox 97.9 F 109 H 20 122/86 95 07/18/17 10:00 07/18/17 10:00 07/18/17 10:00 07/18/17 10:00 07/18/17 10:00 ACTIVE HOME MEDICATIONS Acetaminophen/Hydrocodone Bitart ([place] 5-325) 1 tab PO BID PRN PRN Reason: Mild Pain Last Admin: 07/18/17 09:43 Dose: 1 tab Apixaban (Eliquis) 5 mg PO BID [facility] Last Admin: 07/18/17 09:37 Dose: 5 mg Calcium/Vitamin D (Calcium 500 + Vit D 200 Mg Tablet) 1 each PO DAILY [facility] Last Admin: 07/18/17 09:37 Dose: 1 each Diazepam (Valium) 2 mg PO BID [facility] Last Admin: 07/18/17 09:37 Dose: 2 mg Fluoxetine HCl (Prozac) 10 mg PO DAILY [facility] Last Admin: 07/18/17 09:38 Dose: 10 mg Fluoxetine HCl (Prozac) 20 mg PO DAILY [facility] Last Admin: 07/18/17 09:39 Dose: 20 mg Furosemide (Lasix Tab) 20 mg PO QDAC [facility] (FREQUENCY CHANGED) Levothyroxine Sodium (Synthroid) 50 mcg PO QDAC [facility] Last Admin: 07/18/17 05:38 Dose: 50 mcg Losartan Potassium (Cozaar) 100 mg PO DAILY [facility] Last Admin: 07/18/17 09:37 Dose: 100 mg Metformin HCl (Glucophage) 500 mg PO BIDWM [facility] Last Admin: 07/18/17 09:38 Dose: 500 mg Metoprolol Tartrate (Lopressor) 100 mg PO BID [facility] Last Admin: 07/18/17 09:38 Dose: 100 mg Multivitamins (Multivitamin Tablet) 1 tab PO DAILY [facility] Last Admin: 07/18/17 09:38 Dose: 1 tab Non-Formulary Medication (Melatonin [Melatonin]) 10 mg PO BEDTIME [facility] Last Admin: 07/17/17 21:10 Dose: Not Given Potassium Chloride (Micro-K Cap) 10 meq PO DAILYWM TOM (FREQUENCY CHANGED) Ropinirole HCl (Requip) 2 mg PO BEDTIME [facility] Last Admin: 07/17/17 21:09 Dose: 2 mg Sitagliptin Phosphate (Januvia) 100 mg PO DAILY TOM Last Admin: 07/18/17 09:37 Dose: 100 mg ALLERGIES No Known Allergies Allergy (Verified 04/14/17 12:13) NEW PRESCRIPTIONS: PREDNISONE 20 MG DAILY FOR 5 DAYS, THEN 10 MG DAILY FOR 5 DAYS KEFLEX 500 MG TID FOR 7 DAYS LASIX 20 MG DAILY LOSARTAN 100 MG DAILY KLOR-CON 10 MG DAILY CARDIZEM 120 MG BID SMOKING: NOT APPLICABLE DISEASE SPECIFIC EDUCATION: STEROID USE AND RISK OF GI UPSET, BONE DEMINERALIZATION OXYGEN USE MEDICATIONS APPOINTMENT LAB REVIEW: 07/17/17 04:30 07/17/17 04:30 07/16/17 04:25: Transferrin 324 PLAN: DISCHARGE HOME (LIVES WITH DAUGHTER, OBI) DIET: CONSISTENT CARBOHYDRATES, LOW SALT ACTIVITY: GRADUALLY RESUME TOLERATED CONTINUE OXYGEN USE AT 3 LITERS CONTINUOUSLY CONTINUE ACCU-CHECKS 2-3 TIMES DAILY CONTINUE NEBULIZER TREATMENTS 2-3 TIMES DAILY MEDICATION DISCONTINUED: STOP HYDROCHLOROTHIAZIDE STOP CARDIZEM 90 MG BID MEDICATION CHANGES: INCREASE LASIX 20 MG TO DAILY INCREASE KLOR-CON 10 MEQ TO DAILY TAKE LOSARTAN 100 MG DAILY TAKE CARDIZEM 120 MG BID AN APPOINTMENT IS SCHEDULED WITH DR. GRAY ON AT 9:45 AM MS. AGUIRRE IS ALERT AND ORIENTED X 3. SHE REQUIRES CONTINUOUS OXYGEN USE AT 3 LITERS PER NASAL CANNULA. SHE HAS HOME OXYGEN, A NEBULIZER AND A ROLLATOR FOR HER USE. SHE REQUIRES ASSISTANCE WITH PERSONAL CARE. SHE TRANSFERS WITH ASSISTANCE OF 1 STAFF MEMBER FROM THE BED TO THE CHAIR. SHE IS AMBULATORY WITH USE OF A ROLLATOR AND CONTACT GUARD ASSISTANCE OF 1 STAFF MEMBER. MEAL INTAKES HAVE BEEN FAIR AT 25-100%. SKIN IS INTACT, BUT AREAS OF ECCHYMOSIS ARE NOTED TO THE ARMS. ROSALINO GRAY MD CLIFTON BIANCHI APRN
[2017-07-18] MEDS ORDERED: NON-FORMULARY MEDICATION (Potassium Chloride [Klor-Con 10] 10 MEQ) PO SCH (12:09)
--- NOTE | 2017-07-18 12:39 | PCM.PROG ---
Attending Provider: ATTENDING PROVIDER: Dr. ROSALINO GRAY DATE OF SERVICE: 07/18/17 SUBJECTIVE: This 72 year old WHITE/ F was hospitalized 07/15/17. The patient is alert, anxious sitting up in chair. She states she is ready to go home. Breathing improved. Cough has resolved. REVIEW OF SYSTEMS: CONSTITUTIONAL: Weakness. No night sweats. No malaise, lethargy. No fever or chills. HEENT: Eyes: No visual changes. No eye pain. No eye discharge. ENT: No runny nose. No epistaxis. No sinus pain. No odynophagia. No congestion. RESPIRATORY: No cough, no congestion. No hemoptysis. No shortness of breath. CARDIOVASCULAR: No angina symptoms. No CHF symptoms. No atypical chest pain for CAD. No palpitations. No orthopnea.. GASTROINTESTINAL: No abdominal pain. No nausea or vomiting. No diarrhea or constipation. No hematemesis. No hematochezia. GENITOURINARY: No urgency. No frequency. No dysuria. No hematuria. No obstructive symptoms. No discharge. No pain. No significant abnormal bleeding. MUSCULOSKELETAL: No musculoskeletal pain; no joint swelling. NEUROLOGICAL: Awake, alert, oriented to time, place and person. No headache. No neck pain. No syncope. No seizures. No dizziness. PSYCHIATRIC: Anxious. No depression. No suicidal thoughts. No homicidal thoughts. SKIN: No rash. No lesions. No wounds. ENDOCRINE: No unexplained weight loss. No weight gain. HEMATOLOGIC/LYMPHATIC: No anemia. No purpura. No petechiae. No prolonged or excessive bleeding. No palpable lymph nodes. PHYSICAL EXAMINATION: GENERAL: The patient is awake, alert and oriented, sitting in chair in no distress. VITAL SIGNS: Temperature 97.7 F, Pulse 120, Respiratory Rate 19, BP 144/117, Pulse Ox 98% HEENT: Head normocephalic, atraumatic. Eyes: Extraocular muscles are intact. Pupils are equal, round and reactive to light and accommodation. Ears: No lesions. Nose appeared normal. Throat: No exudate or erythema. NECK: Supple. No JVD, no carotid bruit. No lymphadenopathy or thyromegaly. LUNGS: Diminished breath sounds bilaterally. Clear to auscultation. Percussion note normal. Chest symmetrical. HEART: S1, S2, no S3. No murmurs. No cyanosis or clubbing. No ascites. Pulses: Dorsalis pedis and posterior tibial pulses +1 to +2 both sides. ABDOMEN: Soft. Non-tender. Bowel sounds active. No CVA tenderness. No mass felt. EXTREMITIES: No edema. Full range of motion of all extremities, equal. NEUROLOGIC: No focal deficit. Cranial nerves II through XII are grossly intact. No headache, no double vision or headache. SKIN: Warm and dry. Intact. Turgor-normal. LYMPHATIC: No palpable lymph nodes/no lymphedema. MUSCULOSKELETAL: Normal joints with no swelling. Muscle tone is normal. LAB REVIEW: 07/17/17 04:30 07/17/17 04:30 07/16/17 04:25: Transferrin 324 ASSESSMENT: Acute respiratory failure resolved Acute bronchitis improving COPD, oxygen dependent CHF PLAN: Prednisone 20 mg daily for 5 days then 10 mg daily for five days Lasix 20 mg daily Cardizem 120 mg b.i.d. Discharge home Discontinue HCTZ Followup with Dr. Gray/Elsy Estrada APRN next week The daughter is interested in a portable concentrator system due to frequency of appointments outside the home with limited duration of portable oxygen tank and referral will be sent to [facility], [place] per her request. Plan and coordination of the patient's care discussed in the presence of Meat Carrier and nurse. CONDITION: Stable SCRIBED BY: MAKI REBOLLEDO Manager Of Community Relations scribed while in presence of service performed by Dr. ROSALINO GRAY on 07/18/17 ([id number])
[2017-07-18 13:49] VITALS: BP 124/68
--- NOTE | 2017-07-18 14:53 | HP ---
DATE OF SERVICE: 07/15/17 CHIEF COMPLAINT: Surgical clearance HISTORY OF PRESENT ILLNESS: This is a 72-year-old female who presented with complaints of nausea, not eating as much, coughing up whitish sputum times two weeks. Shortness of breath with minimal exertion. PAST MEDICAL HISTORY: Diabetes mellitus type 2 Hypertension Thyroid Dementia History of CVA COPD CHF CAD Restless leg syndrome Dyslipidemia Osteoarthritis MYNOR Insomnia Depression History of back fracture PAST SURGICAL HISTORY: Hysterectomy Gastric sleeve Gallbladder REVIEW OF SYSTEMS: CONSTITUTIONAL: Positive for fatigue. No fever. HEENT: No sinus drainage, no sore throat. RESPIRATORY: Cough. No hemoptysis. CARDIOVASCULAR: Positive for shortness of breath. No atypical chest pain for coronary artery disease. No angina, CHF symptoms, or palpitations. GASTROINTESTINAL: No melena or abdominal pain. No GERD. GENITOURINARY: No hematuria, no polyuria. CELEBRITY MANAGER: No blackout, no dizziness, no headache, no double vision. Uses a wheelchair. MUSCULOSKELETAL: Osteoarthritic pain. ENDOCRINE: 20 lb weight gain. SKIN: Not dry, no rash. PSYCHIATRIC: Anxious. No depression, no suicidal thoughts, no homicidal thoughts. SOCIAL HISTORY: The patient is . Two children. Retired. Tobacco - one pack per day times 40 years. No alcohol use. FAMILY HISTORY: Father . Mother . Brothers - 4; sisters 1. MEDICATIONS: Calcium daily Melatonin 10 mg daily Metformin 500 mg b.i.d. Amlodipine 10 mg - discontinue Metoprolol 100 mg b.i.d. Ramipril 10 mg b.i.d. Eliquis 5 mg b.i.d. Risperidone .25 mg b.i.d. Levothyroxine 0.5 mg Lasix 20 mg three times a week [place] 5/325 mg b.i.d. Diazepam 2 mg b.i.d. Fluoxetine 20 mg Ropinrole 2 mg Diltiazem 90 mg b.i.d. Januvia 100 mg daily Pravastatin 40 mg Losartan 50 mg daily Potassium 10 mEq two times a week Multivitamin one daily ALLERGIES: NKDA PHYSICAL EXAMINATION: V/S: Pulse 114, BP 108/60, temperature 98.1, 02 sat 81% (repeat 85%)on 3L 02/ NC. Weight 183 lbs. Height 5'2". GENERAL APPEARANCE: Oriented times three. Pallor positive. HEENT: Normal. NECK: No JVP, no bruits. RESPIRATORY: Lungs are clear with decreased breaeth sounds. CARDIOVASCULAR: Irregular. S1, S2, no S3, no murmurs. No cyanosis, clubbing. No ascites. GI/ABDOMEN: No tenderness. Bowel sounds are active. EXTREMITIES: Left lower extremity +1; right lower extremty +2 edema, pulses +1 , equal. CELEBRITY MANAGER: Deep tendon reflexes, sensory, motor and gait all normal. RECTAL/PELVIC: Colonoscopy years ago. Pelvic - advised yearly. Mammogram 08/29 MM. ASSESSMENT: 1. ACUTE BRONCHITIS/ACUTE RESPIRATORY FAILURE 2. SEVERE COPD 3. WEIGHT GAIN WITH FLUID RETENTION 4. CHF 5. MILD DEMENTIA 6. HISTORY OF CVA 7. COPD - WEARS 02 CONTINUOUSLY 2-3l 8. DIABETES MELLITUS TYPE 2 9. CHF 10. CAD 11. RESTLESS LEG SYNDROME 12. DYSLIPIDEMIA 13. OSTEOARTHRITIS 14. DJD SPINE 15. INSOMNIA 16. DEPRESSION PLAN: 1. Admit with routine telemetry orders 2. Elevate legs 3. STAT ABG and daily a.m. 4. Solu-Cortef 125 mg IV now and 8 hourly 5. Rocephin 1 gm IV now and 24 hourly 6. Zithromax 500 mg p.o. daily times three days 7. Sputum for culture and sensitivity and gram stain 8. Continue all home medications except for Lasix 9. IV Lasix 20 mg now and q.a.m. 10. Nebs Xopenex q.6hourly and one now 11. No blood pressure pills today except Metoprolol TIME SPENT: More than 70 minutes. [facility]
[2017-07-19] MEDS ORDERED: LASIX TAB PO SCH (06:30)
[2017-07-19] MEDS ORDERED: MICRO-K CAP PO SCH (08:00)
--- NOTE | 2017-07-23 11:35 | PN ---
DATE OF SERVICE: 07/17/17 SUBJECTIVE: This 72-year-old female was admitted with acute respiratory failure. The patient is a lot better. PHYSICAL EXAMINATION: HEENT: Head normocephalic, atraumatic. Eyes: Extraocular muscles are intact. Pupils are equal, round and reactive to light and accommodation. Ears: No lesions. Nose appeared normal. Throat: No exudate or erythema. NECK: Supple. No JVD, no carotid bruit. No lymphadenopathy or thyromegaly. LUNGS: Decreased breath sounds but clear to auscultation. Percussion note normal. Chest symmetrical. HEART: S1, S2, no S3. No murmurs. No cyanosis or clubbing. No ascites. Pulses: Dorsalis pedis and posterior tibial pulses +1 to +2 both sides. ABDOMEN: Soft. Nontender. Bowel sounds active. No CVA tenderness. No mass felt. EXTREMITIES: No edema. Full range of motion of all extremities, equal. NEUROLOGIC: No focal deficit. Cranial nerves II through XII are grossly intact. No headache, no double vision or headache. SKIN: Not dry. Intact. Turgor - normal. LYMPHATIC: No palpable lymph nodes/no lymphedema. MUSCULOSKELETAL: Normal joints with no swelling. Muscle tone is normal. LABS: Creatinine 1.1, BUN 25, hemoglobin 10 with hematocrit 31 and stable. ASSESSMENT/PLAN: The patient's blood pressure is 155/94. She has been restarted on all of her medicine including Cardizem. Continue to monitor her heart rate which varies from 80 to 130. The patient had ultrasound of the abdomen which showed possibility of cirrhosis , which was another finding on CT scan done on 03/2017. Reason for her cirrhosis is hepatic steatosis. CONDITION: Stable. TIME SPENT: More than 30 minutes. The patient was seen with the nurse practitioner. Plan and coordination of the patient's care discussed in the presence of nurse. TY
--- NOTE | 2017-07-23 11:42 | PN ---
DATE OF SERVICE: 07/18/17 SUBJECTIVE: The patient is seen today and she is feeling better, insisting on going home. She has no cough or congestion. Leg edema has practically resolved. Blood pressure is on the higher side. Will increase the Cardizem dose. The atrial fibrillation gets into increased ventricular rate whenever she gets uptight and anxious. That seems to be the main problem with this patient. The patient's appetite is excellent. She says she is feeling stronger, breathing better. Saturation more than 90% on 2L. The patient is by herself most of the time as daughter is working, who lives with her. Declined any care home placement. The patient's overall condition is stable. Prognosis guarded. The patient's knowledge about her medical problems and her medications are below normal in spite of every time she comes we educate her about her problems and medications. The patient was seen with the nurse practitioner. TIME SPENT: More than 30 minutes. Plan and coordination of the patient's care discussed in the presence of nurse. TY
--- NOTE | 2017-07-24 06:57 | PN ---
CODING FOR BILLING 07/15/17 LEVEL 5 07/16/17 INTERMEDIATE 07/17/17 INTERMEDIATE 07/18/17 DISCHARGE MTDD
--- NOTE | 2017-08-20 11:57 | DS ---
DATE OF SERVICE: 07/18/17 FINAL DIAGNOSIS: 1. ACUTE RESPIRATORY FAILURE 2. ACUTE BRONCHITIS 3. CHF 4. COPD 5. ANEMIA 6. UTI, KLEBSIELLA PNEUMONIAE 7. ATRIAL FIBRILLATION, ON ELIQUIS 8. ANXIETY 9. DEPRESSION 10. HYPOTHYROIDISM 11. DM 12. OSTEOARTHRITIS 13. COPD 14. RLS 15. PACEMAKER - DATE UNKNOWN INSERTION 16. HYPERTENSION 17. HEADACHES 18. DEMENTIA 19. CATARACTS (SCHEDULED FOR CATARACT EXTRACTION) 20. STROKE DISCHARGE INSTRUCTIONS: Followup appointment is scheduled with Dr. Mckeon on 07/23/17 at 9:45 a.m. MEDICATIONS AT DISCHARGE: [place] 5-325 one tab p.o. b.i.d. p.r.n. Eliquis 5 mg p.o. b.i.d. TOM Calcium 500+Vitamin D 200 mg one each p.o.d aily TOM Valium 2 mg p.o. b.i.d. TOM Prozac 10 mg p.o. daily TOM Prozac 20 mg p.o. daily TOM Lasix 20 mg p.o. q.d a.c. TOM (frequency changed) Synthroid 50 mcg p.o. q.d a.c. TOM Cozaar 100 mg p.o. daily TOM Glucophage 500 mg p.o. b.i.d. with meal TOM Lopressor 100 mg p.o. b.i.d. TOM Multivitamin one tab p.o. daily TOM Melatonin 10 mg p.o. bedtime TOM Micro-K 10 mEq p.o. daily with meal TOM (frequency changed) Requip 2 mg p.o. bedtime TOM Januvia 100 mg p.o. daily TOM NEW PRESCRIPTIONS: Prednisone 20 mg daily for 5 days, then 10 mg daily for 5 days Keflex 500 mg t.i.d. for 7 days Lasix 20 mg daily Losartan 100 mg daily Klor-Con 10 mg daily Cardizem 120 mg b.i.d. MEDICATIONS DISCONTINUED: Stop Hydrochlorothiazide Stop Cardizem 90 mg b.i.d. MEDICATION CHANGES: Increase Lasix 20 mg to daily Increase Klor-Con 10 mEq to daily Take Losartan 100 mg daily Take Cardizem 120 mg b.i.d. DIET INSTRUCTIONS: Consistent carbohydrates, low salt ACTIVITY: Gradually resume as tolerated SMOKING: N/A DISEASE SPECIFIC EDUCATION: Steroid use and risk of GI upset, bone demineralization Oxygen use Medications Appointment HOSPITAL COURSE: This is a 72-year-old white female who is a direct admit from our office with acute respiratory failure. She has a long history of COPD, is oxygen dependent. She has a history of CHF. Her daughter had reported decreased appetite, weight gain of at least 5 lbs over the past 2 days, shortness of breath. She was having to put her on nearly 4L of oxygen. Her legs were swollen in the office. She does have a history of atrial fib and is on Eliquis. She was subsequently admitted, started on Lasix 20 mg IV daily. Instructed to keep her legs elevated. Chest x-ray was done showing small pleural effusions, no pneumonia., She was started on antibiotics Rocephin 1 gm IV daily along with Solu-Cortef 125 mg IV q.8hr. Her blood pressure was low on admission. Her Cardizem and Cozaar were both held. These were restarted the following day due to normalization of pressure and then over the past two days has become elevated. She has remained in atrial fibrillation off and on during her hospitalization in the [facility]. Her breathing has improved dramatically over the course of the past few days. She is down to 2L on her oxygen at times. She has been getting up walking around. She has been eating well. She has no leg edema as of today. Her Eliquis has been continued. We have changed and increased her Cardizem to 120 mg b.i.d. as her heart rate has been from 100 to 130 due to the atrial fib. Her Cozaar is 100 mg daily. Previously she had been on Hydrochlorothiazide at home with Lasix 20 mg p.r.n. a couple of times a week. We will change this and discharge her home on Lasix 20 mg p.o. daily along with potassium 10 mEq daily as this seems to control her leg edema and CHF. Her labs and vital signs have remained stable. Today on day of discharge, hemoglobin 10.0, hematocrit 31.4, white count 11.12, platelets 225. Sodium 138, potassium 4.4, BUN 25, creatinine 1.12, glucose 203. Her kidney function was slightly elevated on admission showing very mild dehydration. She does have a history of chronic kidney disease. This is significantly improved with the administration of slow IV fluids. Yesterday, repeat ABGs were done on room air which showed an improvement, p02 67, 02 sat of 87% on room air which is good for this patient. We will discharge her back home. She lives with her daughter. Today, again with the new prescriptions, Cardizem 120 mg b.i.d., Lasix 20 mg p.o. daily, Potassium 10 mEq daily along with Keflex 500 mg p.o. t.i.d for the next 7 days and Prednisone 20 mg p.o. daily times 5 days and then 10 mg p.o. daily times 5 days. She is discharged in stable condition. V/S: Temperature 97.7, heart rate 100, respirations 19, BP 133/88, pulse ox 98% on 3L. We will followup with her in the office next week. TIME SPENT: More than 60 minutes. APRILD
== END 2017-07-18 15:30 | disposition home or self-care (01) | DRG 189 ==
LOC: SCU 11:03
PROVIDERS: ADMIT Internal Medicine; ATTEND Internal Medicine
DX: J96.00 Acute respiratory failure, unspecified whether with hypoxia or hypercapnia (principal); J44.0 Chronic obstructive pulmonary disease with (acute) lower respiratory infection; N39.0 Urinary tract infection, site not specified; F17.210 Nicotine dependence, cigarettes, uncomplicated; J20.9 Acute bronchitis, unspecified; I50.9 Heart failure, unspecified; D64.9 Anemia, unspecified; B96.1 Klebsiella pneumoniae [K. pneumoniae] as the cause of diseases classified elsewhere; I48.91 Unspecified atrial fibrillation; Z79.01 Long term (current) use of anticoagulants; F41.9 Anxiety disorder, unspecified; F32.9 Major depressive disorder, single episode, unspecified; E03.9 Hypothyroidism, unspecified; E11.9 Type 2 diabetes mellitus without complications; Z79.84 Long term (current) use of oral hypoglycemic drugs; M19.90 Unspecified osteoarthritis, unspecified site; G25.81 Restless legs syndrome; Z95.0 Presence of cardiac pacemaker; I10 Essential (primary) hypertension; R51 Headache; F03.90 Unspecified dementia, unspecified severity, without behavioral disturbance, psychotic disturbance, mood disturbance, and anxiety; H26.9 Unspecified cataract; Z86.73 Personal history of transient ischemic attack (TIA), and cerebral infarction without residual deficits
CPT/HCPCS: 36415; 80053; 81001; 82550; 82607; 82728; 82746; 82803; 83036; 83540; 83550; 84439; 84443; 84466; 84484; 85025; 85045; 87070; 87081; 87086; 87186; 93005; 93010; 94640; 99223; 99232; 99239

== ENCOUNTER 2017-07-21 09:03 | Observation (INO) ==
[2017-07-21] MEDS ORDERED: ZOFRAN 4 MG/2 ML IM STA (09:43)
--- NOTE | 2017-07-21 10:26 | DI ---
EXAM: Single view of the chest. History: Cough. Comparison: Chest radiograph 07/15/2017 Findings: Heart is mildly enlarged. Atherosclerotic vascular calcifications. Pacer device. Mild in terstitial edema and more focal left lower lobe infiltrate. Probable small left pleural effusion. N o pneumothorax. Visualized osseous structures unchanged. Impression: 1. Mild cardiomegaly with interstitial edema. 2. More focal left lower lobe infiltrate concerning for pneumonia.
--- NOTE | 2017-07-21 10:40 | CT ---
EXAM: CT head without contrast. HISTORY: Increased confusion. COMPARISON: 04/14/2017. TECHNIQUE: Multiple axial images of the brain were obtained from the skull base through the vertex w ithout intravenous contrast. Multiplanar reformats were provided. FINDINGS: There is no intracranial hemorrhage or extraaxial collection. The castle-white differentiat ion is maintained without evidence for acute large vascular territory infarction. There are areas of periventricular and subcortical white matter low attenuation. The cortical sulci and cerebral ventr icles are symmetrically enlarged. The basal cisterns are well visualized. There is no hydrocephalus , mass effect, or midline shift. The paranasal sinuses and mastoid air cells are clear. The calvari um is intact. Since the prior study, there has been no significant interval change. IMPRESSION: 1. No acute intracranial abnormality. 2. Chronic small vessel ischemic changes and atrophy.
--- NOTE | 2017-07-21 10:52 | CT ---
EXAM: CT scan abdomen pelvis without contrast HISTORY: Abdominal pain COMPARISON: CT scan abdomen pelvis FINDINGS: Contiguous axial images obtained through the abdomen pelvis without contrast utilizing 5-m m collimation. Sagittal and coronal reconstructions were imaged and reviewed There is small bilater al pleural effusions with left basilar atelectasis and/or pneumonia. There is extensive coronary art christopher calcification. There has been a prior cholecystectomy.. Postoperative changes are seen relation to the upper stomach. The been prior cholecystectomy. There is thickening of the distal stomach whi ch may be related to gastritis. Atherosclerotic changes are seen involving the aorta without aneurys m formation.. There is questionable nodularity of the liver margin. The pancreas spleen and adrenal glands have normal unenhanced CT appearance. There is scarring noted laterally involving the right kidney. There is a punctate nonobstructive calculus right kidney. There has been prior hysterectomy . There is moderate diverticulosis without diverticulitis. There is no free fluid. There is mild a nasarca.. Degenerative changes noted throughout the lumbar spine. IMPRESSION: Small bilateral pleural effusions with left basilar atelectasis and/or pneumonia. Status post cholecystectomy with postoperative changes seen relation the stomach. There is thickenin g of the distal stomach which may be related to gastritis. Diverticulosis without diverticulitis. Nonobstructive right-side nephrolithiasis. Prior hysterectomy. Questionable nodularity of the liver. Anasarca.
--- NOTE | 2017-07-21 11:50 | ED.PDOC ---
General ED Provider: Dr. EMMA RAYGOZA Chief Complaint: Abdominal Pain Stated Complaint: abdominal pain cough Time Seen by Physician: 09:00 (seen with nursing satff and PA STUDENT) Mode of Arrival: Stretcher Information Source: Patient, EMT Exam Limitations: No limitations Primary Care Provider: ROSALINO GRAY Nursing and Triage Documentation Reviewed and Agree: Yes Reviewed sepsis parameters & appropriate labs ordered?: Yes System Inflammatory Response Syndrome: Not Applicable Sepsis Protocol: For patient's 13 years and over: Temp is 96.8 and below OR 101 and greater Pulse >90 BPM Resp >20/minute Acutely Altered Mental Status Are patient's symptoms suggestive of a new infection, such as: -Pneumonia -Skin, Soft Tissue -Endocarditis -UTI -Bone, Joint Infection -Implantable Device -Acute Abdominal Infection -Wound Infection -Meningitis -Blood Stream Catheter Infection -Unknown System Inflammatory Response Syndrome: Not Applicable Respiratory Complaint Exam - Respiratory Complaint/Exam Onset/Duration: 1 DAY Symptoms Are: Still present Timing: Intermittent Initial Severity: Mild Current Severity: Mild Location: Nose, Throat, Chest Character: Reports: Non-productive cough Aggravating: Reports: None Alleviating: Reports: None Associated Signs and Symptoms: Reports: URI. Denies: Rapid breathing, Dyspnea, Fever, Chills, Chest pain, Pleuritic chest pain, Wheezing, Hemoptysis, Dizziness , Calf pain, Calf swelling, Edema, Nasal congestion, Hoarseness, Sinus discomfort, Vomiting, Sore throat, Weight loss, Decreased oral intake, Increased thirst, Increased appetite, Increased urination Related History: Reports: Similar episode History of Healthcare-Acquired Pneumonia: No Related Surgical History: Reports: None Pulmonary Embolism Risk Factors: Bedrest Cardiac Risk Factors: Reports: Diabetes, Hypertension Pseudomonas Risk Factors: Reports: Chronic Lung Disease Tuberculosis Risk Factors: Reports: None Status Asthmaticus Risk Factors: Reports: None Home Oxygen Use: No Recent Stress Test: No Recent Echo/LV Function: No Current Antibiotic Use: No Current Asthma Medication Use: No (PULSE OX AT 12P 99%) Respiratory Distress: None Inadequate Respiratory Effort: No Dysphagia Present: No Stridor Present: No JVD Present: No Accessory Muscle Use: No Retractions: Not Present Diminished Breath Sounds: Yes Grunting Respirations: No Kussmaul Respirations: No Differential Diagnoses: Pneumonia, Bronchitis, Lower Resp. Infection Review of Systems - Review Of Systems Constitutional: Reports: Malaise, Weakness Eyes: Reports: No symptoms Ears, Nose, Mouth, Throat: Reports: No symptoms Respiratory: Reports: No symptoms Cardiac: Reports: No symptoms GI: Reports: Nausea : Reports: No symptoms Musculoskeletal: Reports: No symptoms Skin: Reports: No symptoms Neurological: Reports: No symptoms Endocrine: Reports: No symptoms Hematologic/Lymphatic: Reports: No symptoms All Other Systems: Reviewed and Negative Past Medical History - Past Medical History Previously Healthy: No Endocrine: Reports: Hypothyroid, Dyslipidemia Cardiovascular: Reports: Hypertension Respiratory: Reports: COPD Hematological: Reports: None Gastrointestinal: Reports: None Genitourinary: Reports: None Neuro/Psych: Reports: None Musculoskeletal: Reports: None Cancer: Reports: None Last Menstrual Period: unknown - Surgical History General Surgical History: Reports: Unknown - Family History Family History: Reports: Unknown - Social History Smoking Status: Former smoker Hx Substance Use: No Alcohol Screening: None Physical Exam - Physical Exam Appearance: Well-appearing, No pain distress, Well-nourished Eyes: HOLGER, EOMI, Conjunctiva clear ENT: Dry mucosa Respiratory: Airway patent, Breath sounds clear, Breath sounds equal, Respirations nonlabored Cardiovascular: RRR, Pulses normal, No rub, No murmur GI/: Soft, Nontender, No masses, Bowel sounds normal, No Organomegaly Musculoskeletal: Normal strength, ROM intact, No edema, No calf tenderness Skin: Warm, Dry, Normal color Neurological: Sensation intact, Motor intact, Reflexes intact, Cranial nerves intact, Alert, Oriented Psychiatric: Affect appropriate, Mood appropriate Interpretation - Radiology Interpretation Radiology Interpretation By: Radiologist Radiology Results: No acute changes Critical Care Note - Critical Care Note Total Time (mins): 0 Course - Course Hematology/Chemistry: 07/21/17 09:27 07/21/17 09:27 Orders, Labs, Meds: Lab Review 07/21/17 07/21/17 07/21/17 09:27 09:27 10:52 WBC 13.62 H RBC 3.66 L Hgb 10.5 L Hct 33.6 L MCV 91.8 MCH 28.7 MCHC 31.3 L RDW Coeff of Alisha 16.0 H Plt Count 222 Immature Gran % (Auto) 0.6 Neut % (Auto) 82.2 Lymph % (Auto) 9.4 L [place] % (Auto) 7.1 Eos % (Auto) 0.7 Baso % (Auto) 0.0 Immature Gran # (Auto) 0.1 Neut # 11.2 H Lymph # 1.3 [place] # 1.0 Eos # 0.1 Baso # 0.0 Sodium 141 Potassium 4.0 Chloride 96 L Carbon Dioxide 39 H Anion Gap 10.0 BUN 25 H Creatinine 0.94 Estimated GFR (MDRD) 58.00 BUN/Creatinine Ratio 26.59 Glucose 156 H Calcium 9.1 Total Bilirubin 0.6 AST 31 ALT 32 Alkaline Phosphatase 76 Total Protein 6.6 Albumin 3.2 L Globulin 3.4 Albumin/Globulin Ratio 0.94 Amylase 64 Lipase 48 Influenza A (Rapid) Negative by naat Influenza B (Rapid) Negative by naat Orders Category Date Time Status ADMIT PATIENT INPATIENT .TO [facility] (MONITORED BED) ADMISSION 07/21/17 11: 47 Active EKG-(ED ONLY) Stat CARDIO 07/21/17 09:13 Completed EKG-(IP & OP ONLY) DAILY CARDIO 07/22/17 06:00 Ordered EKG-(IP & OP ONLY) DAILY CARDIO 07/23/17 06:00 Ordered EKG-(IP & OP ONLY) DAILY CARDIO 07/24/17 06:00 Ordered BLOOD GLUCOSE MONITORING ACCUCHECK Q6H CARE 07/21/17 11:47 Ordered GIVE HS SNACK 2100 CARE 07/21/17 11:48 Ordered INTAKE & OUTPUT Q8HR CARE 07/21/17 11:47 Ordered TELEMETRY MONITORING TELE CARE 07/21/17 11:48 Active ADA 1800 IVON. DIET DIETARY 07/21/17 Lunch Ordered HS SNACK DIETARY 07/21/17 Dinner Ordered AMYLASE Stat LAB 07/21/17 09:27 Completed CBC W/ AUTO DIFF DAILY@0600 LAB 07/22/17 06:00 Ordered CBC W/ AUTO DIFF DAILY@0600 LAB 07/23/17 06:00 Ordered CBC W/ AUTO DIFF Stat LAB 07/21/17 09:27 Completed COMPREHENSIVE METABOLIC PANEL DAILY@0600 LAB 07/22/17 06:00 Ordered COMPREHENSIVE METABOLIC PANEL DAILY@0600 LAB 07/23/17 06:00 Ordered COMPREHENSIVE METABOLIC PANEL Stat LAB 07/21/17 09:27 Completed FLU A/B MOLECULAR Stat LAB 07/21/17 10:52 Completed LIPASE Stat LAB 07/21/17 09:27 Completed URINALYSIS C & S IF INDICATED Stat LAB 07/21/17 09:13 Uncollected Apixaban [Eliquis] MEDS 07/21/17 21:00 Ordered 5 mg PO BID Diltiazem HCl [Cardizem] MEDS 07/21/17 21:00 Ordered 120 mg PO BID Furosemide [Lasix Tab] MEDS 07/22/17 06:30 Ordered 20 mg PO QDAC Levothyroxine Sodium [Synthroid] MEDS 07/22/17 06:30 Ordered 50 mcg PO QDAC Losartan Potassium [Cozaar] MEDS 07/22/17 09:00 Ordered 100 mg PO DAILY Metformin HCl [Glucophage] MEDS 07/21/17 21:00 Ordered 500 mg PO BID Metoprolol Tartrate [Metoprolol Tartrate] MEDS 07/21/17 21:00 Ordered 100 mg PO BID Ondansetron HCl/Pf [Zofran 4 mg/2 ml] MEDS 07/21/17 09:43 Discontinued 4 mg IM ONCE STA Potassium Chloride [Klor-Con 10] MEDS 07/22/17 09:00 Ordered 10 meq PO DAILY Prednisone MEDS 07/22/17 08:00 Ordered 10 mg PO DAILYWM Prednisone MEDS 07/22/17 08:00 Ordered 20 mg PO DAILYWM Sitagliptin Phosphate [Januvia] MEDS 07/22/17 09:00 Ordered 100 mg PO DAILY Sodium Chloride 0.9% [Sodium Chloride] 1,000 ml MEDS 07/21/17 12:00 Ordered IV 75 mls/hr CHEST, 1V AP ONLY Stat RADS 07/21/17 09:[address] ABDOMEN/PELVIS WO CONTRAST Stat RADS 07/21/17 09:[address] HEAD W/O CONTRAST Stat RADS 07/21/17 09:26 Completed Medications Generic Name Dose Route Start Last Admin Trade Name Freq PRN Reason Stop Dose Admin Apixaban 5 mg 07/21/17 21:00 Eliquis PO BID TOM Furosemide 20 mg 07/22/17 06:30 Lasix Tab PO QDAC TOM Levothyroxine Sodium 50 mcg 07/22/17 06:30 Synthroid PO QDAC TOM Losartan Potassium 100 mg 07/22/17 09:00 Cozaar PO DAILY TOM Metformin HCl 500 mg 07/21/17 21:00 Glucophage PO BID TOM Non-Formulary Medication 120 mg 07/21/17 21:00 Diltiazem Hcl [Cardizem] PO BID TOM Non-Formulary Medication 100 mg 07/21/17 21:00 Metoprolol Tartrate [Metoprolol Tartrate] PO BID [facility] Non-Formulary Medication 10 meq 07/22/17 09:00 Potassium Chloride [Klor-Con 10] PO DAILY [facility] Non-Formulary Medication 100 mg 07/22/17 09:00 Sitagliptin Phosphate [Januvia] PO DAILY [facility] Prednisone 10 mg 07/22/17 08:00 Prednisone PO DAILYWM [facility] Prednisone 20 mg 07/22/17 08:00 Prednisone PO DAILYWM [facility] Discontinued Medications Generic Name Dose Route Start Last Admin Trade Name Freq PRN Reason Stop Dose Admin Ondansetron HCl 4 mg 07/21/17 09:43 07/21/17 10:49 Zofran 4 Mg/2 Ml IM 07/21/17 09:44 4 mg ONCE STA Administration Vital Signs: Temp Pulse Resp BP Pulse Ox 07/21/17 09:04 96.9 F L 106 H 20 131/98 H 96 Departure - Departure Time of Disposition: 11:50 Disposition: ADMITTED INPATIENT Discharge Problem: Dehydration Instructions: Dehydration (ED) Condition: Good Pt referred to PMD for follow-up: Yes IPMP verified?: Yes Additional Instructions: Please call your Family Physician as soon as possible to schedule a follow-up appointment. Allergies/Adverse Reactions: Allergies No Known Allergies Allergy (Verified 04/14/17 12:13) Home Medications: Ambulatory Orders Diazepam [Valium] 2 mg PO BID 06/21/16 Fluoxetine HCl [Prozac] 10 mg PO DAILY 06/21/16 Fluoxetine HCl [Prozac] 20 mg PO BEDTIME 06/21/16 Hydrocodone/Acetaminophen [Hydrocodon-Acetaminophen 5-325] 1 each PO BID Levothyroxine Sodium [Synthroid] 50 mcg PO QDAC 06/21/16 Metformin HCl [Glucophage] 500 mg PO BID 06/21/16 Metoprolol Tartrate 100 mg PO BID 06/21/16 Ropinirole HCl [Requip] 2 mg PO BEDTIME 06/21/16 Sitagliptin Phosphate [Januvia] 100 mg PO DAILY 06/21/16 Calcium Carbonate [Calcium] 600 mg PO DAILY 12/18/16 Melatonin 10 mg PO BEDTIME 12/18/16 Multivit with Minerals/Lutein [A Thru Z Advanced Formula Tab] 1 each PO DAILY Apixaban [Eliquis] 5 mg PO BID #60 tablet 12/25/16 Cephalexin [Keflex] 500 mg PO Q8HR #21 capsule 07/18/17 Diltiazem HCl [Cardizem] 120 mg PO BID #60 tablet 07/18/17 Furosemide [Lasix Tab] 20 mg PO QDAC #30 tablet 07/18/17 Losartan Potassium 100 mg PO DAILY #30 tablet 07/18/17 Potassium Chloride [Klor-Con 10] 10 meq PO DAILY #30 tab 07/18/17 Prednisone 10 mg PO DAILYWM 07/21/17 Prednisone 20 mg PO DAILYWM 07/21/17
[2017-07-21 14:05] VITALS: BMI 31.8
[2017-07-21] MEDS: SODIUM CHLORIDE 1,000 ML IV SCH (16:44)
[2017-07-21] MEDS: GLUCOPHAGE PO SCH (17:55)
[2017-07-21] MEDS ORDERED: ELIQUIS PO SCH (21:00)
[2017-07-21] MEDS ORDERED: NON-FORMULARY MEDICATION (Metoprolol Tartrate [Metoprolol Tartrate] 100 MG) PO SCH (21:00)
[2017-07-21] MEDS ORDERED: NON-FORMULARY MEDICATION (Diltiazem Hcl [Cardizem] 120 MG) PO SCH (21:00)
[2017-07-21] MEDS: LOPRESSOR PO SCH (21:31)
[2017-07-21] MEDS: CARDIZEM PO SCH (21:32)
[2017-07-21] MEDS: ZOFRAN 4 MG/2 ML IVP PRN (22:26)
[2017-07-22] MEDS: ZOFRAN 4 MG/2 ML IVP PRN ×2 (05:04→15:10)
[2017-07-22] MEDS: LASIX TAB PO SCH (05:35)
[2017-07-22] MEDS: SYNTHROID PO SCH (05:35)
[2017-07-22] MEDS: SODIUM CHLORIDE 1,000 ML IV SCH ×2 (06:21→22:37)
[2017-07-22] MEDS ORDERED: PREDNISONE PO SCH ×2 (08:00)
[2017-07-22] MEDS ORDERED: NON-FORMULARY MEDICATION (Potassium Chloride [Klor-Con 10] 10 MEQ) PO SCH (09:00)
[2017-07-22] MEDS ORDERED: NON-FORMULARY MEDICATION (Sitagliptin Phosphate [Januvia] 100 MG) PO SCH (09:00)
[2017-07-22] MEDS: PROZAC PO SCH (09:21)
[2017-07-22] MEDS: VALIUM PO SCH ×2 (09:21→20:36)
[2017-07-22] MEDS: GLUCOPHAGE PO SCH ×2 (09:22→18:13)
[2017-07-22] MEDS: CARDIZEM PO SCH ×2 (09:22→20:37)
[2017-07-22] MEDS: COZAAR PO SCH (09:22)
[2017-07-22] MEDS: JANUVIA PO SCH (09:22)
[2017-07-22] MEDS: MICRO-K CAP PO SCH (09:22)
[2017-07-22] MEDS: LOPRESSOR PO SCH ×2 (09:22→20:36)
--- NOTE | 2017-07-22 11:40 | PCM.PROG ---
Attending Provider: ATTENDING PROVIDER: Dr. ROSALINO GRAY This patient is seen with Elsy Estrada, Nurse Practitioner. DATE OF SERVICE: 07/22/17 SUBJECTIVE: This 72 year old WHITE/ F was hospitalized 07/21/17. The patient is sitting in chair, states she is nauseated. REVIEW OF SYSTEMS: CONSTITUTIONAL: Weakness. No night sweats. No malaise, lethargy. No fever or chills. HEENT: Eyes: No visual changes. No eye pain. No eye discharge. ENT: No runny nose. No epistaxis. No sinus pain. No odynophagia. No congestion. RESPIRATORY: No cough, no congestion. No hemoptysis. No shortness of breath. CARDIOVASCULAR: No angina symptoms. No CHF symptoms. No atypical chest pain for CAD. No palpitations. No orthopnea.. GASTROINTESTINAL: Nausea. No abdominal pain. No vomiting. No diarrhea or constipation. No hematemesis. No hematochezia. GENITOURINARY: No urgency. No frequency. No dysuria. No hematuria. No obstructive symptoms. No discharge. No pain. No significant abnormal bleeding. MUSCULOSKELETAL: No musculoskeletal pain; no joint swelling. NEUROLOGICAL: Awake, confusion. No headache. No neck pain. No syncope. No seizures. No dizziness. PSYCHIATRIC: Not anxious. No depression. No suicidal thoughts. No homicidal thoughts. SKIN: No rash. No lesions. No wounds. ENDOCRINE: No unexplained weight loss. No weight gain. HEMATOLOGIC/LYMPHATIC: No anemia. No purpura. No petechiae. No prolonged or excessive bleeding. No palpable lymph nodes. PHYSICAL EXAMINATION: GENERAL: The patient is awake, oriented to person only sitting in chair in no distress. VITAL SIGNS: Temperature 97.5 F, Pulse 112, Respiratory Rate 19, BP 152/94, Pulse Ox 93% HEENT: Head normocephalic, atraumatic. Eyes: Extraocular muscles are intact. Pupils are equal, round and reactive to light and accommodation. Ears: No lesions. Nose appeared normal. Throat: No exudate or erythema. NECK: Supple. No JVD, no carotid bruit. No lymphadenopathy or thyromegaly. LUNGS: Diminished breath sounds. Clear to auscultation. Percussion note normal. Chest symmetrical. HEART: Irregular heart rate. S1, S2, no S3. No murmurs. No cyanosis or clubbing. No ascites. Pulses: Dorsalis pedis and posterior tibial pulses +1 to +2 both sides. ABDOMEN: Soft. Non-tender. Bowel sounds active. No CVA tenderness. No mass felt. EXTREMITIES: No edema. Full range of motion of all extremities, equal. NEUROLOGIC: Oriented to person only. No focal deficit. Cranial nerves II through XII are grossly intact. No headache, no double vision or headache. SKIN: Not dry. Intact. Turgor-normal. LYMPHATIC: No palpable lymph nodes/no lymphedema. MUSCULOSKELETAL: Normal joints with no swelling. Muscle tone is normal. LAB REVIEW: 07/22/17 05:15 07/22/17 05:15 07/22/17 05:15: Sodium 141, Potassium 4.2, Chloride 94 L, Carbon Dioxide 39 H, Anion Gap 12.2, BUN 20 H, Creatinine 0.88, Estimated GFR (MDRD) 63.00, BUN/ Creatinine Ratio 22.72, Glucose 166 H, Calcium 8.8, Total Bilirubin 0.7, AST 28 , ALT 30, Alkaline Phosphatase 66, Total Protein 6.5, Albumin 3.2 L, Globulin 3.3, Albumin/Globulin Ratio 0.97 07/22/17 05:15: WBC 10.58 H, RBC 3.71 L, Hgb 10.7 L, Hct 34.3 L, MCV 92.5, MCH 28.8, MCHC 31.2 L, RDW Coeff of Alisha 16.1 H, Plt Count 236, Immature Gran % (Auto ) 0.6, Neut % (Auto) 79.8, Lymph % (Auto) 11.1, [place] % (Auto) 6.5, Eos % (Auto) 1.9, Baso % (Auto) 0.1, Immature Gran # (Auto) 0.1, Neut # 8.5 H, Lymph # 1.2, [place] # 0.7, Eos # 0.2, Baso # 0.0 07/21/17 17:20: Urine Color Yellow, Urine Clarity Clear, Urine pH 7.5, Ur Specific [place] 1.020, Urine Protein 2+, Urine Glucose (UA) Negative, Urine Ketones Negative, Urine Blood Negative, Urine Nitrite Negative, Urine Bilirubin Negative, Urine Urobilinogen 0.2, Ur Leukocyte Esterase Negative, Urine Microscopic RBC 0-2, Ur Squamous Epith Cells 2-5 07/21/17 13:37: Urine Color Yellow, Urine Clarity Clear, Urine pH 7.5, Ur Specific [place] 1.015, Urine Protein 1+, Urine Glucose (UA) Negative, Urine Ketones Negative, Urine Blood 1+, Urine Nitrite Negative, Urine Bilirubin Negative, Urine Urobilinogen 0.2, Ur Leukocyte Esterase Negative, Urine Microscopic RBC 0-2, Ur Squamous Epith Cells Not present ASSESSMENT: 1. DEMENTIA WITH BEHAVIORAL DISTURBANCES 2. COPD 3. ATRIAL FIBRILLATION 4. NAUSEA PLAN: 1. D/C Eliquis 2. Start Lovenox 80 mg daily Plan and coordination of the patient's care discussed in the presence of Psychiatric Technician Assistant and nurse. CONDITION: Stable SCRIBED BY: MAKI REBOLLEDO Lane Attendant scribed while in presence of service performed by Dr. Gray/Elsy Estrada APRN on 07/22/17 ([id number])
--- NOTE | 2017-07-22 14:27 | PN ---
DATE OF SERVICE: 07/21/17 SUBJECTIVE: The patient was seen in the emergency room. She was brought to the emergency room by daughter because of patient's weakness, fatigue and shortness of breath. The patient's entire work up is acceptable and within range. She is upright, oriented to time, place and person. She complains of mild weakness. The patient lives by herself with the help of the daughter. The daughter works in fact considering all the issues and the problems it looks like the patient needs to be in the [facility]. We will talk to the daughter about it. She used to be [facility], went home. She has chronic lung disease requiring home oxygen. Her blood gasses are acceptable. She is in not any distress. REVIEW OF SYSTEMS: CONSTITUTIONAL: No night sweats. No fatigue, malaise, lethargy. No fever or chills. HEENT: Eyes: No visual changes. No eye pain. No eye discharge. ENT: No runny nose. No epistaxis. No sinus pain. No sore throat. No odynophagia. No congestion. RESPIRATORY: No cough, no congestion. No hemoptysis. No shortness of breath. CARDIOVASCULAR: No angina symptoms. No CHF symptoms. No atypical chest pain for CAD. No palpitations. No orthopnea. GASTROINTESTINAL: No abdominal pain. No nausea or vomiting. No diarrhea or constipation. No hematemesis. No hematochezia. GENITOURINARY: No urgency. No frequency. No dysuria. No hematuria. No obstructive symptoms. No discharge. No pain. No significant abnormal bleeding. MUSCULOSKELETAL: No musculoskeletal pain; no joint swelling. NEUROLOGICAL: No headache. No neck pain. No syncope. No seizures. No dizziness. PSYCHIATRIC: Not anxious. No depression. No suicidal thoughts. No homicidal thoughts. SKIN: No rash. No lesions. No wounds. ENDOCRINE: No unexplained weight loss. No weight gain. HEMATOLOGIC/LYMPHATIC: No anemia. No purpura. No petechiae. No prolonged or excessive bleeding. No palpable lymph nodes. PHYSICAL EXAMINATION: HEENT: Head normocephalic, atraumatic. Eyes: Extraocular muscles are intact. Pupils are equal, round and reactive to light and accommodation. Ears: No lesions. Nose appeared normal. Throat: No exudate or erythema. NECK: Supple. No JVD, no carotid bruit. No lymphadenopathy or thyromegaly. LUNGS: Decreased breath sounds but clear to auscultation. Percussion note normal. Chest symmetrical. HEART: S1, S2, no S3. No murmurs. No cyanosis or clubbing. No ascites. Pulses: Dorsalis pedis and posterior tibial pulses +1 to +2 both sides. ABDOMEN: Soft. Nontender. Bowel sounds active. No CVA tenderness. No mass felt. EXTREMITIES: No edema. Full range of motion of all extremities, equal. NEUROLOGIC: No focal deficit. Cranial nerves II through XII are grossly intact. No headache, no double vision or headache. SKIN: Not dry. Intact. Turgor - normal. LYMPHATIC: No palpable lymph nodes/no lymphedema. MUSCULOSKELETAL: Normal joints with no swelling. Muscle tone is normal. CONDITION: Stable. ASSESSMENT: 1. Mildly Dehydrated with dry skin PLAN: 1. Will given IV fluids TIME SPENT: More than 30 minutes. Plan and coordination of the patient's care discussed in the presence of nurse. TY
[2017-07-22] MEDS: LOVENOX SUBCUT SCH (18:40)
[2017-07-22] MEDS ORDERED: CARDIZEM CD ONE (20:06)
[2017-07-22] MEDS ORDERED: PROZAC PO SCH (21:00)
[2017-07-23] MEDS: ZOFRAN 4 MG/2 ML IVP PRN (05:07)
[2017-07-23] MEDS: SYNTHROID PO SCH (05:48)
[2017-07-23] MEDS: LASIX TAB PO SCH (05:49)
[2017-07-23] MEDS ORDERED: PREDNISONE PO SCH (08:00)
--- NOTE | 2017-07-23 08:59 | PCM.PROG ---
Attending Provider: ATTENDING PROVIDER: Dr. ROSALINO GRAY DATE OF SERVICE: 07/23/17 SUBJECTIVE: This 72 year old WHITE/ F was hospitalized 07/21/17 with dehydration, non specific abdominal pain and nausea. The patient very likely had mild flu symptoms. IV fluids and supportive measures have helped. The patient will have cataract surgery on Friday and is on Lovenox now. Instructions are given to continue 80 mg Lovenox until Friday. Instructed no blood thinner on day of surgery, which is Friday, July 28, 2017. On Friday, she can start her Eliquis 5 mg twice a day unless otherwise instructed something different by dialysis patient care technician. Will continue Prednisone 20 mg at home until Friday and will reduce Prednisone to 10 mg and I will see her back in followup next week on morning. In the meantime, if she has any problem with breathing/ shortness of breath to let me know or come to the office or ER. REVIEW OF SYSTEMS: CONSTITUTIONAL: No night sweats. No fatigue, malaise, lethargy. No fever or chills. HEENT: Eyes: No visual changes. No eye pain. No eye discharge. ENT: No runny nose. No epistaxis. No sinus pain. No odynophagia. No congestion. RESPIRATORY: No cough, no congestion. No hemoptysis. No shortness of breath. CARDIOVASCULAR: No angina symptoms. No CHF symptoms. No atypical chest pain for CAD. No palpitations. No orthopnea.. GASTROINTESTINAL: No abdominal pain. No nausea or vomiting. No diarrhea or constipation. No hematemesis. No hematochezia. GENITOURINARY: No urgency. No frequency. No dysuria. No hematuria. No obstructive symptoms. No discharge. No pain. No significant abnormal bleeding. MUSCULOSKELETAL: No musculoskeletal pain; no joint swelling. NEUROLOGICAL: Awake, alert, oriented to time, place and person. No headache. No neck pain. No syncope. No seizures. No dizziness. PSYCHIATRIC: Not anxious. No depression. No suicidal thoughts. No homicidal thoughts. SKIN: No rash. No lesions. No wounds. ENDOCRINE: No unexplained weight loss. No weight gain. HEMATOLOGIC/LYMPHATIC: No anemia. No purpura. No petechiae. No prolonged or excessive bleeding. No palpable lymph nodes. PHYSICAL EXAMINATION: GENERAL: The patient is awake, alert and oriented, sitting in chair in no distress. VITAL SIGNS: Temperature 98.1 F, Pulse 74, Respiratory Rate 20, BP 164/98, Pulse Ox 94% HEENT: Head normocephalic, atraumatic. Eyes: Extraocular muscles are intact. Pupils are equal, round and reactive to light and accommodation. Ears: No lesions. Nose appeared normal. Throat: No exudate or erythema. NECK: Supple. No JVD, no carotid bruit. No lymphadenopathy or thyromegaly. LUNGS: Clear to auscultation. Percussion note normal. Chest symmetrical. HEART: S1, S2, no S3. No murmurs. No cyanosis or clubbing. No ascites. Pulses: Dorsalis pedis and posterior tibial pulses +1 to +2 both sides. ABDOMEN: Soft. Non-tender. Bowel sounds active. No CVA tenderness. No mass felt. EXTREMITIES: No edema. Full range of motion of all extremities, equal. NEUROLOGIC: No focal deficit. Cranial nerves II through XII are grossly intact. No headache, no double vision or headache. SKIN: Warm and dry. Intact. Turgor-normal. LYMPHATIC: No palpable lymph nodes/no lymphedema. MUSCULOSKELETAL: Normal joints with no swelling. Muscle tone is normal. LAB REVIEW: 07/23/17 04:00 07/23/17 04:00 07/23/17 04:00: Sodium 140, Potassium 4.3, Chloride 95 L, Carbon Dioxide 37 H, Anion Gap 12.3, BUN 25 H, Creatinine 1.03, Estimated GFR (MDRD) 52.00, BUN/ Creatinine Ratio 24.27, Glucose 146 H, Calcium 9.1, Total Bilirubin 0.5, AST 26 , ALT 29, Alkaline Phosphatase 78, Total Protein 6.7, Albumin 3.3 L, Globulin 3.4, Albumin/Globulin Ratio 0.97 07/23/17 04:00: WBC 14.74 H, RBC 3.88 L, Hgb 11.1 L, Hct 35.4 L, MCV 91.2, MCH 28.6, MCHC 31.4 L, RDW Coeff of Alisha 15.9 H, Plt Count 248, Immature Gran % (Auto ) 0.6, Neut % (Auto) 78.7, Lymph % (Auto) 12.4, [place] % (Auto) 7.7, Eos % (Auto) 0.5, Baso % (Auto) 0.1, Immature Gran # (Auto) 0.1, Neut # 11.6 H, Lymph # 1.8, [place] # 1.1, Eos # 0.1, Baso # 0.0 ASSESSMENT: 1. DEMENTIA WITH BEHAVIORAL DISTURBANCES 2. COPD 3. ATRIAL FIBRILLATION 4. NAUSEA PLAN: 1. D/C home 2. D/C steroids on Friday 3. A1C before discharge 4. D/C Prednisone 5. Lovenox to be continued through Friday. No Lovenox or aspirin on day of cataract surgery, which is 07/28/17. Begin Eliquis on Friday. Plan and coordination of the patient's care discussed in the presence of Revenue Specialist and nurse. CONDITION: Stable SCRIBED BY: MAKI REBOLLEDO Tile Grinder scribed while in presence of service performed by Dr. ROSALINO GRAY on 07/23/17 ([id number])
[2017-07-23] MEDS: CARDIZEM PO SCH (10:14)
[2017-07-23] MEDS: VALIUM PO SCH (10:15)
[2017-07-23] MEDS: PROZAC PO SCH (10:15)
[2017-07-23] MEDS: GLUCOPHAGE PO SCH (10:16)
[2017-07-23] MEDS: COZAAR PO SCH (10:16)
--- NOTE | 2017-07-23 10:16 | CM.DICTOOL ---
ADMISSION: 07/21/17 12:04 DISCHARGE: 07/23/17 FINAL DIAGNOSIS Dehydration (Acute) ABDOMINAL PAIN - NONSPECIFIC ATRIAL FIBRILLATION, ON ELIQUIS (ON HOLD FOR CATARACT SURGERY) ANXIETY DEPRESSION HYPOTHYROIDISM DM OSTEOARTHRITIS COPD RLS PACEMAKER - DATE UNKNOWN INSERTION HYPERTENSION HEADACHES DEMENTIA CATARACTS (SCHEDULED FOR CATARACT EXTRACTION) STROKE S/P HYSTERECTOMY DATE UNKNOWN S/P APPENDECTOMY LAST VITALS Temp Pulse Resp BP Pulse Ox 98.1 F 74 18 164/98 H 94 L 07/23/17 05:39 07/23/17 05:39 07/23/17 08:00 07/23/17 05:39 07/23/17 05:39 ACTIVE HOME MEDICATIONS Diazepam (Valium) 2 mg PO BID [facility] Last Admin: 07/22/17 20:36 Dose: 2 mg Diltiazem HCl (Cardizem) 120 mg PO BID [facility] Last Admin: 07/22/17 20:37 Dose: Not Given Fluoxetine HCl (Prozac) 10 mg PO DAILY [facility] Last Admin: 07/22/17 09:21 Dose: 10 mg Fluoxetine HCl (Prozac) 20 mg PO BEDTIME [facility] Last Admin: 07/22/17 20:37 Dose: 20 mg Furosemide (Lasix Tab) 20 mg PO QDAC [facility] Last Admin: 07/23/17 05:49 Dose: 20 mg Levothyroxine Sodium (Synthroid) 50 mcg PO QDAC [facility] Last Admin: 07/23/17 05:48 Dose: 50 mcg Losartan Potassium (Cozaar) 100 mg PO DAILY [facility] Last Admin: 07/22/17 09:22 Dose: 100 mg Metformin HCl (Glucophage) 500 mg PO BIDWM [facility] Last Admin: 07/22/17 18:13 Dose: 500 mg Metoprolol Tartrate (Lopressor) 100 mg PO BID [facility] Last Admin: 07/22/17 20:36 Dose: 100 mg Potassium Chloride (Micro-K Cap) 10 meq PO DAILY [facility] Last Admin: 07/22/17 09:22 Dose: 10 meq Prednisone (Prednisone) 10 mg PO DAILYWM [facility] -DISCONTINUE ON Friday07/25/17 Sitagliptin Phosphate (Januvia) 100 mg PO DAILY [facility] Last Admin: 07/22/17 09:22 Dose: 100 mg ELIQUIS 5MG PO BID ON HOLD -RESUME Friday07/29/17 ALLERGIES No Known Allergies Allergy (Verified 04/14/17 12:13) NEW PRESCRIPTIONS: NEW MEDICATIONS: 1. LOVENOX 80MG INJECTION SUBCUTANEOUS DAILY X 5 DAYS (STOP AFTER FRIDAY'S DOSE 07-27-17). SMOKING: N/A DISEASE SPECIFIC EDUCATION: ABDOMINAL PAIN DEHYDRATION MEDICATION LOVENOX THERAPY AVOIDANCE OF ASPIRIN AND BLOOD THINNERS STEROID THERAPY DIET ACTIVITY LAB REVIEW: 07/23/17 04:00 07/23/17 04:00 07/23/17 04:00: Sodium 140, Potassium 4.3, Chloride 95 L, Carbon Dioxide 37 H, Anion Gap 12.3, BUN 25 H, Creatinine 1.03, Estimated GFR (MDRD) 52.00, BUN/ Creatinine Ratio 24.27, Glucose 146 H, Calcium 9.1, Total Bilirubin 0.5, AST 26 , ALT 29, Alkaline Phosphatase 78, Total Protein 6.7, Albumin 3.3 L, Globulin 3.4, Albumin/Globulin Ratio 0.97 07/23/17 04:00: WBC 14.74 H, RBC 3.88 L, Hgb 11.1 L, Hct 35.4 L, MCV 91.2, MCH 28.6, MCHC 31.4 L, RDW Coeff of Alisha 15.9 H, Plt Count 248, Immature Gran % (Auto ) 0.6, Neut % (Auto) 78.7, Lymph % (Auto) 12.4, [place] % (Auto) 7.7, Eos % (Auto) 0.5, Baso % (Auto) 0.1, Immature Gran # (Auto) 0.1, Neut # 11.6 H, Lymph # 1.8, [place] # 1.1, Eos # 0.1, Baso # 0.0 PLAN: DISCHARGE HOME TODAY. CONTINUE HOME MEDICATIONS PER NURSING SHEET WITH FOLLOWING CHANGES: 1. ELIQUIS IS ON HOLD UNTIL FRIDAY. RESUME ON FRIDAY. 2. PREDNISONE 20MG - TAKE 1/2 TABLET DAILY UNTIL FRIDAY THEN STOP TAKING. NEW MEDICATIONS: 1. LOVENOX 80MG INJECTION SUBCUTANEOUS DAILY X 5 DAYS (STOP AFTER FRIDAY'S DOSE) . NO ASPIRIN OR BLOOD THINNERS PER CATARACT SURGERY INSTRUCTIONS. NO DIABETIC MEDICATION FRIDAY ON THE DAY OF SURGERY 07/28/17. 1800 CALORIE ADA DIET GRADUALLY RESUME ACTIVITY. ELEVATE LEGS MUCH POSSIBLE. FOLLOW UP WITH DR. GRAY FOR NEXT FRIDAY MORNING. CALL TO MAKE YOUR APPOINTMENT [phone]. IF ANY ISSUES, CALL DR. GRAY OR GO TO THE EMERGENCY ROOM. SITTING UP IN CHAIR. SON AT BEDSIDE. DR. GRAY INTO SEE PATIENT. PATIENT STATES FEELING BETTER. PLAN OF CARE DISCUSSED PER DR. GRAY INCLUDING DISCHARGE, CONTINUING OF LOVENOX, CONTINUE TO HOLD ELIQUIS UNTIL FRIDAY, NO ASPIRIN OR BLOOD THINNERS UNTIL AFTER CATARACT PER INSTRUCTIONS ON CATARACT SURGERY PAPERS AND FOLLOW UP NEXT FRIDAY AM. PATIENT AND SON VERBALIZES UNDERSTANDING AND AGREEMENT. APPETITE IS GOOD. ALERT AND ORIENTED X 3. CONFUSED TO TIME. IS FORGETFUL. VITAL SIGNS ARE STABLE. HAS BEEN AFEBRILE. BLOOD PRESSURE HAS BEEN ELEVATED AT TIMES. DR. GRAY AWARE AND SHOWN BLOOD PRESSURE HISTORY. POX 94% ON 2L/C. HEART TONES ARE IRREGULAR WITH TELEMETRY REVEALING A-FIB WITH RVR. LUNGS ARE CLEAR BUT DIMINISHED. NO COUGH NOTED. NO DYSPNEA NOTED. ABDOMEN IS SOFT, NON -TENDER WITH BOWEL SOUNDS POSITIVE IN ALL 4 QUADS. NO C/O PAIN OR NAUSEA THIS AM. LAST BM WAS THIS AM AND WAS NORMAL. PEDAL PULSES POSITIVE WITH NON-PITTING ANKLE EDEMA. HAS MILD GENERALIZED WEAKNESS. HAS IV OF NORMAL SALINE AT 75ML.HR IN RIGHT AC SITE IS CLEAR. IS FALL RISK WITH FALL PRECAUTIONS IN USE. IS A 1 PERSON ASSIST WITH USE OF ROLLING WALKER WITH UNSTEADY/SLOW GAIT. NO ACUTE DISTRESS NOTED. DR. ROSALINO GRAY MD Luz BIANCHI APRN
[2017-07-23] MEDS: LOPRESSOR PO SCH (10:17)
[2017-07-23] MEDS: JANUVIA PO SCH (10:17)
[2017-07-23] MEDS: MICRO-K CAP PO SCH (10:18)
[2017-07-23] MEDS: LOVENOX SUBCUT SCH (10:19)
[2017-07-23 10:28] VITALS: BP 134/79; TEMP 97.9
--- NOTE | 2017-07-24 10:47 | PN ---
DATE OF SERVICE: 07/22/17 SUBJECTIVE: The patient was hospitalized with mild dehydration and abdominal discomfort with nausea. The patient was seen and examined with the Nurse Practitioner. The patient is going to have eye surgery and needs surgical clearance. The patient is on Eliquis and we will have to have her off for 7 days. Put her on Lovenox and instruction will be given. TIME SPENT: More than 30 minutes. Plan and coordination of the patient's care discussed in the presence of nurse. TY
== END 2017-07-23 11:10 | disposition home or self-care (01) ==
LOC: ED 09:03 → INTOOBSV 12:04 → MEDSURG A 12:04
PROVIDERS: ADMIT Internal Medicine; ATTEND Internal Medicine
DX: E86.0 Dehydration (principal); F03.91 Unspecified dementia, unspecified severity, with behavioral disturbance; R10.9 Unspecified abdominal pain; R11.0 Nausea; R53.1 Weakness; R06.02 Shortness of breath; J44.9 Chronic obstructive pulmonary disease, unspecified; I48.91 Unspecified atrial fibrillation; Z79.01 Long term (current) use of anticoagulants; F41.8 Other specified anxiety disorders; E03.9 Hypothyroidism, unspecified; E11.9 Type 2 diabetes mellitus without complications; Z79.84 Long term (current) use of oral hypoglycemic drugs; M19.90 Unspecified osteoarthritis, unspecified site; Z95.0 Presence of cardiac pacemaker; I10 Essential (primary) hypertension; R51 Headache; H26.9 Unspecified cataract; Z86.73 Personal history of transient ischemic attack (TIA), and cerebral infarction without residual deficits
CPT/HCPCS: 36415; 80053; 81001; 82150; 82962; 83690; 85025; 87081; 87502; 93005; 93010; 96361; 96372; 96374; 96376; 99217; 99220; 99225; 99284

== ENCOUNTER 2017-07-28 06:51 | Day surgery (SDC) ==
[2017-07-28] MEDS: LIDOCAINE 1% 20 ML MDV ID STA ×2 (07:20→09:04)
[2017-07-28 07:23] VITALS: TEMP 97
[2017-07-28] MEDS ORDERED: DIAMOX PO STA (07:27)
[2017-07-28] MEDS ORDERED: AK-DILATE 10% OPTH SOL OP PRN (07:27)
[2017-07-28] MEDS ORDERED: CYCLOGYL 2% OPTH OP PRN (07:27)
[2017-07-28] MEDS ORDERED: OCUFEN 0.03% OPTH SOL OP PRN (07:27)
[2017-07-28] MEDS: TETRACAINE 0.5% UNIT-DOSE OP PRN ×2 (07:30→09:04)
[2017-07-28] MEDS ORDERED: DIPRIVAN 20 ML VIAL IVP ONE (09:10)
[2017-07-28] MEDS ORDERED: MIOCHOL-E INTRAOCULA ONE (09:10)
[2017-07-28] MEDS ORDERED: BSS WITH EPINEPHRINE OP ONE (09:10)
[2017-07-28] MEDS ORDERED: VERSED ONE (09:10)
[2017-07-28] MEDS ORDERED: SUBLIMAZE ONE (09:10)
[2017-07-28] MEDS ORDERED: DIAMOX ONE (10:05)
[2017-07-28 14:10] VITALS: BP 152/82
--- NOTE | 2017-07-29 09:33 | OP ---
PREOPERATIVE DIAGNOSIS: ADVANCED BRUNESCENT CATARACT RIGHT EYE. POSTOPERATIVE DIAGNOSIS: SAME. OPERATION: CATARACT EXTRACTION BY PHACOEMULSIFICATION ASPIRATION OF CATARACT RIGHT EYE. PLACEMENT OF POSTERIOR CHAMBER LENS. PHACO TIME 13.9 SECONDS AT 5% POWER. LENS MODEL TECNIS [id number]. DIOPTER +21.5D. TECHNIQUE: CLEAR CORNEA. ANESTHESIA: TOPICAL ANESTHESIA W/ANESTHESIA MONITORING. OPERATIVE REPORT: Topical anesthesia consisting of Tetracaine was applied to the cornea and Xylocaine Methyl Paraben free of MFP was injected intracamerally into the anterior chamber. The patient was then brought into the operating room , prepped and draped in the usual ophthalmic manner. A lid speculum was placed and the operating microscope was used. A paracentesis was made at the 3 o' clock position. A clear corneal incision was made just out to the limbus. The anterior chamber was entered just inside the clear cornea. Viscoelastic was injected into the anterior chamber. A capsulotomy was performed with a bent # 27 gauge needle. Phacoemulsification was then performed in the posterior chamber. After completion of the phacoemulsification, residual cortical material was aspirated with the irrigation-aspiration system. The posterior capsule was polished. Viscoelastic was injected into the anterior and posterior chambers to inflate the capsular bag. Lens were placed via an Unfolder system and stabilized in the bag. Viscoelastic was removed from the anterior chamber. The wound was checked for any leakage. The four sponges were removed from the fornix. Topical antibiotic steroid and nonsteroidal drops were also applied to the cornea. A Mariano shield was applied. The patient left the operating room in good condition without any complications. ADDENDUM: ZONULAR DEHISCENCE WAS NOTED DURING PHACOEMULSIFICATION. CAPSULE TENSION RING WAS PLACED TO STRETCH THE CAPSULE AND ALLOW FOR COMPLETION OF PHACOEMULSIFICATION AND IRRIGATION AND ASPIRATION OF THE CORTEX. THERE WAS NO VITREOUS PRESENTING INTO THE ANTERIOR CHAMBER AND THE PROCEDURE WAS COMPLETED SUCCESSFULY. INTRAOPERATIVE MEDICATIONS: Xylocaine Methyl Paraben Free MPF MTDD
== END 2017-07-28 10:20 | disposition home or self-care (01) ==
LOC: SURG 06:51
PROVIDERS: ATTEND Ophthalmology
DX: H25.11 Age-related nuclear cataract, right eye (principal)

== ENCOUNTER 2017-08-02 13:49 | Inpatient (IN) ==
--- NOTE | 2017-08-02 14:21 | ED.PDOC ---
General ED Provider: Dr. ALEX CALVIN Chief Complaint: Shortness of Air Stated Complaint: Patient was recently discharged from the hospital one week ago comes to the Er with increased shortness of breath and cough with weight gain worse for one week. Daughter states she has gained weight Time Seen by Physician: 14:20 Mode of Arrival: Wheelchair Information Source: Patient Exam Limitations: No limitations Primary Care Provider: ROSALINO GRAY Seen Within Last 72 Hours for Same Complaint By: ED Nursing and Triage Documentation Reviewed and Agree: Yes Reviewed sepsis parameters & appropriate labs ordered?: Yes System Inflammatory Response Syndrome: Not Applicable Sepsis Protocol: For patient's 13 years and over: Temp is 96.8 and below OR 101 and greater Pulse >90 BPM Resp >20/minute Acutely Altered Mental Status Are patient's symptoms suggestive of a new infection, such as: -Pneumonia -Skin, Soft Tissue -Endocarditis -UTI -Bone, Joint Infection -Implantable Device -Acute Abdominal Infection -Wound Infection -Meningitis -Blood Stream Catheter Infection -Unknown System Inflammatory Response Syndrome: Not Applicable Review of Systems - Review Of Systems Constitutional: Reports: No symptoms Eyes: Reports: No symptoms Ears, Nose, Mouth, Throat: Reports: No symptoms Respiratory: Reports: Cough, Short of air, Wheezing Cardiac: Reports: No symptoms GI: Reports: No symptoms : Reports: No symptoms Musculoskeletal: Reports: No symptoms Skin: Reports: No symptoms Neurological: Reports: No symptoms Endocrine: Reports: No symptoms Hematologic/Lymphatic: Reports: No symptoms All Other Systems: Reviewed and Negative Past Medical History - Past Medical History Previously Healthy: No Endocrine: Reports: Hypothyroid, Dyslipidemia Cardiovascular: Reports: Hypertension Respiratory: Reports: COPD Hematological: Reports: None Gastrointestinal: Reports: None Genitourinary: Reports: None Neuro/Psych: Reports: None Musculoskeletal: Reports: None Cancer: Reports: None Last Menstrual Period: n/a - Surgical History General Surgical History: Reports: Unknown - Family History Family History: Reports: Unknown - Social History Smoking Status: Former smoker Hx Substance Use: No Alcohol Screening: None Physical Exam - Physical Exam Appearance: Ill-appearing Ill-appearing: Moderate Eyes: HOLGER, EOMI, Conjunctiva clear Neck: Supple Respiratory: Breath sounds diminished, Rhonchi, Wheezes Cardiovascular: Irregular rhythm, Tachycardia GI/: Soft, Nontender, No masses, Bowel sounds normal, No Organomegaly Musculoskeletal: Normal strength, ROM intact, No calf tenderness, Edema Skin: Warm, Dry, Normal color Neurological: Sensation intact, Motor intact, Reflexes intact, Cranial nerves intact, Alert, Oriented Psychiatric: Anxious Interpretation - Radiology Interpretation Radiology Interpretation By: Radiologist Radiology Results: No acute changes (cardiomegatly without overt Pulmonary EDEMA , Decreased mild Bibasilar atelectasis and or consolidation) Exam Interpreted: CXR - EKG Interpretation Time of EKG #1: 14:47 Rate: Normal Rhythm: Other [place]: NL ST Segment: Normal Interpretation: Atrial Fibrillation Physician Notification - Case Discussed Physician Notified: Dr. Gray Time of Notification: 15:41 (Admit to the Hospital palce on ANtibiotics, steroids and Nebs ) Critical Care Note - Critical Care Note Total Time (mins): 30 Course - Course Hematology/Chemistry: 08/02/17 14:33 08/02/17 14:33 Orders, Labs, Meds: Lab Review 08/02/17 08/02/17 08/02/17 14:14 14:33 14:33 WBC 9.87 RBC 3.11 L Hgb 8.9 L Hct 28.4 L MCV 91.3 MCH 28.6 MCHC 31.3 L RDW Coeff of Alisha 16.3 H Plt Count 187 Immature Gran % (Auto) 0.6 Neut % (Auto) 88.6 Lymph % (Auto) 6.9 L [place] % (Auto) 3.4 Eos % (Auto) 0.4 Baso % (Auto) 0.1 Immature Gran # (Auto) 0.1 Neut # 8.7 H Lymph # 0.7 [place] # 0.3 L Eos # 0.0 Baso # 0.0 Puncture Site Lrad O2 Saturation 94.0 L ABG pH 7.384 ABG pCO2 47.6 H ABG pO2 75.0 L ABG HCO3 28.4 H ABG Total CO2 30 H ABG Base Excess 3 H Mal Test + O2 Delivery Device Nc Oxygen Liter Flow 4.00 Sodium 135 L Potassium 5.0 Chloride 98 Carbon Dioxide 27 Anion Gap 15.0 BUN 20 H Creatinine 0.94 Estimated GFR (MDRD) 58.00 BUN/Creatinine Ratio 21.27 Glucose 137 H Lactic Acid Calcium 9.4 Total Bilirubin 0.4 AST 22 ALT 21 Alkaline Phosphatase 89 Total Creatine Kinase 18 Troponin I 0.0190 B-Natriuretic Peptide Total Protein 6.6 Albumin 3.1 L Globulin 3.5 Albumin/Globulin Ratio 0.89 Procalcitonin Influenza A (Rapid) Influenza B (Rapid) 08/02/17 08/02/17 08/02/17 14:33 14:33 14:33 WBC RBC Hgb Hct MCV MCH MCHC RDW Coeff of Alisha Plt Count Immature Gran % (Auto) Neut % (Auto) Lymph % (Auto) [place] % (Auto) Eos % (Auto) Baso % (Auto) Immature Gran # (Auto) Neut # Lymph # [place] # Eos # Baso # Puncture Site O2 Saturation ABG pH ABG pCO2 ABG pO2 ABG HCO3 ABG Total CO2 ABG Base Excess Mal Test O2 Delivery Device Oxygen Liter Flow Sodium Potassium Chloride Carbon Dioxide Anion Gap BUN Creatinine Estimated GFR (MDRD) BUN/Creatinine Ratio Glucose Lactic Acid 11.2 Calcium Total Bilirubin AST ALT Alkaline Phosphatase Total Creatine Kinase Troponin I B-Natriuretic Peptide 1179 H Total Protein Albumin Globulin Albumin/Globulin Ratio Procalcitonin < 0.05 Influenza A (Rapid) Influenza B (Rapid) 08/02/17 14:45 WBC RBC Hgb Hct MCV MCH MCHC RDW Coeff of Alisha Plt Count Immature Gran % (Auto) Neut % (Auto) Lymph % (Auto) [place] % (Auto) Eos % (Auto) Baso % (Auto) Immature Gran # (Auto) Neut # Lymph # [place] # Eos # Baso # Puncture Site O2 Saturation ABG pH ABG pCO2 ABG pO2 ABG HCO3 ABG Total CO2 ABG Base Excess Mal Test O2 Delivery Device Oxygen Liter Flow Sodium Potassium Chloride Carbon Dioxide Anion Gap BUN Creatinine Estimated GFR (MDRD) BUN/Creatinine Ratio Glucose Lactic Acid Calcium Total Bilirubin AST ALT Alkaline Phosphatase Total Creatine Kinase Troponin I B-Natriuretic Peptide Total Protein Albumin Globulin Albumin/Globulin Ratio Procalcitonin Influenza A (Rapid) Negative by naat Influenza B (Rapid) Negative by naat Orders Category Date Time Status ABG DRAW REQUEST Stat CARDIO 08/02/17 14:14 Completed EKG-(ED ONLY) Stat CARDIO 08/02/17 14:14 Completed NEBULIZER TREATMENT Stat CARDIO 08/02/17 14:47 Completed ED IV/MEDIPORT/POWERPORT .ONCE EMERGENCY 08/02/17 14:14 Active ED IV/MEDIPORT/POWERPORT .ONCE EMERGENCY 08/02/17 14:23 Active ABG Stat LAB 08/02/17 14:14 Completed B-TYPE NATRIURETIC PEPTIDE Stat LAB 08/02/17 14:33 Completed BLOOD CULTURE (ED ONLY) Stat LAB 08/02/17 14:33 Received CBC W/ AUTO DIFF Stat LAB 08/02/17 14:33 Completed COMPREHENSIVE METABOLIC PANEL Stat LAB 08/02/17 14:33 Completed CREATINE KINASE Stat LAB 08/02/17 14:33 Completed FLU A/B MOLECULAR Stat LAB 08/02/17 14:45 Completed LACTIC ACID Stat LAB 08/02/17 14:33 Completed PROCALCITONIN Stat LAB 08/02/17 14:33 Completed TROPONIN I Stat LAB 08/02/17 14:33 Completed 0.9 % Sodium Chloride [Saline Flush] MEDS 08/02/17 14:14 Ordered 1 syr IVF PRN PRN 0.9 % Sodium Chloride [Saline Flush] MEDS 08/02/17 14:23 Ordered 1 syr IVF PRN PRN Furosemide [Lasix] MEDS 08/02/17 15:40 Discontinued 20 mg IVP ONCE STA Ipratropium/Albuterol Neb [Duoneb] MEDS 08/02/17 14:47 Discontinued 1 vial NEB ONCE STA Methylprednisolone Sod Succ/Pf [Solu-Medrol 125 mg] MEDS 08/02/17 14:23 Discontinued 125 mg IVP ONCE STA Ondansetron HCl/Pf [Zofran 4 mg/2 ml] MEDS 08/02/17 14:23 Discontinued 4 mg IVP ONCE STA CHEST, 1V AP ONLY Stat RADS 08/02/17 14:14 Completed Medications Generic Name Dose Route Start Last Admin Trade Name Freq PRN Reason Stop Dose Admin Acetaminophen/Hydrocodone Bitart tab 08/02/17 21:00 [place] 5-325 PO BID TOM Albuterol/Ipratropium 1 vial 08/02/17 20:00 Duoneb NEB 08/03/17 09:00 RTQID TOM Apixaban 5 mg 08/02/17 21:00 Eliquis PO BID TOM Diazepam 2 mg 08/02/17 21:00 Valium PO BID TOM Fluoxetine HCl 20 mg 08/02/17 21:00 Prozac PO BEDTIME TOM Doxycycline Hyclate 100 mg/ 100 mls @ 50 mls/hr 08/02/17 21:00 Sodium Chloride IV 08/03/17 12:00 Q12HR TOM Doxycycline Hyclate 100 mg/ 100 mls @ 50 mls/hr 08/02/17 15:57 08/02/17 16:17 Sodium Chloride IV 08/02/17 17:56 50 mls/hr ONCE STA Administration Metformin HCl 500 mg 08/02/17 21:00 Glucophage PO BID TOM Methylprednisolone Sodium Succinate 125 mg 08/02/17 16:00 08/02/17 16:12 Solu-Medrol 125 Mg IVP Not Given Q8H TOM Non-Formulary Medication 120 mg 08/02/17 21:00 Diltiazem Hcl [Cardizem] PO BID TOM Non-Formulary Medication 100 mg 08/02/17 21:00 Metoprolol Tartrate [Metoprolol Tartrate] PO BID TOM Non-Formulary Medication 2 mg 08/02/17 21:00 Ropinirole Hcl [Requip] PO BEDTIME TOM Non-Formulary Medication 100 mg 08/03/17 09:00 Sitagliptin Phosphate [Januvia] PO DAILY TOM Non-Formulary Medication 10 mg 08/02/17 21:00 Melatonin [Melatonin] PO BEDTIME TOM Ondansetron HCl 4 mg 08/02/17 15:51 Zofran 4 Mg/2 Ml IVP 08/03/17 09:05 ONCE PRN Nausea / Vomiting Sodium Chloride 1 syr 08/02/17 14:14 08/02/17 14:47 Saline Flush IVF 1 syr PRN PRN Administration To flush IV Sodium Chloride 1 syr 08/02/17 14:23 Saline Flush IVF PRN PRN To flush IV Discontinued Medications Generic Name Dose Route Start Last Admin Trade Name Freq PRN Reason Stop Dose Admin Albuterol/Ipratropium 1 vial 08/02/17 14:47 08/02/17 15:23 Duoneb NEB 08/02/17 14:48 1 vial ONCE STA Administration Furosemide 20 mg 08/02/17 15:40 08/02/17 16:16 Lasix IVP 08/02/17 15:41 20 mg ONCE STA Administration Methylprednisolone Sodium Succinate 125 mg 08/02/17 14:23 08/02/17 14:45 Solu-Medrol 125 Mg IVP 08/02/17 14:24 125 mg ONCE STA Administration Ondansetron HCl 4 mg 08/02/17 14:23 08/02/17 14:44 Zofran 4 Mg/2 Ml IVP 08/02/17 14:24 4 mg ONCE STA Administration Vital Signs: Temp Pulse Resp BP Pulse Ox 08/02/17 13:51 98.4 F 100 H 20 156/90 H 93 L Departure - Departure Time of Disposition: 15:39 Disposition: ADMITTED INPATIENT Discharge Problem: COPD exacerbation CHF (congestive heart failure) Qualifiers: Heart failure type: systolic Heart failure chronicity: acute on chronic Qualified Code(s): I50.23 - Acute on chronic systolic (congestive) heart failure Condition: Stable Pt referred to PMD for follow-up: No IPMP verified?: No Allergies/Adverse Reactions: Allergies No Known Allergies Allergy (Verified 04/14/17 12:13) Home Medications: Ambulatory Orders Diazepam [Valium] 2 mg PO BID 06/21/16 Fluoxetine HCl [Prozac] 10 mg PO DAILY 06/21/16 Fluoxetine HCl [Prozac] 20 mg PO BEDTIME 06/21/16 Hydrocodone/Acetaminophen [Hydrocodon-Acetaminophen 5-325] 1 each PO BID Levothyroxine Sodium [Synthroid] 50 mcg PO QDAC 06/21/16 Metformin HCl [Glucophage] 500 mg PO BID 06/21/16 Metoprolol Tartrate 100 mg PO BID 06/21/16 Ropinirole HCl [Requip] 2 mg PO BEDTIME 06/21/16 Sitagliptin Phosphate [Januvia] 100 mg PO DAILY 06/21/16 Calcium Carbonate [Calcium] 600 mg PO DAILY 12/18/16 Melatonin 10 mg PO BEDTIME 12/18/16 Multivit with Minerals/Lutein [A Thru Z Advanced Formula Tab] 1 each PO DAILY Diltiazem HCl [Cardizem] 120 mg PO BID #60 tablet 07/18/17 Losartan Potassium 100 mg PO DAILY #30 tablet 07/18/17 Apixaban [Eliquis] 5 mg PO BID 08/02/17 Furosemide [Lasix Tab] 20 mg PO 3 TIMES PER WEEK 08/02/17 Ipratropium/Albuterol Neb [Duoneb] 1 vial NEB RTQ6H PRN 08/02/17 Potassium Chloride [Klor-Con 10] 10 meq PO 3 TIMES PER WEEK 08/02/17 Disposition Discussed With: Patient, Family
[2017-08-02] MEDS ORDERED: ZOFRAN 4 MG/2 ML IVP STA (14:23)
[2017-08-02] MEDS ORDERED: SOLU-MEDROL 125 MG IVP STA (14:23)
--- NOTE | 2017-08-02 14:48 | DI ---
EXAMINATION: AP chest radiograph. HISTORY: Shortness of breath COMPARISON: 07/21/2017 FINDINGS: There is stable-appearing mild enlargement of the cardiac silhouette. Left chest wall pacing device is again seen. There is calcified atherosclerotic plaque of the aorta. Prominence of the interstiti al markings has decreased. There are mild bibasilar streaky opacities, decreased compared to the pre vious exam. No pneumothorax or definite pleural effusion is seen. IMPRESSION: Decreased mild bibasilar atelectasis and/or consolidation. Cardiomegaly without overt pulmonary edema.
[2017-08-02] MEDS: DUONEB NEB STA (15:23)
[2017-08-02] MEDS ORDERED: LASIX IVP STA (15:40)
[2017-08-02] MEDS ORDERED: ZOFRAN 4 MG/2 ML IVP PRN (15:51)
[2017-08-02] MEDS ORDERED: DOXY-100 100 MG in SODIUM CHLORIDE 100 ML IV STA (15:57)
[2017-08-02] MEDS: SOLU-MEDROL 125 MG IVP SCH ×2 (16:12→23:23)
[2017-08-02] MEDS ORDERED: NON-FORMULARY MEDICATION (Potassium Chloride [Klor-Con 10] 10 MEQ) PO SCH (17:00)
[2017-08-02 17:34] VITALS: BMI 32.1
[2017-08-02] MEDS ORDERED: CARDIZEM CD ONE (19:47)
[2017-08-02] MEDS ORDERED: REQUIP ONE (19:48)
[2017-08-02] MEDS ORDERED: LOPRESSOR ONE (19:48)
[2017-08-02] MEDS: PROZAC PO SCH (20:11)
[2017-08-02] MEDS: DOXY-100 100 MG in SODIUM CHLORIDE 100 ML IV SCH (20:11)
[2017-08-02] MEDS: VALIUM PO SCH (20:12)
[2017-08-02] MEDS: ELIQUIS PO SCH (20:12)
[2017-08-02] MEDS: DUONEB NEB SCH (20:20)
[2017-08-02] MEDS ORDERED: NON-FORMULARY MEDICATION (Ropinirole Hcl [Requip] 2 MG) PO SCH (21:00)
[2017-08-02] MEDS ORDERED: NON-FORMULARY MEDICATION (Diltiazem Hcl [Cardizem] 120 MG) PO SCH (21:00)
[2017-08-02] MEDS ORDERED: NON-FORMULARY MEDICATION (Metoprolol Tartrate [Metoprolol Tartrate] 100 MG) PO SCH (21:00)
[2017-08-02] MEDS ORDERED: NON-FORMULARY MEDICATION (Melatonin [Melatonin] 10 MG) PO SCH (21:00)
[2017-08-02] MEDS ORDERED: GLUCOPHAGE PO SCH (21:00)
[2017-08-03] MEDS ORDERED: SYNTHROID ONE (05:52)
[2017-08-03] MEDS: DUONEB NEB SCH (05:55)
[2017-08-03] MEDS ORDERED: SYNTHROID PO SCH (06:30)
[2017-08-03] MEDS: LASIX IVP SCH (06:33)
[2017-08-03] MEDS: SOLU-MEDROL 125 MG IVP SCH ×2 (07:53→17:42)
[2017-08-03] MEDS: VALIUM PO SCH ×2 (08:48→20:26)
[2017-08-03] MEDS: GLUCOPHAGE PO SCH ×2 (08:49→17:19)
[2017-08-03] MEDS: CALCIUM 500 + VIT D 200 MG TABLET PO SCH (08:50)
[2017-08-03] MEDS: CARDIZEM PO SCH ×2 (08:50→20:25)
[2017-08-03] MEDS: ELIQUIS PO SCH ×2 (08:51→20:26)
[2017-08-03] MEDS: COZAAR PO SCH (08:51)
[2017-08-03] MEDS: JANUVIA PO SCH (08:52)
[2017-08-03] MEDS: LOPRESSOR PO SCH ×2 (08:53→20:26)
[2017-08-03] MEDS: MULTIVITAMIN TABLET PO SCH (08:54)
[2017-08-03] MEDS: PROZAC PO SCH ×2 (08:54→20:26)
[2017-08-03] MEDS ORDERED: NON-FORMULARY MEDICATION (Sitagliptin Phosphate [Januvia] 100 MG) PO SCH (09:00)
[2017-08-03] MEDS ORDERED: NON-FORMULARY MEDICATION (Calcium Carbonate [Calcium] 600 MG) PO SCH (09:00)
[2017-08-03] MEDS: DOXY-100 100 MG in SODIUM CHLORIDE 100 ML IV SCH ×2 (09:00→20:24)
[2017-08-03] MEDS: NORCO 5-325 PO SCH ×3 (09:00→20:28)
[2017-08-03] MEDS ORDERED: LANOXIN IVP STA (09:38)
[2017-08-03] MEDS ORDERED: CARDIZEM PO ONE (09:39)
[2017-08-03] MEDS ORDERED: DOXY-100 100 MG in SODIUM CHLORIDE 100 ML IV SCH (10:58)
[2017-08-03] MEDS: DUONEB NEB STA (11:25)
[2017-08-03] MEDS: ZOFRAN 4 MG/2 ML IVP PRN (13:59)
[2017-08-03] MEDS ORDERED: DULCOLAX RC STA (15:23)
[2017-08-03] MEDS: HUMULIN R SUBCUT PRN ×2 (17:19→20:24)
[2017-08-03] MEDS: REQUIP PO SCH (20:26)
[2017-08-03] MEDS: NON-FORMULARY MEDICATION (Melatonin [Melatonin] 10 MG) PO SCH (20:34)
[2017-08-03] MEDS ORDERED: SODIUM CHLORIDE IV SCH (21:00)
[2017-08-03] MEDS ORDERED: DOXY IV SCH (21:00)
[2017-08-04] MEDS: SOLU-MEDROL 125 MG IVP SCH ×4 (00:31→23:27)
[2017-08-04] MEDS: HUMULIN R SUBCUT PRN ×4 (05:52→21:53)
[2017-08-04] MEDS: LASIX IVP SCH (05:56)
[2017-08-04] MEDS: SYNTHROID PO SCH (05:57)
[2017-08-04] MEDS: COZAAR PO SCH (08:25)
[2017-08-04] MEDS: VALIUM PO SCH ×2 (08:25→21:46)
[2017-08-04] MEDS: DOXY-100 100 MG in SODIUM CHLORIDE 100 ML IV SCH ×2 (08:25→21:45)
[2017-08-04] MEDS: CALCIUM 500 + VIT D 200 MG TABLET PO SCH (08:25)
[2017-08-04] MEDS: GLUCOPHAGE PO SCH ×2 (08:25→16:56)
[2017-08-04] MEDS: CARDIZEM PO SCH ×2 (08:25→21:45)
[2017-08-04] MEDS: MULTIVITAMIN TABLET PO SCH (08:25)
[2017-08-04] MEDS: JANUVIA PO SCH (08:27)
[2017-08-04] MEDS: PROZAC PO SCH ×2 (08:30→21:46)
[2017-08-04] MEDS: ELIQUIS PO SCH ×2 (08:30→21:46)
[2017-08-04] MEDS: NORCO 5-325 PO SCH ×2 (08:30→21:46)
[2017-08-04] MEDS: LOPRESSOR PO SCH ×2 (08:30→21:48)
--- NOTE | 2017-08-04 08:57 | PCM.PROG ---
Attending Provider: ATTENDING PROVIDER: Dr. ROSLAINO GRAY This patient is seen with Elsy Estrada, Nurse Practitioner. DATE OF SERVICE: 08/04/17 SUBJECTIVE: This 72 year old WHITE/ F was hospitalized 08/02/17. The patient is sitting in chair, resting comfortably. Shortness of breath has improved. REVIEW OF SYSTEMS: CONSTITUTIONAL: Weakness. No night sweats. No fatigue, malaise, lethargy. No fever or chills. HEENT: Eyes: No visual changes. No eye pain. No eye discharge. ENT: No runny nose. No epistaxis. No sinus pain. No odynophagia. No congestion. RESPIRATORY: No cough, no congestion. No hemoptysis. Positive for shortness of breath. CARDIOVASCULAR: No angina symptoms. No CHF symptoms. No atypical chest pain for CAD. No palpitations. No orthopnea.. GASTROINTESTINAL: No abdominal pain. No nausea or vomiting. No diarrhea or constipation. No hematemesis. No hematochezia. GENITOURINARY: No urgency. No frequency. No dysuria. No hematuria. No obstructive symptoms. No discharge. No pain. No significant abnormal bleeding. MUSCULOSKELETAL: No musculoskeletal pain; no joint swelling. NEUROLOGICAL: Confusion. No headache. No neck pain. No syncope. No seizures. No dizziness. PSYCHIATRIC: Not anxious. No depression. No suicidal thoughts. No homicidal thoughts. SKIN: No rash. No lesions. No wounds. ENDOCRINE: No unexplained weight loss. No weight gain. HEMATOLOGIC/LYMPHATIC: No anemia. No purpura. No petechiae. No prolonged or excessive bleeding. No palpable lymph nodes. PHYSICAL EXAMINATION: GENERAL: The patient is resting comfortably in chair, has bouts of confusion, in no distress. VITAL SIGNS: Temperature 97.6 F, Pulse 110, Respiratory Rate 20, BP 141/91, Pulse Ox 93% HEENT: Head normocephalic, atraumatic. Eyes: Extraocular muscles are intact. Pupils are equal, round and reactive to light and accommodation. Ears: No lesions. Nose appeared normal. Throat: No exudate or erythema. NECK: Supple. No JVD, no carotid bruit. No lymphadenopathy or thyromegaly. LUNGS: Diminished breath sounds bilaterally. Clear to auscultation. Percussion note normal. Chest symmetrical. HEART: Irregular heart rate consistent with atrial fibrillation. S1, S2, no S3. No murmurs. No cyanosis or clubbing. No ascites. Pulses: Dorsalis pedis and posterior tibial pulses +1 to +2 both sides. ABDOMEN: Soft. Non-tender. Bowel sounds active. No CVA tenderness. No mass felt. EXTREMITIES: No edema. Full range of motion of all extremities, equal. NEUROLOGIC: No focal deficit. Cranial nerves II through XII are grossly intact. No headache, no double vision or headache. SKIN: Not dry. Intact. Turgor-normal. LYMPHATIC: No palpable lymph nodes/no lymphedema. MUSCULOSKELETAL: Normal joints with no swelling. Muscle tone is normal. LAB REVIEW: 08/04/17 04:40 08/04/17 04:40 08/04/17 04:40: Sodium 132 L, Potassium 5.2 H, Chloride 97 L, Carbon Dioxide 27 , Anion Gap 13.2, BUN 36 H, Creatinine 1.23, Estimated GFR (MDRD) 43.00, BUN/ Creatinine Ratio 29.26, Glucose 247 H, Calcium 9.3, Total Bilirubin 0.5, AST 22 , ALT 23, Alkaline Phosphatase 67, Total Protein 7.1, Albumin 3.4, Globulin 3.7 , Albumin/Globulin Ratio 0.92 08/04/17 04:40: WBC 14.01 H D, RBC 3.29 L, Hgb 9.5 L, Hct 29.5 L, MCV 89.7, MCH 28.9, MCHC 32.2, RDW Coeff of Alisha 16.5 H, Plt Count 179, Immature Gran % (Auto) 0.6, Neut % (Auto) 94.2, Lymph % (Auto) 3.9 L, [place] % (Auto) 1.3, Eos % (Auto) 0.0, Baso % (Auto) 0.0, Immature Gran # (Auto) 0.1, Neut # 13.2 H, Lymph # 0.6, [place] # 0.2 L, Eos # 0.0, Baso # 0.0 ASSESSMENT: 1. COPD EXACERBATION, OXYGEN DEPENDENT 2. HYPERKALEMIA 3. HYPONATREMIA 4. ANEMIA 5. ATRIAL FIBRILLATION PLAN: 1. Hold potassium today 2. T4 and TSH 3. Digoxin 0.125 mg daily Plan and coordination of the patient's care discussed in the presence of Manager [employer] and nurse. CONDITION: Stable SCRIBED BY: MAKI REBOLLEDO, Religious Assistant scribed while in presence of service performed by Dr. Gray/Elsy Estrada, CATHI on 08/04/17 ([id number])
[2017-08-04] MEDS ORDERED: MICRO-K CAP PO SCH (09:00)
--- NOTE | 2017-08-04 11:29 | PN ---
DATE OF SERVICE: 08/02/17 SUBJECTIVE: The patient was brought to the emergency room by family because of having shortness of breath. The patient has a history of bronchial asthma, chronic lung disease, frequent hospitalizations with acute bronchitis. In the emergency room, the patient was seen and examined by the ER attending and was hospitalized with acute bronchitis with severe chronic lung disease. PHYSICAL EXAMINATION: GENERAL: The patient is alert, oriented to time, place and person. VITAL SIGNS: HEENT: Head normocephalic, atraumatic. Eyes: Extraocular muscles are intact. Pupils are equal, round and reactive to light and accommodation. Ears: No lesions. Nose appeared normal. Throat: No exudate or erythema. NECK: Supple. No JVD, no carotid bruit. No lymphadenopathy or thyromegaly. LUNGS: Decreased breath sounds with good air entry. Percussion note normal. Chest symmetrical. CVS: S1, S2, no S3. No murmurs. No cyanosis or clubbing. No ascites. Pulses : Dorsalis pedis and posterior tibial pulses +1 to +2 both sides. ABDOMEN: Soft. Nontender. Bowel sounds active. No CVA tenderness. No mass felt. EXTREMITIES: +1 to +2 pitting edema. Full range of motion of all extremities, equal. NEUROLOGIC: No focal deficit. Cranial nerves II through XII are grossly intact. No headache, no double vision or headache. SKIN: Not dry. Intact. Turgor - normal. LYMPHATIC: No palpable lymph nodes/no lymphedema. MUSCULOSKELETAL: Normal joints with no swelling. Muscle tone is normal. ASSESSMENT: 1. ACUTE BRONCHITIS 2. CHRONIC LUNG DISEASE PLAN: 1. Will give Solu-Medrol q.8hr 2. Also nebs treatment 3. IV Lasix every morning 4. Antibiotics CONDITION: Stable TIME SPENT: More than 30 minutes. Plan and coordination of the patient's care discussed in the presence of nurse. TY
--- NOTE | 2017-08-04 11:35 | PN ---
DATE OF SERVICE: 08/03/17 SUBJECTIVE: This is a 72-year-old white female hospitalized with acute exacerbation of COPD , also has history of CHF with fluid retention. The patient's condition seems to have improved. She is feeling better. She is sitting up in the chair very comfortably, no distress. REVIEW OF SYSTEMS: CONSTITUTIONAL: Feeling better. No night sweats. No fatigue, malaise, lethargy. No fever or chills. HEENT: Eyes: No visual changes. No eye pain. No eye discharge. ENT: No runny nose. No epistaxis. No sinus pain. No sore throat. No odynophagia. No congestion. RESPIRATORY: No cough, no congestion. No hemoptysis. Less shortness of breath. CARDIOVASCULAR: No angina symptoms. No CHF symptoms. No atypical chest pain for CAD. No palpitations. No PND. No orthopnea. GASTROINTESTINAL: No abdominal pain. No nausea or vomiting. No diarrhea or constipation. No hematemesis. No hematochezia. GENITOURINARY: No urgency. No frequency. No dysuria. No hematuria. No obstructive symptoms. No discharge. No pain. No significant abnormal bleeding. MUSCULOSKELETAL: No musculoskeletal pain; no joint swelling. NEUROLOGICAL: No headache. No neck pain. No syncope. No seizures. No dizziness. PSYCHIATRIC: Not anxious. No depression. No suicidal thoughts. No homicidal thoughts. SKIN: No rash. No lesions. No wounds. ENDOCRINE: No unexplained weight loss. No weight gain. HEMATOLOGIC/LYMPHATIC: No anemia. No purpura. No petechiae. No prolonged or excessive bleeding. No palpable lymph nodes. PHYSICAL EXAMINATION: VITAL SIGNS: Temperature 98.3, pulse 120, irregular respiratory rate 24, BP 150 /95, pulse ox 92%. HEENT: Head normocephalic, atraumatic. Eyes: Extraocular muscles are intact. Pupils are equal, round and reactive to light and accommodation. Ears: No lesions. Nose appeared normal. Throat: No exudate or erythema. NECK: Supple. No JVD, no carotid bruit. No lymphadenopathy or thyromegaly. LUNGS: Decreased breath sounds. Clear to auscultation. Percussion note normal. Chest symmetrical. HEART: S1, S2, no S3. No murmurs. No cyanosis or clubbing. No ascites. Pulses: Dorsalis pedis and posterior tibial pulses +1 to +2 both sides. ABDOMEN: Soft. Nontender. Bowel sounds active. No CVA tenderness. No mass felt. EXTREMITIES: Trace edema. Full range of motion of all extremities, equal. NEUROLOGIC: No focal deficit. Cranial nerves II through XII are grossly intact. No headache, no double vision or headache. SKIN: Not dry. Intact. Turgor - normal. LYMPHATIC: No palpable lymph nodes/no lymphedema. MUSCULOSKELETAL: Normal joints with no swelling. Muscle tone is normal. LABS: Hemoglobin 9.7, hematocrit 31, WBC 7,000, normal differential. Creatinine 1.1, BUN 24, potassium 5.1, glucose 290. Telemetry shows atrial fib with rate of 110/ min. ASSESSMENT: 1. ACUTE EXACERBATION OF COPD 2. CHF 3. CHRONIC KIDNEY DISEASE 4. ANEMIA PLAN: Continue treatment with steroids, antibiotics. Cardizem already given 60 mg extra. Lanoxin 0.25 IV given to slow the ventricular rate down. Also sliding scale with coverage. TIME SPENT: More than 30 minutes. Plan and coordination of the patient's care discussed in the presence of nurse. TY
--- NOTE | 2017-08-04 11:39 | PN ---
DATE OF SERVICE: 08/04/17 SUBJECTIVE: The patient is hospitalized with COPD exacerbation, borderline CHF. Her condition has steadily improved. Creatinine 1.2, BUN 36, hemoglobin 9.5 with hematocrit of 29. Potassium 5.2. Blood pressure is 140/90 today with pulse of 110. The patient has atrial fib. Digoxin was given 0.125 today. T4, TSH will be done. She is feeling better. Her condition is stable. The patient has been explained about losing weight, cut down on salt intake. Elevate the legs. The patient doesn't get much help at home. The daughter works. The patient should consider long-term. The patient was seen and examined with nurse practitioner. TIME SPENT: More than 30 minutes. Plan and coordination of the patient's care discussed in the presence of nurse. TY
[2017-08-04] MEDS: LANOXIN PO SCH (12:23)
[2017-08-04] MEDS: ZOFRAN 4 MG/2 ML IVP PRN (16:06)
[2017-08-04] MEDS: REQUIP PO SCH (21:45)
[2017-08-04] MEDS: NON-FORMULARY MEDICATION (Melatonin [Melatonin] 10 MG) PO SCH (21:49)
[2017-08-05] MEDS: LASIX IVP SCH (05:30)
[2017-08-05] MEDS: SYNTHROID PO SCH (05:30)
[2017-08-05] MEDS: HUMULIN R SUBCUT PRN ×2 (05:31→11:34)
[2017-08-05] MEDS ORDERED: PREDNISONE PO SCH (08:30)
[2017-08-05] MEDS: DOXY-100 100 MG in SODIUM CHLORIDE 100 ML IV SCH (08:47)
[2017-08-05] MEDS: LANOXIN PO SCH (08:49)
[2017-08-05] MEDS: LOPRESSOR PO SCH (08:49)
[2017-08-05] MEDS: JANUVIA PO SCH (08:50)
[2017-08-05] MEDS: COZAAR PO SCH (08:50)
[2017-08-05] MEDS: MULTIVITAMIN TABLET PO SCH (08:50)
[2017-08-05] MEDS: ELIQUIS PO SCH (08:50)
[2017-08-05] MEDS: GLUCOPHAGE PO SCH (08:50)
[2017-08-05] MEDS: CALCIUM 500 + VIT D 200 MG TABLET PO SCH (08:50)
[2017-08-05] MEDS: NORCO 5-325 PO SCH (08:50)
[2017-08-05] MEDS: VALIUM PO SCH (08:50)
[2017-08-05] MEDS: PROZAC PO SCH (08:51)
[2017-08-05] MEDS: CARDIZEM PO SCH (08:51)
[2017-08-05] MEDS: SOLU-MEDROL 125 MG IVP SCH (08:52)
--- NOTE | 2017-08-05 08:58 | PCM.PROG ---
Attending Provider: ATTENDING PROVIDER: Dr. ROSALINO MCKEON This patient is seen with Elsy Estrada, Nurse Practitioner. DATE OF SERVICE: 08/05/17 SUBJECTIVE: This 72 year old WHITE/ F was hospitalized 08/02/17. The patient is sitting in chair, alert. She has been up and about, states she wants to go home. Shortness of breath has improved. She is eating 75 to 100% of her meals. REVIEW OF SYSTEMS: CONSTITUTIONAL: Weakness. No night sweats. No malaise, lethargy. No fever or chills. HEENT: Eyes: No visual changes. No eye pain. No eye discharge. ENT: No runny nose. No epistaxis. No sinus pain. No odynophagia. No congestion. RESPIRATORY: No cough, no congestion. No hemoptysis. Shortness of breath, as usual. CARDIOVASCULAR: No angina symptoms. No CHF symptoms. No atypical chest pain for CAD. No palpitations. No orthopnea.. GASTROINTESTINAL: No abdominal pain. No nausea or vomiting. No diarrhea or constipation. No hematemesis. No hematochezia. GENITOURINARY: No urgency. No frequency. No dysuria. No hematuria. No obstructive symptoms. No discharge. No pain. No significant abnormal bleeding. MUSCULOSKELETAL: No musculoskeletal pain; no joint swelling. NEUROLOGICAL: Awake, alert, oriented to time, place and person. No headache. No neck pain. No syncope. No seizures. No dizziness. PSYCHIATRIC: Not anxious. No depression. No suicidal thoughts. No homicidal thoughts. SKIN: No rash. No lesions. No wounds. ENDOCRINE: No unexplained weight loss. No weight gain. HEMATOLOGIC/LYMPHATIC: No anemia. No purpura. No petechiae. No prolonged or excessive bleeding. No palpable lymph nodes. PHYSICAL EXAMINATION: GENERAL: The patient is awake, alert and oriented to person and place, sitting in chair in no distress. VITAL SIGNS: Temperature 97.4 F, Pulse 100, Respiratory Rate 18, BP 148/78, Pulse Ox 96% HEENT: Head normocephalic, atraumatic. Eyes: Extraocular muscles are intact. Pupils are equal, round and reactive to light and accommodation. Ears: No lesions. Nose appeared normal. Throat: No exudate or erythema. NECK: Supple. No JVD, no carotid bruit. No lymphadenopathy or thyromegaly. LUNGS: Diminished breath sounds. Clear to auscultation. Percussion note normal. Chest symmetrical. HEART: Irregular heart rate. S1, S2, no S3. No murmurs. No cyanosis or clubbing. No ascites. Pulses: Dorsalis pedis and posterior tibial pulses +1 to +2 both sides. ABDOMEN: Soft. Non-tender. Bowel sounds active. No CVA tenderness. No mass felt. EXTREMITIES: No edema. Full range of motion of all extremities, equal. NEUROLOGIC: No focal deficit. Cranial nerves II through XII are grossly intact. No headache, no double vision or headache. SKIN: Not dry. Intact. Turgor-normal. LYMPHATIC: No palpable lymph nodes/no lymphedema. MUSCULOSKELETAL: Normal joints with no swelling. Muscle tone is normal. LAB REVIEW: 08/05/17 04:30 08/05/17 04:30 08/05/17 04:30: Sodium 132 L, Potassium 5.0, Chloride 96 L, Carbon Dioxide 25, Anion Gap 16.0, BUN 42 H, Creatinine 1.22, Estimated GFR (MDRD) 43.00, BUN/ Creatinine Ratio 34.42, Glucose 221 H, Calcium 9.5, Total Bilirubin 0.5, AST 22 , ALT 23, Alkaline Phosphatase 68, Total Protein 7.3, Albumin 3.5, Globulin 3.8 , Albumin/Globulin Ratio 0.92 08/05/17 04:30: WBC 11.88 H, RBC 3.53 L, Hgb 10.0 L, Hct 31.5 L, MCV 89.2, MCH 28.3, MCHC 31.7 L, RDW Coeff of Alisha 16.3 H, Plt Count 261 D, Immature Gran % ( Auto) 0.9, Neut % (Auto) 93.3, Lymph % (Auto) 4.4 L, [place] % (Auto) 1.4, Eos % ( Auto) 0.0, Baso % (Auto) 0.0, Immature Gran # (Auto) 0.1, Neut # 11.1 H, Lymph # 0.5 L, [place] # 0.2 L, Eos # 0.0, Baso # 0.0 08/04/17 08:11: Thyroxine (T4) 7.4 08/04/17 08:11: TSH 1.789 ASSESSMENT: 1. COPD EXACERBATION, OXYGEN DEPENDENT 2. HYPERKALEMIA, RESOLVED 3. HYPONATREMIA 4. ANEMIA 5. ATRIAL FIBRILLATION PLAN: 1. ABGs on 3L 2. D/C [place] 3. D/C IV Lasix then start Lasix 20 mg p.o. 4. Prednisone 20 mg b.i.d. times 5 days 5. D/C Solu-Medrol 6. Doxycycline 100 mg b.i.d. times five days 7. Continue Digoxin 8. Anticipate d/c home today Plan and coordination of the patient's care discussed in the presence of Drapery Head Former and nurse. CONDITION: Stable SCRIBED BY: MAKI REBOLLEDO [employer] scribed while in presence of service performed by Dr. Mckeon/Elsy Estrada APRN on 08/05/17 ([id number])
[2017-08-05 10:41] VITALS: BP 139/80; TEMP 98
--- NOTE | 2017-08-05 11:27 | CM.DICTOOL ---
ADMISSION: 08/02/17 15:41 DISCHARGE: 08/05/17 FINAL DIAGNOSIS CHF (congestive heart failure) (Acute) COPD exacerbation (Acute) O2 DEPENDENT HYPERKALEMIA RESOLVED HYPONATREMIA ANEMIA ATRIAL FIB HISTORY OF: CATARACTS HTN S/P HYSTERECTOMY OSTEOPOROSIS DM ANXIETY DEPRESSION S/P APPENDECTOMY HYPOTHYROIDISM DEMENTIA CVA CAD RESTLESS LEG SYNDROME MYNOR INSOMNIA BACK FRACTURE GASTRIC SLEEVE LAST VITALS Temp Pulse Resp BP Pulse Ox 98.0 F 84 20 139/80 95 08/05/17 10:00 08/05/17 10:00 08/05/17 10:00 08/05/17 10:00 08/05/17 10:00 ACTIVE HOME MEDICATIONS Acetaminophen/Hydrocodone Bitart ([place] 5-325) 1 tab PO BID [facility] Last Admin: 08/05/17 08:50 Dose: 1 tab Apixaban (Eliquis) 5 mg PO BID [facility] Last Admin: 08/05/17 08:50 Dose: 5 mg Calcium/Vitamin D (Calcium 500 + Vit D 200 Mg Tablet) 1 each PO DAILY [facility] Last Admin: 08/05/17 08:50 Dose: 1 each Diazepam (Valium) 2 mg PO BID [facility] Last Admin: 08/05/17 08:50 Dose: 2 mg Diltiazem HCl (Cardizem) 120 mg PO BID [facility] Last Admin: 08/05/17 08:51 Dose: 120 mg Fluoxetine HCl (Prozac) 20 mg PO BEDTIME [facility] Last Admin: 08/04/17 21:46 Dose: 20 mg Fluoxetine HCl (Prozac) 10 mg PO DAILY [facility] Last Admin: 08/05/17 08:51 Dose: 10 mg Furosemide (Lasix Tab) 20 mg PO 3 TIMES A WEEK [facility] Levothyroxine Sodium (Synthroid) 50 mcg PO QDAC [facility] Last Admin: 08/05/17 05:30 Dose: 50 mcg Losartan Potassium (Cozaar) 100 mg PO DAILY [facility] Last Admin: 08/05/17 08:50 Dose: 100 mg Metformin HCl (Glucophage) 500 mg PO BIDWM [facility] Last Admin: 08/05/17 08:50 Dose: 500 mg Metoprolol Tartrate (Lopressor) 100 mg PO BID [facility] Last Admin: 08/05/17 08:49 Dose: 100 mg Multivitamins (Multivitamin Tablet) 1 tab PO DAILY [facility] Last Admin: 08/05/17 08:50 Dose: 1 tab Non-Formulary Medication (Melatonin [Melatonin]) 10 mg PO BEDTIME [facility] Last Admin: 08/04/17 21:49 Dose: Not Given Potassium Chloride (Micro-K Cap) 10 meq PO MoWeFr@0900 [facility] Ropinirole HCl (Requip) 2 mg PO BEDTIME [facility] Last Admin: 08/04/17 21:45 Dose: 2 mg Sitagliptin Phosphate (Januvia) 100 mg PO DAILY [facility] Last Admin: 08/05/17 08:50 Dose: 100 mg ALLERGIES No Known Allergies Allergy (Verified 04/14/17 12:13) NEW PRESCRIPTIONS: NEW MEDICATIONS: 1. DOXYCYCLINE 100 MG PO BID X 5 DAYS. 2. PREDNISONE 20MG PO BID X 5 DAYS. 3. DIGOXIN 0.125MG PO DAILY SMOKING: N/A AVOID SECOND HAND SMOKE DISEASE SPECIFIC EDUCATION: ABX THERAPY STEROID THERAPY DIGOXIN A-FIB COPD CHF ANEMIA DIET ACTIVITY LAB REVIEW: 08/05/17 04:30 08/05/17 04:30 08/05/17 08:19: Puncture Site Rr, O2 Saturation 95.0, ABG pH 7.405, ABG pCO2 46.8 H, ABG pO2 77.0 L, ABG HCO3 29.3 H, ABG Total CO2 31 H, ABG Base Excess 5 H , Mal Test +, O2 Delivery Device Nc, Oxygen Liter Flow 3.00, FiO2 % 32.0 08/05/17 04:30: Sodium 132 L, Potassium 5.0, Chloride 96 L, Carbon Dioxide 25, Anion Gap 16.0, BUN 42 H, Creatinine 1.22, Estimated GFR (MDRD) 43.00, BUN/ Creatinine Ratio 34.42, Glucose 221 H, Calcium 9.5, Total Bilirubin 0.5, AST 22 , ALT 23, Alkaline Phosphatase 68, Total Protein 7.3, Albumin 3.5, Globulin 3.8 , Albumin/Globulin Ratio 0.92 08/05/17 04:30: WBC 11.88 H, RBC 3.53 L, Hgb 10.0 L, Hct 31.5 L, MCV 89.2, MCH 28.3, MCHC 31.7 L, RDW Coeff of Alisha 16.3 H, Plt Count 261 D, Immature Gran % ( Auto) 0.9, Neut % (Auto) 93.3, Lymph % (Auto) 4.4 L, [place] % (Auto) 1.4, Eos % ( Auto) 0.0, Baso % (Auto) 0.0, Immature Gran # (Auto) 0.1, Neut # 11.1 H, Lymph # 0.5 L, [place] # 0.2 L, Eos # 0.0, Baso # 0.0 08/04/17 08:11: Thyroxine (T4) 7.4 PLAN: DISCHARGE HOME TODAY. CONTINUE HOME MEDS PER NURSING SHEETS. NEW MEDICATIONS: 1. DOXYCYCLINE 100 MG PO BID X 5 DAYS. 2. PREDNISONE 20MG PO BID X 5 DAYS. 3. DIGOXIN 0.125MG PO DAILY DIET: LOW SODIUM DIET. ACTIVITY: GRADUALLY RESUME ACTIVITY. ELEVATE LEGS. WEAR O2 AT 3L/C. FOLLOW UP WITH DR. GRAY ON JulyAT 145PM. IF UNABLE TO KEEP APPOINTMENT PLEASE CALL. [phone]. IS A FULL CODE. SITTING UP IN CHAIR. ALERT AND ORIENTED X 4. STATES WOULD LIKE TO GO HOME. Luz BIANCHI APRN INTO SEE PATIENT. PLAN OF CARE DISCUSSED PER Luz BIANCHI APRN INCLUDING POSSIBLE DISCHARGE IF DR. GRAY STATES PATIENT IS READY, ABX THERAPY, STEROID THERAPY AND DIGOXIN. PATIENT VERBALIZES UNDERSTANDING AND AGREEMENT. APPETITE IS FAIR TO GOOD. VITAL SIGNS ARE STABLE. BLOOD PRESSURE HAS BEEN ELEVATED. POX 96% ON O2 AT 3L/C. HEART TONES ARE IRREGULAR WITH TELEMETRY REVEALING A-FIB/A-FIB WITH PVC. NO C/O CHEST PAIN OR DISCOMFORT. LUNGS CLEAR WITH COARSE BREATH SOUNDS. HAS NON-PRODUCTIVE COUGH. HAS DSYPNEA WITH AND WITHOUT ACTIVITY. IS UNABLE TO LIE FLAT. ABDOMEN IS SOFT, NON-TENDER WITH BOWEL SOUNDS POSITIVE IN ALL 4 QUADS. LAST BM 08/04/17. PEDAL PULSES POSITIVE WITHOUT EDEMA. HAS SALINE LOCK IN RIGHT FOREARM SITE IS CLEAR. HAS NASCIMENTO CATH TO BSD DRAINING LIGHT MARIA [place] ROSARIO URINE. IS FALL RISK WITH FALL PRECAUTIONS IN USE. IS 1 PERSON ASSIST. NO ACUTE DISTRESS NOTED. DR. ROSALINO GRAY MD Luz BIANCHI APRN
[2017-08-06] MEDS ORDERED: LASIX TAB PO SCH (06:30)
--- NOTE | 2017-08-07 13:32 | PN ---
DATE OF SERVICE: 08/05/17 SUBJECTIVE: 72 year old white female hospitalized with CHF, COPD exacerbation and has improved. Her heart rate is acceptable. Kidney functions are stable, blood pressure is under control. The patient was seen and examined with Nurse Practitioner. The patient will be discharged home on Prednisone, Lasix and Doxycycline to be taken for 5 days. The patient was advised fdc, the daughter seems to be trying her best to take care of her but not good enough. The patient is confused with her medications. Educated about her medical problems but she doesn't retain the information given to her. Cardiovascular status stable. CONDITION: Stable. TIME SPENT: More than 30 minutes. Plan and coordination of the patient's care discussed in the presence of nurse. TY
--- NOTE | 2017-08-07 13:33 | PN ---
08/02/17: Level 5 08/03/17: Intermediate 08/04/17: Intermediate 08/05/17: D as in discharge. MTDD
--- NOTE | 2017-08-20 09:35 | HP ---
DATE OF SERVICE: 08/03/17 - ADMITTED 08/02/17 HISTORY OF PRESENT ILLNESS: This is a 72-year-old white female who is brought to the emergency room by her daughter with shortness of breath. She had recently been hospitalized with similar complaints. The daughter stated in the emergency room that she had gained weight and she has a history of CHF. PAST MEDICAL HISTORY: Hypothyroidism Dyslipidemia Hypertension COPD, oxygen dependent CHF Atrial fib Obesity Anxiety Hypertension Diabetes mellitus type 2 Depression Leg edema Hypokalemia PAST SURGICAL HISTORY: Hysterectomy Gastric sleeve Cholecystectomy REVIEW OF SYSTEMS: CONSTITUTIONAL: Weakness; in no acute disterss. No night sweats. No fatigue, malaise, lethargy. No fever or chills. HEENT: Eyes: No visual changes. No eye pain. No eye discharge. ENT: No runny nose. No epistaxis. No sinus pain. No sore throat. No odynophagia. No ear pain. No congestion. RESPIRATORY: Positive for cough. No congestion. No hemoptysis. Mild shortness of breath. CARDIOVASCULAR: No angina symptoms. No CHF symptoms. No atypical chest pain for CAD. No palpitations. No orthopnea. GASTROINTESTINAL: No abdominal pain. No nausea or vomiting. No diarrhea or constipation. No hematemesis. No hematochezia. GENITOURINARY: No urgency. No frequency. No dysuria. No hematuria. No obstructive symptoms. No discharge. No pain. No significant abnormal bleeding. MUSCULOSKELETAL: No musculoskeletal pain. No joint swelling. No arthritis. NEUROLOGICAL: No headache. No neck pain. No syncope. No seizures. No dizziness. PSYCHIATRIC: Not anxious. No depression. No suicidal thoughts. No homicidal thoughts. SKIN: No rash. No lesions. No wounds. ENDOCRINE: No unexplained weight loss. No weight gain. HEMATOLOGIC/LYMPHATIC: No anemia. No purpura. No petechiae. No prolonged or excessive bleeding. No palpable lymph nodes. PERSONAL/FAMILY/SOCIAL HISTORY: She is a smoker. She currently lives with her daughter. No alcohol or ilicit drug use. MEDICATIONS: (HOME) Requip 2 mg p.o. bedtime Metoprolol 100 mg p.o. b.i.d. Glucophage 500 mg p.o. b.i.d. Januvia 100 mg p.o. daily Synthroid 50 mcg p.o. q.d a.c. Prozac 20 mg p.o. bedtime Hydrocodone/Acetaminophen one each p.o. b.id. Valium 2 mg p.o. b.i.d. Melatonin 10 mg p.o. bedtime Calcium Carbonate 600 mg p.o. daily Multivitamin one each p.o. daily Cardizem 120 mg p.o. b.i.d. Losartan 100 mg p.o. daily Eliquis 5 mg p.o. b.i.d. Duoneb one vial neb RT q.6h p.r.n. Klor-Con 10 mEq p.o. three times a week Furosemide 20 mg p.o. three times per week ALLERGIES: NKDA PHYSICAL EXAMINATION: VITAL SIGNS: Temperature 98.4, heart rate 100, respirations 20, BP 156/90, pulse ox 93% on 4L. HEENT: Head normocephalic, atraumatic. Eyes: Extraocular muscles are intact. Pupils are equal, round and reactive to light and accommodation. Ears: No lesions. Nose appeared normal. Throat: No exudate or erythema. NECK: Supple. No JVD, no carotid bruit. No lymphadenopathy or thyromegaly. LUNGS: Decreased breath sounds bilaterally. Clear to auscultation. Percussion note normal. Chest symmetrical. HEART: Irregular rate and rhythm consistent with atrial fibrillation. No cyanosis or clubbing. No ascites. Pulses: Dorsalis pedis and posterior tibial pulses +1 to +2 both sides. ABDOMEN: Soft. Nontender. Bowel sounds active. No CVA tenderness. No mass felt. EXTREMITIES: Trace leg edema. Full range of motion of all extremities, equal. NEUROLOGIC: Alert, oriented to person and place. No focal deficit. Cranial nerves II through XII are grossly intact. No headache, no double vision or headache. SKIN: Not dry. Intact. Turgor - normal. LYMPHATIC: No palpable lymph nodes/no lymphedema. MUSCULOSKELETAL: Normal joints with no swelling. Muscle tone is normal. ASSESSMENT: 1. ACUTE ON CHRONIC HEART FAILURE 2. COPD EXACERBATION 3. ANEMIA 4. ATRIAL FIBRILLATION 5. MILD DEHYDRATION Chest x-ray showed cardiomegaly without overt pulmonary edema, decreased mild bibasilar atelectasis which is an improvement. EKG showed atrial fib. Labs: White count 9.87, hemoglobin 8.9, hematocrit 28.4, platelets 187. Sodium 135, potassium 5.0, BUN 20, creatinine 0.94. GFR 58, AST 22, ALT 21, alkaline phosphatase 89, total protein 6.6. ABGs on 4L 02 sat 94, pH 7.384, pc02 47.6, p02 75, bicarb 28.4, total c02 30. Base excess of 3. BNP 1,179. PLAN: 1. Will admit. 2. Continue home medications. 3. Start on IV steroids, Solu-Cortef 125 mg q.8hr 4. Start on Doxycycline 100 mg q.12hr IV. 5. Continue Eliquis. 6. CBC, CMP daily. 7. Routine telemetry orders. 8. Lasix 20 mg IV daily. 9. Elevate the legs. 10. Low salt, ADA diet. 11. Will follow closely. TIME SPENT: More than 70 minutes. MTDD
--- NOTE | 2017-08-29 14:07 | DS ---
DATE OF SERVICE: 08/05/17 FINAL DIAGNOSIS: 1. CONGESTIVE HEART FAILURE, ACUTE 2. COPD EXACERBATION, ACUTE, 02 DEPENDENT 3. HYPERKALEMIA, RESOLVED 4. HYPONATREMIA 5. ANEMIA 6. ATRIAL FIBRILLATION 7. HISTORY OF CATARACTS 8. HYPERTENSION 9. STATUS POST HYSTERECTOMY 10. OSTEOPOROSIS 11. DIABETES MELLITUS 12. ANXIETY 13. DEPRESSION 14. STATUS POST APPENDECTOMY 15. HYPOTHYROIDISM 16. DEMENTIA 17. CVA 18. CAD 19. RESTLESS LEG SYNDROME 20. MYNOR 21. INSOMNIA 22. BACK FRACTURE 23. GASTRIC SLEEVE DISCHARGE INSTRUCTIONS: Followup appointment with Dr. Mckeon on 08/12/17 at 1:45 p.m. If unable to keep appointment please call [phone]. MEDICATIONS AT DISCHARGE: [place] 5/325 one tab p.o. b.i.d. TOM Apixaban (Eliquis) 5 mg p.o. b.i.d. TOM Calcium 500 + Vitamin D 200 mg one each p.o. daily TOM Valium 2 mg p.o. b.i.d. TOM Cardizem 120 mg p.o. b.i.d. TOM Prozac 20 mg p.o. bedtime TOM Prozac 10 mg p.o. daily TOM Lasix 20 mg p.o. three times a week TOM Synthroid 50 mcg p.o. q.d a.c. TOM Cozaar 100 mg p.o. daily TOM Glucophage 500 mg p.o. b.i.d. with meal TOM Lopressor 100 mg p.o. b.i.d. TOM Multivitamin one tab p.o. daily TOM Melatonin 10 mg p.o. bedtime TOM Micro-K 10 mEq p.o. MoWeFr @ 0900 TOM Requip 2 mg p.o. bedtime TOM Januvia 100 mg p.o. daily TOM NEW PRESCRIPTIONS: Doxycycline 100 mg p.o. b.i.d times 5 days Prednisone 20 mg p.o. b.i.d. times 5 days Digoxin 0.125 mg p.o. daily DIET INSTRUCTIONS: Low sodium diet. ACTIVITY: Gradually resume activity. Elevate legs. SMOKING: N/A Avoid second-hand smoke DISEASE SPECIFIC EDUCATION: ABX therapy Steroid therapy Digoxin Atrial fibrillation COPD CHF Anemia Diet Activity HOSPITAL COURSE: This 72-year-old white female who was admitted through the emergency room. She was brought in by her daughter who she currently lives with shortness of breath and cough. She does have a history of CHF and COPD. She is oxygen dependent. Her potassium was elevated on admission. ABGs were abnormal with a p02 of 74. She was on 4L of oxygen at the time. Chest x-ray revealed improving consolidation vs atelectasis. She was hospitalized not long ago for similar symptoms. She had no leg edema. She does have a history of atrial fibrillation. All of her home medications were continued. She was placed on Solu-Medrol 125 mg IV q.8hr, started on Xopenex neb treatments, started on Doxycycline 100 mg IV q.12hr as well as Lasix 20 mg IV daily. She had previously been on 20 mg three times a week. Over the course of the past few days, her breathing has improved. She has been up and about walking for the past 24 hours. She is down to 3L on her 02 and ABGs have improved. Today, vitals: Temperature 98, heart rate 84, respirations 20, BP 139/80, pulse ox 95% on 3L. She is in no acute distress. She did have an occurrence of atrial fibrillation with RVR. She was given a one time dose of Cardizem additionally as she is on 120 mg b.i.d. We also started her on Digoxin 0.125 mg daily. Will do a Digoxin level when she sees us in the office next week. Her rate has been controlled for the past 48 hours. Labs look good. Hemoglobin 10.0, hematocrit 31.5, white count 11.88. Sodium 132, potassium 5.0, BUN 42, creatinine 1.22. She is discharged in stable condition. Will see us next week. TIME SPENT: More than 60 minutes. TY
== END 2017-08-05 13:10 | disposition home or self-care (01) | DRG 292 ==
LOC: ED 13:49 → MEDSURG B 15:41
PROVIDERS: ADMIT Internal Medicine; ATTEND Internal Medicine
DX: I50.9 Heart failure, unspecified (principal); J44.1 Chronic obstructive pulmonary disease with (acute) exacerbation; J98.11 Atelectasis; E87.1 Hypo-osmolality and hyponatremia; R06.02 Shortness of breath; I48.91 Unspecified atrial fibrillation; I12.9 Hypertensive chronic kidney disease with stage 1 through stage 4 chronic kidney disease, or unspecified chronic kidney disease; E11.22 Type 2 diabetes mellitus with diabetic chronic kidney disease; N18.9 Chronic kidney disease, unspecified; E87.5 Hyperkalemia; D64.9 Anemia, unspecified; I10 Essential (primary) hypertension; M81.0 Age-related osteoporosis without current pathological fracture; F41.8 Other specified anxiety disorders; E03.9 Hypothyroidism, unspecified; F03.90 Unspecified dementia, unspecified severity, without behavioral disturbance, psychotic disturbance, mood disturbance, and anxiety; I25.10 Atherosclerotic heart disease of native coronary artery without angina pectoris; G25.81 Restless legs syndrome; G47.00 Insomnia, unspecified; I50.23 Acute on chronic systolic (congestive) heart failure; Z86.73 Personal history of transient ischemic attack (TIA), and cerebral infarction without residual deficits; Z79.01 Long term (current) use of anticoagulants; Z79.84 Long term (current) use of oral hypoglycemic drugs; Z87.81 Personal history of (healed) traumatic fracture; Z98.84 Bariatric surgery status; Z99.81 Dependence on supplemental oxygen
CPT/HCPCS: 36415; 80053; 82550; 82803; 82962; 83605; 83880; 84145; 84436; 84443; 84484; 85025; 87040; 87081; 87502; 93005; 93010; 94640; 96365; 96375; 99223; 99232; 99239; 99284

== ENCOUNTER 2017-08-25 10:54 | Inpatient (IN) | payer OTHER ==
[2017-08-25] MEDS ORDERED: SOLU-MEDROL 125 MG IVP STA (11:25)
[2017-08-25] MEDS ORDERED: SODIUM CHLORIDE 1,000 ML IV STA (11:25)
[2017-08-25] MEDS ORDERED: DUONEB NEB STA (11:26)
--- NOTE | 2017-08-25 12:08 | CT ---
EXAM: CT chest without contrast. HISTORY: Shortness of breath, cough. COMPARISON: Radiograph 08/02/2017. CT 05/02/2017. TECHNIQUE: Multiple axial images of the chest were obtained without intravenous contrast. Images we re reformatted in the sagittal and coronal planes. FINDINGS: Left-sided electronic cardiac device is present. Multiple mediastinal lymph nodes are sta ble since the prior study with the largest measuring 1.1 cm short axis in the precarinal region on ax ial image 21. Heart size is normal. Atherosclerotic calcifications present. There is no pericardia l effusion. Small right pleural effusion is present which is new from prior CT. There is consolidation within th e posterior medial left lower lobe with occlusion of associated left lower lobe bronchi which is stab le from prior CT. Lungs otherwise clear without pneumothorax. Limited images of the upper abdomen demonstrate no acute finding. There has been previous gastric nunez rgery and cholecystectomy. IMPRESSION: 1. New small right pleural effusion. 2. Chronic left lower lobe atelectasis with endobronchial filling defect. Correlate with endoscopy as warranted. 3. Stable mediastinal lymphadenopathy.
--- NOTE | 2017-08-25 12:43 | ED.PDOC ---
General ED Provider: Dr. EMMA RAYGOZA Chief Complaint: Respiratory Complaint Stated Complaint: shortness of breath Time Seen by Physician: 11:00 Mode of Arrival: Wheelchair Information Source: Patient, Family Exam Limitations: No limitations Primary Care Provider: ROSALINO GRAY Nursing and Triage Documentation Reviewed and Agree: Yes Reviewed sepsis parameters & appropriate labs ordered?: Yes System Inflammatory Response Syndrome: Not Applicable Sepsis Protocol: For patient's 13 years and over: Temp is 96.8 and below OR 101 and greater Pulse >90 BPM Resp >20/minute Acutely Altered Mental Status Are patient's symptoms suggestive of a new infection, such as: -Pneumonia -Skin, Soft Tissue -Endocarditis -UTI -Bone, Joint Infection -Implantable Device -Acute Abdominal Infection -Wound Infection -Meningitis -Blood Stream Catheter Infection -Unknown System Inflammatory Response Syndrome: Not Applicable Respiratory Complaint Exam - Respiratory Complaint/Exam Onset/Duration: 3 days Symptoms Are: Still present Timing: Constant (o2 was 80 at home pt has gained weight 12 lbs ) Initial Severity: Mild Current Severity: Mild Location: Nose, Throat Character: Reports: Non-productive cough Associated Signs and Symptoms: Denies: Rapid breathing, Dyspnea, Fever, Chills, Chest pain, Pleuritic chest pain, Wheezing, Hemoptysis, Dizziness, Calf pain, Calf swelling, Edema, URI, Nasal congestion, Hoarseness, Sinus discomfort, Vomiting, Sore throat, Weight loss, Decreased oral intake, Increased thirst, Increased appetite, Increased urination Related History: Reports: Similar episode Related Surgical History: Reports: None Pulmonary Embolism Risk Factors: Bedrest Cardiac Risk Factors: Reports: Diabetes, Hypertension Pseudomonas Risk Factors: Reports: Chronic Lung Disease Tuberculosis Risk Factors: Reports: None Status Asthmaticus Risk Factors: Reports: None Home Oxygen Use: Yes (4l nc) Recent Stress Test: Yes Recent Echo/LV Function: Yes Current Antibiotic Use: Yes Current Asthma Medication Use: No Respiratory Distress: None Inadequate Respiratory Effort: No Dysphagia Present: No Stridor Present: No JVD Present: No Accessory Muscle Use: No Retractions: Not Present Review of Systems - Review Of Systems Constitutional: Reports: Malaise Eyes: Reports: No symptoms Ears, Nose, Mouth, Throat: Reports: No symptoms Respiratory: Reports: Cough, Short of air Cardiac: Reports: No symptoms GI: Reports: No symptoms : Reports: No symptoms Musculoskeletal: Reports: No symptoms Skin: Reports: No symptoms Neurological: Reports: No symptoms Endocrine: Reports: No symptoms Hematologic/Lymphatic: Reports: No symptoms All Other Systems: Reviewed and Negative Past Medical History - Past Medical History Previously Healthy: No Endocrine: Reports: Hypothyroid, Dyslipidemia Cardiovascular: Reports: Hypertension Respiratory: Reports: COPD Hematological: Reports: None Gastrointestinal: Reports: None Genitourinary: Reports: None Neuro/Psych: Reports: None Musculoskeletal: Reports: None Cancer: Reports: None Last Menstrual Period: NA - Surgical History General Surgical History: Reports: Unknown - Family History Family History: Reports: Unknown - Social History Smoking Status: Former smoker Hx Substance Use: No Alcohol Screening: None Physical Exam - Physical Exam Appearance: Ill-appearing Ill-appearing: Moderate Pain Distress: Mild Eyes: HOLGER, EOMI, Conjunctiva clear ENT: Ears normal, Nose normal, Oropharynx normal Respiratory: Rhonchi, Wheezes Cardiovascular: RRR, Pulses normal, No rub, No murmur GI/: Soft, Nontender, No masses, Bowel sounds normal, No Organomegaly Musculoskeletal: Normal strength, ROM intact, No edema, No calf tenderness Skin: Warm, Dry, Normal color Neurological: Sensation intact, Motor intact, Reflexes intact, Cranial nerves intact, Alert, Oriented Psychiatric: Affect appropriate, Mood appropriate Critical Care Note - Critical Care Note Total Time (mins): 0 Course - Course Hematology/Chemistry: 08/25/17 11:55 Orders, Labs, Meds: Lab Review 08/25/17 08/25/17 08/25/17 11:17 11:55 11:55 WBC 8.95 RBC 3.02 L Hgb 8.4 L Hct 27.4 L MCV 90.7 MCH 27.8 MCHC 30.7 L RDW Coeff of Alisha 17.2 H Plt Count 195 Immature Gran % (Auto) 0.4 Neut % (Auto) 82.7 Lymph % (Auto) 10.5 [place] % (Auto) 5.5 Eos % (Auto) 0.8 Baso % (Auto) 0.1 Immature Gran # (Auto) 0.0 Neut # (Auto) 7.4 H Lymph # (Auto) 0.9 [place] # (Auto) 0.5 Eos # (Auto) 0.1 Baso # (Auto) 0.0 PT 10.3 INR 1.01 APTT 25.8 Puncture Site R brach O2 Saturation 74.0 L ABG pH 7.406 ABG pCO2 46.6 H ABG pO2 40.0 L* ABG HCO3 29 H ABG Total CO2 31 H ABG Base Excess 5 H Mal Test + FiO2 % 21.0 Orders Category Date Time Status ABG DRAW REQUEST Stat CARDIO 08/25/17 11:18 Completed EKG-(ED ONLY) Stat CARDIO 08/25/17 11:17 Completed NEBULIZER TREATMENT Stat CARDIO 08/25/17 11:26 Completed NEBULIZER TREATMENT Stat CARDIO 08/25/17 12:38 Ordered ED IV/MEDIPORT/POWERPORT .ONCE EMERGENCY 08/25/17 11:25 Active ABG Stat LAB 08/25/17 11:17 Completed BLOOD CULTURE (ED ONLY) Stat LAB 08/25/17 11:55 Received CBC W/ AUTO DIFF Stat LAB 08/25/17 11:55 Completed COMPREHENSIVE METABOLIC PANEL Stat LAB 08/25/17 11:55 Received CREATINE KINASE Stat LAB 08/25/17 11:55 Received DIGOXIN Stat LAB 08/25/17 12:41 Ordered PARTIAL THROMBOPLASTIN TIME Stat LAB 08/25/17 11:55 Completed PROCALCITONIN Stat LAB 08/25/17 11:55 Received PT WITH INR Stat LAB 08/25/17 11:55 Completed TROPONIN I Stat LAB 08/25/17 11:55 Received 0.9 % Sodium Chloride [Saline Flush] MEDS 08/25/17 11:25 Active 1 syr IVF PRN PRN Apixaban [Eliquis] MEDS 08/25/17 21:00 Ordered 5 mg PO BID Diazepam [Valium] MEDS 08/25/17 21:00 Ordered 2 mg PO BID Digoxin [Lanoxin] MEDS 08/26/17 09:00 Ordered 125 mcg PO DAILY Diltiazem HCl [Cardizem] MEDS 08/25/17 21:00 Ordered 120 mg PO BID Furosemide [Lasix Tab] MEDS 08/25/17 13:00 Ordered 20 mg PO 3 TIMES PER WEEK Hydrocodone Bit/Acetaminophen [[place] 5-325] MEDS 08/25/17 21:00 Ordered 1 each PO BID Ipratropium/Albuterol Neb [Duoneb] MEDS 08/25/17 11:26 Discontinued 1 vial NEB ONCE STA Ipratropium/Albuterol Neb [Duoneb] MEDS 08/25/17 18:00 Ordered 1 vial NEB RTQ6H Levothyroxine Sodium [Synthroid] MEDS 08/26/17 06:30 Ordered 50 mcg PO QDAC Losartan Potassium [Cozaar] MEDS 08/26/17 09:00 Ordered 100 mg PO DAILY Methylprednisolone Sod Succ/Pf [Solu-Medrol 125 mg] MEDS 08/25/17 11:25 Discontinued 125 mg IVP ONCE STA Methylprednisolone Sod Succ/Pf [Solu-Medrol 40 mg] MEDS 08/25/17 13:00 Ordered 40 mg IVP Q8HR Metoprolol Tartrate [Metoprolol Tartrate] MEDS 08/25/17 21:00 Ordered 100 mg PO BID Potassium Chloride [Klor-Con 10] MEDS 08/25/17 12:45 Ordered 10 meq PO 3 TIMES PER WEEK Sodium Chloride 0.9% [Sodium Chloride] 1,000 ml MEDS 08/25/17 11:25 Active IV 100 mls/hr CT CHEST W/O CONTRAST Stat RADS 08/25/17 11:24 Completed Medications Generic Name Dose Route Start Last Admin Trade Name Freq PRN Reason Stop Dose Admin Hydrocodone Bitart/Acetaminophen tab 08/25/17 21:00 [place] 5-325 PO BID TOM Albuterol/Ipratropium 1 vial 08/25/17 18:00 Duoneb NEB RTQ6H TOM Apixaban 5 mg 08/25/17 21:00 Eliquis PO BID TOM Diazepam 2 mg 08/25/17 21:00 Valium PO BID TOM Digoxin 125 mcg 08/26/17 09:00 Lanoxin PO DAILY TOM Furosemide 20 mg 08/25/17 13:00 Lasix Tab PO 3 TIMES PER WEEK TOM Sodium Chloride 1,000 mls @ 100 mls/hr 08/25/17 11:25 Sodium Chloride IV 08/25/17 21:24 .Q10H STA Levothyroxine Sodium 50 mcg 08/26/17 06:30 Synthroid PO QDAC TOM Losartan Potassium 100 mg 08/26/17 09:00 Cozaar PO DAILY TOM Methylprednisolone Sodium Succinate 40 mg 08/25/17 13:00 Solu-Medrol 40 Mg IVP Q8HR TOM Non-Formulary Medication 120 mg 08/25/17 21:00 Diltiazem Hcl [Cardizem] PO BID TOM Non-Formulary Medication 100 mg 08/25/17 21:00 Metoprolol Tartrate [Metoprolol Tartrate] PO BID TOM Non-Formulary Medication 10 meq 08/25/17 12:45 Potassium Chloride [Klor-Con 10] PO 3 TIMES PER WEEK TOM Sodium Chloride 1 syr 08/25/17 11:25 Saline Flush IVF PRN PRN To flush IV Discontinued Medications Generic Name Dose Route Start Last Admin Trade Name Freq PRN Reason Stop Dose Admin Albuterol/Ipratropium 1 vial 08/25/17 11:26 08/25/17 11:42 Duoneb NEB 08/25/17 11:27 1 vial ONCE STA Administration Methylprednisolone Sodium Succinate 125 mg 08/25/17 11:25 08/25/17 12:33 Solu-Medrol 125 Mg IVP 08/25/17 11:26 125 mg ONCE STA Administration Vital Signs: Temp Pulse Resp BP Pulse Ox 08/25/17 10:56 96.2 F L 61 22 138/60 93 L Departure - Departure Time of Disposition: 12:50 Disposition: ADMITTED INPATIENT Discharge Problem: COPD exacerbation Condition: Good Pt referred to PMD for follow-up: Yes (admitt) IPMP verified?: Yes Allergies/Adverse Reactions: Allergies No Known Allergies Allergy (Verified 08/25/17 11:16) Home Medications: Ambulatory Orders Diazepam [Valium] 2 mg PO BID 06/21/16 Fluoxetine HCl [Prozac] 10 mg PO DAILY 06/21/16 Fluoxetine HCl [Prozac] 20 mg PO BEDTIME 06/21/16 Hydrocodone/Acetaminophen [Hydrocodon-Acetaminophen 5-325] 1 each PO BID Levothyroxine Sodium [Synthroid] 50 mcg PO QDAC 06/21/16 Metformin HCl [Glucophage] 500 mg PO BID 06/21/16 Metoprolol Tartrate 100 mg PO BID 06/21/16 Ropinirole HCl [Requip] 2 mg PO BEDTIME 06/21/16 Sitagliptin Phosphate [Januvia] 100 mg PO DAILY 06/21/16 Calcium Carbonate [Calcium] 600 mg PO DAILY 12/18/16 Melatonin 10 mg PO BEDTIME 12/18/16 Multivit with Minerals/Lutein [A Thru Z Advanced Formula Tab] 1 each PO DAILY Diltiazem HCl [Cardizem] 120 mg PO BID #60 tablet 07/18/17 Losartan Potassium 100 mg PO DAILY #30 tablet 07/18/17 Apixaban [Eliquis] 5 mg PO BID 08/02/17 Furosemide [Lasix Tab] 20 mg PO 3 TIMES PER WEEK 08/02/17 Ipratropium/Albuterol Neb [Duoneb] 1 vial NEB RTQ6H PRN 08/02/17 Potassium Chloride [Klor-Con 10] 10 meq PO 3 TIMES PER WEEK 08/02/17 Digoxin 125 mcg PO DAILY #30 tablet 08/05/17 Doxycycline Hyclate 100 mg PO BID #10 tablet 08/05/17 Multivitamin [Multivitamin Tablet] 1 tab PO DAILY 08/25/17
[2017-08-25] MEDS ORDERED: NON-FORMULARY MEDICATION (Potassium Chloride [Klor-Con 10] 10 MEQ) PO SCH (12:45)
[2017-08-25 14:49] VITALS: BMI 29.7
[2017-08-25] MEDS ORDERED: LASIX IVP STA (15:23)
[2017-08-25] MEDS ORDERED: SODIUM CHLORIDE 1,000 ML IV SCH (15:30)
[2017-08-25] MEDS: SOLU-MEDROL 40 MG IVP SCH ×2 (15:38→20:43)
[2017-08-25] MEDS: HUMULIN R SUBCUT PRN ×2 (16:48→20:37)
[2017-08-25] MEDS: GLUCOPHAGE PO SCH (16:48)
[2017-08-25] MEDS: DUONEB NEB SCH ×2 (17:00→23:25)
[2017-08-25] MEDS: ELIQUIS PO SCH (20:39)
[2017-08-25] MEDS: NORCO 5-325 PO SCH (20:39)
[2017-08-25] MEDS: CARDIZEM PO SCH (20:40)
[2017-08-25] MEDS: VALIUM PO SCH (20:40)
[2017-08-25] MEDS: REQUIP PO SCH (20:41)
[2017-08-25] MEDS: LOPRESSOR PO SCH (20:41)
[2017-08-25] MEDS: NON-FORMULARY MEDICATION (Melatonin [Melatonin] 10 MG) PO SCH (20:42)
[2017-08-25] MEDS: PROZAC PO SCH (20:42)
[2017-08-25] MEDS ORDERED: NON-FORMULARY MEDICATION (Metoprolol Tartrate [Metoprolol Tartrate] 100 MG) PO SCH (21:00)
[2017-08-25] MEDS ORDERED: NON-FORMULARY MEDICATION (Ropinirole Hcl [Requip] 2 MG) PO SCH (21:00)
[2017-08-25] MEDS ORDERED: NON-FORMULARY MEDICATION (Diltiazem Hcl [Cardizem] 120 MG) PO SCH (21:00)
[2017-08-26] MEDS: SOLU-MEDROL 40 MG IVP SCH ×3 (05:43→20:43)
[2017-08-26] MEDS: SYNTHROID PO SCH (05:43)
[2017-08-26] MEDS: DUONEB NEB SCH ×4 (05:58→23:50)
[2017-08-26] MEDS: HUMULIN R SUBCUT PRN ×4 (06:24→20:41)
[2017-08-26] MEDS ORDERED: SYNTHROID PO SCH (06:30)
--- NOTE | 2017-08-26 07:44 | PN ---
DATE OF SERVICE: 08/25/17 SUBJECTIVE: The patient was brought to the emergency room by the family with shortness of breath. The patient also according to the daughter gained 13 pounds when I examined the patient she was no distress. Her lungs were decreased breath sounds as usual with air entry which was acceptable and had trace edema. The patient's pO2 40 with pCo2 45 with practically normal pH on room air. On 2liters her oxygen saturation went up to 92-93%. The patient has severe hypoxemia which is her chronic hypoxemia. The patient would be treated in the hospital with steroids, NEBS treatment and slow IV fluid. Her creatinine 0.9, BUN 22. The patient probably has mild dehydration. BNP is 1,200 very likely secondary to her acute chronic respiratory failure. The patient's chronic respiratory failure persists. Again it is to be noted that patient was talking without stopping. She was oriented to time, place and person. She was not in acute distress at all. The patient's problems are that the daughter is not able to manage her at home, she is working and the patient requires 24 hour help. The patient's daughter is reluctant to put her in the jail. CONDITION: Stable. TIME SPENT: More than 30 minutes. Plan and coordination of the patient's care discussed in the presence of nurse. TY
[2017-08-26] MEDS: NORCO 5-325 PO SCH ×2 (08:52→20:42)
[2017-08-26] MEDS: COZAAR PO SCH (08:52)
[2017-08-26] MEDS: CARDIZEM PO SCH ×2 (08:52→20:41)
[2017-08-26] MEDS: GLUCOPHAGE PO SCH ×2 (08:52→16:33)
[2017-08-26] MEDS: LOPRESSOR PO SCH ×2 (08:52→20:42)
[2017-08-26] MEDS: VALIUM PO SCH ×2 (08:52→20:42)
[2017-08-26] MEDS: CALCIUM 500 + VIT D 200 MG TABLET PO SCH (08:52)
[2017-08-26] MEDS: JANUVIA PO SCH (08:53)
[2017-08-26] MEDS: ELIQUIS PO SCH ×2 (08:53→20:42)
[2017-08-26] MEDS: LANOXIN PO SCH (08:53)
[2017-08-26] MEDS: MULTIVITAMIN TABLET PO SCH (08:53)
[2017-08-26] MEDS: PROZAC PO SCH ×2 (08:53→20:45)
[2017-08-26] MEDS ORDERED: NON-FORMULARY MEDICATION (Calcium Carbonate [Calcium] 600 MG) PO SCH (09:00)
[2017-08-26] MEDS ORDERED: NON-FORMULARY MEDICATION (Sitagliptin Phosphate [Januvia] 100 MG) PO SCH (09:00)
[2017-08-26] MEDS: REQUIP PO SCH (20:42)
[2017-08-26] MEDS: NON-FORMULARY MEDICATION (Melatonin [Melatonin] 10 MG) PO SCH (20:43)
[2017-08-27] MEDS: SYNTHROID PO SCH (05:58)
[2017-08-27] MEDS: SOLU-MEDROL 40 MG IVP SCH ×3 (05:58→20:50)
[2017-08-27] MEDS: LASIX TAB PO SCH (05:58)
[2017-08-27] MEDS: DUONEB NEB SCH ×4 (06:15→22:45)
[2017-08-27] MEDS: HUMULIN R SUBCUT PRN ×4 (07:30→20:48)
[2017-08-27] MEDS: LANOXIN PO SCH (09:24)
[2017-08-27] MEDS: COZAAR PO SCH (09:25)
[2017-08-27] MEDS: JANUVIA PO SCH (09:25)
[2017-08-27] MEDS: GLUCOPHAGE PO SCH ×2 (09:25→17:49)
[2017-08-27] MEDS: CARDIZEM PO SCH ×2 (09:26→20:49)
[2017-08-27] MEDS: MICRO-K CAP PO SCH (09:26)
[2017-08-27] MEDS: ELIQUIS PO SCH ×2 (09:26→20:48)
[2017-08-27] MEDS: APRESOLINE PO SCH ×2 (09:26→20:49)
[2017-08-27] MEDS: CALCIUM 500 + VIT D 200 MG TABLET PO SCH (09:26)
[2017-08-27] MEDS: LOPRESSOR PO SCH ×2 (09:26→20:47)
[2017-08-27] MEDS: PROZAC PO SCH ×2 (09:27→20:47)
[2017-08-27] MEDS: MULTIVITAMIN TABLET PO SCH (09:27)
[2017-08-27] MEDS: VALIUM PO SCH ×2 (09:32→20:49)
[2017-08-27] MEDS: NORCO 5-325 PO SCH ×2 (09:32→20:49)
--- NOTE | 2017-08-27 09:37 | PCM.PROG ---
Attending Provider: ATTENDING PROVIDER: Dr. ROSALINO GRAY This patient is seen with Elsy Estrada, Nurse Practitioner. DATE OF SERVICE: 08/27/17 SUBJECTIVE: This 72 year old WHITE/ F was hospitalized 08/25/17. The patient is sitting in chair, alert. Blood pressure is still elevated. Hemoglobin has decreased slightly. REVIEW OF SYSTEMS: CONSTITUTIONAL: Weakness. No night sweats. No malaise, lethargy. No fever or chills. HEENT: Eyes: No visual changes. No eye pain. No eye discharge. ENT: No runny nose. No epistaxis. No sinus pain. No odynophagia. No congestion. RESPIRATORY: No cough, no congestion. No hemoptysis. Shortness of breath as usual. CARDIOVASCULAR: No angina symptoms. No CHF symptoms. No atypical chest pain for CAD. No palpitations. No orthopnea.. GASTROINTESTINAL: No abdominal pain. No nausea or vomiting. No diarrhea or constipation. No hematemesis. No hematochezia. GENITOURINARY: No urgency. No frequency. No dysuria. No hematuria. No obstructive symptoms. No discharge. No pain. No significant abnormal bleeding. MUSCULOSKELETAL: No musculoskeletal pain; no joint swelling. NEUROLOGICAL: Awake, alert, oriented to time, place and person. No headache. No neck pain. No syncope. No seizures. No dizziness. PSYCHIATRIC: Not anxious. No depression. No suicidal thoughts. No homicidal thoughts. SKIN: No rash. No lesions. No wounds. ENDOCRINE: No unexplained weight loss. No weight gain. HEMATOLOGIC/LYMPHATIC: No anemia. No purpura. No petechiae. No prolonged or excessive bleeding. No palpable lymph nodes. PHYSICAL EXAMINATION: GENERAL: The patient is awake, alert and oriented, sitting in chair in no distress. VITAL SIGNS: Temperature 97.4 F, Pulse 96, Respiratory Rate 16, BP 181/85, Pulse Ox 100% HEENT: Head normocephalic, atraumatic. Eyes: Extraocular muscles are intact. Pupils are equal, round and reactive to light and accommodation. Ears: No lesions. Nose appeared normal. Throat: No exudate or erythema. NECK: Supple. No JVD, no carotid bruit. No lymphadenopathy or thyromegaly. LUNGS: Diminished breath sounds. Clear to auscultation. Percussion note normal. Chest symmetrical. HEART: S1, S2, no S3. No murmurs. No cyanosis or clubbing. No ascites. Pulses: Dorsalis pedis and posterior tibial pulses +1 to +2 both sides. ABDOMEN: Soft. Non-tender. Bowel sounds active. No CVA tenderness. No mass felt. EXTREMITIES: No edema. Full range of motion of all extremities, equal. NEUROLOGIC: No focal deficit. Cranial nerves II through XII are grossly intact. No headache, no double vision or headache. SKIN: Not dry. Intact. Turgor-normal. LYMPHATIC: No palpable lymph nodes/no lymphedema. MUSCULOSKELETAL: Normal joints with no swelling. Muscle tone is normal. LAB REVIEW: 08/27/17 05:00 08/27/17 05:00 08/27/17 05:00: Sodium 138, Potassium 4.6, Chloride 100, Carbon Dioxide 31, Anion Gap 11.6, BUN 40 H, Creatinine 1.00, Estimated GFR (MDRD) 54.00, BUN/ Creatinine Ratio 40.00, Glucose 218 H, Calcium 9.8, Total Bilirubin 0.3, AST 14 L, ALT 16, Alkaline Phosphatase 56, Total Protein 6.5, Albumin 3.0 L, Globulin 3.5, Albumin/Globulin Ratio 0.86 08/27/17 05:00: WBC 12.25 H D, RBC 2.97 L, Hgb 8.2 L, Hct 26.3 L, MCV 88.6, MCH 27.6, MCHC 31.2 L, RDW Coeff of Alisha 17.1 H, Plt Count 232, Immature Gran % (Auto ) 0.5, Neut % (Auto) 93.5, Lymph % (Auto) 4.2 L, [place] % (Auto) 1.7, Eos % (Auto ) 0.0, Baso % (Auto) 0.1, Immature Gran # (Auto) 0.1, Neut # (Auto) 11.5 H, Lymph # (Auto) 0.5 L, [place] # (Auto) 0.2 L, Eos # (Auto) 0.0, Baso # (Auto) 0.0 ASSESSMENT: 1. COPD exacerbation 2. Shortness of breath 3. Hypertension 4. Atrial fibrillation 5. Anemia PLAN: 1. Hydralazine 50 mg twice a day 2. Stool for occult blood Plan and coordination of the patient's care discussed in the presence of Automotive Warranty Administrator and nurse. CONDITION: Stable SCRIBED BY: MAKI REBOLLEDO Vending Machine Filler scribed while in presence of service performed by Dr. Gray/Elsy Estrada APRN on 08/27/17 ([id number])
[2017-08-27] MEDS: REQUIP PO SCH (20:49)
[2017-08-27] MEDS: NON-FORMULARY MEDICATION (Melatonin [Melatonin] 10 MG) PO SCH (20:50)
[2017-08-28] MEDS: SOLU-MEDROL 40 MG IVP SCH ×3 (04:23→20:45)
[2017-08-28] MEDS: DUONEB NEB SCH ×4 (04:52→20:49)
[2017-08-28] MEDS: SYNTHROID PO SCH (05:55)
[2017-08-28] MEDS: HUMULIN R SUBCUT PRN ×4 (05:55→23:39)
[2017-08-28] MEDS ORDERED: LASIX TAB PO STA (08:25)
[2017-08-28] MEDS: CARDIZEM PO SCH ×2 (08:56→20:48)
[2017-08-28] MEDS: LOPRESSOR PO SCH ×2 (08:57→20:48)
[2017-08-28] MEDS: LANOXIN PO SCH (08:57)
[2017-08-28] MEDS: COZAAR PO SCH (08:57)
[2017-08-28] MEDS: MULTIVITAMIN TABLET PO SCH (08:57)
[2017-08-28] MEDS: JANUVIA PO SCH (08:57)
[2017-08-28] MEDS: ELIQUIS PO SCH ×2 (08:57→20:45)
[2017-08-28] MEDS: PROZAC PO SCH ×2 (08:58→20:48)
[2017-08-28] MEDS: VALIUM PO SCH ×2 (08:58→20:48)
[2017-08-28] MEDS: APRESOLINE PO SCH ×2 (08:58→20:48)
[2017-08-28] MEDS: NORCO 5-325 PO SCH ×2 (08:58→20:48)
[2017-08-28] MEDS: CALCIUM 500 + VIT D 200 MG TABLET PO SCH (08:58)
[2017-08-28] MEDS: GLUCOPHAGE PO SCH ×2 (08:58→17:29)
--- NOTE | 2017-08-28 10:05 | PCM.PROG ---
Attending Provider: ATTENDING PROVIDER: Dr. ROSALINO GRAY This patient is seen with Elsy Estrada, Nurse Practitioner. DATE OF SERVICE: 08/28/17 SUBJECTIVE: This 72 year old WHITE/ F was hospitalized 08/25/17. The patient is sitting in chair alert. She states she is ready to g home. Blood pressure still elevated despite starting Hydralazine. REVIEW OF SYSTEMS: CONSTITUTIONAL: No night sweats. No fatigue, malaise, lethargy. No fever or chills. HEENT: Eyes: No visual changes. No eye pain. No eye discharge. ENT: No runny nose. No epistaxis. No sinus pain. No odynophagia. No congestion. RESPIRATORY: Positive for shortness of breath. No cough, no congestion. No hemoptysis. CARDIOVASCULAR: No angina symptoms. No CHF symptoms. No atypical chest pain for CAD. No palpitations. No orthopnea.. GASTROINTESTINAL: No abdominal pain. No nausea or vomiting. No diarrhea or constipation. No hematemesis. No hematochezia. GENITOURINARY: No urgency. No frequency. No dysuria. No hematuria. No obstructive symptoms. No discharge. No pain. No significant abnormal bleeding. MUSCULOSKELETAL: No musculoskeletal pain; no joint swelling. NEUROLOGICAL: Awake, alert, oriented to time, place and person. No headache. No neck pain. No syncope. No seizures. No dizziness. PSYCHIATRIC: Anxious. No depression. No suicidal thoughts. No homicidal thoughts. SKIN: No rash. No lesions. No wounds. ENDOCRINE: No unexplained weight loss. No weight gain. HEMATOLOGIC/LYMPHATIC: No anemia. No purpura. No petechiae. No prolonged or excessive bleeding. No palpable lymph nodes. PHYSICAL EXAMINATION: GENERAL: The patient is awake, alert and oriented, lying/sitting in bed in no distress. VITAL SIGNS: Temperature 97.9 F, Pulse 84, Respiratory Rate 18, BP 158/70, Pulse Ox 97% HEENT: Head normocephalic, atraumatic. Eyes: Extraocular muscles are intact. Pupils are equal, round and reactive to light and accommodation. Ears: No lesions. Nose appeared normal. Throat: No exudate or erythema. NECK: Supple. No JVD, no carotid bruit. No lymphadenopathy or thyromegaly. LUNGS: Diminished breath sounds. Clear to auscultation. Percussion note normal. Chest symmetrical. HEART: Irregular heart rate. S1, S2, no S3. No murmurs. No cyanosis or clubbing. No ascites. Pulses: Dorsalis pedis and posterior tibial pulses +1 to +2 both sides. ABDOMEN: Soft. Non-tender. Bowel sounds active. No CVA tenderness. No mass felt. EXTREMITIES: Trace edema. Full range of motion of all extremities, equal. NEUROLOGIC: No focal deficit. Cranial nerves II through XII are grossly intact. No headache, no double vision or headache. SKIN: Not dry. Intact. Turgor-normal. LYMPHATIC: No palpable lymph nodes/no lymphedema. MUSCULOSKELETAL: Normal joints with no swelling. Muscle tone is normal. LAB REVIEW: 08/28/17 04:45 08/28/17 04:45 08/28/17 04:45: Sodium 135 L, Potassium 4.8, Chloride 98, Carbon Dioxide 26, Anion Gap 15.8, BUN 46 H, Creatinine 1.17, Estimated GFR (MDRD) 45.00, BUN/ Creatinine Ratio 39.31, Glucose 252 H, Calcium 9.9, Total Bilirubin 0.3, AST 16 , ALT 17, Alkaline Phosphatase 68, Total Protein 6.4, Albumin 3.0 L, Globulin 3.4, Albumin/Globulin Ratio 0.88 08/28/17 04:45: WBC 13.71 H, RBC 2.96 L, Hgb 8.2 L, Hct 26.2 L, MCV 88.5, MCH 27.7, MCHC 31.3 L, RDW Coeff of Alisha 17.1 H, Plt Count 266, Immature Gran % (Auto ) 1.5, Neut % (Auto) 92.8, Lymph % (Auto) 3.6 L, [place] % (Auto) 2.0, Eos % (Auto ) 0.0, Baso % (Auto) 0.1, Immature Gran # (Auto) 0.2, Neut # (Auto) 12.7 H, Lymph # (Auto) 0.5 L, [place] # (Auto) 0.3 L, Eos # (Auto) 0.0, Baso # (Auto) 0.0 08/27/17 14:50: Stl Occult Blood (IFOB) Negative, Stool Occult Blood #2 No specimen received, Stool Occult Blood #3 No specimen received ASSESSMENT: 1. COPD exacerbation 2. Shortness of breath, improved 3. Hypertension 4. Atrial fibrillation, controlled 5. Anemia, stable PLAN: 1. Repeat chest x-ray 2. Lasix 20 mg today 3. Hydralazine 100 b.i.d. Plan and coordination of the patient's care discussed in the presence of Inspection Supervisor and nurse. CONDITION: STABLE SCRIBED BY: MAKI REBOLLEDO Gift Officer scribed while in presence of service performed by Dr. Gray/Elsy Estrada APRN on 08/28/17 ([id number])
--- NOTE | 2017-08-28 14:40 | DI ---
EXAM: CHEST FRONTAL AND LATERAL VIEWS HISTORY: Shortness of breath. COMPARISON: 08/02/2017 FINDINGS: Stable cardiomegaly. Moderately severe atherosclerotic disease. Left-sided pacemaker uni t does not appear changed. Cannot exclude mild patchy infiltrates in the bases. There is no evidenc e of active congestive heart failure, pneumothorax or pleural fluid. IMPRESSION: Questionable mild patchy densities in the bases may represent atelectasis. Pneumonia could appear si milar.
[2017-08-28] MEDS: REQUIP PO SCH (20:48)
[2017-08-28] MEDS: NON-FORMULARY MEDICATION (Melatonin [Melatonin] 10 MG) PO SCH (20:50)
[2017-08-29] MEDS: DUONEB NEB SCH ×3 (04:58→14:21)
[2017-08-29] MEDS: SOLU-MEDROL 40 MG IVP SCH ×2 (05:29→13:08)
[2017-08-29] MEDS: SYNTHROID PO SCH (05:30)
[2017-08-29] MEDS: LASIX TAB PO SCH (05:30)
[2017-08-29] MEDS: HUMULIN R SUBCUT PRN ×2 (05:57→13:06)
[2017-08-29] MEDS: LANOXIN PO SCH (08:37)
[2017-08-29] MEDS: APRESOLINE PO SCH (08:37)
[2017-08-29] MEDS: MULTIVITAMIN TABLET PO SCH (08:37)
[2017-08-29] MEDS: MICRO-K CAP PO SCH (08:37)
[2017-08-29] MEDS: GLUCOPHAGE PO SCH (08:37)
[2017-08-29] MEDS: CARDIZEM PO SCH (08:37)
[2017-08-29] MEDS: PROZAC PO SCH (08:37)
[2017-08-29] MEDS: COZAAR PO SCH (08:38)
[2017-08-29] MEDS: NORCO 5-325 PO SCH (08:38)
[2017-08-29] MEDS: CALCIUM 500 + VIT D 200 MG TABLET PO SCH (08:38)
[2017-08-29] MEDS: ELIQUIS PO SCH (08:38)
[2017-08-29] MEDS: JANUVIA PO SCH (08:38)
[2017-08-29] MEDS: VALIUM PO SCH (08:39)
[2017-08-29] MEDS: LOPRESSOR PO SCH (08:39)
--- NOTE | 2017-08-29 09:15 | PCM.PROG ---
Attending Provider: ATTENDING PROVIDER: Dr. ROSALINO GRAY DATE OF SERVICE: 08/29/17 SUBJECTIVE: This 72 year old WHITE/ F was hospitalized 08/25/17 with acute exacerbation of COPD with shortness of breath. The patient's condition has improved. For blood pressure, required additional Hydralazine 100 mg twice a day , new medication. She is feeling better. REVIEW OF SYSTEMS: CONSTITUTIONAL: No night sweats. No fatigue, malaise, lethargy. No fever or chills. HEENT: Eyes: No visual changes. No eye pain. No eye discharge. ENT: No runny nose. No epistaxis. No sinus pain. No odynophagia. No congestion. RESPIRATORY: No cough, no congestion. No hemoptysis. No shortness of breath. CARDIOVASCULAR: No angina symptoms. No CHF symptoms or symptoms of coronary insufficiency. No atypical chest pain for CAD. No palpitations. No orthopnea.. GASTROINTESTINAL: Normal appetite. No abdominal pain. No nausea or vomiting. No diarrhea or constipation. No hematemesis. No hematochezia. GENITOURINARY: No urgency. No frequency. No dysuria. No hematuria. No obstructive symptoms. No discharge. No pain. No significant abnormal bleeding. MUSCULOSKELETAL: No leg swelling. No musculoskeletal pain; no joint swelling. NEUROLOGICAL: Awake, alert, oriented to time, place and person. No headache. No neck pain. No syncope. No seizures. No dizziness. PSYCHIATRIC: Not anxious. No depression. No suicidal thoughts. No homicidal thoughts. SKIN: No rash. No lesions. No wounds. ENDOCRINE: No unexplained weight loss. No weight gain. HEMATOLOGIC/LYMPHATIC: No anemia. No purpura. No petechiae. No prolonged or excessive bleeding. No palpable lymph nodes. PHYSICAL EXAMINATION: GENERAL: The patient is awake, alert and oriented, sitting in chair in no distress. VITAL SIGNS: Temperature 98.1 F, Pulse 88, Respiratory Rate 20, BP 164/78, Pulse Ox 92% HEENT: Head normocephalic, atraumatic. Eyes: Extraocular muscles are intact. Pupils are equal, round and reactive to light and accommodation. Ears: No lesions. Nose appeared normal. Throat: No exudate or erythema. NECK: Supple. No JVD, no carotid bruit. No lymphadenopathy or thyromegaly. LUNGS: Decreased breath sounds. Clear to auscultation. Percussion note normal. Chest symmetrical. HEART: S1, S2, no S3. No murmurs. No cyanosis or clubbing. No ascites. Pulses: Dorsalis pedis and posterior tibial pulses +1 to +2 both sides. ABDOMEN: Soft. Non-tender. Bowel sounds active. No CVA tenderness. No mass felt. EXTREMITIES: No edema. Full range of motion of all extremities, equal. NEUROLOGIC: No focal deficit. Cranial nerves II through XII are grossly intact. No headache, no double vision or headache. SKIN: Warm and dry. Intact. Turgor-normal. LYMPHATIC: No palpable lymph nodes/no lymphedema. MUSCULOSKELETAL: Normal joints with no swelling. Muscle tone is normal. LAB REVIEW: 08/29/17 04:30 08/29/17 04:30 08/29/17 04:30: Sodium 133 L, Potassium 4.5, Chloride 95 L, Carbon Dioxide 30, Anion Gap 12.5, BUN 43 H, Creatinine 0.99, Estimated GFR (MDRD) 55.00, BUN/ Creatinine Ratio 43.43, Glucose 244 H, Calcium 9.6, Total Bilirubin 0.3, AST 16 , ALT 20, Alkaline Phosphatase 66, Total Protein 6.2, Albumin 2.9 L, Globulin 3.3, Albumin/Globulin Ratio 0.88 08/29/17 04:30: WBC 9.87, RBC 3.06 L, Hgb 8.4 L, Hct 26.5 L, MCV 86.6, MCH 27.5 , MCHC 31.7 L, RDW Coeff of Alisha 16.7 H, Plt Count 270, Immature Gran % (Auto) 1.3, Neut % (Auto) 91.9, Lymph % (Auto) 3.7 L, [place] % (Auto) 3.1, Eos % (Auto) 0.0, Baso % (Auto) 0.0, Immature Gran # (Auto) 0.1, Neut # (Auto) 9.1 H, Lymph # (Auto) 0.4 L, [place] # (Auto) 0.3 L, Eos # (Auto) 0.0, Baso # (Auto) 0.0 ASSESSMENT: 1. Acute bronchitis with COPD resolved 2. Severe hypertension seems to be under control but higher level 3. Diabetes mellitus 4. Atrial fibrillation 5. The patient's hemoglobin is 8.4, hematocrit 26, will have to watch. No evidence of active GI bleed. PLAN: 1. The patient wants to continue Apixaban; we have to monitor 2. D/C home 3. Will see in the office of Dr. Gray on Friday or Friday; will have CBC then 4. Advised not to take nonsteroidals or antiinflammatories 5. The side effects of blood thinner discussed to include intracranial bleed or GI bleed. 6. BNP is high but no evidence of CHF. PLAN: Plan and coordination of the patient's care discussed in the presence of Roofer Helper and nurse. CONDITION: Stable SCRIBED BY: MAKI REBOLLEDO, Optician scribed while in presence of service performed by Dr. ROSALINO GRAY on 08/29/17 ([id number])
--- NOTE | 2017-08-29 09:26 | PN ---
DATE OF SERVICE: 08/28/17 SUBJECTIVE: The patient was seen and examined with Nurse Practitioner. The patient's blood pressure is still up. Hydralazine has been increased to 100mg twice a day. PHYSICAL EXAMINATION: HEENT: Head normocephalic, atraumatic. Eyes: Extraocular muscles are intact. Pupils are equal, round and reactive to light and accommodation. Ears: No lesions. Nose appeared normal. Throat: No exudate or erythema. NECK: Supple. No JVD, no carotid bruit. No lymphadenopathy or thyromegaly. LUNGS: Clear to auscultation. Percussion note normal. Chest symmetrical. HEART: S1, S2, no S3. No murmurs. No cyanosis or clubbing. No ascites. Pulses: Dorsalis pedis and posterior tibial pulses +1 to +2 both sides. No evidence of CHF. ABDOMEN: Soft. Nontender. Bowel sounds active. No CVA tenderness. No mass felt. EXTREMITIES: No edema. Full range of motion of all extremities, equal. NEUROLOGIC: No focal deficit. Cranial nerves II through XII are grossly intact. No headache, no double vision or headache. SKIN: Not dry. Intact. Turgor - normal. LYMPHATIC: No palpable lymph nodes/no lymphedema. MUSCULOSKELETAL: Normal joints with no swelling. Muscle tone is normal. CONDITION: Stable. TIME SPENT: More than 30 minutes. Plan and coordination of the patient's care discussed in the presence of nurse. TY
[2017-08-29 10:21] VITALS: BP 131/60; TEMP 97.3
--- NOTE | 2017-08-29 11:08 | CM.DICTOOL ---
ADMISSION: 08/25/17 13:31 DISCHARGE: AUGUST 29, 2017 DATE OF SERVICE: 08/29/17 FINAL DIAGNOSIS ACUTE BRONCHITIS COPD EXACERBATION HYPERTENSION HISTORY OF CHF ANEMIA ATRIAL FIBRILLATION (ON ELIQUIS) ANXIETY DEPRESSION HYPOTHYROID DIABETES OSTEOARTHRITIS RLS DEMENTIA CATARACT EXTRACTION, 08/06/2016 (DR. BROCK) PACEMAKER HYSTERECTOMY APPENDECTOMY ECHOCARDIOGRAM (12/2016) LVH WITH LVEF 63% CALCIFIC MITRAL VALVE ANNULUS LAST VITALS Temp Pulse Resp BP Pulse Ox 97.3 F L 74 16 131/60 97 08/29/17 10:00 08/29/17 10:00 08/29/17 10:00 08/29/17 10:00 08/29/17 10:00 ACTIVE HOME MEDICATIONS Hydrocodone Bitart/Acetaminophen ([place] 5-325) 1 tab PO BID [facility] Last Admin: 08/29/17 08:38 Dose: 1 tab Albuterol/Ipratropium (Duoneb) 1 vial NEB RTQID PRN Last Admin: 08/29/17 10:20 Dose: 1 vial Apixaban (Eliquis) 5 mg PO BID [facility] Last Admin: 08/29/17 08:38 Dose: 5 mg Calcium/Vitamin D (Calcium 500 + Vit D 200 Mg Tablet) 1 each PO DAILY [facility] Last Admin: 08/29/17 08:38 Dose: 1 each Diazepam (Valium) 2 mg PO BID [facility] Last Admin: 08/29/17 08:39 Dose: 2 mg Digoxin (Lanoxin) 125 mcg PO DAILY [facility] Last Admin: 08/29/17 08:37 Dose: 125 mcg Diltiazem HCl (Cardizem) 120 mg PO BID [facility] Last Admin: 08/29/17 08:37 Dose: 120 mg Fluoxetine HCl (Prozac) 10 mg PO DAILY [facility] Last Admin: 08/29/17 08:37 Dose: 10 mg Fluoxetine HCl (Prozac) 20 mg PO BEDTIME [facility] Last Admin: 08/28/17 20:48 Dose: 20 mg Furosemide (Lasix Tab) 20 mg PO MoWeFr@0630 [facility] Last Admin: 08/29/17 05:30 Dose: 20 mg Levothyroxine Sodium (Synthroid) 50 mcg PO QDAC [facility] Last Admin: 08/29/17 05:30 Dose: 50 mcg Losartan Potassium (Cozaar) 100 mg PO DAILY [facility] Last Admin: 08/29/17 08:38 Dose: 100 mg Metformin HCl (Glucophage) 500 mg PO BIDWM [facility] Last Admin: 08/29/17 08:37 Dose: 500 mg Metoprolol Tartrate (Lopressor) 100 mg PO BID [facility] Last Admin: 08/29/17 08:39 Dose: 100 mg Multivitamins (Multivitamin Tablet) 1 tab PO DAILY [facility] Last Admin: 08/29/17 08:37 Dose: 1 tab Non-Formulary Medication (Melatonin [Melatonin]) 10 mg PO BEDTIME [facility] Last Admin: 08/28/17 20:50 Dose: Not Given Potassium Chloride (Micro-K Cap) 10 meq PO MoWeFr@0900 [facility] Last Admin: 08/29/17 08:37 Dose: 10 meq Ropinirole HCl (Requip) 2 mg PO BEDTIME [facility] Last Admin: 08/28/17 20:48 Dose: 2 mg Sitagliptin Phosphate (Januvia) 100 mg PO DAILY [facility] Last Admin: 08/29/17 08:38 Dose: 100 mg ALLERGIES No Known Allergies Allergy (Verified 08/25/17 11:16) NEW PRESCRIPTIONS: HYDRALAZINE 100 MG BID (CALLED TO TASHA) PREDNISONE 10 MG DAILY X 7 DAYS (CALLED TO TASHA) SMOKING: NOT APPLICABLE DISEASE SPECIFIC EDUCATION: BRONCHITIS HYPERTENSION STEROID USE AND RISK OF GI IRRITATION OXYGEN DO NOT TAKE NSAIDS DUE TO TAKING ELIQUIS LAB REVIEW: 08/29/17 04:30 08/29/17 04:30 08/29/17 04:30: Sodium 133 L, Potassium 4.5, Chloride 95 L, Carbon Dioxide 30, Anion Gap 12.5, BUN 43 H, Creatinine 0.99, Estimated GFR (MDRD) 55.00, BUN/ Creatinine Ratio 43.43, Glucose 244 H, Calcium 9.6, Total Bilirubin 0.3, AST 16 , ALT 20, Alkaline Phosphatase 66, Total Protein 6.2, Albumin 2.9 L, Globulin 3.3, Albumin/Globulin Ratio 0.88 08/29/17 04:30: WBC 9.87, RBC 3.06 L, Hgb 8.4 L, Hct 26.5 L, MCV 86.6, MCH 27.5 , MCHC 31.7 L, RDW Coeff of Alisha 16.7 H, Plt Count 270, Immature Gran % (Auto) 1.3, Neut % (Auto) 91.9, Lymph % (Auto) 3.7 L, [place] % (Auto) 3.1, Eos % (Auto) 0.0, Baso % (Auto) 0.0, Immature Gran # (Auto) 0.1, Neut # (Auto) 9.1 H, Lymph # (Auto) 0.4 L, [place] # (Auto) 0.3 L, Eos # (Auto) 0.0, Baso # (Auto) 0.0 PLAN: DISCHARGE HOME WITH DAUGHTEROBI DIET: CONSISTENT CARBOHYDRATES ACTIVITY: RESUME TOLERATED CONTINUE USE OF OXYGEN AT 4 LITERS PER CANNULA CONTINUE TO USE NEBULIZER TREATMENTS AT LEAST 3-4 TIMES DAILY CONTINUE TO CHECK BLOOD SUGARS AT LEAST 2 TIMES DAILY RESUME [facility] FOR: NURSING ASSESSMENT, VITAL SIGNS, MEDICATION MANAGEMENT PHYSICAL AND OCCUPATIONAL THERAPY DNR PRESCRIPTIONS CALLED TO TASHA AT REQUEST OF THE DAUGHTEROBI AN APPOINTMENT IS SCHEDULED WITH DR. GRAY ON August AT 10:30 AM. A CBC WILL BE DRAWN IN THE OFFICE. MS. AGUIRRE IS ALERT AND ORIENTED X 3. SHE REQUIRES MINIMAL ASSISTANCE OF 1 STAFF MEMBER FOR TRANSFERS FROM THE BED TO THE CHAIR. SHE REQUIRES MINIMAL ASSISTANCE OF NURSING STAFF FOR BATHING, DRESSING. SHE IS CONTINENT OF BOWEL AND BLADDER, BUT WEARS DEPENDS UNDERGARMENTS DUE TO URINARY FREQUENCY AND DRIBBLING. MEAL INTAKES ARE GOOD AT 100%. SHE IS SHORT OF AIR WITH EXERTION, BUT WEARS CONTINUOUS OXYGEN AT 4 LITERS. HOME DME INCLUDES CONTINUOUS OXYGEN, NEBULIZER, WALKER, SHOWER CHAIR. SHE HAS HAD [facility] UNTIL RECENTLY FOR THERAPY IN THE HOME. WE WILL RESUME HOME HEALTH FOR CONTINUATION OF THERAPY AND NURSING ASSESSMENT DUE TO PRESCRIBING AN ADDITIONAL ANTIHYPERTENSIVE MEDICATION ROSALINO GRAY MD
--- NOTE | 2017-08-29 13:31 | PN ---
DATE OF SERVICE: 08/26/17 SUBJECTIVE: 72 year old white female hospitalized with acute COPD and acute bronchitis with shortness of breath. The patient's condition seems to have improved. She has not been in any distress. REVIEW OF SYSTEMS: CONSTITUTIONAL: No night sweats. No fatigue, malaise, lethargy. No fever or chills. HEENT: Eyes: No visual changes. No eye pain. No eye discharge. ENT: No runny nose. No epistaxis. No sinus pain. No sore throat. No odynophagia. No congestion. RESPIRATORY: No cough, no congestion. No hemoptysis. No shortness of breath. CARDIOVASCULAR: No angina symptoms. No CHF symptoms. No atypical chest pain for CAD. No palpitations. No orthopnea. GASTROINTESTINAL: No abdominal pain. No nausea or vomiting. No diarrhea or constipation. No hematemesis. No hematochezia. GENITOURINARY: No urgency. No frequency. No dysuria. No hematuria. No obstructive symptoms. No discharge. No pain. No significant abnormal bleeding. MUSCULOSKELETAL: No musculoskeletal pain; no joint swelling. NEUROLOGICAL: No headache. No neck pain. No syncope. No seizures. No dizziness. PSYCHIATRIC: Not anxious. No depression. No suicidal thoughts. No homicidal thoughts. SKIN: No rash. No lesions. No wounds. ENDOCRINE: No unexplained weight loss. No weight gain. HEMATOLOGIC/LYMPHATIC: No anemia. No purpura. No petechiae. No prolonged or excessive bleeding. No palpable lymph nodes. PHYSICAL EXAMINATION: VITAL SIGNS: Temperature 97.8, pulse 80, respiratory rate 16, blood pressure 118/98 and pulse ox 93%. HEENT: Head normocephalic, atraumatic. Eyes: Extraocular muscles are intact. Pupils are equal, round and reactive to light and accommodation. Ears: No lesions. Nose appeared normal. Throat: No exudate or erythema. NECK: Supple. No JVD, no carotid bruit. No lymphadenopathy or thyromegaly. LUNGS: Decreased breath sounds but Clear to auscultation. Percussion note normal. Chest symmetrical. HEART: S1, S2, no S3. No murmurs. No cyanosis or clubbing. No ascites. Pulses: Dorsalis pedis and posterior tibial pulses +1 to +2 both sides. ABDOMEN: Soft. Nontender. Bowel sounds active. No CVA tenderness. No mass felt. EXTREMITIES: No edema. Full range of motion of all extremities, equal. NEUROLOGIC: No focal deficit. Cranial nerves II through XII are grossly intact. No headache, no double vision or headache. SKIN: Not dry. Intact. Turgor - normal. LYMPHATIC: No palpable lymph nodes/no lymphedema. MUSCULOSKELETAL: Normal joints with no swelling. Muscle tone is normal. LABS: Hgb 8.3, hct 27, WBC 4,500 normal differential, creatinine 1, BUN 30. ASSESSMENT: 1. Acute exacerbation of COPD 2. CHF 3. Diabetes Mellitus 4. Anemia which will be monitored. PLAN: 1. Continue slowly IV hydration 2. Type and pull two units. CONDITION: Stable. TIME SPENT: More than 30 minutes. Plan and coordination of the patient's care discussed in the presence of nurse. TY
--- NOTE | 2017-09-01 10:45 | PN ---
DATE OF SERVICE: 08/27/17 SUBJECTIVE: The patient was seen with the Nurse Practitioner. The patient's condition has improved and her blood pressure is still high. We will add Hydralazine to the present list of medications. Hgb 8.3 and hct 27, that needs to be followed. There is no evidence of active GI bleed. The patient's condition is otherwise stable. COPD is a lot better. TIME SPENT: More than 30 minutes. Plan and coordination of the patient's care discussed in the presence of nurse. TY
--- NOTE | 2017-09-04 10:06 | DS ---
DATE OF SERVICE: 08/29/17 FINAL DIAGNOSIS: 1. ACUTE BRONCHITIS 2. COPD EXACERBATION 3. HYPERTENSION 4. HISTORY OF CHF 5. ANEMIA 6. ATRIAL FIBRILLATION (ON ELIQUIS) 7. ANXIETY 8. DEPRESSION 9. HYPOTHYROID 10. DIABETES 11. OSTEOARTHRITIS 12. RESTLESS LEG SYNDROME 13. DEMENTIA 14. CATARACT EXTRACTION 08/06/16 (DR. BROCK) 15. PACEMAKER 16. HYSTERECTOMY 17. APPENDECTOMY 18. ECHOCARDIOGRAM (12/2016) LVH WITH LVEF 63% 19. CALCIFIC MITRAL VALVE ANNULUS DISCHARGE INSTRUCTIONS: 1. Discharge home with daughter Trini. [facility] signs, medication management, physical and occupational therapy. 3. An appointment is scheduled with Dr. Mckeon on 09/02/17 at 10:30 a.m. A CBC will be drawn in the office. 4. Continue use of oxygen at 4L/cannula 5. Continue to use nebulizer treatments at least 3 to 4 times daily 6. Continue to check blood sugars at least 2 times daily. 7. The patient is DNR. MEDICATIONS AT DISCHARGE: [place] 5-325 one tab p.o. b.i.d. TOM Duoneb one vial NEB Rt q.i.d. p.r.n. Eliquis 5 mg p.o. b.i.d. TOM Calcium 500 + Vitamin D 200 mg) one each p.o. daily TOM Valium 2 mg p.o. b.i.d. TOM Lanoxin 125 mcg p.o. daily TOM Cardizem 120 mg p.o. b.i.d. TOM Prozac 10 mg p.o. daily TOM Prozac 20 mg p.o. bedtime TOM Lasix 20 mg p.o. MoWeFr@0630 TOM Synthroid 50 mcg p.o. q.d a.c. TOM Cozaar 100 mg p.o. daily TOM Glucophage 500 mg p.o. b.i.d. with meal TOM Lopressor 100 mg p.o. b.i.d. TOM Multivitamin one tab p.o. daily TOM Melatonin 10 mg p.o. bedtime TOM Micro-K 10 mEq p.o. MoWeFr@0900 TOM Requip 2 mg p.o. bedtime TOM Januvia 100 mg p.o. daily TOM NEW PRESCRIPTIONS: Hydralazine 100 mg b.i.d. (called to Cresencio) Prednisone 10 mg daily times 7 days (called to Cresencio) DIET INSTRUCTIONS: Consistent carbohydrates ACTIVITY: Resume as tolerated. SMOKING: N/A DISEASE SPECIFIC EDUCATION: Bronchitis Hypertension Steroid use and risk of GI irritation Oxygen Do not take NSAIDS due to taking [place] [facility] COURSE: 72-year-old white female hospitalized with acute COPD exacerbation. The patient was treated with IV steroids, nebs treatment. The patient had some leg edema which has subsided. Breathing is much better. She is more calm. She wants to go home. On physical exam her lungs were clear abdomen soft. Heart S1, S2, there was no S3. The patient's cardiovascular status was stable. The patient on the day of discharge had blood pressure of 130/72. The patient's systolic blood pressure fluctuates. Her problem is that her daughter has not been able to keep up with her as she is working fulltime. The patient has multiple medical problems. She is not taking any interest in her own medical problems. The patient has anemia with hemoglobin of 8.4, hematocrit 26. She was advised further workup for anemia in the way of EGD and colonoscopy and referred to GI specialist and she declined for now. Condition at time of discharge stable. TIME SPENT: More than 60 minutes. MTDD
--- NOTE | 2017-09-04 10:09 | PN ---
CODING FOR BILLING 08/25/17 LEVEL 5 08/26/17 INTERMEDAITE 08/27/17 INTERMEDIATE 08/28/17 INTERMEDIATE 08/29/17 DISCHARGE MTDD
== END 2017-08-29 14:30 | disposition home or self-care (01) | DRG 191 ==
LOC: ED 10:54 → MEDSURG A 13:31
PROVIDERS: ADMIT Internal Medicine; ATTEND Internal Medicine
DX: J44.1 Chronic obstructive pulmonary disease with (acute) exacerbation (principal); J96.11 Chronic respiratory failure with hypoxia; J20.9 Acute bronchitis, unspecified; J44.0 Chronic obstructive pulmonary disease with (acute) lower respiratory infection; R06.02 Shortness of breath; I34.8 Other nonrheumatic mitral valve disorders; D64.9 Anemia, unspecified; I10 Essential (primary) hypertension; I48.91 Unspecified atrial fibrillation; E11.9 Type 2 diabetes mellitus without complications; F03.90 Unspecified dementia, unspecified severity, without behavioral disturbance, psychotic disturbance, mood disturbance, and anxiety; R63.5 Abnormal weight gain; F41.8 Other specified anxiety disorders; E03.9 Hypothyroidism, unspecified; M19.90 Unspecified osteoarthritis, unspecified site; G25.81 Restless legs syndrome; Z86.79 Personal history of other diseases of the circulatory system; Z95.0 Presence of cardiac pacemaker; Z68.29 Body mass index [BMI] 29.0-29.9, adult; Z79.01 Long term (current) use of anticoagulants; Z79.899 Other long term (current) drug therapy
CPT/HCPCS: 36415; 80053; 80162; 82272; 82550; 82803; 82962; 83880; 84145; 84484; 85025; 85610; 85730; 87040; 87081; 93005; 93010; 94640; 96374; 99284

== ENCOUNTER 2017-09-04 10:04 | Outpatient (CLI) | END 2017-09-04 10:05 | disposition home or self-care (01) | LOC: LAB 10:04 | PROVIDERS: ATTEND Internal Medicine | DX: D64.9 Anemia, unspecified (principal) | CPT/HCPCS: 36415; 85025 ==

== ENCOUNTER 2017-09-05 09:50 | Outpatient (CLI) | END 2017-09-05 09:51 | disposition home or self-care (01) | LOC: LAB 09:50 | PROVIDERS: ATTEND Internal Medicine | DX: D64.9 Anemia, unspecified (principal) | CPT/HCPCS: 36415; 85027 ==

== ENCOUNTER 2017-09-05 12:15 | Inpatient (IN) | payer OTHER ==
[2017-09-05] MEDS ORDERED: TYLENOL PO PRN (12:39)
[2017-09-05] MEDS ORDERED: VISTARIL INJ IM PRN (12:39)
[2017-09-05] MEDS ORDERED: NITROSTAT SL PRN (12:39)
[2017-09-05] MEDS ORDERED: MORPHINE 4 MG/ML VIAL IVP PRN (12:39)
[2017-09-05] MEDS ORDERED: ATROPINE SULFATE PFS IVP PRN (12:39)
[2017-09-05] MEDS ORDERED: DUONEB NEB PRN (12:46)
[2017-09-05] MEDS ORDERED: LASIX TAB PO SCH (13:00)
[2017-09-05] MEDS ORDERED: NON-FORMULARY MEDICATION (Potassium Chloride [Klor-Con 10] 10 MEQ) PO SCH (13:00)
[2017-09-05 13:09] VITALS: BMI 31.9
[2017-09-05] MEDS ORDERED: MICRO-K CAP PO SCH (13:30)
--- NOTE | 2017-09-05 13:30 | DI ---
EXAM: Chest one view, frontal view only. HISTORY: Cough. Anemia. COMPARISON: 08/28/2017. FINDINGS: Left-sided pacemaker noted. Heart is enlarged. Atherosclerotic calcifications present. There is no vascular congestion. Lungs are clear without pleural effusion or pneumothorax. Degenera tive changes seen in both shoulders. Since the prior study, there is improved aeration in the lung b ases. IMPRESSION: No acute process.
[2017-09-05] MEDS: PROTONIX IV 40 MG in SODIUM CHLORIDE 100 ML IV SCH (15:46)
[2017-09-05] MEDS: LASIX TAB PO SCH (15:46)
[2017-09-05] MEDS: MICRO-K CAP PO SCH (15:47)
--- NOTE | 2017-09-05 16:01 | CT ---
EXAM: CT abdomen pelvis with and without contrast HISTORY: Diarrhea with elevated white cell count COMPARISON: CT abdomen pelvis 07/21/2017 and numerous priors TECHNIQUE: Serial axial images of the abdomen pelvis were performed before and after 100 mL is of Om nipaque IV contrast was administered. These were obtained from the lung bases through the inferior p umang. FINDINGS: The lung bases demonstrate consolidation in the medial left lower lobe which is unchanged. Small effusion is present on the right. The heart is mildly enlarged. The liver is unremarkable with no focal hepatic lesion. The gallbladder has been resected. The adre nal glands are normal. The kidneys are unchanged. The spleen is normal. The pancreas is normal. S tomach is distended. Small bowel in the abdomen pelvis is unremarkable. The colon demonstrates diverticulosis without div erticulitis. There is no free air, free fluid or lymphadenopathy. There is moderate atherosclerotic disease. Urinary bladder is unremarkable. There has been a hysterectomy. The osseous structures de monstrate degenerative disease of the hips and degenerative disease of the spine. There is questionab le mild body wall edema. IMPRESSION: 1. No acute intra-abdominal or pelvic process to account for patient symptoms. 2. Diverticulosis without diverticulitis. 3. Unchanged consolidation in the medial left lower lobe with small right effusion. 4. Questionable mild body wall edema.
[2017-09-05] MEDS: LOPRESSOR PO SCH (17:04)
[2017-09-05] MEDS: HUMULIN R SUBCUT PRN ×2 (17:05→21:53)
[2017-09-05] MEDS ORDERED: GLUCOPHAGE PO SCH (17:30)
[2017-09-05] MEDS ORDERED: VALIUM PO SCH (21:00)
[2017-09-05] MEDS ORDERED: NON-FORMULARY MEDICATION (Hydralazine Hcl [Hydralazine Hcl] 50 MG) PO SCH (21:00)
[2017-09-05] MEDS ORDERED: NORCO 5-325 PO SCH (21:00)
[2017-09-05] MEDS ORDERED: NON-FORMULARY MEDICATION (Metoprolol Tartrate [Metoprolol Tartrate] 100 MG) PO SCH (21:00)
[2017-09-05] MEDS ORDERED: NON-FORMULARY MEDICATION (Ropinirole Hcl [Requip] 2 MG) PO SCH (21:00)
[2017-09-05] MEDS ORDERED: NON-FORMULARY MEDICATION (Diltiazem Hcl [Cardizem] 120 MG) PO SCH (21:00)
[2017-09-05] MEDS: APRESOLINE PO SCH (21:15)
[2017-09-05] MEDS: CARDIZEM PO SCH (21:15)
[2017-09-05] MEDS: REQUIP PO SCH (21:15)
[2017-09-05] MEDS: PROZAC PO SCH (21:16)
--- NOTE | 2017-09-05 22:09 | CT ---
EXAM: CT scan thorax without contrast HISTORY: Shortness of breath COMPARISON: CT scan thorax August 25/2018 FINDINGS: Contiguous axial images obtained through the thorax without contrast utilizing 5-mm collim ation. Sagittal and coronal reconstructions were imaged and reviewed.. There is stable left-sided p acemaker. Multiple mediastinal lymph nodes appear stable measuring upwards of 11 mm. The heart is n ormal in size without pericardial effusion.. Redemonstrated is consolidation within the posteromedial left lower lobe with occlusion of the associated left lower lobe bronchus.. There is trace right pl eural effusion with right basilar consolidation. There has been prior cholecystectomy and gastric nunez rgery.. IMPRESSION: Stable chronic left lower lobe atelectasis with endobronchial obstruction. Trace right pleural effusion with right basilar consolidation.
[2017-09-05] MEDS: SODIUM CHLORIDE 1,000 ML IV SCH (23:33)
[2017-09-05] MEDS: NON-FORMULARY MEDICATION (Melatonin [Melatonin] 10 MG) PO SCH (23:36)
[2017-09-06] MEDS ORDERED: SYNTHROID PO SCH (06:30)
[2017-09-06] MEDS: SYNTHROID PO SCH (06:33)
[2017-09-06] MEDS: APRESOLINE PO SCH ×2 (08:43→20:59)
[2017-09-06] MEDS: ASPIRIN EC PO SCH (08:43)
[2017-09-06] MEDS: COZAAR PO SCH (08:44)
[2017-09-06] MEDS: LANOXIN PO SCH (08:45)
[2017-09-06] MEDS: JANUVIA PO SCH (08:45)
[2017-09-06] MEDS: LOPRESSOR PO SCH ×2 (08:46→18:12)
[2017-09-06] MEDS: PROTONIX IV 40 MG in SODIUM CHLORIDE 100 ML IV SCH (08:47)
[2017-09-06] MEDS: MULTIVITAMIN TABLET PO SCH (08:47)
[2017-09-06] MEDS ORDERED: COZAAR PO SCH (09:00)
[2017-09-06] MEDS ORDERED: NON-FORMULARY MEDICATION (Calcium Carbonate [Calcium] 600 MG) PO SCH (09:00)
[2017-09-06] MEDS ORDERED: PROZAC PO SCH (09:00)
[2017-09-06] MEDS ORDERED: CALCIUM 500 + VIT D 200 MG TABLET PO SCH (09:00)
[2017-09-06] MEDS ORDERED: NON-FORMULARY MEDICATION (Sitagliptin Phosphate [Januvia] 100 MG) PO SCH (09:00)
[2017-09-06] MEDS: CARDIZEM PO SCH ×2 (09:02→20:59)
[2017-09-06] MEDS: SODIUM CHLORIDE 1,000 ML IV SCH (09:03)
[2017-09-06] MEDS: HUMULIN R SUBCUT PRN ×2 (12:09→20:59)
[2017-09-06] MEDS ORDERED: LASIX IVP STA (14:10)
[2017-09-06] MEDS ORDERED: AVELOX 400 MG in PREMIX 250 ML NS 1 BAG IV SCH (20:00)
[2017-09-06] MEDS: REQUIP PO SCH (20:59)
[2017-09-06] MEDS: PROZAC PO SCH (20:59)
[2017-09-06] MEDS ORDERED: ELIQUIS PO SCH (21:00)
[2017-09-06] MEDS: ELIQUIS PO SCH (21:05)
[2017-09-06] MEDS: NON-FORMULARY MEDICATION (Melatonin [Melatonin] 10 MG) PO SCH (21:07)
[2017-09-07] MEDS ORDERED: AVELOX 250 ML IV ONE (00:29)
[2017-09-07] MEDS: SYNTHROID PO SCH (05:58)
[2017-09-07] MEDS: HUMULIN R SUBCUT PRN ×4 (06:12→21:11)
[2017-09-07] MEDS: ELIQUIS PO SCH ×2 (10:03→21:12)
[2017-09-07] MEDS: LOPRESSOR PO SCH ×2 (10:05→17:31)
[2017-09-07] MEDS: ASPIRIN EC PO SCH (10:05)
[2017-09-07] MEDS: APRESOLINE PO SCH ×2 (10:06→21:12)
[2017-09-07] MEDS: CARDIZEM PO SCH ×2 (10:07→21:16)
[2017-09-07] MEDS: COZAAR PO SCH (10:07)
[2017-09-07] MEDS: LANOXIN PO SCH (10:08)
[2017-09-07] MEDS: JANUVIA PO SCH (10:08)
[2017-09-07] MEDS: MULTIVITAMIN TABLET PO SCH (10:09)
[2017-09-07] MEDS ORDERED: LASIX IVP STA (18:21)
[2017-09-07] MEDS ORDERED: ROCEPHIN ONE (19:07)
[2017-09-07] MEDS: ROCEPHIN 2 GM in SODIUM CHLORIDE 50 ML IV SCH (19:11)
[2017-09-07] MEDS ORDERED: AVELOX 400 MG in PREMIX 250 ML NS 1 BAG IV SCH (21:00)
[2017-09-07] MEDS: REQUIP PO SCH (21:12)
[2017-09-07] MEDS: NON-FORMULARY MEDICATION (Melatonin [Melatonin] 10 MG) PO SCH (21:17)
[2017-09-07] MEDS: PROZAC PO SCH (21:17)
[2017-09-08] MEDS: SYNTHROID PO SCH (05:44)
[2017-09-08] MEDS: HUMULIN R SUBCUT PRN ×2 (05:45→11:24)
[2017-09-08] MEDS: ROCEPHIN 2 GM in SODIUM CHLORIDE 50 ML IV SCH (08:00)
[2017-09-08] MEDS: ASPIRIN EC PO SCH (08:00)
[2017-09-08] MEDS: LANOXIN PO SCH (08:00)
[2017-09-08] MEDS: COZAAR PO SCH (08:01)
[2017-09-08] MEDS: LOPRESSOR PO SCH (08:02)
[2017-09-08] MEDS: JANUVIA PO SCH (08:02)
[2017-09-08] MEDS: APRESOLINE PO SCH (08:02)
[2017-09-08] MEDS: CARDIZEM PO SCH (08:02)
[2017-09-08] MEDS: ELIQUIS PO SCH (08:09)
[2017-09-08] MEDS: MULTIVITAMIN TABLET PO SCH (08:09)
--- NOTE | 2017-09-08 12:56 | PN ---
DATE OF VISIT: 09/06/17 SUBJECTIVE: Ms. Montilla is much more alert today and conversant where as yesterday she was barely responsive and not really willing to talk probably because she was tired. VITAL SIGNS: Temperature of 97.6, pulse 87, blood pressure 140/68, respiratory rate 18, oxygen saturation 99 at 4 liters. That needs to be decreased. I told Ms. Montilla that we are going to transfuse her a unit of blood today. Her hgb is now 7.5. This might help the patient with her shortness of breath. The BNP has increased and the IV's were discontinued. The patient's appetite had been well that she consumed the food on admission 100% and 50% yesterday. Sitting on the recliner when I examined her. HEART: Audible and slightly irregular. The echocardiogram showed some atrial fibrillation, normal ventricular response. There is more or less a normal sinus rhythm. The patient was given Lasix 40mg IV because of the increased BNP. She will be given a unit of blood today and the next unit will not be done until tomorrow. CT shows left lower lobe atelectasis with endobronchial obstruction probably mucus and also right basilar consolidation. This patient will be given an antibiotic. The source of the bleeding is still unknown. This patient had not been anemic until this year. MTDD
--- NOTE | 2017-09-08 13:29 | HP ---
DATE OF SERVICE: 09/05/17 REASON FOR HOSPITALIZATION/HISTORY OF PRESENT ILLNESS: Progressive anemia-was 8.3 09/02 today 8.0. WBC elevate 18.99. Severe diarrhea. Fasting blood sugar 239 this am- running higher this week. No visible blood in stool or urine. PAST MEDICAL HISTORY: History of back fracture Diabetes mellitus type 2 Hypertension Thyroid Dementia History of CVA COPD Congestive heart failure Coronary artery disease Restless leg syndrome Dyslipidemia Osteoarthritis MYNOR Insomnia Depression PAST SURGICAL HISTORY: Gallbladder Stomach-gastric sleeve Hysterectomy REVIEW OF SYSTEMS: CONSTITUTIONAL: No fever, Fatigue. HEENT: No sinus drainage, no sore throat. RESPIRATORY: No cough, no congestion. CARDIOVASCULAR: No atypical chest pain for coronary artery disease. No angina , CHF symptoms, palpitations or shortness of breath. GASTROINTESTINAL: No melena or abdominal pain. No GERD. Diarrhea. GENITOURINARY: No hematuria, no prostatism, no polyuria. FARM SPECIALIST: No blackout, no dizziness, no headache, no double vision. MUSCULOSKELETAL: Osteoarthritis pain, no joint swelling. ENDOCRINE: No weight loss, no weight gain. SKIN: Not dry, no rash. PSYCHIATRIC: Anxious, no depression, no suicidal thoughts, no homicidal thoughts. SOCIAL HISTORY: Marital Status: . Alcohol Usage: No. Tobacco Usage: Quit. FAMILY HISTORY: Father- Mother- Brothers-4 Sisters-1 MEDICATIONS: Calcium daily Melatonin 10mg Po daily Metformin 500mg Twice a day Metoprolol 100mg PO twice a day Eliquis 5mg PO twice a day Levothyroxine 0.05mg PO daily Lasix 20mg 3 times a week [place] 5-325mg PO twice a day Diazepam 2mg PO twice a day Fluoxetine 20mg PO daily Ropinrole 2mg PO daily Fluoxetine 10mg PO daily Diltiazem 120mg PO twice a day Januvia 100mg PO daily Losartan 50mg PO daily Potassium 10meq three times a week Multivitamin tablet PO daily Digoxin 0.125mg PO daily Hydralazine 50mg Po twice a day ALLERGIES: No known drug allergies PHYSICAL EXAMINATION: V/S: Pulse 76, blood pressure 118/54, temperature 97.7, pulse ox 88%. GENERAL APPEARANCE: Oriented times three. HEENT: Normal. Pale. NECK: No JVP, no bruits. RESPIRATORY: Decreased breath sounds. CARDIOVASCULAR: S1, S2, no S3, no murmurs. No cyanosis, clubbing. No ascites. GI/ABDOMEN: No tenderness. Bowel sounds are active. EXTREMITIES: +1 bilateral lower extremity edema, pulses +1, equal. FARM SPECIALIST: Deep tendon reflexes, sensory, motor and gait all normal. RECTAL: Colonoscopy years ago/PELVIC: Advised yearly, Mammogram 08/29. LABS: Chest x-ray shows no acute process. Sodium 143, potassium 4.5, CO2 33, BUN 23, creatinine 1.01, glucose 140, AST 21, ALT 22, Digoxin 0.58, WBC 18.49, RBC 2.99 , hgb 8.1, hct 26.6. ASSESSMENT: 1. Progressive 2. Shortness of breath 3. Diarrhea 4. Mild Dementia 5. Depression 6. History of CVA 7. COPD 8. Diabetes Mellitus type 2 9. 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 Admit to Dr. oByd 2. Routine telemetry 3. CBC/CMP stat and daily 4. Stool for occult blood 5. U/A now 6. Chest x-ray now 7. Stool for C-Diff 8. O2- 2 liters as needed 9. Type and cross 2 units PRBC's and hold 10.Continue home medications 11.Hold Eliquis 12.Sliding scale for sugar 13.Low salt diet 14.Hold PO Protonix 15.Protonix 40mg IV daily 16.Digoxin Level today 17.DUO NEBS three times a day PRN TIME SPENT: More than 70 minutes. MTDD
--- NOTE | 2017-09-08 13:58 | PN ---
DATE OF VISIT: 09/07/17 SUBJECTIVE: 72 year old female who was admitted because of anemia. The patient's hgb did go down to 7.5. The occult was negative, stool obtained during rectal examination. The patient doesn't seem to have any external signs of bleeding. This patient would probably need any endoscopy as well as colonoscopy if she had not had on recently. Eliquis was reduced to 2.5 twice a day from 5mg twice a day. This patient is in atrial fibrillation and appears to have normal sinus rhythm on EKG. The first unit was completed and the hgb did go up to 8.1 this morning. Again the second unit is on going and they had to try several try for venous access before they can begin transfusion. The blood is about done and it is now 6:30pm. The patient did grown Citrobacter sensitive to Ceftriaxone. It is also sensitive to Levofloxacin. The patient is on Moxifloxacin. The Moxy is discontinued and the patient is given Ceftriaxone 2gram intervenously daily. LUNGS: Occasional rales, no wheezing. Breath sounds are diminished in both sides HEART: Audible and regular ABDOMEN: Nontender HEENT: Conjunctiva still pale. CONDITION: Improved. This patient is much more alert today then on admission. She is sitting and eating on her own. The patient does live with her daughter. The BNP is lower today then yesterday. She was given 40mg of Lasix Intervenously yesterday. She will given 20mg of Lasix after completion of the blood transfusion. The patient' s anemia remained to be normocytic hypochromic. We will obtain another CBC tomorrow plus a BNP and a renal panel. We also obtain a fasting insulin as well as plasma C-Peptide level. [facility]
[2017-09-08] MEDS: MICRO-K CAP PO SCH (14:49)
[2017-09-08] MEDS: LASIX TAB PO SCH (14:49)
[2017-09-08 15:39] VITALS: BP 114/78; TEMP 98.4
--- NOTE | 2017-09-08 15:49 | HP ---
CHIEF COMPLAINT: Anemia and shortness of breath HISTORY OF PRESENT ILLNESS: This is a 72 year old female who has been followed by Dr. Mckeon and Elsy Estrada, Nurse Practitioner with Dr. Mckeon because of the anemia. The patient has a gradual decrease in the hgb as well as hct. The patient is also is getting weaker. She is now also short of breath. This patient has multiple problems and has multiple medications. She was admitted for further workup and possibly a transfusion. PAST PERSONAL HISTORY: Hypothyroidism, replaced Hypertension, treated Dyslipidemia COPD on oxygen Congestive heart failure Atrial fibrillation on anticoagulation Obesity Anxiety Type 2 diabetes mellitus Depression Leg edema Hypokalemia Hysterectomy Gastric sleeve resection Cholecystectomy SOCIAL HISTORY: The patient is a and still lives at home. She is on oxygen at home. MEDICATIONS: Requip 2mg at bedtime Metoprolol Tartrate 100mg twice a day Metformin 500mg twice a day Januvia 100mg daily Levothyroxine 50mcg daily Fluoxetine Prozac 10mg daily Prozac 20mg capsule at bedtime Hydrocodone/ APAP 5-325 one twice a day Valium 2mg twice a day Melatonin 10mg capsule at bedtime Calcium Carbonate 600mg daily Multivitamin for the eye daily Cardizem 120mg twice a day Eliquis 5mg twice a day DUONEB one nebulizer Q 6 hours KCL 10meq daily Lasix 20mg PO daily Digoxin 0.125mcg daily Hydralazine 50mg PO twice a day Losartan 50mg PO daily ALLERGIES: No known drug allergies. REVIEW OF SYSTEMS: CONSTITUTIONAL: The patient is rousable but appears to be very tired and is not quite verbal when asked about a questions but does follow verbal commands. She is on two liters of nasal oxygen. At one time the patient was on 5 liters. Oxygen saturation 100 and that needs to be reduced. PHYSICAL EXAMINATION: VITAL SIGNS: Temperature 98 orally, pulse 84, blood pressure 162/85, respiratory 20, oxygen saturation 100% at 5 liters. The nasal oxygen will also be reduced to two liters nasal cannula. It might be a mask that is necessary if she breathing through partly the mouth. GENERAL APPEARANCE: Pale FACE: Symmetrical and equal with no facial weakness. EYES: Pupils equal/reactive to light. Conjunctivae not pale. Sclerae not icteric. THROAT: No inflammation, tumors or exudate. NECK: No masses. No bruit. No tenderness. No rigidity. CHEST: Symmetrical and equal BREAST: Symmetrical and equal with no palpable masses. LUNGS: Breath sounds are diminished in both side with few rales of the bases, no wheezing. HEART: Audible and regular with good tones. No murmurs. ABDOMEN: Pendulous, soft with no significant tenderness. Bowel sounds are active. LOWER EXTREMITIES: Edematous. posterior tibials are present. UPPER EXTREMITIES: Symmetrical and equal ASSESSMENT: 1. Mildly severe anemia 2. COPD with respiratory failure with supplement oxygen 3. Type 2 Diabetes Mellitus 4. Hypothyroidism 5. Hypertension 6. History of congestive heart failure 7. Elevated BMI 8. Chronic kidney disease stage 3 PROGNOSIS: POOR I have reviewed her records and that patient was not anemic until about a few months ago. The Hemoccult that was done today is negative for blood. Rectal examination revealed no blood in the rectal canal and sphincter is competent. There is no tumor. The IV is given at 83cc per hour but this would be reduced depending upon the results of the CT as well as the BNP. Both of those were ordered for tonight. APRILD
--- NOTE | 2017-09-09 08:22 | RS.PTINEVL ---
Subjective - Patient information Date of Evaluation: 09/08/17 Date of Arrival on Unit: 09/06/17 Admitted From:: Home Diagnosis: progressive anemia, SOA, diarrhea Usual Living Arrangement: daughter Home Environment: House, Ramp Medical History: Hypertension LATEX ALLERGY?: No Surgical History: Hysterectomy Surgical History Comments:: appey Medications: see chart Subjective Information/ Patient Comments:: pt states "I am so mixed up today." - Level of function Prior to this admission, the patient could do the following:: Partially Dependent Ambulation, Perform Sap Business Objects Consultant/Cooking Current Level of Function: Partially Dependent Current Equipment Used at Home: oxygen, rollator, shower chair Interventions - Objective Patient Orientation: Person Current Interventions: IV's, Oxygen (4 liters ), Telemetry Observation: pt with increased thoracic kyphosis, rounded shlds Range of Motion - ROM Right Upper Extremity AROM: WFL's Left Upper Extremity AROM: WFL's Right Lower Extremity AROM: WFL's Left Lower Extremity AROM: WFL's Muscle Strength - Muscle Strength Right Upper Extremity Strength: Mild Weakness (shld flex 4-/5, elbow flex/ext 4/ 5, decreased career coordinator) Left Upper Extremity Strength: Mild Weakness (shld flex 4-/5, elbow flex/ext 4/5 , decreased career coordinator) Right Lower Extremity Strength: Mild Weakness (hip flex 4-/5, knee flex/ext 4/5 , ankle DF/PF 4/5) Left Lower Extremity Strength: Mild Weakness (hip flex 4-/5, knee flex/ext 4/5, ankle DF/PF 4/5) Sensation - Sensation Right Upper Extremity Sensation: Intact/Normal Left Upper Extremity Sensation: Intact/Normal Right Lower Extremity Sensation: Intact/Normal Left Lower Extremity Sensation: Intact/Normal Palpation Palpation Findings: None/Normal Balance - Sitting Balance and Reactions Static Sitting Balance: Good Dynamic Sitting Balance: Fair Sitting Equilibrium Reactions: Delayed Left, Delayed Right Sitting Protective Reactions: Delayed Left, Delayed Right - Standing Balance and Reactions Static Standing Balance: Poor Dynamic Standing Balance: Poor Standing Equilibrium Reactions: Delayed Left, Delayed Right Standing Protective Reactions: Delayed Left, Delayed Right - Comments Balance Assessment Comments: pt with flexed posture, occasional scissoring Functional Mobility - Transfers Sit to Stand: Min Assist Stand to Sit: Min Assist - Safety Awareness Safety Awareness: Fair TIFFANIE INDEX SCORE: n/a Ambulation - Ambulation Assistive Device Used: Rolling Walker Orthotic/Prosthetic Device: No Distance: 80ft Assistance needed with Ambulation: CGA Quality of Ambulation: pt amb with O2 Gait Deviations: Forward posture, Short stride, Deviates from path Factors Affecting Ambulation: Decreased Balance, Breathing/O2 Saturation, Weakness, Decreased Safety, Cognitive Status, Limited Endurance Treatment time - Time with patient Total treatment time: 26 Patient Education - Education Patient Education: Activity Modification, Education of Plan of Care Teaching Recipient: Patient Teaching Methods: Discussion Comments: Discussion with patient regarding POC Assessment - Assessment Problem List:: Decreased level of function, Requires training/education, Decreased safety/Risk of falls, Weakness, Cognitive status limits abilities Rehab Potential: Good Further Therapy Indicated?: Yes Evaluation Complexity: HISTORY: Medium (anemia, HTN, SOA), EXAM OF BODY SYSTEMS : Medium (gait, balance, strength, SOA, cognition), CLINICAL PRESENTATION: Medium (evolving), CLINICAL DECISION MAKING: Medium Short Term Goals GOAL #1: pt demonstrate independence with bed mobility Goal to be met by: 09/10/17 Progress towards Goal:: Not Met GOAL #2: pt transfer sup to/from sit to/from stand CGA to min x 1 Goal to be met by: 09/10/17 GOAL #3: pt amb 100ft with rwx with no LOB with CGAx 1 Goal to be met by: 09/10/17 Cold Type Composing Machine Operator Goals GOAL #1: pt transfer sup to/from sit to/from stand with supervision Goal to be met by: 09/13/17 GOAL #2: pt amb functional household distances with rwx with SBA with no LOB Goal to be met by: 09/13/17 GOAL #3: pt with improved BLE strength to 4 to 4+/5 independent with HEP Goal to be met by: 09/13/17 Plan Plan of Care: Therapeutic EX, Therapeutic Activity Other:: gait training Frequency of Treatment: 1-2 X day, as tolerated Duration of Treatment: 5 days Anticipated Discharge Destination: Home Has the Physician been added for Co-signature?: Yes
--- NOTE | 2017-09-09 09:15 | PN ---
DATE OF VISIT: 09/08/17 SUBJECTIVE: The patient today is alert,oriented times four, not dyspneic or tachypneic. Her color is better. The patient had received two units of packed red cells. Her hgb today is now up to 11 with hct 34.2. The lowest hgb was 7.5 and hct 25.1. LUNGS: Has diminished breath sounds in both sides with no wheezing. No significant rales. HEART: Audible and regular with good tones. ABDOMEN: Nontender VITAL SIGNS: Temperature 98.4, pulse 76, blood pressure 114/78, respiratory rate 24 and oxygen saturation 98 at 4 liters. I had reduced the oxygen last night to 3 however that has no changed very much. This patient is discharged from acute care to transitional care for continued antibiotic administration because of pneumonitis. WBC also has increased remarkably today reason undetermined. WBC is now 19,070. Her WBC on admission was 18,490. It did go down to 15,220 and then spiked back again today. Electrolyte are acceptable, sugar 138, BNP 995 slightly higher than yesterday of 747, total protein 6.8. CONDITION: Improved and stable. I had talked to Dr. Mckeon who is her primary provider and that she would be discharged from acute to transitional under his care and he agreed to that. TY
--- NOTE | 2017-09-11 14:41 | DS ---
PATIENT IDENTIFICATION: Discharged 09/08/17 to Transitional Care. 72 year old female patient of Dr. Cartwright was admitted to my service since he is out of town. The patient's problems are progressive. Anemia, increasing weakness and now shortness of breath. The patient has no obvious signs of external blood loss. I reviewed the previous admissions and the patient's hemoglobin and hematocrit were normal about a year ago. It was still normal until about a few months ago. The patient has atrial fibrillation and is treated with Eliquis 5 mg twice a day. She also has other significant medical problems, such as diabetes mellitus, hypertension, congestive heart failure and obesity. HOSPITAL COURSE: The patient, when I first saw her, was drowsy, but arousable. She did not desire to answer questions well. LUNGS: The lungs were diminished with a few rales at the bases. HEART: Audible and regular with good tones most of the time. ABDOMEN: Pendulous with no remarkable tenderness. RECTAL: Anal sphincter was competent. No tumor or masses in the rectoanal canal and the rectal vault was empty. Hemoccult done was negative. LOWER EXTREMITIES: Posterior tibials were present. The patient's initial CBC showed WBC 18,490, RBC 2.99, hemoglobin 8.1, hematocrit 26.6, MCV 89, MCH 27.1. RDW 17.3. Platelet count normal. Subsequent CBC showed decreasing hemoglobin and hematocrit 7.5 and 25.1. The WBC was slightly lower at 15.22 RDW is about the same at 17.2. Reticulocyte count 2.72%. CMP showed slightly elevated carbon dioxide 33. BUN 23, E GFR 54. Blood sugar 140. Serum transferrin 319, normal. Serum ferritin 13.05, within normal. BNP is slightly elevated 153. Albumin below normal 3.2. CK and Troponin normal. Digoxin 0.58. The patient was given 3 units of packed red cells, given once a day. The medications discontinued consisted Calcium and Valium. Prozac was given 10 mg daily and 20 mg at bedtime and the daily Prozac 10 mg was discontinued. Prozac has a very long house life. The patient on 09/06/17 was feeling better and she was eating and looks much better. She is brighter. She answers questions well. She was then advised that I will try to give her a blood transfusion and also advised about the possible allergic reaction or reactions to the blood transfusion. The patient agreed to the idea of a blood transfusion. Repeat CBC on 09/07/17 showed a WBC of 17,380. The leukocytosis maybe secondary to the pulmonary problems, left lower lobe atelectasis within the bronchial obstruction. This is probably a pneumonic process. She also has right basilar consolidation. Moxifloxacin 400 mg was initiated on 09/06/17. Ceftriaxone was given also and initiated on 09/07/17. The patient was given a second unit and the hemoglobin is now elevated to 11. The patient was looking much better and the shortness of breath more or less has resolved. The patient, however, persisted to have leukocytosis and this maybe secondary to the pneumonic process. I talked to Dr. Mckeon, who is her family provider, and he will accept her when admitted to Transitional Care. The plan then is to discharge this patient for continuation of antibiotics. She will be discharged from acute care to Transitional admission. The patient at the time of discharge was alert and responsive with movement of all extremities and showed a better color. She is no longer dyspneic, nor tachypneic. This patient was given Lasix 40 mg IV since the BNP did rise. She was given another Lasix at the completion of the transfusion. The BNP was slightly higher at the time of discharge, but lower than the highest level. Her lungs has rales at the bases, but not wheezing. The heart is audible and mostly regular. The EKG done showed atrial fibrillation with normal ventricular response. The rhythm is regular. FINAL DIAGNOSES: 1. SEVERE ANEMIA, IRON DEFICIENCY, ETIOLOGY UNDETERMINED, TRANSFUSED WITH 2 UNITS. 2. RIGHT BASILAR PNEUMONIA 3. LEFT LOWER LOBE ATELECTASIS WITH LEFT ENDOBRONCHIAL MUCUS 4. TYPE II DIABETES MELLITUS 5. HYPERTENSION, CONTROLLED 6. HISTORY OF CONGESTIVE HEART FAILURE 7. HISTORY OF ATRIAL FIBRILLATION ON ELIQUIS 5 MG TWICE A DAY PROGNOSIS: Guarded. MTDD
== END 2017-09-08 15:45 | disposition swing bed (61) | DRG 811 ==
LOC: MEDSURG A 12:15
PROVIDERS: ADMIT General Practice; ATTEND General Practice
PROC: 30233N1 Transfusion of Nonautologous Red Blood Cells into Peripheral Vein, Percutaneous Approach (ICD-10-PCS; principal; 2017-09-06)
PROC: 30233N1 Transfusion of Nonautologous Red Blood Cells into Peripheral Vein, Percutaneous Approach (ICD-10-PCS; 2017-09-07)
DX: D64.9 Anemia, unspecified (principal); J18.9 Pneumonia, unspecified organism; J98.11 Atelectasis; R06.02 Shortness of breath; J98.09 Other diseases of bronchus, not elsewhere classified; R19.7 Diarrhea, unspecified; E11.9 Type 2 diabetes mellitus without complications; I10 Essential (primary) hypertension; I50.9 Heart failure, unspecified; I12.9 Hypertensive chronic kidney disease with stage 1 through stage 4 chronic kidney disease, or unspecified chronic kidney disease; E11.22 Type 2 diabetes mellitus with diabetic chronic kidney disease; N18.3 Chronic kidney disease, stage 3 (moderate); J44.9 Chronic obstructive pulmonary disease, unspecified; E03.9 Hypothyroidism, unspecified; I48.91 Unspecified atrial fibrillation; Z79.01 Long term (current) use of anticoagulants; Z79.84 Long term (current) use of oral hypoglycemic drugs; Z79.899 Other long term (current) drug therapy; Z99.81 Dependence on supplemental oxygen; Z86.73 Personal history of transient ischemic attack (TIA), and cerebral infarction without residual deficits
CPT/HCPCS: 36415; 36430; 80053; 80162; 81001; 82272; 82550; 82728; 82962; 83010; 83036; 83525; 83880; 84100; 84466; 84484; 84681; 85014; 85018; 85025; 85027; 85045; 86710; 86850; 86900; 86922; 87040; 87081; 87086; 87186; 87493; 93005; 93010; 99223; 99232; 99239

== ENCOUNTER 2017-09-08 15:45 | Inpatient (IN) | payer OTHER ==
[2017-09-08 18:14] VITALS: BMI 31.8
[2017-09-08] MEDS: GLUCOPHAGE PO SCH ×2 (18:37→20:25)
[2017-09-08] MEDS ORDERED: DUONEB NEB SCH (20:00)
[2017-09-08] MEDS: PROZAC PO SCH (20:25)
[2017-09-08] MEDS: HUMULIN R SUBCUT PRN (20:26)
[2017-09-08] MEDS: DUONEB NEB SCH (20:30)
[2017-09-08] MEDS ORDERED: NON-FORMULARY MEDICATION (Ropinirole Hcl [Requip] 2 MG) PO SCH (21:00)
[2017-09-08] MEDS ORDERED: NON-FORMULARY MEDICATION (Diltiazem Hcl [Cardizem] 120 MG) PO SCH (21:00)
[2017-09-08] MEDS ORDERED: ELIQUIS PO SCH (21:00)
[2017-09-08] MEDS ORDERED: NON-FORMULARY MEDICATION (Hydralazine Hcl [Hydralazine Hcl] 50 MG) PO SCH (21:00)
[2017-09-08] MEDS ORDERED: NON-FORMULARY MEDICATION (Metoprolol Tartrate [Metoprolol Tartrate] 100 MG) PO SCH (21:00)
[2017-09-09] MEDS: DUONEB NEB SCH ×3 (05:12→19:30)
[2017-09-09] MEDS ORDERED: SYNTHROID PO SCH (06:30)
[2017-09-09] MEDS ORDERED: ROCEPHIN 2 GM in SODIUM CHLORIDE 50 ML IV SCH (09:00)
[2017-09-09] MEDS ORDERED: COZAAR PO SCH (09:00)
[2017-09-09] MEDS ORDERED: NON-FORMULARY MEDICATION (Sitagliptin Phosphate [Januvia] 100 MG) PO SCH (09:00)
[2017-09-09] MEDS: LOPRESSOR PO SCH ×2 (09:30→20:02)
[2017-09-09] MEDS: JANUVIA PO SCH (09:30)
[2017-09-09] MEDS: ROCEPHIN 1 GM in SODIUM CHLORIDE 50 ML IV SCH (09:30)
[2017-09-09] MEDS: MULTIVITAMIN TABLET PO SCH (09:30)
[2017-09-09] MEDS: CARDIZEM PO SCH ×2 (09:31→20:03)
[2017-09-09] MEDS: GLUCOPHAGE PO SCH ×2 (09:31→16:55)
[2017-09-09] MEDS: COZAAR PO SCH (09:31)
[2017-09-09] MEDS: APRESOLINE PO SCH ×2 (09:31→20:03)
[2017-09-09] MEDS: LANOXIN PO SCH (09:32)
[2017-09-09] MEDS: PROTONIX PO SCH (09:34)
[2017-09-09] MEDS: PROZAC PO SCH ×2 (09:35→20:03)
--- NOTE | 2017-09-09 09:49 | PCM.PROG ---
Attending Provider: ATTENDING PROVIDER: Dr. ROSALINO GRAY This patient is seen with Elsy Estrada, Nurse Practitioner. DATE OF SERVICE: 09/09/17 SUBJECTIVE: This 72 year old WHITE/ F was hospitalized 09/08/17. The patient is alert, resting comfortably. Hemoglobin is down to 9.6 from 11 yesterday. Will try to wean from O2 today. REVIEW OF SYSTEMS: CONSTITUTIONAL: Positive for weakness. No night sweats. No fatigue, malaise, lethargy. No fever or chills. HEENT: Eyes: No visual changes. No eye pain. No eye discharge. ENT: No runny nose. No epistaxis. No sinus pain. No odynophagia. No congestion. RESPIRATORY: Positive for shortness of breath. No cough, no congestion. No hemoptysis. CARDIOVASCULAR: No angina symptoms. No CHF symptoms. No atypical chest pain for CAD. No palpitations. No orthopnea.. GASTROINTESTINAL: No abdominal pain. No nausea or vomiting. No diarrhea or constipation. No hematemesis. No hematochezia. GENITOURINARY: No urgency. No frequency. No dysuria. No hematuria. No obstructive symptoms. No discharge. No pain. No significant abnormal bleeding. MUSCULOSKELETAL: No musculoskeletal pain; no joint swelling. NEUROLOGICAL: Awake, alert, oriented to time, place and person. No headache. No neck pain. No syncope. No seizures. No dizziness. PSYCHIATRIC: Not anxious. No depression. No suicidal thoughts. No homicidal thoughts. SKIN: No rash. No lesions. No wounds. ENDOCRINE: No unexplained weight loss. No weight gain. HEMATOLOGIC/LYMPHATIC: No anemia. No purpura. No petechiae. No prolonged or excessive bleeding. No palpable lymph nodes. PHYSICAL EXAMINATION: GENERAL: The patient is awake, alert and oriented, sitting in chair in no distress. VITAL SIGNS: Temperature 98.9 F, Pulse 63, Respiratory Rate 18, BP 147/64, Pulse Ox 94% HEENT: Head normocephalic, atraumatic. Eyes: Extraocular muscles are intact. Pupils are equal, round and reactive to light and accommodation. Ears: No lesions. Nose appeared normal. Throat: No exudate or erythema. NECK: Supple. No JVD, no carotid bruit. No lymphadenopathy or thyromegaly. LUNGS: Diminished breath sounds bilaterally. Clear to auscultation. Percussion note normal. Chest symmetrical. HEART: S1, S2, no S3. No murmurs. No cyanosis or clubbing. No ascites. Pulses: Dorsalis pedis and posterior tibial pulses +1 to +2 both sides. ABDOMEN: Soft. Non-tender. Bowel sounds active. No CVA tenderness. No mass felt. EXTREMITIES: No leg edema. Full range of motion of all extremities, equal. NEUROLOGIC: No focal deficit. Cranial nerves II through XII are grossly intact. No headache, no double vision or headache. SKIN: Not dry. Intact. Turgor-normal. LYMPHATIC: No palpable lymph nodes/no lymphedema. MUSCULOSKELETAL: Normal joints with no swelling. Muscle tone is normal. LAB REVIEW: 09/09/17 04:30 09/09/17 04:30 09/09/17 04:30: Sodium 134 L, Potassium 3.9, Chloride 92 L, Carbon Dioxide 29, Anion Gap 16.9, BUN 19 H, Creatinine 0.77, Estimated GFR (MDRD) 73.00, BUN/ Creatinine Ratio 24.67, Glucose 144 H, Calcium 9.2, Total Bilirubin 0.4, AST 17 , ALT 19, Alkaline Phosphatase 62, Total Protein 5.7 L, Albumin 2.7 L, Globulin 3.0, Albumin/Globulin Ratio 0.90 09/09/17 04:30: WBC 16.46 H, RBC 3.54 L, Hgb 9.6 L, Hct 29.7 L, MCV 83.9, MCH 27.1, MCHC 32.3, RDW Coeff of Alisha 16.1 H, Plt Count 211, Immature Gran % (Auto) 1.3, Neut % (Auto) 83.5, Lymph % (Auto) 8.0 L, [place] % (Auto) 6.6, Eos % (Auto) 0.2, Baso % (Auto) 0.4, Immature Gran # (Auto) 0.2, Neut # (Auto) 13.7 H, Lymph # (Auto) 1.3, [place] # (Auto) 1.1, Eos # (Auto) 0.0, Baso # (Auto) 0.1 ASSESSMENT: 1. Anemia 2. Hypertension 3. Atrial fibrillation 4. UTI sensitive to Rocephin PLAN: 1. D/C Eliquis. Risk of bleeding vs risks with atrial fibrillation discussed in detail. Risks outweigh benefit due to blood loss and persistent anemia. 2. Will start Protonix 40 mg p.o. daily 3. CBC, CMP tomorrow 4. Decrease Rocephin to 1 gm IV daily 5. Wean oxygen to 3L 6. Zofran 4 mg p.o. q.6hr 7. Hydrocodone p.r.n. Plan and coordination of the patient's care discussed in the presence of Salesperson [employer] and nurse. CONDITION: Stable SCRIBED BY: MAKI REBOLLEDO Plant And Equipment Worker scribed while in presence of service performed by Dr. Gray/Elsy Estrada APRN on 09/09/17 ([id number])
[2017-09-09] MEDS: HUMULIN R SUBCUT PRN ×2 (11:03→20:02)
--- NOTE | 2017-09-09 13:21 | RS.PTINEVL ---
Subjective - Patient information Date of Evaluation: 09/09/17 Date of Arrival on Unit: 09/08/17 Admitted From:: In-House Transfer (pt transferred to swing bed) Diagnosis: UTI, anemia, Afib, HTN Usual Living Arrangement: Daughter/son in law Home Environment: House, Ramp Medical History: Hypertension, CVA/TIA, COPD, Dementia, Diabetes, CHF, Arthritis Medical History Comments:: thyroid, back fx, depression, CAD, LATEX ALLERGY?: No Surgical History: Cholecystectomy, Hysterectomy Surgical History Comments:: stomach gastric sleeve Medications: see chart Subjective Information/ Patient Comments:: pt states that she was able to wash herself up today with set up help from nursing. - Level of function Prior to this admission, the patient could do the following:: Partially Dependent Ambulation, Perform Logistics Account Manager/Cooking Current Level of Function: Partially Dependent Current Equipment Used at Home: Glucometer; Oxygen; Cane Interventions - Objective Patient Orientation: Person, Place, Time Current Interventions: Oxygen, Telemetry Observation: pt seen sitting up in chair with LE elevated. Range of Motion - ROM Right Upper Extremity AROM: WFL's Left Upper Extremity AROM: WFL's Right Lower Extremity AROM: WFL's Left Lower Extremity AROM: WFL's Muscle Strength - Muscle Strength Right Upper Extremity Strength: Mild Weakness (shld flex 4-/5, elbow flex/ext 4/ 5) Left Upper Extremity Strength: Mild Weakness (shld flex 4-/5, elbow flex/ext 4/5 ) Right Lower Extremity Strength: Mild Weakness (hip flex 4-/5, knee flex/ext 4/5 , ankle DF/PF 4/5) Left Lower Extremity Strength: Mild Weakness (hip flex 4-/5, knee flex/ext 4/5, ankle DF/PF 4/5) Sensation - Sensation Right Upper Extremity Sensation: Intact/Normal Left Upper Extremity Sensation: Intact/Normal Right Lower Extremity Sensation: Intact/Normal Left Lower Extremity Sensation: Intact/Normal Palpation Palpation Findings: None/Normal Balance - Sitting Balance and Reactions Static Sitting Balance: Good Dynamic Sitting Balance: Fair Sitting Equilibrium Reactions: Delayed Left, Delayed Right Sitting Protective Reactions: Delayed Left, Delayed Right - Standing Balance and Reactions Static Standing Balance: Fair Dynamic Standing Balance: Poor Standing Equilibrium Reactions: Delayed Left, Delayed Right Standing Protective Reactions: Delayed Left, Delayed Right - Comments Balance Assessment Comments: pt with 1 episode of LOB required min assist to maintain balance. Functional Mobility - Bed Mobility Comments:: pt seen sitting up in chair and did not wish to get back in bed. - Transfers Sit to Stand: Min Assist Stand to Sit: Min Assist Stand Pivot Transfers: Min Assist Comments:: stand pivot with min x 1 recliner to/from [facility] [place] - Safety Awareness Safety Awareness: Fair TIFFANIE INDEX SCORE: 10/20 Ambulation - Ambulation Assistive Device Used: Rolling Walker Orthotic/Prosthetic Device: No Distance: 140ft Assistance needed with Ambulation: CGA, Min Assist Gait Deviations: Forward posture, Short stride, Deviates from path Ambulation Comments: pt amb with 1 standing rest period as well as verbal cues for sequencing with rwx. Factors Affecting Ambulation: Decreased Balance, Breathing/O2 Saturation, Weakness, Decreased Safety, Limited Endurance, Limited Sensation Treatment time - Time with patient Total treatment time: 28 Patient Education - Education Patient Education: Home Safety, Activity Modification, Education of Plan of Care Teaching Recipient: Patient Teaching Methods: Discussion Comments: discussed with pt and dtr POC as well as instructed on PLB due to decreased O2 to 85% after amb. Assessment - Assessment Problem List:: Decreased level of function, Requires training/education, Decreased safety/Risk of falls, Weakness Rehab Potential: Good Further Therapy Indicated?: Yes Evaluation Complexity: HISTORY: Medium (chf, copd, dm, anemia, uti), EXAM OF BODY SYSTEMS: Medium (soa, gait, balance, strength, posture), CLINICAL PRESENTATION: Medium (evolving), CLINICAL DECISION MAKING: Medium Short Term Goals GOAL #1: pt demonstrate independence with bed mobility Goal to be met by: 09/14/17 GOAL #2: pt transfer sup to/from sit to/from stand CGA Goal to be met by: 09/14/17 GOAL #3: pt amb 150ft with rwx with no LOB with CGA Goal to be met by: 09/14/17 GOAL #4: pt demonstrate improved dyn stand balance as noted by no LOB with amb Goal to be met by: 09/14/17 Truck Switcher Goals GOAL #1: pt transfer sup to/from sit to/from stand with supervision Goal to be met by: 09/23/17 GOAL #2: pt amb functional household distances with rwx with SBA with no LOB Goal to be met by: 09/23/17 GOAL #3: pt with improved BLE strength to 4 to 4+/5 independent with HEP Goal to be met by: 09/23/17 Plan Plan of Care: Therapeutic EX, Therapeutic Activity Other:: gait training Frequency of Treatment: 1-2 X day, as tolerated Duration of Treatment: 2 Weeks Anticipated Discharge Destination: Home Has the Physician been added for Co-signature?: Yes
[2017-09-09] MEDS: REQUIP PO SCH (20:03)
[2017-09-09] MEDS: NORCO 5-325 PO PRN (21:10)
[2017-09-10] MEDS: DUONEB NEB SCH ×3 (05:15→22:05)
[2017-09-10] MEDS: PROTONIX PO SCH (05:32)
[2017-09-10] MEDS: ZOFRAN TAB PO PRN (05:45)
[2017-09-10] MEDS: SYNTHROID PO SCH (05:54)
[2017-09-10] MEDS: LASIX TAB PO SCH (05:54)
[2017-09-10] MEDS: ROCEPHIN 1 GM in SODIUM CHLORIDE 50 ML IV SCH (08:59)
[2017-09-10] MEDS: MULTIVITAMIN TABLET PO SCH (09:00)
[2017-09-10] MEDS: LOPRESSOR PO SCH ×2 (09:00→20:53)
[2017-09-10] MEDS: CARDIZEM PO SCH ×2 (09:00→20:53)
[2017-09-10] MEDS: PROZAC PO SCH ×2 (09:00→20:53)
[2017-09-10] MEDS: LANOXIN PO SCH (09:00)
[2017-09-10] MEDS ORDERED: NON-FORMULARY MEDICATION (Potassium Chloride [Klor-Con 10] 10 MEQ) PO SCH (09:00)
[2017-09-10] MEDS: MICRO-K CAP PO SCH (09:00)
[2017-09-10] MEDS: COZAAR PO SCH (09:00)
[2017-09-10] MEDS: JANUVIA PO SCH (09:00)
[2017-09-10] MEDS: GLUCOPHAGE PO SCH ×2 (09:00→17:01)
[2017-09-10] MEDS: APRESOLINE PO SCH ×2 (09:01→20:53)
[2017-09-10] MEDS: NORCO 5-325 PO PRN (09:01)
[2017-09-10] MEDS: HUMULIN R SUBCUT PRN ×3 (11:29→20:54)
--- NOTE | 2017-09-10 13:32 | RS.OTINEVL ---
Subjective - Patient information Date of Evaluation: 09/10/17 Date of Arrival on Unit: 09/08/17 Admitted From:: Home Usual Living Arrangement: daughter Living Arrangement Comments: Patient lives with daughter in her house. Home Environment: House Medical History Comments:: HTN, CHF, Pacemaker, Irreg. HB, stomach stapled, hysterectomy, UTI, COPD, Orthopnea, Pneumonia, dementia, endocrine hypothyroidism, smoke exposure, musculoskeletal disorders, appendectomy, LATEX ALLERGY?: No Surgical History: Hysterectomy Surgical History Comments:: hysterectomy, pacemaker, Subjective Information/ Patient Comments:: "I have to get better and go home on Friday. I am wanting to see my new grandchildren in November. I have helpers come to help me with my shower." - Level of function Prior to this admission, the patient could do the following:: Partially Dependent Ambulation, Perform Technician Semiconductor Development/Cooking Abilities prior to this admission: Pt living at home with her daughter and has [employer] carevers coming in to her home to help her take a bath,and clean her house. Current Equipment Used at Home: Glucometer; Oxygen; Cane Pain Assessment - Pain Pain Score: 0 Interventions - Objective Patient Orientation: Person, Place Current Interventions: IV's, Oxygen Observation: Pt is SOA and reports she is on 4 liters of O2 at home. Pt has arthritic hands and is able to stand up CGA with rollator walker in front of her. Interventions - ROM Right Upper Extremity AROM: WFL's Left Upper Extremity AROM: WFL's - Strength Right Upper Extremity Strength: Mild Weakness Left Upper Extremity Strength: Mild Weakness - Sensation Right Upper Extremity Sensation: Intact/Normal Left Upper Extremity Sensation: Intact/Normal Balance - Sitting Balance Static Sitting Balance: Fair Dynamic Sitting Balance: Fair - Standing Balance Static Standing Balance: Poor Dynamic Standing Balance: Poor ADL Skills - Self Feeding Self Feeding: Independent - Grooming Grooming: Min Assist - Bathing Bathing UE: CGA Bathing LE: CGA - Dressing Dressing UE: CGA Dressing LE: CGA - Toilet Management Toileting Management: CGA Functional Mobility - Bed Mobility Rolling R/L: Independent Scooting: Independent Supine to Sit: Independent Sit to Supine: Independent - Transfers Sit to Stand: CGA Stand to Sit: [facility] Stand Pivot Transfers: CGA - Ambulation Weight Bearing Status: FWB Assistive Device Used: Rollator Assistance needed with Ambulation: Min Assist - Safety Awareness Safety Awareness: Good TIFFANIE INDEX SCORE: 13 Additional Treatment Performed - Time with patient Total treatment time: 20 Activities Patient Interests:: Watching Television, Visiting/Socializing Patient Education Patient Education: Education of diagnosis, Education of Plan of Care Teaching Recipient: Patient Teaching Methods: Teach Back Method Used Assessment Problem List:: Decreased level of function, Requires training/education, Decreased safety/Risk of falls, Weakness Rehab Potential: Good Further Therapy Indicated?: Yes Evaluation Complexity: HISTORY: Medium, EXAM OF BODY SYSTEMS: Medium, CLINICAL DECISION MAKING: Medium Short Term Goals - Goals GOAL 1: Pt to increase dynamic std. bal. to F-/G+ Goal to be met by: 09/17/17 GOAL 2: Pt to increase activity tolerance to 10 minutes in standing. Goal to be met by: 08/20/17 GOAL 3: Pt to increase safety of sink level ADLS to CGA. Goal to be met by: 09/17/17 Mobile Tester Goals GOAL 1: Pt to increase dynamic std. bal. to G+ Goal to be met by: 09/24/17 GOAL 2: Pt to increase activity tolerance to 15 minutes in standing. Goal to be met by: 09/24/17 GOAL 3: Pt to increase safety of sink level ADLS to Mod-I. Goal to be met by: 09/24/17 Plan Plan of Care: Therapeutic EX, Neuromuscular Re-Educ, Self-Care/Home Management Modalities: Ultrasound Combination Frequency of Treatment: 1-2 X day, as tolerated Duration of Treatment: 2 Weeks Anticipated Discharge Destination: Home Has the Physician been added for Co-signature?: Yes
[2017-09-10] MEDS: REQUIP PO SCH (20:53)
[2017-09-11] MEDS: DUONEB NEB SCH ×3 (05:06→21:25)
[2017-09-11] MEDS: PROTONIX PO SCH (05:44)
[2017-09-11] MEDS: HUMULIN R SUBCUT PRN ×3 (05:44→20:39)
[2017-09-11] MEDS: SYNTHROID PO SCH (05:44)
[2017-09-11] MEDS: ROCEPHIN 1 GM in SODIUM CHLORIDE 50 ML IV SCH (08:40)
[2017-09-11] MEDS: APRESOLINE PO SCH ×2 (08:44→20:38)
[2017-09-11] MEDS: LOPRESSOR PO SCH ×2 (08:44→20:38)
[2017-09-11] MEDS: PROZAC PO SCH ×2 (08:44→20:38)
[2017-09-11] MEDS: MULTIVITAMIN TABLET PO SCH (08:44)
[2017-09-11] MEDS: CARDIZEM PO SCH ×2 (08:44→20:38)
[2017-09-11] MEDS: GLUCOPHAGE PO SCH ×2 (08:45→17:51)
[2017-09-11] MEDS: COZAAR PO SCH (08:45)
[2017-09-11] MEDS: JANUVIA PO SCH (08:45)
[2017-09-11] MEDS: LANOXIN PO SCH (08:45)
--- NOTE | 2017-09-11 10:56 | HP ---
DATE OF SERVICE: 09/08/17 HISTORY OF PRESENT ILLNESS: This 72-year-old female who is a direct admit from our office under Dr. Boyd' s care. She had been in our office on Friday, had a hemoglobin of 8.4, was drawn again on was 8.3; on Friday was 8.1. She had previously been on Eliquis on Friday. Dr. Boyd agreed to admit her for progressive anemia. She was given 2 units of packed red cells. Her Eliquis was discontinued for a short time and then restarted at 2.5 mg b.i.d. Her urine was positive with 3+ bacteria and nitrites. He started her on Rocephin 2 gm IV daily for urinary tract infection. PAST MEDICAL HISTORY: Recurrent UTI Atrial fibrillation Severe COPD, oxygen dependent GERD Diabetes mellitus Type 2 Leg edema CHF Hypertension Hypokalemia Chronic kidney disease Anxiety Depression Hypothyroidism PAST SURGICAL HISTORY: Hysterectomy Gastric sleeve Cholecystectomy REVIEW OF SYSTEMS: CONSTITUTIONAL: Generalized leg weakness, fatigue. No night sweats. No malaise , lethargy. No fever or chills. HEENT: Eyes: No visual changes. No eye pain. No eye discharge. ENT: No runny nose. No epistaxis. No sinus pain. No sore throat. No odynophagia. No ear pain. No congestion. RESPIRATORY: Cough. No congestion. No hemoptysis. Shortness of breath as usual. CARDIOVASCULAR: No angina symptoms. No CHF symptoms. No atypical chest pain for CAD. No palpitations. No orthopnea. GASTROINTESTINAL: No abdominal pain. No nausea or vomiting. No diarrhea or constipation. No hematemesis. No hematochezia. GENITOURINARY: No urgency. No frequency. No dysuria. No hematuria. No obstructive symptoms. No discharge. No pain. No significant abnormal bleeding. MUSCULOSKELETAL: No musculoskeletal pain. No joint swelling. No arthritis. NEUROLOGICAL: No headache. No neck pain. No syncope. No seizures. No dizziness. PSYCHIATRIC: Not anxious. No depression. No suicidal thoughts. No homicidal thoughts. SKIN: No rash. No lesions. No wounds. ENDOCRINE: No unexplained weight loss. No weight gain. HEMATOLOGIC/LYMPHATIC: No anemia. No purpura. No petechiae. No prolonged or excessive bleeding. No palpable lymph nodes. PERSONAL/FAMILY/SOCIAL HISTORY: The patient currently resides with her daughter. She is a smoker. No alcohol or ilicit drug use. MEDICATIONS: Humulin R insulin subcut p.r.n. Glucophage 500 mg p.o. b.i.d. Duoneb NEB Rt t.i.d. Cardizem 120 mg p.o. b.i.d. Prozac 20 mg p.o. bedtime Hydralazine 50 mg p.o. b.i.d. Metoprolol 100 mg p.o. b.i.d. Requip 2 mg p.o. bedtime 0.9% Sodium Chloride (saline flush) one syringe IVF q.8hr Eliquis 2.5 mg p.o. b.i.d. Synthroid 50 mcg p.o. q.d. a.c. Glucophage 500 mg p.o. b.i.d. with meal Protonix 40 mg p.o. q.d. a.c. Zofran 4 mg p.o. q.6h p.r.n. [place] 5-325 one tab p.o. b.i.d. p.r.n. Cozaar 50 mg p.o. daily Cardizem 120 mg p.o. b.i.d. Januvia 100 mg p.o. daily Apresoline 50 mg p.o. b.i.d. Lanoxin 125 mcg p.o. daily Lopressor 100 mg p.o. b.i.d. Multivitamin one tab p.o. daily Prozac 10 mg p.o. daily Rocephin 1 gm IV Requip 2 mg p.o. bedtime Lasix 20 mg p.o. MoWeFri Synthroid 50 mcg p.o. q.d. a.c. Klor-Con 10 mEq p.o. MoWeFri Micro K 10 mEq p.o. MoWeFri ALLERGIES: NKDA PHYSICAL EXAMINATION: VITAL SIGNS: Temperature 98.6, heart rate 84, respiratory rate 24, BP 186/100, pulse ox 97%. HEENT: Head normocephalic, atraumatic. Eyes: Extraocular muscles are intact. Pupils are equal, round and reactive to light and accommodation. Ears: No lesions. Nose appeared normal. Throat: No exudate or erythema. NECK: Supple. No JVD, no carotid bruit. No lymphadenopathy or thyromegaly. LUNGS: Diminished breath sounds bilaterally. Clear to auscultation. Percussion note normal. Chest symmetrical. HEART: Irregular heart rate consistent with atrial fib. S1, S2, no S3. No murmurs. No cyanosis or clubbing. No ascites. Pulses: Dorsalis pedis and posterior tibial pulses +1 to +2 both sides. ABDOMEN: Soft. Nontender. Bowel sounds active. No CVA tenderness. No mass felt. EXTREMITIES: No leg edema. Full range of motion of all extremities, equal. NEUROLOGIC: No focal deficit. Cranial nerves II through XII are grossly intact. No headache, no double vision or headache. SKIN: Not dry. Intact. Turgor - normal. LYMPHATIC: No palpable lymph nodes/no lymphedema. MUSCULOSKELETAL: Normal joints with no swelling. Muscle tone is normal. LABS: Hemoglobin 11, white count 19.07, platelets 265, hematocrit 34.2. Sodium 137, potassium 4.0, BUN 19, creatinine 0.85, BNP 995. ASSESSMENT: 1. ANEMIA 2. URINARY TRACT INFECTION 3. SHORTNESS OF BREATH 4. COPD, OXYGEN DEPENDENT 5. GENERALIZED WEAKNESS PLAN: 1. Will continue IV antibiotics, Rocephin 1 gm IV daily 2. Continue oxygen 3. Daily CBC, CMP 4. Will evaluate her tolerance on Eliquis 5. Monitor blood pressure 6. Sliding scale for insulin 7. Diabetic diet 8. Will follow closely TIME SPENT: More than 70 minutes. MTDD
--- NOTE | 2017-09-11 11:32 | PCM.PROG ---
Attending Provider: ATTENDING PROVIDER: Dr. ROSALINO GRAY This patient is seen with Elsy Estrada, Nurse Practitioner. DATE OF SERVICE: 09/11/17 SUBJECTIVE: This 72 year old WHITE/ F was hospitalized 09/08/17. The patient is sitting in chair, alert. She still has a slight cough. She has been doing well with PT. She has been eating well. REVIEW OF SYSTEMS: CONSTITUTIONAL: Weakness. No night sweats. No malaise, lethargy. No fever or chills. HEENT: Eyes: No visual changes. No eye pain. No eye discharge. ENT: No runny nose. No epistaxis. No sinus pain. No odynophagia. No congestion. RESPIRATORY: Cough. No congestion. No hemoptysis. No shortness of breath. CARDIOVASCULAR: No angina symptoms. No CHF symptoms. No atypical chest pain for CAD. No palpitations. No orthopnea.. GASTROINTESTINAL: Good appetite. No abdominal pain. No nausea or vomiting. No diarrhea or constipation. No hematemesis. No hematochezia. GENITOURINARY: No urgency. No frequency. No dysuria. No hematuria. No obstructive symptoms. No discharge. No pain. No significant abnormal bleeding. MUSCULOSKELETAL: No musculoskeletal pain; no joint swelling. NEUROLOGICAL: Awake, alert, oriented to place and person. No headache. No neck pain. No syncope. No seizures. No dizziness. PSYCHIATRIC: Not anxious. No depression. No suicidal thoughts. No homicidal thoughts. SKIN: No rash. No lesions. No wounds. ENDOCRINE: No unexplained weight loss. No weight gain. HEMATOLOGIC/LYMPHATIC: No anemia. No purpura. No petechiae. No prolonged or excessive bleeding. No palpable lymph nodes. PHYSICAL EXAMINATION: GENERAL: The patient is awake, alert and oriented to person and place, sitting in chair in no distress. VITAL SIGNS: Temperature 98.2 F, Pulse 83, Respiratory Rate 24, BP 145/61, Pulse Ox 100% HEENT: Head normocephalic, atraumatic. Eyes: Extraocular muscles are intact. Pupils are equal, round and reactive to light and accommodation. Ears: No lesions. Nose appeared normal. Throat: No exudate or erythema. NECK: Supple. No JVD, no carotid bruit. No lymphadenopathy or thyromegaly. LUNGS: Diminished breath sounds bilaterally. Clear to auscultation. Percussion note normal. Chest symmetrical. HEART: S1, S2, no S3. No murmurs. No cyanosis or clubbing. No ascites. Pulses: Dorsalis pedis and posterior tibial pulses +1 to +2 both sides. ABDOMEN: Soft. Non-tender. Bowel sounds active. No CVA tenderness. No mass felt. EXTREMITIES: No edema. Full range of motion of all extremities, equal. NEUROLOGIC: No focal deficit. Cranial nerves II through XII are grossly intact. No headache, no double vision or headache. SKIN: Not dry. Intact. Turgor-normal. LYMPHATIC: No palpable lymph nodes/no lymphedema. MUSCULOSKELETAL: Normal joints with no swelling. Muscle tone is normal. LAB REVIEW: 09/11/17 04:30 09/11/17 04:30 09/11/17 04:30: Sodium 133 L, Potassium 4.7, Chloride 94 L, Carbon Dioxide 30, Anion Gap 13.7, BUN 28 H, Creatinine 1.12, Estimated GFR (MDRD) 48.00, BUN/ Creatinine Ratio 25.00, Glucose 170 H, Calcium 9.3, Total Bilirubin 0.3, AST 14 L, ALT 14, Alkaline Phosphatase 71, Total Protein 6.5, Albumin 3.0 L, Globulin 3.5, Albumin/Globulin Ratio 0.86 09/11/17 04:30: WBC 15.56 H, RBC 3.41 L, Hgb 9.4 L, Hct 29.5 L, MCV 86.5, MCH 27.6, MCHC 31.9, RDW Coeff of Alisha 16.8 H, Plt Count 209, Immature Gran % (Auto) 1.3, Neut % (Auto) 80.4, Lymph % (Auto) 9.3 L, [place] % (Auto) 8.4, Eos % (Auto) 0.4, Baso % (Auto) 0.2, Immature Gran # (Auto) 0.2, Neut # (Auto) 12.5 H, Lymph # (Auto) 1.4, Finney # (Auto) 1.3, Eos # (Auto) 0.1, Baso # (Auto) 0.0 ASSESSMENT: 1. Anemia 2. Hypertension 3. Atrial fibrillation 4. UTI sensitive to Rocephin 5. Generalized weakness PLAN: 1. Continue IV Rocephin 2. Hemoglobin more stable after stopping Eliquis 3. Continue PT/OT Plan and coordination of the patient's care discussed in the presence of Head Of Art and nurse. CONDITION: Stable SCRIBED BY: MAKI REBOLLEDO Ocularist scribed while in presence of service performed by Dr. Gray/Elsy Estrada APRN on 09/11/17 ([id number])
[2017-09-11] MEDS: NORCO 5-325 PO PRN (14:12)
[2017-09-11] MEDS: REQUIP PO SCH (20:38)
[2017-09-12] MEDS: DUONEB NEB SCH ×3 (05:12→20:00)
[2017-09-12] MEDS: ZOFRAN TAB PO PRN (05:31)
[2017-09-12] MEDS: PROTONIX PO SCH (05:31)
[2017-09-12] MEDS: SYNTHROID PO SCH (05:32)
[2017-09-12] MEDS: LASIX TAB PO SCH (06:41)
[2017-09-12] MEDS: COZAAR PO SCH (08:07)
[2017-09-12] MEDS: PROZAC PO SCH ×2 (08:07→20:43)
[2017-09-12] MEDS: LOPRESSOR PO SCH ×2 (08:08→20:42)
[2017-09-12] MEDS: JANUVIA PO SCH (08:08)
[2017-09-12] MEDS: CARDIZEM PO SCH ×2 (08:10→20:42)
[2017-09-12] MEDS: LANOXIN PO SCH (08:11)
[2017-09-12] MEDS: APRESOLINE PO SCH ×2 (08:11→20:42)
[2017-09-12] MEDS: GLUCOPHAGE PO SCH ×2 (08:11→16:41)
[2017-09-12] MEDS: ROCEPHIN 1 GM in SODIUM CHLORIDE 50 ML IV SCH (08:14)
[2017-09-12] MEDS: MULTIVITAMIN TABLET PO SCH (08:52)
--- NOTE | 2017-09-12 11:28 | PCM.PROG ---
Attending Provider: ATTENDING PROVIDER: Dr. ROSALINO GRAY This patient is seen with Elsy Estrada, Nurse Practitioner. DATE OF SERVICE: 09/12/17 SUBJECTIVE: This 72 year old WHITE/ F was hospitalized 09/08/17. The patient is sitting in chair resting comfortably. Hemoglobin is down to 8.8 today from 9.4. Two stools negative for blood. No hematuria. REVIEW OF SYSTEMS: CONSTITUTIONAL: Weakness. No night sweats. No malaise, lethargy. No fever or chills. HEENT: Eyes: No visual changes. No eye pain. No eye discharge. ENT: No runny nose. No epistaxis. No sinus pain. No odynophagia. No congestion. RESPIRATORY: No cough, no congestion. No hemoptysis. No shortness of breath. CARDIOVASCULAR: No angina symptoms. No CHF symptoms. No atypical chest pain for CAD. No palpitations. No orthopnea.. GASTROINTESTINAL: No abdominal pain. No nausea or vomiting. No diarrhea or constipation. No hematemesis. No hematochezia. GENITOURINARY: No urgency. No frequency. No dysuria. No hematuria. No obstructive symptoms. No discharge. No pain. No significant abnormal bleeding. MUSCULOSKELETAL: No musculoskeletal pain; no joint swelling. NEUROLOGICAL: Awake, alert, oriented to time, place and person. No headache. No neck pain. No syncope. No seizures. No dizziness. PSYCHIATRIC: Not anxious. No depression. No suicidal thoughts. No homicidal thoughts. SKIN: No rash. No lesions. No wounds. ENDOCRINE: No unexplained weight loss. No weight gain. HEMATOLOGIC/LYMPHATIC: Anemia. No purpura. No petechiae. No prolonged or excessive bleeding. No palpable lymph nodes. PHYSICAL EXAMINATION: GENERAL: The patient is resting comfortably sitting in chair in no distress. VITAL SIGNS: Temperature 98.5 F, Pulse 90, Respiratory Rate 20, BP 147/68, Pulse Ox 92% HEENT: Head normocephalic, atraumatic. Eyes: Extraocular muscles are intact. Pupils are equal, round and reactive to light and accommodation. Ears: No lesions. Nose appeared normal. Throat: No exudate or erythema. NECK: Supple. No JVD, no carotid bruit. No lymphadenopathy or thyromegaly. LUNGS: Diminished breath sounds. Clear to auscultation. Percussion note normal. Chest symmetrical. HEART: S1, S2, no S3. No murmurs. No cyanosis or clubbing. No ascites. Pulses: Dorsalis pedis and posterior tibial pulses +1 to +2 both sides. ABDOMEN: Soft. Non-tender. Bowel sounds active. No CVA tenderness. No mass felt. EXTREMITIES: No edema. Full range of motion of all extremities, equal. NEUROLOGIC: No focal deficit. Cranial nerves II through XII are grossly intact. No headache, no double vision or headache. SKIN: Not dry. Intact. Turgor-normal. LYMPHATIC: No palpable lymph nodes/no lymphedema. MUSCULOSKELETAL: Normal joints with no swelling. Muscle tone is normal. LAB REVIEW: 09/12/17 04:30 09/12/17 04:30 09/12/17 04:30: Sodium 132 L, Potassium 5.0, Chloride 94 L, Carbon Dioxide 27, Anion Gap 16.0, BUN 24 H, Creatinine 0.87, Estimated GFR (MDRD) 64.00, BUN/ Creatinine Ratio 27.58, Glucose 144 H, Calcium 9.3, Total Bilirubin 0.4, AST 15 , ALT 12, Alkaline Phosphatase 62, Total Protein 6.4, Albumin 2.9 L, Globulin 3.5, Albumin/Globulin Ratio 0.83 09/12/17 04:30: WBC 13.86 H, RBC 3.26 L, Hgb 8.8 L, Hct 28.2 L, MCV 86.5, MCH 27.0, MCHC 31.2 L, RDW Coeff of Alisha 17.2 H, Plt Count 188, Immature Gran % (Auto ) 1.0, Neut % (Auto) 81.3, Lymph % (Auto) 8.7 L, [place] % (Auto) 8.2, Eos % (Auto ) 0.6, Baso % (Auto) 0.2, Immature Gran # (Auto) 0.1, Neut # (Auto) 11.3 H, Lymph # (Auto) 1.2, [place] # (Auto) 1.1, Eos # (Auto) 0.1, Baso # (Auto) 0.0 ASSESSMENT: 1. Anemia 2. Hypertension 3. Atrial fibrillation 4. UTI sensitive to Rocephin 5. Generalized weakness PLAN: 1. Hold potassium today 2. CBC tomorrow Plan and coordination of the patient's care discussed in the presence of Surgery Teacher and nurse. CONDITION: STABLE SCRIBED BY: MAKI REBOLLEDO Garment Sorter scribed while in presence of service performed by Dr. Gray/Elsy Estrada APRN on 09/12/17 ([id number])
[2017-09-12] MEDS: HUMULIN R SUBCUT PRN (11:44)
[2017-09-12] MEDS: REQUIP PO SCH (20:43)
[2017-09-12] MEDS: NORCO 5-325 PO PRN (20:44)
[2017-09-13] MEDS: DUONEB NEB SCH (04:50)
[2017-09-13] MEDS: PROTONIX PO SCH (05:40)
[2017-09-13] MEDS: HUMULIN R SUBCUT PRN ×2 (05:40→10:45)
[2017-09-13] MEDS: SYNTHROID PO SCH (05:40)
[2017-09-13] MEDS ORDERED: DUONEB NEB PRN (08:21)
[2017-09-13] MEDS: MULTIVITAMIN TABLET PO SCH (08:45)
[2017-09-13] MEDS: COZAAR PO SCH (08:45)
[2017-09-13] MEDS: PROZAC PO SCH ×2 (08:45→20:41)
[2017-09-13] MEDS: LOPRESSOR PO SCH ×2 (08:45→20:41)
[2017-09-13] MEDS: ROCEPHIN 1 GM in SODIUM CHLORIDE 50 ML IV SCH (08:45)
[2017-09-13] MEDS: JANUVIA PO SCH (08:45)
[2017-09-13] MEDS: APRESOLINE PO SCH ×2 (08:45→20:41)
[2017-09-13] MEDS: GLUCOPHAGE PO SCH ×2 (08:45→17:19)
[2017-09-13] MEDS: LANOXIN PO SCH (08:46)
[2017-09-13] MEDS: CARDIZEM PO SCH ×2 (08:46→20:40)
[2017-09-13] MEDS: REQUIP PO SCH (20:40)
[2017-09-14] MEDS: PROTONIX PO SCH (05:38)
[2017-09-14] MEDS: SYNTHROID PO SCH (05:38)
[2017-09-14] MEDS: HUMULIN R SUBCUT PRN ×3 (06:06→21:14)
[2017-09-14] MEDS: ROCEPHIN 1 GM in SODIUM CHLORIDE 50 ML IV SCH (08:49)
[2017-09-14] MEDS: APRESOLINE PO SCH ×2 (08:50→21:09)
[2017-09-14] MEDS: COZAAR PO SCH (08:50)
[2017-09-14] MEDS: MULTIVITAMIN TABLET PO SCH (08:50)
[2017-09-14] MEDS: PROZAC PO SCH ×2 (08:50→21:08)
[2017-09-14] MEDS: LANOXIN PO SCH (08:50)
[2017-09-14] MEDS: CARDIZEM PO SCH ×2 (08:51→21:09)
[2017-09-14] MEDS: GLUCOPHAGE PO SCH ×2 (08:51→16:29)
[2017-09-14] MEDS: LOPRESSOR PO SCH ×2 (08:51→21:09)
[2017-09-14] MEDS: JANUVIA PO SCH (08:51)
[2017-09-14] MEDS: NORCO 5-325 PO PRN (16:26)
[2017-09-14] MEDS: REQUIP PO SCH (21:08)
[2017-09-15] MEDS: LASIX TAB PO SCH (05:40)
[2017-09-15] MEDS: SYNTHROID PO SCH (05:40)
[2017-09-15] MEDS: PROTONIX PO SCH (05:40)
[2017-09-15] MEDS: ZOFRAN TAB PO PRN (08:02)
[2017-09-15] MEDS: PROZAC PO SCH ×2 (09:32→20:40)
[2017-09-15] MEDS: MICRO-K CAP PO SCH (09:32)
[2017-09-15] MEDS: LANOXIN PO SCH (09:32)
[2017-09-15] MEDS: LOPRESSOR PO SCH ×2 (09:33→20:33)
[2017-09-15] MEDS: APRESOLINE PO SCH ×2 (09:33→20:34)
[2017-09-15] MEDS: GLUCOPHAGE PO SCH ×2 (09:33→16:59)
[2017-09-15] MEDS: COZAAR PO SCH (09:33)
[2017-09-15] MEDS: JANUVIA PO SCH (09:33)
[2017-09-15] MEDS: CARDIZEM PO SCH ×2 (09:33→20:34)
[2017-09-15] MEDS: MULTIVITAMIN TABLET PO SCH (09:34)
[2017-09-15] MEDS: ROCEPHIN 1 GM in SODIUM CHLORIDE 50 ML IV SCH (10:50)
[2017-09-15] MEDS: HUMULIN R SUBCUT PRN ×2 (13:38→20:40)
--- NOTE | 2017-09-15 13:53 | PN ---
DATE OF SERVICE: 09/14/17 SUBJECTIVE: 72 year old white female hospitalized with pneumonia. The patient's condition has improved. She also has UTI. Hgb and hct is stable. She is getting stronger. Appetite has improved. REVIEW OF SYSTEMS: CONSTITUTIONAL: No night sweats. No fatigue, malaise, lethargy. No fever or chills. HEENT: Eyes: No visual changes. No eye pain. No eye discharge. ENT: No runny nose. No epistaxis. No sinus pain. No sore throat. No odynophagia. No congestion. RESPIRATORY: No cough, no congestion. No hemoptysis. No shortness of breath. CARDIOVASCULAR: No angina symptoms. No CHF symptoms. No atypical chest pain for CAD. No palpitations. No orthopnea. GASTROINTESTINAL: No abdominal pain. No nausea or vomiting. No diarrhea or constipation. No hematemesis. No hematochezia. GENITOURINARY: No urgency. No frequency. No dysuria. No hematuria. No obstructive symptoms. No discharge. No pain. No significant abnormal bleeding. MUSCULOSKELETAL: No musculoskeletal pain; no joint swelling. NEUROLOGICAL: No headache. No neck pain. No syncope. No seizures. No dizziness. PSYCHIATRIC: Not anxious. No depression. No suicidal thoughts. No homicidal thoughts. SKIN: No rash. No lesions. No wounds. ENDOCRINE: No unexplained weight loss. No weight gain. HEMATOLOGIC/LYMPHATIC: No anemia. No purpura. No petechiae. No prolonged or excessive bleeding. No palpable lymph nodes. PHYSICAL EXAMINATION: GENERAL: The patient is oriented to time, place and person. VITAL SIGNS: Temperature 97.8, pulse 83, respiratory rate 18, blood pressure 157/84 and pulse ox 97%. HEENT: Head normocephalic, atraumatic. Eyes: Extraocular muscles are intact. Pupils are equal, round and reactive to light and accommodation. Ears: No lesions. Nose appeared normal. Throat: No exudate or erythema. NECK: Supple. No JVD, no carotid bruit. No lymphadenopathy or thyromegaly. LUNGS: Decreased breath sounds but clear to auscultation. Percussion note normal. Chest symmetrical. HEART: S1, S2, no S3. No murmurs. No cyanosis or clubbing. No ascites. Pulses: Dorsalis pedis and posterior tibial pulses +1 to +2 both sides. ABDOMEN: Soft. Nontender. Bowel sounds active. No CVA tenderness. No mass felt. EXTREMITIES: No edema. Full range of motion of all extremities, equal. NEUROLOGIC: No focal deficit. Cranial nerves II through XII are grossly intact. No headache, no double vision or headache. SKIN: Not dry. Intact. Turgor - normal. LYMPHATIC: No palpable lymph nodes/no lymphedema. MUSCULOSKELETAL: Normal joints with no swelling. Muscle tone is normal. LABS: Hgb 8.8, hct 27, WBC 12,000 normal differential, creatinine 0.8, BUN 21, potassium 4 and glucose 158. ASSESSMENT: 1. Pneumonia, seems to have resolved clinically 2. UTI under control 3. Other cardiovascular status stable with no evidence of CHF or coronary insufficiency 4. Anemia stable PLAN: 1. Continue the same treatment 2. Antibiotics 3. Encourage the patient to be up and about TIME SPENT: More than 30 minutes. Plan and coordination of the patient's care discussed in the presence of nurse. TY
--- NOTE | 2017-09-15 13:57 | DI ---
EXAM: Chest one view, frontal view only. HISTORY: Basilar consolidation follow-up. COMPARISON: 08/08/2017. FINDINGS: Left-sided pacemaker again noted. Heart is enlarged. Atherosclerotic calcifications pres ent. Mild vascular congestion noted with increased interstitial markings, greater in the bases. Min imal blunting of the costophrenic angles noted. Increased opacity in the medial left lung bases prob ably stable although not well seen due to portable technique. No pneumothorax identified. Osseous s tructures are within normal limits for the patient's age. IMPRESSION: 1. Probably stable medial left lower lobe consolidation. Follow-up is recommended. 2. Possible mild pulmonary edema.
[2017-09-15] MEDS: REQUIP PO SCH (20:34)
[2017-09-16] MEDS: SYNTHROID PO SCH (05:35)
[2017-09-16] MEDS: PROTONIX PO SCH (05:35)
[2017-09-16] MEDS: KEFLEX PO SCH ×2 (10:08→21:31)
[2017-09-16] MEDS: LANOXIN PO SCH (10:08)
[2017-09-16] MEDS: MULTIVITAMIN TABLET PO SCH (10:09)
[2017-09-16] MEDS: COZAAR PO SCH (10:09)
[2017-09-16] MEDS: JANUVIA PO SCH (10:10)
[2017-09-16] MEDS: LOPRESSOR PO SCH ×2 (10:10→21:31)
[2017-09-16] MEDS: GLUCOPHAGE PO SCH ×2 (10:10→17:53)
[2017-09-16] MEDS: CARDIZEM PO SCH ×2 (10:10→21:32)
[2017-09-16] MEDS: APRESOLINE PO SCH ×2 (10:10→21:31)
[2017-09-16] MEDS: NORCO 5-325 PO PRN ×2 (11:44→21:31)
--- NOTE | 2017-09-16 12:49 | PCM.PROG ---
Attending Provider: ATTENDING PROVIDER: Dr. ROSALINO GRAY DATE OF SERVICE: 09/16/17 SUBJECTIVE: This 72 year old WHITE/ F was hospitalized 09/08/17 with pneumonia and UTI. The patient's condition has improved clinically. She is up and about. Appetite improved. She is alert in no distress. Chest x-ray shows consolidation , doesn't match with clinical finding. Also pulmonary edema does not match with clinical findings. No JVP, no S3, in short there is no pulmonary edema. The patient has anemia with hemoglobin of 8.2 and sodium of 127. Will discontinue IV antibiotics. The patient is immunologically compromised from malnutrition and needs two units of PRBC for symptomatic anemia. REVIEW OF SYSTEMS: CONSTITUTIONAL: Fatigue. Looks pale. No night sweats. No malaise, lethargy. No fever or chills. HEENT: Eyes: No visual changes. No eye pain. No eye discharge. ENT: No runny nose. No epistaxis. No sinus pain. No odynophagia. No congestion. RESPIRATORY: No cough, no congestion. No hemoptysis. No shortness of breath. CARDIOVASCULAR: No angina symptoms. No CHF symptoms. No atypical chest pain for CAD. No palpitations. No orthopnea.. GASTROINTESTINAL: Good appetite. No abdominal pain. No nausea or vomiting. No diarrhea or constipation. No hematemesis. No hematochezia. GENITOURINARY: No urgency. No frequency. No dysuria. No hematuria. No obstructive symptoms. No discharge. No pain. No significant abnormal bleeding. MUSCULOSKELETAL: No musculoskeletal pain; no joint swelling. NEUROLOGICAL: Awake, alert, oriented to time, place and person. No headache. No neck pain. No syncope. No seizures. No dizziness. PSYCHIATRIC: Not anxious. No depression. No suicidal thoughts. No homicidal thoughts. SKIN: No rash. No lesions. No wounds. ENDOCRINE: No unexplained weight loss. No weight gain. HEMATOLOGIC/LYMPHATIC: No anemia. No purpura. No petechiae. No prolonged or excessive bleeding. No palpable lymph nodes. PHYSICAL EXAMINATION: GENERAL: The patient is awake, alert and oriented, sitting in chair in no distress. VITAL SIGNS: Temperature 97.4 F, Pulse 72, Respiratory Rate 20, BP 131/55, Pulse Ox 94% HEENT: Head normocephalic, atraumatic. Eyes: Extraocular muscles are intact. Pupils are equal, round and reactive to light and accommodation. Ears: No lesions. Nose appeared normal. Throat: No exudate or erythema. Pallor positive. NECK: Supple. No JVD, no carotid bruit. No lymphadenopathy or thyromegaly. LUNGS: Decreased breath sounds. Clear to auscultation. Percussion note normal. Chest symmetrical. HEART: S1, S2, no S3. No murmurs. No cyanosis or clubbing. No ascites. Pulses: Dorsalis pedis and posterior tibial pulses +1 to +2 both sides. ABDOMEN: Soft. Non-tender. Bowel sounds active. No CVA tenderness. No mass felt. EXTREMITIES: No edema. Full range of motion of all extremities, equal. NEUROLOGIC: No focal deficit. Cranial nerves II through XII are grossly intact. No headache, no double vision or headache. SKIN: Warm and dry. Intact. Turgor-normal. LYMPHATIC: No palpable lymph nodes/no lymphedema. MUSCULOSKELETAL: Normal joints with no swelling. Muscle tone is normal. LAB REVIEW: 09/16/17 05:00 09/16/17 05:00 09/16/17 05:00: Sodium 127 L, Potassium 4.8, Chloride 90 L, Carbon Dioxide 27, Anion Gap 14.8, BUN 25 H, Creatinine 0.95, Estimated GFR (MDRD) 58.00, BUN/ Creatinine Ratio 26.31, Glucose 146 H, Calcium 9.2, Total Bilirubin 0.4, AST 19 , ALT 15, Alkaline Phosphatase 63, Total Protein 6.3, Albumin 2.9 L, Globulin 3.4, Albumin/Globulin Ratio 0.85 09/16/17 05:00: WBC 10.57 H, RBC 3.04 L, Hgb 8.2 L, Hct 25.8 L, MCV 84.9, MCH 27.0, MCHC 31.8, RDW Coeff of Alisha 17.6 H, Plt Count 215, Immature Gran % (Auto) 0.6, Neut % (Auto) 79.9, Lymph % (Auto) 10.4, [place] % (Auto) 8.0, Eos % (Auto) 0.8, Baso % (Auto) 0.3, Immature Gran # (Auto) 0.1, Neut # (Auto) 8.5 H, Lymph # (Auto) 1.1, [place] # (Auto) 0.9, Eos # (Auto) 0.1, Baso # (Auto) 0.0 ASSESSMENT: 1. Pneumonia resolved. No CHF. 2. Anemia 3. Hyponatremia PLAN: 1. Give 2 units of PRBC for symptomatic anemia 2. Stop Rocephin 3. Keflex 500 mg b.i.d. Plan and coordination of the patient's care discussed in the presence of Stacker And Sorter Operator and nurse. CONDITION: Stable SCRIBED BY: MAKI REBOLLEDO Punch Operator scribed while in presence of service performed by Dr. ROSALINO GRAY on 09/16/17 ([id number])
[2017-09-16] MEDS: PROZAC PO SCH ×2 (13:36→21:31)
--- NOTE | 2017-09-16 14:11 | PN ---
DATE OF SERVICE: 09/08/17 SUBJECTIVE: The patient was hospitalized with UTI type of symptoms. On chest x-ray the patient has possibility of pneumonia. The patient will be kept in the hospital with IV antibiotics and will be treated for possible pneumonia. The patient will be started on NEBS treatment. She doesn't have much cough. Her condition seems to have improved. Dr. Boyd transferred the patient under my service under swing bed. The patient will be treated with IV antibiotics, steroids and NEBS treatment. The patient is oriented to time, place and person. She doesn't have any signs or symptoms of CHF. TIME SPENT: More than 30 minutes. Plan and coordination of the patient's care discussed in the presence of nurse. TY
--- NOTE | 2017-09-16 14:15 | PN ---
DATE OF SERVICE: 09/09/17 SUBJECTIVE: 72 year old white female has been hospitalized with UTI and pneumonia. The patient is being treated with IV antibiotics. Her condition is improving and her hydration status has improved. WBC is coming down. The patient's Hgb is 9.6 drop from 11. We will discontinue Eliquis. There is no evidence of active GI bleed. The patient was seen and examined with Nurse Practitioner. TIME SPENT: More than 30 minutes. Plan and coordination of the patient's care discussed in the presence of nurse. TY
--- NOTE | 2017-09-16 14:19 | PN ---
DATE OF SERVICE: 09/11/17 SUBJECTIVE: 72 year old white female hospitalized with pneumonia and urinary tract infection. The patient's WBC count is decreasing. The patient is doing a lot better. PHYSICAL EXAMINATION: HEENT: Head normocephalic, atraumatic. Eyes: Extraocular muscles are intact. Pupils are equal, round and reactive to light and accommodation. Ears: No lesions. Nose appeared normal. Throat: No exudate or erythema. NECK: Supple. No JVD, no carotid bruit. No lymphadenopathy or thyromegaly. LUNGS: Decreased breath with few dry crepitations. Clear to auscultation. Percussion note normal. Chest symmetrical. HEART: S1, S2, no S3. No murmurs. No cyanosis or clubbing. No ascites. Pulses: Dorsalis pedis and posterior tibial pulses +1 to +2 both sides. ABDOMEN: Soft. Nontender. Bowel sounds active. No CVA tenderness. No mass felt. EXTREMITIES: No edema. Full range of motion of all extremities, equal. NEUROLOGIC: No focal deficit. Cranial nerves II through XII are grossly intact. No headache, no double vision or headache. SKIN: Not dry. Intact. Turgor - normal. LYMPHATIC: No palpable lymph nodes/no lymphedema. MUSCULOSKELETAL: Normal joints with no swelling. Muscle tone is normal. LABS: Hgb and Hct is stable. CONDITION: Stable. PLAN: 1. Continue same antibiotics The patient was seen and examined with the Nurse Practitioner. TIME SPENT: More than 30 minutes. Plan and coordination of the patient's care discussed in the presence of nurse. YT
[2017-09-16] MEDS: REQUIP PO SCH (21:31)
[2017-09-16] MEDS: HUMULIN R SUBCUT PRN (21:33)
[2017-09-17] MEDS: SYNTHROID PO SCH (05:29)
[2017-09-17] MEDS: PROTONIX PO SCH (05:29)
[2017-09-17] MEDS: LASIX TAB PO SCH (05:31)
[2017-09-17] MEDS: KEFLEX PO SCH ×2 (08:22→20:31)
[2017-09-17] MEDS: CARDIZEM PO SCH ×2 (08:22→20:31)
[2017-09-17] MEDS: LANOXIN PO SCH (08:22)
[2017-09-17] MEDS: COZAAR PO SCH (08:22)
[2017-09-17] MEDS: GLUCOPHAGE PO SCH ×2 (08:23→17:34)
[2017-09-17] MEDS: MICRO-K CAP PO SCH (08:23)
[2017-09-17] MEDS: PROZAC PO SCH ×2 (08:23→20:31)
[2017-09-17] MEDS: MULTIVITAMIN TABLET PO SCH (08:23)
[2017-09-17] MEDS: APRESOLINE PO SCH ×2 (08:23→20:31)
[2017-09-17] MEDS: LOPRESSOR PO SCH ×2 (08:23→20:31)
[2017-09-17] MEDS: JANUVIA PO SCH (08:23)
[2017-09-17] MEDS: ASPIRIN EC PO SCH (10:09)
[2017-09-17] MEDS: HUMULIN R SUBCUT PRN ×2 (11:57→20:30)
--- NOTE | 2017-09-17 13:18 | PCM.PROG ---
Attending Provider: ATTENDING PROVIDER: Dr. ROSALINO GRAY DATE OF SERVICE: 09/17/17 SUBJECTIVE: This 72 year old WHITE/ F was hospitalized 09/08/17 with pneumonia and UTI. The patient's condition has improved. She is feeling better. Hemoglobin is 10.2, hematocrit 30. Appetite is improved. No PND, no orthopnea. The patient had Eliquis stopped and hemoglobin and hematocrit went up and then was restarted and again it went down and the patient required blood transfusion. Decision was made to discontinue Eliquis initially. The patient agreed to stop because of the bleeding. The patient understands the risks of atrial fib and complications and agreed to have Eliquis stopped. REVIEW OF SYSTEMS: CONSTITUTIONAL: No night sweats. No fatigue, malaise, lethargy. No fever or chills. HEENT: Eyes: No visual changes. No eye pain. No eye discharge. ENT: No runny nose. No epistaxis. No sinus pain. No odynophagia. No congestion. RESPIRATORY: No cough, no congestion. No hemoptysis. No shortness of breath. CARDIOVASCULAR: No angina symptoms. No CHF symptoms. No atypical chest pain for CAD. No palpitations. No orthopnea.. GASTROINTESTINAL: No abdominal pain. No nausea or vomiting. No diarrhea or constipation. No hematemesis. No hematochezia. GENITOURINARY: No urgency. No frequency. No dysuria. No hematuria. No obstructive symptoms. No discharge. No pain. No significant abnormal bleeding. MUSCULOSKELETAL: No musculoskeletal pain; no joint swelling. NEUROLOGICAL: Awake, alert, oriented to time, place and person. No headache. No neck pain. No syncope. No seizures. No dizziness. PSYCHIATRIC: Not anxious. No depression. No suicidal thoughts. No homicidal thoughts. SKIN: No rash. No lesions. No wounds. ENDOCRINE: No unexplained weight loss. No weight gain. HEMATOLOGIC/LYMPHATIC: No anemia. No purpura. No petechiae. No prolonged or excessive bleeding. No palpable lymph nodes. PHYSICAL EXAMINATION: GENERAL: The patient is awake, alert and oriented, sitting in chair in no distress. VITAL SIGNS: Temperature 97.6 F, Pulse 66, Respiratory Rate 14, BP 152/78, Pulse Ox 95% HEENT: Head normocephalic, atraumatic. Eyes: Extraocular muscles are intact. Pupils are equal, round and reactive to light and accommodation. Ears: No lesions. Nose appeared normal. Throat: No exudate or erythema. NECK: Supple. No JVD, no carotid bruit. No lymphadenopathy or thyromegaly. LUNGS: Clear to auscultation. Percussion note normal. Chest symmetrical. HEART: S1, S2, no S3. No murmurs. No cyanosis or clubbing. No ascites. Pulses: Dorsalis pedis and posterior tibial pulses +1 to +2 both sides. ABDOMEN: Soft. Non-tender. Bowel sounds active. No CVA tenderness. No mass felt. EXTREMITIES: No edema. Full range of motion of all extremities, equal. NEUROLOGIC: No focal deficit. Cranial nerves II through XII are grossly intact. No headache, no double vision or headache. SKIN: Warm and dry. Intact. Turgor-normal. LYMPHATIC: No palpable lymph nodes/no lymphedema. MUSCULOSKELETAL: Normal joints with no swelling. Muscle tone is normal. LAB REVIEW: 09/17/17 04:30 09/17/17 04:30 09/17/17 04:30: Sodium 128 L, Potassium 4.9, Chloride 93 L, Carbon Dioxide 26, Anion Gap 13.9, BUN 28 H, Creatinine 1.02, Estimated GFR (MDRD) 53.00, BUN/ Creatinine Ratio 27.45, Glucose 136 H, Calcium 8.9, Total Bilirubin 0.7, AST 17 , ALT 14, Alkaline Phosphatase 75, Total Protein 6.3, Albumin 2.9 L, Globulin 3.4, Albumin/Globulin Ratio 0.85 09/17/17 04:30: WBC 10.21 H, RBC 3.60 L, Hgb 10.2 L, Hct 30.6 L, MCV 85.0, MCH 28.3, MCHC 33.3, RDW Coeff of Alisha 16.9 H, Plt Count 206, Immature Gran % (Auto) 0.8, Neut % (Auto) 75.4, Lymph % (Auto) 11.5, [place] % (Auto) 10.6 H, Eos % (Auto ) 1.4, Baso % (Auto) 0.3, Immature Gran # (Auto) 0.1, Neut # (Auto) 7.7 H, Lymph # (Auto) 1.2, [place] # (Auto) 1.1, Eos # (Auto) 0.1, Baso # (Auto) 0.0 09/16/17 22:27: Hgb 10.5 L, Hct 31.3 L 09/16/17 09:10: Blood Type O POSITIVE, Antibody Screen Negative, Crossmatch (AHG ) See Detail ASSESSMENT: Please see below. 1. PNEUMONIA RESOLVED 2. UTI RESOLVED 3. ANEMIA, STABLE 4. CARDIOVASCULAR STATUS STABLE PLAN: 1. No Eliquis 2. Will start baby aspirin daily 3. Continue Keflex 4. Encouraged the patient to eat good, more protein 5. Discharge home tomorrow 6. Encouraged to be up and about Plan and coordination of the patient's care discussed in the presence of Head Of Integrated Media and nurse. CONDITION: Stable SCRIBED BY: MAKI REBOLLEDO, Rib Matcher And Fitter scribed while in presence of service performed by Dr. ROSALINO GRAY on 09/17/17 ([id number])
[2017-09-17] MEDS: REQUIP PO SCH (20:31)
[2017-09-18] MEDS: SYNTHROID PO SCH (05:40)
[2017-09-18] MEDS: PROTONIX PO SCH (05:40)
[2017-09-18 06:03] VITALS: BP 159/76; TEMP 98.1
[2017-09-18] MEDS: HUMULIN R SUBCUT PRN ×2 (06:10→12:03)
[2017-09-18] MEDS: ASPIRIN EC PO SCH (08:28)
[2017-09-18] MEDS: CARDIZEM PO SCH (08:29)
[2017-09-18] MEDS: LOPRESSOR PO SCH (08:30)
[2017-09-18] MEDS: COZAAR PO SCH (08:30)
[2017-09-18] MEDS: GLUCOPHAGE PO SCH (08:30)
[2017-09-18] MEDS: JANUVIA PO SCH (08:30)
[2017-09-18] MEDS: LANOXIN PO SCH (08:31)
[2017-09-18] MEDS: KEFLEX PO SCH (08:31)
[2017-09-18] MEDS: PROZAC PO SCH (08:32)
[2017-09-18] MEDS: MULTIVITAMIN TABLET PO SCH (08:32)
[2017-09-18] MEDS: APRESOLINE PO SCH (08:33)
--- NOTE | 2017-09-18 10:32 | PCM.PROG ---
Attending Provider: ATTENDING PROVIDER: Dr. ROSALINO GRAY DATE OF SERVICE: 09/18/17 SUBJECTIVE: This 72 year old WHITE/ F was hospitalized 09/08/17 with pneumonia and UTI. The patient's condition has improved. Anemia is stable. Appetite has improved. REVIEW OF SYSTEMS: CONSTITUTIONAL: No night sweats. No fatigue, malaise, lethargy. No fever or chills. HEENT: Eyes: No visual changes. No eye pain. No eye discharge. ENT: No runny nose. No epistaxis. No sinus pain. No odynophagia. No congestion. RESPIRATORY: No cough, no congestion. No hemoptysis. No shortness of breath. CARDIOVASCULAR: No angina symptoms. No CHF symptoms. No atypical chest pain for CAD. No palpitations. No orthopnea.. GASTROINTESTINAL: Appetite has improved. No abdominal pain. No nausea or vomiting. No diarrhea or constipation. No hematemesis. No hematochezia. GENITOURINARY: No urgency. No frequency. No dysuria. No hematuria. No obstructive symptoms. No discharge. No pain. No significant abnormal bleeding. MUSCULOSKELETAL: No musculoskeletal pain; no joint swelling. NEUROLOGICAL: Awake, alert, oriented to time, place and person. No headache. No neck pain. No syncope. No seizures. No dizziness. PSYCHIATRIC: Not anxious. No depression. No suicidal thoughts. No homicidal thoughts. SKIN: No rash. No lesions. No wounds. ENDOCRINE: No unexplained weight loss. No weight gain. HEMATOLOGIC/LYMPHATIC: No anemia. No purpura. No petechiae. No prolonged or excessive bleeding. No palpable lymph nodes. PHYSICAL EXAMINATION: GENERAL: The patient is awake, alert and oriented, sitting in chair in no distress. VITAL SIGNS: Temperature 98.1 F, Pulse 74, Respiratory Rate 12, BP 159/76, Pulse Ox 87% HEENT: Head normocephalic, atraumatic. Eyes: Extraocular muscles are intact. Pupils are equal, round and reactive to light and accommodation. Ears: No lesions. Nose appeared normal. Throat: No exudate or erythema. NECK: Supple. No JVD, no carotid bruit. No lymphadenopathy or thyromegaly. LUNGS: Clear to auscultation. Percussion note normal. Chest symmetrical. HEART: S1, S2, no S3. No murmurs. No cyanosis or clubbing. No ascites. Pulses: Dorsalis pedis and posterior tibial pulses +1 to +2 both sides. ABDOMEN: Soft. Non-tender. Bowel sounds active. No CVA tenderness. No mass felt. EXTREMITIES: No edema. Full range of motion of all extremities, equal. NEUROLOGIC: No focal deficit. Cranial nerves II through XII are grossly intact. No headache, no double vision or headache. SKIN: Warm and dry. Intact. Turgor-normal. LYMPHATIC: No palpable lymph nodes/no lymphedema. MUSCULOSKELETAL: Normal joints with no swelling. Muscle tone is normal. LAB REVIEW: 09/18/17 06:40 09/18/17 06:40 09/18/17 06:40: Sodium 130 L, Potassium 4.8, Chloride 91 L, Carbon Dioxide 28, Anion Gap 15.8, BUN 29 H, Creatinine 1.00, Estimated GFR (MDRD) 54.00, BUN/ Creatinine Ratio 29.00, Glucose 141 H, Calcium 9.5, Total Bilirubin 0.6, AST 21 , ALT 18, Alkaline Phosphatase 73, Total Protein 7.2, Albumin 3.3 L, Globulin 3.9, Albumin/Globulin Ratio 0.85 09/18/17 06:40: WBC 10.39 H, RBC 3.99 L, Hgb 11.0 L, Hct 34.4 L, MCV 86.2, MCH 27.6, MCHC 32.0, RDW Coeff of Alisha 17.0 H, Plt Count 251, Immature Gran % (Auto) 0.8, Neut % (Auto) 78.6, Lymph % (Auto) 10.7, [place] % (Auto) 8.4, Eos % (Auto) 1.2, Baso % (Auto) 0.3, Immature Gran # (Auto) 0.1, Neut # (Auto) 8.2 H, Lymph # (Auto) 1.1, [place] # (Auto) 0.9, Eos # (Auto) 0.1, Baso # (Auto) 0.0 ASSESSMENT: 1. Pneumonia resolved 2. UTI resolved 3. Anemia stable PLAN: 1. Continue same medications 2. The patient is off Eliquis and the patient understands atrial fib complications 3. The patient will be on Baby Aspirin 4. Will discharge home today Plan and coordination of the patient's care discussed in the presence of Pastry Decorator and nurse. CONDITION: Stable SCRIBED BY: MAKI REBOLLEDO Astronaut Mission Specialist scribed while in presence of service performed by Dr. ROSALINO GRAY on 09/18/17 ([id number])
--- NOTE | 2017-09-18 11:11 | CM.DICTOOL ---
ADMISSION: 09/08/17 15:45 DISCHARGE: SEPTEMBER 18, 2017 FROM TRANSITIONAL CARE DATE OF SERVICE: 09/18/17 FINAL DIAGNOSIS PNEUMONIA/ATELECTASIS, RESOLVED UTI, CITROBACTER FREUNDII (TREATED) ANEMIA, TRANSFUSION X 4 UNITS HYPERTENSION ATRIAL FIB, ELIQUIS STOPPED DIABETES MELLITUS, TYPE 2 RLS DEGENERATIVE DISEASE; HIPS, SPINE AND SHOULDERS CHOLECYSTECTOMY APPENDECTOMY GASTRIC SURGERY PACEMAKER INSERTION CATARACT EXTRACTION, JUL, 2017 HYPONATREMIA LAST VITALS Temp Pulse Resp BP Pulse Ox 98.1 F 80 12 159/76 H 87 L 09/18/17 06:00 09/18/17 08:31 09/18/17 06:00 09/18/17 06:00 09/18/17 06:00 TAKE THESE MEDICATIONS Hydrocodone Bitart/Acetaminophen ([place] 5-325) 1 tab PO BID PRN PRN Reason: MODERATE PAIN Last Admin: 09/16/17 21:31 Dose: 1 tab Albuterol/Ipratropium (Duoneb) 1 vial NEB Q6H PRN PRN Reason: Wheezing Last Admin: 09/14/17 06:30 Dose: 1 vial Aspirin (Aspirin Ec) 81 mg PO DAILYWM [facility] Last Admin: 09/18/17 08:28 Dose: 81 mg Cephalexin (Keflex) 500 mg PO Q12HR [facility] Last Admin: 09/18/17 08:31 Dose: 500 mg Digoxin (Lanoxin) 125 mcg PO DAILY [facility] Last Admin: 09/18/17 08:31 Dose: 125 mcg Diltiazem HCl (Cardizem) 120 mg PO BID [facility] Last Admin: 09/18/17 08:29 Dose: 120 mg Fluoxetine HCl (Prozac) 20 mg PO BEDTIME [facility] Last Admin: 09/17/17 20:31 Dose: 20 mg Fluoxetine HCl (Prozac) 10 mg PO DAILY [facility] Last Admin: 09/18/17 08:32 Dose: 10 mg Furosemide (Lasix Tab) 20 mg PO MOWEFR [facility] Last Admin: 09/17/17 05:31 Dose: 20 mg Hydralazine HCl (Apresoline) 50 mg PO BID [facility] Last Admin: 09/18/17 08:33 Dose: 50 mg Levothyroxine Sodium (Synthroid) 50 mcg PO QDAC [facility] Last Admin: 09/18/17 05:40 Dose: 50 mcg Losartan Potassium (Cozaar) 50 mg PO DAILY [facility] Last Admin: 09/18/17 08:30 Dose: 50 mg Metformin HCl (Glucophage) 500 mg PO BIDWM [facility] Last Admin: 09/18/17 08:30 Dose: 500 mg Metoprolol Tartrate (Lopressor) 100 mg PO BID [facility] Last Admin: 09/18/17 08:30 Dose: 100 mg Multivitamins (Multivitamin Tablet) 1 tab PO DAILY [facility] Last Admin: 09/18/17 08:32 Dose: 1 tab Pantoprazole Sodium (Protonix) 40 mg PO QDAC [facility] Last Admin: 09/18/17 05:40 Dose: 40 mg Potassium Chloride (Micro-K Cap) 10 meq PO MoWeFr [facility] Last Admin: 09/17/17 08:23 Dose: 10 meq Ropinirole HCl (Requip) 2 mg PO BEDTIME [facility] Last Admin: 09/17/17 20:31 Dose: 2 mg Sitagliptin Phosphate (Januvia) 100 mg PO DAILY [facility] Last Admin: 09/18/17 08:30 Dose: 100 mg Diazepam (Valium) 2 mg PO BID Last Admin: Calcium Carbonate 600 mg PO Daily Last Admin: Melatonin 10 mg PO Bedtime Last Admin: MEDICATION CHANGES STOP ELIQUIS ALLERGIES No Known Allergies Allergy (Verified 08/25/17 11:16) NEW PRESCRIPTIONS: KEFLEX 500 MG BID FOR 5 DAYS (CALLED TO TASHA) EC ASA 81 MG DAILY (OTC) SMOKING: NOT APPLICABLE DISEASE SPECIFIC EDUCATION: NUTRITION PNEUMONIA ACTIVITY APPOINTMENT LAB REVIEW: 09/18/17 06:40 09/18/17 06:40 09/18/17 06:40: Sodium 130 L, Potassium 4.8, Chloride 91 L, Carbon Dioxide 28, Anion Gap 15.8, BUN 29 H, Creatinine 1.00, Estimated GFR (MDRD) 54.00, BUN/ Creatinine Ratio 29.00, Glucose 141 H, Calcium 9.5, Total Bilirubin 0.6, AST 21 , ALT 18, Alkaline Phosphatase 73, Total Protein 7.2, Albumin 3.3 L, Globulin 3.9, Albumin/Globulin Ratio 0.85 09/18/17 06:40: WBC 10.39 H, RBC 3.99 L, Hgb 11.0 L, Hct 34.4 L, MCV 86.2, MCH 27.6, MCHC 32.0, RDW Coeff of Alisha 17.0 H, Plt Count 251, Immature Gran % (Auto) 0.8, Neut % (Auto) 78.6, Lymph % (Auto) 10.7, [place] % (Auto) 8.4, Eos % (Auto) 1.2, Baso % (Auto) 0.3, Immature Gran # (Auto) 0.1, Neut # (Auto) 8.2 H, Lymph # (Auto) 1.1, [place] # (Auto) 0.9, Eos # (Auto) 0.1, Baso # (Auto) 0.0 PLAN: DISCHARGE HOME (LIVES WITH DAUGHTER, OBI) DIET: CONSISTENT CARBOHYDRATES ACTIVITY: RESUME TOLERATED AMBULATION WITH ROLLING WALKER IS ENCOURAGED SEVERAL TIMES DAILY; HOUSEHOLD DISTANCES CONTINUE OXYGEN AT 3 LITERS PER NASAL CANNULA CONTINUE NEBULIZER TREATMENTS EVERY 6 HOURS NEEDED FOR SHORTNESS OF BREATH OR WHEEZING AN APPOINTMENT IS SCHEDULED WITH DR. GRAY/CLIFTON BIANCHI APRN ON September AT 11 AM [facility] WILL RESUME FOR: NURSING VISITS NUTRITION MEDICATION MANAGEMENT PHYSICAL AND OCCUPATIONAL THERAPY DNR STATUS MS. AGUIRRE IS ALERT AND ORIENTED X 3. SHE IS INDEPENDENT WITH FEEDING. MEAL INTAKES ARE GOOD AT 50-100%. SHE IS CONTINENT OF URINE AND BOWEL, BUT EXPERIENCES URINARY FREQUENCY AND DRIBBLING. SHE WEARS DEPENDS UNDERGARMENTS DUE TO URINARY DRIBBLING. SHE WEARS CONTINUOUS OXYGEN AT 3 LITERS DUE TO COPD/ SHORTNESS OF AIR. MS AGUIRRE TRANSFERS FROM THE BED TO THE CHAIR AND CHAIR TO THE BED WITH STAND BY ASSISTANCE OF THE NURSING STAFF. SHE AMBULATES WITH A ROLLING WALKER AND CONTACT GUARD ASSISTANCE AT A DISTANCE OF 150 FEET WITH A STEADY GAIT AND NO LOSS OF BALANCE. DME AT HOME CONSISTS OF OXYGEN, NEBULIZER, ROLLATOR. ROSALINO GRAY MD
--- NOTE | 2017-09-18 13:24 | DS ---
DATE OF SERVICE: 09/18/17 - from TCU FINAL DIAGNOSIS: 1. PNEUMONIA/ATELECTASIS, RESOLVED 2. UTI, CITROBACTER FREUNDII (TREATED) 3. ANEMIA, TRANSFUSION TIMES FOUR UNITS 4. HYPERTENSION 5. ATRIAL FIBRILLATION, ELIQUIS STOPPED 6. DIABETES MELLITUS, TYPE 2 7. RESTLESS LEG SYNDROME 8. DEGENERATIVE DISEASE, HIPS, SPINE AND SHOULDERS 9. CHOLECYSTECTOMY 10. APPENDECTOMY 11. GASTRIC SURGERY 12. PACEMAKER INSERTION 13. CATARACT EXTRACTION, JUL 2017 14. HYPONATREMIA DISCHARGE INSTRUCTIONS: 1. Followup appointment is scheduled with Dr. Mckeon/Elsy Estrada APRN on 05/03 at 11 a.m. 2. [facility] will resume for nursing visits, nutrition, medication management, physical and occupational therapy. 3. Continue oxygen at 3L/NC 4. Continue nebulizer treatments every 6 hr as needed for shortness of breath or wheezing. 5. DNR status. MEDICATIONS AT DISCHARGE: [place] 5-325 one tab p.o. b.i.d. p.r.n. Duoneb one vial neb q.6h p.r.n. Aspirin 81 mg p.o. daily with meal Keflex 500 mg p.o. q.12hr TOM Lanoxin 125 mcg p.o. daily TOM Cardizem 120 mg p.o. b.i.d. TOM Prozac 20 mg p.o. bedtime TOM Prozac 10 mg p.o. daily TOM Lasix 20 mg p.o. MoWeFr TOM Apresoline 50 mg p.o. b.i.d. TOM Synthroid 50 mcg p.o. q.d a.c. TOM Cozaar 50 mg p.o. daily TOM Glucophage 500 mg p.o. b.i.d. with meal TOM Lopressor 100 mg p.o. b.i.d. TOM Multivitamin one tab p.o. daily TOM Protonix 40 mg p.o. q.d. a.c. TOM Micro-K cap 10 mEq p.o. MoWeFr TOM Requip 2 mg p.o. bedtime TOM Januvia 100 mg p.o. daily TOM Valium 2 mg p.o. b.i.d. Calcium Carbonate 600 mg p.o. daily Melatonin 10 mg p.o. bedtime MEDICATION CHANGE: Stop Eliquis NEW PRESCRIPTIONS: Keflex 500 mg b.i.d. for 5 days (called to Cresencio) EC ASA 81 mg daily (OTC) DIET INSTRUCTIONS: Consistent carbs. ACTIVITY: Resume as tolerated. Ambulation with rolling walker is encouraged several times a day; household distances SMOKING: N/A DISEASE SPECIFIC EDUCATION: Nutrition Pneumonia Activity Appointment HOSPITAL COURSE: 11-fiyt-lujc-old white female was admitted to swing bed for further treatment of UTI and pneumonia. The patient's condition has improved remarkably. The patient's appetite is a lot better. She is up and about with help. Hemoglobin and hematocrit are stable. She doesn't have any cough anymore. On physical exam there is no evidence of congestive heart failure and there are no symptoms of CHF or CAD. The patient has atrial fib. The patient is taken off Eliquis because of the bleeding, hematocrit/hemoglobin drop. Later on it was started and after being started on Eliquis her hemoglobin again dropped. It was discontinued. The patient's hemoglobin at the time of discharge was 10 with hematocrit of 30. She has been given 2 units of packed red cells. She has been throughly explained about atrial fibrillation and complications and she understands it. She had some reluctance to take Eliquis to begin with but now she has decided not to take Eliquis. The patient will be put on Baby Aspirin. DNR STATUS Condition at time of discharge stable. TIME SPENT: More than 60 minutes. TY
== END 2017-09-18 13:25 | disposition home or self-care (01) | DRG 194 ==
LOC: MEDSURG A 15:45
PROVIDERS: ADMIT Internal Medicine; ATTEND Internal Medicine
PROC: 30233N1 Transfusion of Nonautologous Red Blood Cells into Peripheral Vein, Percutaneous Approach (ICD-10-PCS; principal; 2017-09-16)
PROC: 30233N1 Transfusion of Nonautologous Red Blood Cells into Peripheral Vein, Percutaneous Approach (ICD-10-PCS; 2017-09-16)
DX: J18.9 Pneumonia, unspecified organism (principal); N39.0 Urinary tract infection, site not specified; D64.9 Anemia, unspecified; E87.1 Hypo-osmolality and hyponatremia; J98.11 Atelectasis; I10 Essential (primary) hypertension; I48.91 Unspecified atrial fibrillation; E11.9 Type 2 diabetes mellitus without complications; R53.1 Weakness; M16.0 Bilateral primary osteoarthritis of hip; M19.012 Primary osteoarthritis, left shoulder; M19.011 Primary osteoarthritis, right shoulder; G25.81 Restless legs syndrome; B96.89 Other specified bacterial agents as the cause of diseases classified elsewhere; Z79.84 Long term (current) use of oral hypoglycemic drugs; Z79.4 Long term (current) use of insulin; Z79.01 Long term (current) use of anticoagulants; Z79.2 Long term (current) use of antibiotics; Z95.0 Presence of cardiac pacemaker
CPT/HCPCS: 36415; 36430; 80053; 82962; 85007; 85014; 85018; 85025; 86850; 86900; 86922; 94640; 97802

== ENCOUNTER 2017-09-24 12:03 | Inpatient (IN) | payer OTHER ==
[2017-09-24] MEDS ORDERED: DECADRON 4 MG/ML SDV IM STA (12:27)
[2017-09-24] MEDS ORDERED: MORPHINE 4 MG/ML VIAL IVP PRN (12:32)
[2017-09-24] MEDS ORDERED: NITROSTAT SL PRN (12:32)
[2017-09-24] MEDS ORDERED: ATROPINE SULFATE PFS IVP PRN (12:32)
[2017-09-24 12:33] VITALS: BMI 33.7
[2017-09-24] MEDS: LASIX IVP SCH (13:29)
[2017-09-24] MEDS: TYLENOL PO PRN (13:45)
[2017-09-24] MEDS ORDERED: NON-FORMULARY MEDICATION (Potassium Chloride [Klor-Con 10] 10 MEQ) PO SCH (14:15)
[2017-09-24] MEDS: ATIVAN PO PRN ×2 (14:41→20:10)
--- NOTE | 2017-09-24 14:51 | DI ---
EXAM: Chest one view HISTORY: Shortness of air COMPARISON: 09/15/2017 TECHNIQUE: Single view of the chest was performed FINDINGS: Left-sided cardiac pacer. Heart is enlarged, unchanged. Mediastinal contour unchanged, no ting atherosclerosis. No visible pneumothorax. Bibasilar atelectasis and/or consolidation. Probabl e pulmonary vascular congestion. IMPRESSION: Cardiomegaly with probable pulmonary vascular congestion. Bibasilar atelectasis and/or pneumonia.
[2017-09-24] MEDS: PULMICORT 0.5 MG/2 ML NEB SCH (17:03)
[2017-09-24] MEDS: XOPENEX 1.25 MG NEB SCH (17:04)
[2017-09-24] MEDS: GLUCOPHAGE PO SCH (17:23)
[2017-09-24] MEDS: HUMULIN R SUBCUT PRN ×2 (17:36→20:08)
[2017-09-24] MEDS: VISTARIL INJ IM PRN (19:10)
[2017-09-24] MEDS: NORCO 5-325 PO SCH (20:09)
[2017-09-24] MEDS: APRESOLINE PO SCH (20:09)
[2017-09-24] MEDS: CARDIZEM PO SCH (20:09)
[2017-09-24] MEDS: PROZAC PO SCH (20:10)
[2017-09-24] MEDS: LOPRESSOR PO SCH (20:10)
[2017-09-24] MEDS: NON-FORMULARY MEDICATION (Melatonin [Melatonin] 10 MG) PO SCH (20:10)
[2017-09-24] MEDS: REQUIP PO SCH (20:10)
[2017-09-24] MEDS ORDERED: NON-FORMULARY MEDICATION (Diltiazem Hcl [Cardizem] 120 MG) PO SCH (21:00)
[2017-09-24] MEDS ORDERED: VALIUM PO SCH (21:00)
[2017-09-24] MEDS ORDERED: NON-FORMULARY MEDICATION (Hydralazine Hcl [Hydralazine Hcl] 50 MG) PO SCH (21:00)
[2017-09-24] MEDS ORDERED: NON-FORMULARY MEDICATION (Ropinirole Hcl [Requip] 2 MG) PO SCH (21:00)
[2017-09-24] MEDS ORDERED: NON-FORMULARY MEDICATION (Metoprolol Tartrate [Metoprolol Tartrate] 100 MG) PO SCH (21:00)
[2017-09-24] MEDS: MORPHINE 2 MG/ML SYRINGE IVP PRN (22:42)
[2017-09-25] MEDS: XOPENEX 1.25 MG NEB SCH ×4 (00:06→16:56)
[2017-09-25] MEDS: PULMICORT 0.5 MG/2 ML NEB SCH ×2 (05:09→16:56)
[2017-09-25] MEDS: HUMULIN R SUBCUT PRN ×3 (06:15→20:52)
[2017-09-25] MEDS: SYNTHROID PO SCH (06:16)
[2017-09-25] MEDS: LASIX IVP SCH (06:16)
[2017-09-25] MEDS ORDERED: SYNTHROID PO SCH (06:30)
[2017-09-25] MEDS ORDERED: KAYEXALATE SUSP PO STA (08:16)
[2017-09-25] MEDS ORDERED: LASIX IVP STA (08:17)
[2017-09-25] MEDS: LANOXIN PO SCH (08:22)
[2017-09-25] MEDS: PROZAC PO SCH ×2 (08:23→20:51)
[2017-09-25] MEDS: LOPRESSOR PO SCH ×2 (08:24→20:51)
[2017-09-25] MEDS: MULTIVITAMIN TABLET PO SCH (08:26)
[2017-09-25] MEDS: GLUCOPHAGE PO SCH ×2 (08:26→17:31)
[2017-09-25] MEDS: CARDIZEM PO SCH ×2 (08:27→20:51)
[2017-09-25] MEDS: NORCO 5-325 PO SCH ×2 (08:27→20:52)
[2017-09-25] MEDS: COZAAR PO SCH (08:28)
[2017-09-25] MEDS: CALCIUM 500 + VIT D 200 MG TABLET PO SCH (08:30)
[2017-09-25] MEDS: APRESOLINE PO SCH ×2 (08:31→20:51)
[2017-09-25] MEDS: ASPIRIN EC PO SCH (08:32)
[2017-09-25] MEDS: JANUVIA PO SCH (08:37)
[2017-09-25] MEDS ORDERED: NON-FORMULARY MEDICATION (Sitagliptin Phosphate [Januvia] 100 MG) PO SCH (09:00)
[2017-09-25] MEDS ORDERED: JANUVIA PO SCH (09:00)
[2017-09-25] MEDS ORDERED: DECADRON 4 MG/ML SDV IM ONE (09:00)
[2017-09-25] MEDS ORDERED: COZAAR PO SCH (09:00)
[2017-09-25] MEDS ORDERED: NON-FORMULARY MEDICATION (Calcium Carbonate [Calcium] 600 MG) PO SCH (09:00)
--- NOTE | 2017-09-25 09:21 | PCM.PROG ---
Attending Provider: ATTENDING PROVIDER: Dr. ROSALINO MCKEON This patient is seen with Elsy Estrada, Nurse Practitioner. DATE OF SERVICE: 09/25/17 SUBJECTIVE: This 72 year old WHITE/ F was hospitalized 09/24/17. The patient is resting comfortably. Potassium level is elevated today. Decreased urine output. REVIEW OF SYSTEMS: CONSTITUTIONAL: Weakness. No night sweats. No malaise, lethargy. No fever or chills. HEENT: Eyes: No visual changes. No eye pain. No eye discharge. ENT: No runny nose. No epistaxis. No sinus pain. No odynophagia. No congestion. RESPIRATORY: No cough, no congestion. No hemoptysis. Shortness of breath. CARDIOVASCULAR: No angina symptoms. No CHF symptoms. No atypical chest pain for CAD. No palpitations. No orthopnea.. GASTROINTESTINAL: No abdominal pain. No nausea or vomiting. No diarrhea or constipation. No hematemesis. No hematochezia. GENITOURINARY: No urgency. No frequency. No dysuria. No hematuria. No obstructive symptoms. No discharge. No pain. No significant abnormal bleeding. MUSCULOSKELETAL: No musculoskeletal pain; no joint swelling. NEUROLOGICAL: Awake, alert, oriented to time, place and person. No headache. No neck pain. No syncope. No seizures. No dizziness. PSYCHIATRIC: Not anxious. No depression. No suicidal thoughts. No homicidal thoughts. SKIN: No rash. No lesions. No wounds. ENDOCRINE: No unexplained weight loss. No weight gain. HEMATOLOGIC/LYMPHATIC: No anemia. No purpura. No petechiae. No prolonged or excessive bleeding. No palpable lymph nodes. PHYSICAL EXAMINATION: GENERAL: The patient is awake, alert and oriented, lying/sitting in bed in no distress. VITAL SIGNS: Temperature 97.8 F, Pulse 87, Respiratory Rate 20, BP 141/79, Pulse Ox 97% HEENT: Head normocephalic, atraumatic. Eyes: Extraocular muscles are intact. Pupils are equal, round and reactive to light and accommodation. Ears: No lesions. Nose appeared normal. Throat: No exudate or erythema. NECK: Supple. No JVD, no carotid bruit. No lymphadenopathy or thyromegaly. LUNGS: Diminished breath sounds. Clear to auscultation. Percussion note normal. Chest symmetrical. HEART: Irregular heart rate. S1, S2, no S3. No murmurs. No cyanosis or clubbing. No ascites. Pulses: Dorsalis pedis and posterior tibial pulses +1 to +2 both sides. ABDOMEN: Soft. Non-tender. Bowel sounds active. No CVA tenderness. No mass felt. EXTREMITIES: No edema. Full range of motion of all extremities, equal. NEUROLOGIC: No focal deficit. Cranial nerves II through XII are grossly intact. No headache, no double vision or headache. SKIN: Not dry. Intact. Turgor-normal. LYMPHATIC: No palpable lymph nodes/no lymphedema. MUSCULOSKELETAL: Normal joints with no swelling. Muscle tone is normal. LAB REVIEW: 09/25/17 04:30 09/25/17 04:30 09/25/17 04:30: Sodium 135 L, Potassium 5.6 H, Chloride 99, Carbon Dioxide 25, Anion Gap 16.6, BUN 26 H, Creatinine 0.99, Estimated GFR (MDRD) 55.00, BUN/ Creatinine Ratio 26.26, Glucose 156 H, Calcium 9.9, Total Bilirubin 0.5, AST 26 , ALT 20, Alkaline Phosphatase 66, Total Protein 7.5, Albumin 3.6, Globulin 3.9 , Albumin/Globulin Ratio 0.92 09/25/17 04:30: WBC 7.19, RBC 3.73 L, Hgb 10.3 L, Hct 32.6 L, MCV 87.4, MCH 27.6 , MCHC 31.6 L, RDW Coeff of Alisha 16.9 H, Plt Count 265, Immature Gran % (Auto) 0.6, Neut % (Auto) 82.4, Lymph % (Auto) 11.5, [place] % (Auto) 5.4, Eos % (Auto) 0.0, Baso % (Auto) 0.1, Immature Gran # (Auto) 0.0, Neut # (Auto) 5.9, Lymph # ( Auto) 0.8, [place] # (Auto) 0.4, Eos # (Auto) 0.0, Baso # (Auto) 0.0 09/24/17 20:31: Total Creatine Kinase 33, Troponin I 0.0180 09/24/17 13:20: Urine Color Yellow, Urine Clarity Slightly, Urine pH 6.5, Ur Specific [place] 1.025, Urine Protein 3+, Urine Glucose (UA) Negative, Urine Ketones Negative, Urine Blood Trace-intact, Urine Nitrite Negative, Urine Bilirubin Negative, Urine Urobilinogen 0.2, Ur Leukocyte Esterase Trace, Urine Microscopic RBC 0-2, Urine Microscopic WBC 0-2, Ur Squamous Epith Cells 0-2, Urine Bacteria Trace 09/24/17 12:55: B-Natriuretic Peptide 1223 H 09/24/17 12:55: Sodium 136, Potassium 5.3 H, Chloride 98, Carbon Dioxide 28, Anion Gap 15.3, BUN 25 H, Creatinine 1.02, Estimated GFR (MDRD) 53.00, BUN/ Creatinine Ratio 24.50, Glucose 155 H, Calcium 9.3, Total Bilirubin 0.5, AST 25 , ALT 20, Alkaline Phosphatase 66, Total Creatine Kinase 30, Troponin I 0.0240, Total Protein 7.2, Albumin 3.4, Globulin 3.8, Albumin/Globulin Ratio 0.89, Digoxin 1.27 09/24/17 12:55: WBC 10.40 H, RBC 3.81 L, Hgb 10.3 L, Hct 33.7 L, MCV 88.5, MCH 27.0, MCHC 30.6 L, RDW Coeff of Alisha 17.5 H, Plt Count 286, Neutrophils % (Manual ) 76.0 H, Lymphocytes % (Manual) 12.0, Monocytes % (Manual) 12.0 H, Plt Morphology Comment Normal, Anisocytosis Not present, RBC Morph Comment Normal 09/24/17 12:30: Puncture Site R rad, O2 Saturation 86.0 L, ABG pH 7.443, ABG pCO2 40.7, ABG pO2 50.0 L*, ABG HCO3 27.8 H, ABG Total CO2 29 H, ABG Base Excess 4 H, Mal Test +, O2 Delivery Device Nc, Oxygen Liter Flow 3.00 ASSESSMENT: 1. CHRONIC RESPIRATORY FAILURE 2. HYPERKALEMIA 3. CHF 4. ATRIAL FIBRILLATION 5. ANEMIA PLAN: 1. Echocardiogram 2. ABG 3. Kayexalate 25 mg 4. Stop potassium 5. Weigh daily 6. Place Lazcano catheter 7. Lasix extra 20 mg today Plan and coordination of the patient's care discussed in the presence of Low Pressure Kettle Operator and nurse. CONDITION: Stable SCRIBED BY: Abimael LLANOS scribed while in presence of service performed by Dr. Mckeon/Elsy Estrada APRN on 09/25/17 (0749)
[2017-09-25] MEDS: ATIVAN PO PRN ×2 (15:33→22:46)
[2017-09-25] MEDS: TYLENOL PO PRN (17:31)
[2017-09-25] MEDS: REQUIP PO SCH (20:51)
[2017-09-25] MEDS: NON-FORMULARY MEDICATION (Melatonin [Melatonin] 10 MG) PO SCH (20:55)
[2017-09-26] MEDS: XOPENEX 1.25 MG NEB SCH ×5 (00:55→23:36)
[2017-09-26] MEDS: PULMICORT 0.5 MG/2 ML NEB SCH ×2 (04:58→16:35)
[2017-09-26] MEDS: LASIX IVP SCH (05:38)
[2017-09-26] MEDS: SYNTHROID PO SCH (05:38)
--- NOTE | 2017-09-26 08:55 | HP ---
DATE OF SERVICE: 09/24/17 REASON FOR HOSPITALIZATION/HISTORY OF PRESENT ILLNESS: Shortness of breath with exertion. Weight gain 10 pounds in 3 weeks. oxygen saturation 89% on 5 liters. Sleeps in the chair. Discharged from [facility] 5 days ago. Daughter considering Hospice. PAST MEDICAL HISTORY: history of back fracture Thyroid Diabetes mellitus type 2 Dementia Hypertension History of CVA COPD CHF CAD Restless leg syndrome Dyslipidemia Osteoarthritis MYNOR Insomnia Depression. PAST SURGICAL HISTORY: Gallbladder Stomach-gastric sleeve Hysterectomy REVIEW OF SYSTEMS: CONSTITUTIONAL: No fever, Fatigue. HEENT: No sinus drainage, no sore throat. RESPIRATORY: No cough, no congestion. CARDIOVASCULAR: No atypical chest pain for coronary artery disease. No angina , CHF symptoms, palpitations. Shortness of breath with minimal exertion. GASTROINTESTINAL: No melena or abdominal pain. No GERD. GENITOURINARY: No hematuria, no prostatism, no polyuria. MIDDLE CARD TENDER: No blackout, Dizziness, no headache, no double vision. MUSCULOSKELETAL: Osteoarthritis pain, no joint swelling. ENDOCRINE: No weight loss, Weight gain 10 pounds in 3 weeks. SKIN: Not dry, no rash. PSYCHIATRIC: Not anxious, no depression, no suicidal thoughts, no homicidal thoughts. Confusion at times. SOCIAL HISTORY: Marital Status: . Alcohol Usage: No. Tobacco Usage: Quit. FAMILY HISTORY: Father Mother Brother 4 Sister 1 MEDICATIONS: Requip 2mg PO bedtime Metoprolol 100mg PO twice a day Glucophage 500mg PO twice a day Januvia 100mg PO daily Synthroid 75mcg PO QDAC Prozac 10mg PO daily Prozac 20mg PO bedtime Hydrocodone/Acetaminophen 5-325 PO twice a day Melatonin 10mg PO bedtime Calcium 600mg PO daily Multivitamin PO daily Cardizem 120mg PO twice a day DUO NEB RT Q 6 hours PRN Potassium Chloride 10meq PO MOWEFR Lasix 20mg PO MOWEFR Digoxin 125mcg PO daily Hydralazine HCL 50mg PO twice a day Losartan 50mg Po daily Aspirin 81mg daily Valium 2mg PO twice a day ALLERGIES: No known allergies to medications. PHYSICAL EXAMINATION: V/S: Pulse 88, blood pressure 110/70, Oxygen saturation 86%. GENERAL APPEARANCE: Oriented times three. HEENT: Normal. NECK: JVP 2cm, no bruits. RESPIRATORY: Creps at the bases bilaterally. CARDIOVASCULAR: S1, S2, no S3, no murmurs. No cyanosis, clubbing. No ascites. GI/ABDOMEN: No tenderness. Bowel sounds are active. EXTREMITIES: Edema +1 to +2 pitting, pulses +1, equal. MIDDLE CARD TENDER: Deep tendon reflexes, sensory, motor and gait all normal. RECTAL: Years ago/PELVIC: Advised yearly. 03-16 [facility] mammogram ASSESSMENT: 1. CHF 2. Respiratory failure 3. Mild Dementia 4. History of CVA 5. COPD 6. Diabetes Mellitus type 2 7. CHF 8. CAD 9. 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 Admit 2. Routine telemetry orders 3. ABG on oxygen 4. Elevate legs 5. IV Lasix 2mg now and QAM 6. Daily Weighs 7. 1cc Decadron IM today and tomorrow AM 8. Sliding scale with coverage 9. Lanoxin Level 10.ABG now with oxygen 11.NEBS 12.Xopenex Q 6 hours 13.Pulmicort twice a day TIME SPENT: More than 70 minutes. MTDD
[2017-09-26] MEDS ORDERED: MICRO-K CAP PO SCH (09:00)
[2017-09-26] MEDS: CARDIZEM PO SCH ×2 (09:02→20:30)
[2017-09-26] MEDS: LANOXIN PO SCH (09:02)
[2017-09-26] MEDS: JANUVIA PO SCH (09:02)
[2017-09-26] MEDS: GLUCOPHAGE PO SCH ×2 (09:02→17:12)
[2017-09-26] MEDS: COZAAR PO SCH (09:02)
[2017-09-26] MEDS: NORCO 5-325 PO SCH ×2 (09:02→20:30)
[2017-09-26] MEDS: APRESOLINE PO SCH ×2 (09:02→20:30)
[2017-09-26] MEDS: ASPIRIN EC PO SCH (09:03)
[2017-09-26] MEDS: MULTIVITAMIN TABLET PO SCH (09:03)
[2017-09-26] MEDS: CALCIUM 500 + VIT D 200 MG TABLET PO SCH (09:03)
--- NOTE | 2017-09-26 09:04 | ECHO2D ---
Date of Exam: 09/25/17 Ordering Physician: DR. ROSALINO GRAY Room #: 110 Reason for Echo: SOB, EDEMA, CHF M-Mode Normal Adult Results LV Dimensions Normal Adult Results AoV Opening excursions >1.6 >1.6 LVEDD-base- 3.5-5.8 3.7 Ao root dimensions 2.0-3.7 3.4 LVESD-base- 3.1-4.6 L. Atrium dimensions 1.9-3.8 5.2 Post. Wall thickness 0.8-1.1 1.6 IV septum (thickness) 0.7-1.2 1.5 Post. Wall excursion 0.72-1.3 NORMAL Septal motion NORMAL Systolic motion R. Ventricular cavity 1.5-2.0 NORMAL LVEF 60% 73% Paradoxical septal wall motion NORMAL 2-D : 2-D M Mode Echocardiogram was performed using apical four chamber and left parasternal long and short axis views. Mitral, tricuspid and aortic valves appear to be normal. Contractility of the left ventricle seems to be normal, so is the cavity size. Enlarged Left atrial cavity size. Left Ventricular Hypertrophy noted. Aortic root appears to be normal. There is no pericardial effusion. There is no thrombus noted in the left ventricular or left aortic cavity. No mitral valve prolapse noted. M-MODE: MV: CALCIFIC MITRAL VALVE ANNULUS AV: NORMAL TV: NORMAL PV: NORMAL CHAMBER SIZE: ENLARGED LEFT ATRIAL CAVITY WALL MOTION: NORMAL PERICARDIUM: NORMAL INTERPRETATION: 1. CALCIFIC MITRAL VALVE ANNULUS 2. NORMAL LEFT VENTRICULAR CONTRACTILITY 3. MILD TO MODERATE LEFT VENTRICULAR HYPERTROPHY WITH ENLARGED LEFT ATRIAL CAVITY 4. NORMAL VALVES MTDD
[2017-09-26] MEDS: LOPRESSOR PO SCH ×2 (09:07→20:30)
--- NOTE | 2017-09-26 09:08 | PN ---
DATE OF SERVICE: 09/25/17 SUBJECTIVE: Indu Montilla was hospitalized with acute bronchitis, COPD, CHF. The patient has fluid retention Fluid retention is subsiding with less edema but the patient had episode of choking with p02 of 42, pc02 40 with normal pH, was on 4L. The patient now is feeling a lot better. I did an echocardiogram at approximately 3 o'clock p.m. The patient has mildly hypokinetic septum with moderate LVH with stiff left ventricle, mitral valve annulus, calcification noted, enlarged LA cavity otherwise normal valves. The patient has chronic lung disease, congestive heart failure, hypertrophic cardiomyopathy. Daughter is trying to take care of her at home but the patient is noncompliant, doesn't remember to take her medications. Daughter is doing her best which doesn't seem to be good enough. The patient and daughter both declined assisted type placement. The patient's condition was critical but now is stable. Prognosis guarded. The patient was seen and examined with the nurse practitioner. TIME SPENT: More than 30 minutes. Plan and coordination of the patient's care discussed in the presence of nurse. TY
[2017-09-26] MEDS: PROZAC PO SCH ×2 (09:14→20:30)
[2017-09-26] MEDS ORDERED: TORADOL ONE (11:43)
[2017-09-26] MEDS: HUMULIN R SUBCUT PRN ×2 (11:47→17:11)
--- NOTE | 2017-09-26 12:39 | PN ---
DATE OF SERVICE: 09/26/17 SUBJECTIVE: 72-year-old white female hospitalized with CHF, respiratory failure. The patient 's condition seems to have improved. She choked yesterday but is stable today. The patient's hemoglobin 9.9, hematocrit 31, WBC 11,000, normal differential. Creatinine 1, BUN 32. The patient's blood pressure this morning was 170/68. The one taken after that was 150/84. I changed Lasix to p.o. Condition improving. The patient was seen and examined with the nurse practitioner. TIME SPENT: More than 30 minutes. Plan and coordination of the patient's care discussed in the presence of nurse. TY
--- NOTE | 2017-09-26 12:58 | PCM.PROG ---
Attending Provider: ATTENDING PROVIDER: Dr. ROSALINO MCKEON This patient is seen with Elsy Estrada, Nurse Practitioner. DATE OF SERVICE: 09/26/17 SUBJECTIVE: This 72 year old WHITE/ F was hospitalized 09/24/17. The patient is sitting in chair, alert. Breathing improved today. She is having more urine output with insertion of Lazcano catheter. Potassium level has improved today. REVIEW OF SYSTEMS: CONSTITUTIONAL: Weakness. No night sweats. No fatigue, malaise, lethargy. No fever or chills. HEENT: Eyes: No visual changes. No eye pain. No eye discharge. ENT: No runny nose. No epistaxis. No sinus pain. No odynophagia. No congestion. RESPIRATORY: Cough. No congestion. No hemoptysis. Shortness of breath. CARDIOVASCULAR: No angina symptoms. No CHF symptoms. No atypical chest pain for CAD. No palpitations. No orthopnea.. GASTROINTESTINAL: No abdominal pain. No nausea or vomiting. No diarrhea or constipation. No hematemesis. No hematochezia. GENITOURINARY: No urgency. No frequency. No dysuria. No hematuria. No obstructive symptoms. No discharge. No pain. No significant abnormal bleeding. MUSCULOSKELETAL: No musculoskeletal pain; no joint swelling. NEUROLOGICAL: Awake, alert, oriented to time, place and person. No headache. No neck pain. No syncope. No seizures. No dizziness. PSYCHIATRIC: Not anxious. No depression. No suicidal thoughts. No homicidal thoughts. SKIN: No rash. No lesions. No wounds. ENDOCRINE: No unexplained weight loss. No weight gain. HEMATOLOGIC/LYMPHATIC: No anemia. No purpura. No petechiae. No prolonged or excessive bleeding. No palpable lymph nodes. PHYSICAL EXAMINATION: GENERAL: The patient is awake, alert and oriented, sitting in chair in no distress. VITAL SIGNS: Temperature 97.7 F, Pulse 69, Respiratory Rate 12, BP 170/68, Pulse Ox 95% HEENT: Head normocephalic, atraumatic. Eyes: Extraocular muscles are intact. Pupils are equal, round and reactive to light and accommodation. Ears: No lesions. Nose appeared normal. Throat: No exudate or erythema. NECK: Supple. No JVD, no carotid bruit. No lymphadenopathy or thyromegaly. LUNGS: Diminished breath sounds. Clear to auscultation. Percussion note normal. Chest symmetrical. HEART: S1, S2, no S3. No murmurs. No cyanosis or clubbing. No ascites. Pulses: Dorsalis pedis and posterior tibial pulses +1 to +2 both sides. ABDOMEN: Soft. Non-tender. Bowel sounds active. No CVA tenderness. No mass felt. EXTREMITIES: No edema. Full range of motion of all extremities, equal. NEUROLOGIC: No focal deficit. Cranial nerves II through XII are grossly intact. No headache, no double vision or headache. SKIN: Not dry. Intact. Turgor-normal. LYMPHATIC: No palpable lymph nodes/no lymphedema. MUSCULOSKELETAL: Normal joints with no swelling. Muscle tone is normal. LAB REVIEW: 09/26/17 05:00 09/26/17 05:00 09/26/17 05:00: Sodium 135 L, Potassium 4.6, Chloride 98, Carbon Dioxide 28, Anion Gap 13.6, BUN 32 H, Creatinine 1.04, Estimated GFR (MDRD) 52.00, BUN/ Creatinine Ratio 30.76, Glucose 132 H, Calcium 9.5, Total Bilirubin 0.4, AST 30 , ALT 22, Alkaline Phosphatase 55, Total Protein 7.2, Albumin 3.3 L, Globulin 3.9, Albumin/Globulin Ratio 0.85 09/26/17 05:00: WBC 11.01 H, RBC 3.61 L, Hgb 9.9 L, Hct 31.5 L, MCV 87.3, MCH 27.4, MCHC 31.4 L, RDW Coeff of Alisha 17.0 H, Plt Count 241, Immature Gran % (Auto ) 0.7, Neut % (Auto) 81.0, Lymph % (Auto) 9.7 L, Atlantic % (Auto) 8.3, Eos % (Auto ) 0.1, Baso % (Auto) 0.2, Immature Gran # (Auto) 0.1, Neut # (Auto) 8.9 H, Lymph # (Auto) 1.1, Atlantic # (Auto) 0.9, Eos # (Auto) 0.0, Baso # (Auto) 0.0 09/25/17 13:03: Puncture Site R brach, O2 Saturation 94.0 L, ABG pH 7.41, ABG pCO2 50.0 H, ABG pO2 72.0 L, ABG HCO3 32 H, ABG Total CO2 33 H, ABG Base Excess 7 H, Mal Test +, O2 Delivery Device Nc, Oxygen Liter Flow 4.00, FiO2 % 36.0 09/25/17 08:35: Puncture Site R rad, O2 Saturation 79.0 L, ABG pH 7.44, ABG pCO2 43.8, ABG pO2 42.0 L*, ABG HCO3 29.8 H, ABG Total CO2 31 H, ABG Base Excess 6 H, Mal Test +, O2 Delivery Device Nc, Oxygen Liter Flow 4.00 ASSESSMENT: 1. CHRONIC RESPIRATORY FAILURE 2. HYPERKALEMIA, RESOLVED 3. CHF 4. ATRIAL FIBRILLATION 5. ANEMIA PLAN: 1. Potassium 10 mg, begin tomorrow. 2. TSH. 3. Lasix p.o. 20 mg daily begin tomorrow. Plan and coordination of the patient's care discussed in the presence of Fitness Manager and nurse. CONDITION: Stable SCRIBED BY: MAKI REBOLLEDO Business Office Specialist scribed while in presence of service performed by Dr. Mckeon/Elsy Estrada APRN on 09/26/17 ([id number])
[2017-09-26] MEDS: ATIVAN PO PRN ×2 (13:31→21:40)
[2017-09-26] MEDS: TYLENOL PO PRN (15:31)
--- NOTE | 2017-09-26 16:30 | RS.PTINEVL ---
Subjective - Patient information Date of Evaluation: 09/26/17 Date of Arrival on Unit: 09/24/17 Admitted From:: Home Diagnosis: chronic resp failure, CHF Usual Living Arrangement: With Others Living Arrangement Comments: Patient lives with daughter in her house. Home Environment: House, Stairs (few), Rail Medical History: Hypertension, COPD, CHF, Arthritis Medical History Comments:: afib, depression, anemia LATEX ALLERGY?: No Surgical History: Hysterectomy Medications: see chart Subjective Information/ Patient Comments:: pt states she was only home for a couple of days, states she had a rough day yesterday. - Level of function Prior to this admission, the patient could do the following:: Partially Dependent Ambulation, Perform Chief Innovation Officer/Cooking Current Level of Function: Partially Dependent Current Equipment Used at Home: glucometer, portable oxygen, w/c, rollator, shower chair, BSC Pain Assessement - Location BLE Description: Aching Pain Behavior: Facial Grimacing Pain Aggravating Factors: Standing, Walking Pain Alleviating Factors: Medication Interventions - Objective Patient Orientation: Person, Place Current Interventions: IV's, Oxygen, Telemetry (pt on 3 liters of O2) Range of Motion - ROM Right Upper Extremity AROM: WFL's Left Upper Extremity AROM: WFL's Right Lower Extremity AROM: WFL's Left Lower Extremity AROM: WFL's Muscle Strength - Muscle Strength Right Upper Extremity Strength: Mild Weakness (grossly 4-/5) Left Upper Extremity Strength: Mild Weakness (grossly 4-/5) Right Lower Extremity Strength: Mild Weakness (hip flex 3+/5, knee flex/ext 4-/5 , ankle Df/PF 4-/5) Left Lower Extremity Strength: Mild Weakness (hip flex 3+/5, knee flex/ext 4-/5 , ankle Df/PF 4-/5) Sensation - Sensation Right Upper Extremity Sensation: Intact/Normal Left Upper Extremity Sensation: Intact/Normal Right Lower Extremity Sensation: Impaired Left Lower Extremity Sensation: Impaired (n/t B feet) Palpation Palpation Findings: None/Normal Balance - Sitting Balance and Reactions Static Sitting Balance: Good Dynamic Sitting Balance: Fair Sitting Equilibrium Reactions: Delayed Left, Delayed Right Sitting Protective Reactions: Delayed Left, Delayed Right - Standing Balance and Reactions Static Standing Balance: Fair Dynamic Standing Balance: Poor Standing Equilibrium Reactions: Delayed Left, Delayed Right Standing Protective Reactions: Delayed Left, Delayed Right - Comments Balance Assessment Comments: tinetti score Functional Mobility - Bed Mobility Comments:: pt seen sitting up in chair - Transfers Sit to Stand: Min Assist Stand to Sit: Min Assist - Safety Awareness Safety Awareness: Fair TIFFANIE INDEX SCORE: n/a Ambulation - Ambulation Assistive Device Used: Rolling Walker Orthotic/Prosthetic Device: No Distance: 30ft Assistance needed with Ambulation: Min Assist Quality of Ambulation: pt amb with O2 3 liters Gait Deviations: Forward posture, Short stride, Deviates from path Ambulation Comments: pt amb with flexed posture, decreased step length pt requires assist with maintaining placement of rwx Factors Affecting Ambulation: Decreased Balance, Breathing/O2 Saturation (O2 sat with O2 after amb 88%), Weakness, Decreased Safety, Cognitive Status, Limited Endurance Treatment time - Time with patient Total treatment time: 28 Patient Education - Education Patient Education: Activity Modification, Education of Plan of Care Teaching Recipient: Patient Teaching Methods: Discussion (discussion regarding POC and PLB) Assessment - Assessment Problem List:: Decreased level of function, Requires training/education, Decreased safety/Risk of falls, Weakness, Pain limits previous level of function , Cognitive status limits abilities Rehab Potential: Good Further Therapy Indicated?: Yes Evaluation Complexity: HISTORY: Medium (chronic resp failure, CHF, afib, COPD, age), EXAM OF BODY SYSTEMS: Medium (SOA, strength, balance, gait, posture), CLINICAL PRESENTATION: Medium (evolving), CLINICAL DECISION MAKING: Medium Short Term Goals GOAL #1: pt demonstrate independence with bed mobility Goal to be met by: 09/29/17 GOAL #2: pt transfer sup to/from sit to/from stand CGA Goal to be met by: 09/29/17 GOAL #3: pt amb 75ft with rwx with no LOB with CGA Goal to be met by: 09/29/17 GOAL #4: pt with improved dyn stand balance as noted by tinetti score of Goal to be met by: 09/29/17 Residential Goals GOAL #1: pt transfer sup to/from sit to/from stand with supervision Goal to be met by: 10/01/17 GOAL #2: pt amb functional household distances with rwx with SBA/CGA with no LOB Goal to be met by: 10/01/17 GOAL #3: pt with improved BLE strength to 4 to 4+/5 independent with HEP Goal to be met by: 10/01/17 Plan Plan of Care: Therapeutic EX, Therapeutic Activity Other:: gait training Frequency of Treatment: 1-2 X day, as tolerated Duration of Treatment: 6 days Anticipated Discharge Destination: Home Has the Physician been added for Co-signature?: Yes
[2017-09-26] MEDS: REQUIP PO SCH (20:30)
[2017-09-26] MEDS: NON-FORMULARY MEDICATION (Melatonin [Melatonin] 10 MG) PO SCH (20:31)
[2017-09-27] MEDS: PULMICORT 0.5 MG/2 ML NEB SCH ×2 (05:14→16:50)
[2017-09-27] MEDS: XOPENEX 1.25 MG NEB SCH ×4 (05:14→23:19)
[2017-09-27] MEDS: LASIX TAB PO SCH (06:02)
[2017-09-27] MEDS: SYNTHROID PO SCH (06:02)
[2017-09-27] MEDS: CALCIUM 500 + VIT D 200 MG TABLET PO SCH (08:17)
[2017-09-27] MEDS: GLUCOPHAGE PO SCH ×2 (08:17→16:41)
[2017-09-27] MEDS: MICRO-K CAP PO SCH (08:17)
[2017-09-27] MEDS: NORCO 5-325 PO SCH ×2 (08:17→21:13)
[2017-09-27] MEDS: ASPIRIN EC PO SCH (08:17)
[2017-09-27] MEDS: APRESOLINE PO SCH ×2 (08:17→21:13)
[2017-09-27] MEDS: PROZAC PO SCH ×2 (08:18→21:15)
[2017-09-27] MEDS: COZAAR PO SCH (08:18)
[2017-09-27] MEDS: LANOXIN PO SCH (08:18)
[2017-09-27] MEDS: MULTIVITAMIN TABLET PO SCH (08:18)
[2017-09-27] MEDS: LOPRESSOR PO SCH ×2 (08:18→21:14)
[2017-09-27] MEDS: JANUVIA PO SCH (08:18)
[2017-09-27] MEDS: CARDIZEM PO SCH ×2 (08:18→21:14)
[2017-09-27] MEDS: HUMULIN R SUBCUT PRN ×2 (10:53→16:42)
[2017-09-27] MEDS: MORPHINE 2 MG/ML SYRINGE IVP PRN (12:52)
[2017-09-27] MEDS: ATIVAN PO PRN ×2 (15:10→21:14)
[2017-09-27] MEDS: NON-FORMULARY MEDICATION (Melatonin [Melatonin] 10 MG) PO SCH (21:15)
[2017-09-27] MEDS: REQUIP PO SCH (21:15)
[2017-09-28] MEDS: MORPHINE 2 MG/ML SYRINGE IVP PRN ×3 (01:04→20:23)
[2017-09-28] MEDS: PULMICORT 0.5 MG/2 ML NEB SCH ×2 (04:45→16:55)
[2017-09-28] MEDS: XOPENEX 1.25 MG NEB SCH ×4 (04:45→23:50)
[2017-09-28] MEDS: SYNTHROID PO SCH (05:32)
[2017-09-28] MEDS: LASIX TAB PO SCH (05:32)
[2017-09-28] MEDS: VISTARIL INJ IM PRN ×3 (06:12→20:25)
[2017-09-28] MEDS: ASPIRIN EC PO SCH (08:09)
[2017-09-28] MEDS: CARDIZEM PO SCH ×2 (08:10→20:24)
[2017-09-28] MEDS: CALCIUM 500 + VIT D 200 MG TABLET PO SCH (08:10)
[2017-09-28] MEDS: APRESOLINE PO SCH ×2 (08:10→20:25)
[2017-09-28] MEDS: JANUVIA PO SCH (08:11)
[2017-09-28] MEDS: GLUCOPHAGE PO SCH ×2 (08:11→16:43)
[2017-09-28] MEDS: COZAAR PO SCH (08:11)
[2017-09-28] MEDS: MULTIVITAMIN TABLET PO SCH (08:12)
[2017-09-28] MEDS: MICRO-K CAP PO SCH (08:12)
[2017-09-28] MEDS: LOPRESSOR PO SCH ×2 (08:12→20:24)
[2017-09-28] MEDS: LANOXIN PO SCH (08:12)
[2017-09-28] MEDS: NORCO 5-325 PO SCH ×2 (08:13→20:24)
[2017-09-28] MEDS: PROZAC PO SCH ×2 (08:13→20:26)
[2017-09-28] MEDS: ATIVAN PO PRN ×2 (08:23→20:24)
[2017-09-28] MEDS: HUMULIN R SUBCUT PRN (13:42)
[2017-09-28] MEDS: TORADOL IVP PRN (17:03)
[2017-09-28] MEDS: REQUIP PO SCH (20:24)
[2017-09-28] MEDS: NON-FORMULARY MEDICATION (Melatonin [Melatonin] 10 MG) PO SCH (20:26)
[2017-09-29] MEDS: XOPENEX 1.25 MG NEB SCH ×3 (04:44→17:03)
[2017-09-29] MEDS: PULMICORT 0.5 MG/2 ML NEB SCH ×2 (04:44→17:02)
[2017-09-29] MEDS: SYNTHROID PO SCH (06:07)
[2017-09-29] MEDS: LASIX TAB PO SCH (06:07)
[2017-09-29] MEDS: HUMULIN R SUBCUT PRN ×3 (06:29→20:49)
[2017-09-29] MEDS: PROZAC PO SCH ×2 (08:57→20:48)
[2017-09-29] MEDS: LANOXIN PO SCH (08:57)
[2017-09-29] MEDS: ASPIRIN EC PO SCH (08:58)
[2017-09-29] MEDS: COZAAR PO SCH (08:58)
[2017-09-29] MEDS: MULTIVITAMIN TABLET PO SCH (08:58)
[2017-09-29] MEDS: JANUVIA PO SCH (08:58)
[2017-09-29] MEDS: GLUCOPHAGE PO SCH ×2 (08:58→16:30)
[2017-09-29] MEDS: CALCIUM 500 + VIT D 200 MG TABLET PO SCH (08:58)
[2017-09-29] MEDS: APRESOLINE PO SCH ×2 (08:58→20:48)
[2017-09-29] MEDS: NORCO 5-325 PO SCH ×2 (08:58→20:48)
[2017-09-29] MEDS: CARDIZEM PO SCH ×2 (08:58→20:49)
[2017-09-29] MEDS: LOPRESSOR PO SCH ×2 (08:58→20:48)
[2017-09-29] MEDS: MICRO-K CAP PO SCH (08:58)
[2017-09-29] MEDS: PROTONIX PO SCH ×2 (09:01→16:30)
--- NOTE | 2017-09-29 11:58 | PN ---
DATE OF SERVICE: 09/27/17 SUBJECTIVE: 72 year old white female hospitalized with congestive heart failure and respiratory failure. The patient's condition has improved and her oxygen saturation 95% on 2 liters. REVIEW OF SYSTEMS: CONSTITUTIONAL: No night sweats. No fatigue, malaise, lethargy. No fever or chills. HEENT: Eyes: No visual changes. No eye pain. No eye discharge. ENT: No runny nose. No epistaxis. No sinus pain. No sore throat. No odynophagia. No congestion. RESPIRATORY: No cough, no congestion. No hemoptysis. Shortness of breath on minimal exertion. CARDIOVASCULAR: No angina symptoms. No CHF symptoms. No atypical chest pain for CAD. No palpitations. No orthopnea. GASTROINTESTINAL: No abdominal pain. No nausea or vomiting. No diarrhea or constipation. No hematemesis. No hematochezia. Appetite as usual good. GENITOURINARY: No urgency. No frequency. No dysuria. No hematuria. No obstructive symptoms. No discharge. No pain. No significant abnormal bleeding. MUSCULOSKELETAL: No musculoskeletal pain; no joint swelling. NEUROLOGICAL: No headache. No neck pain. No syncope. No seizures. No dizziness. PSYCHIATRIC: Not anxious. No depression. No suicidal thoughts. No homicidal thoughts. SKIN: No rash. No lesions. No wounds. ENDOCRINE: No unexplained weight loss. No weight gain. HEMATOLOGIC/LYMPHATIC: No anemia. No purpura. No petechiae. No prolonged or excessive bleeding. No palpable lymph nodes. PHYSICAL EXAMINATION: GENERAL: The patient is oriented to time, place and person VITAL SIGNS: Temperature 98, pulse 80, respiratory rate 15, blood pressure 150/ 80 and pulse ox 96% with 2 liters. HEENT: Head normocephalic, atraumatic. Eyes: Extraocular muscles are intact. Pupils are equal, round and reactive to light and accommodation. Ears: No lesions. Nose appeared normal. Throat: No exudate or erythema. NECK: Supple. No JVD, no carotid bruit. No lymphadenopathy or thyromegaly. LUNGS:Decreased breath sounds but clear to auscultation. Percussion note normal. Chest symmetrical. HEART: S1, S2, no S3. No murmurs. No cyanosis or clubbing. No ascites. Pulses: Dorsalis pedis and posterior tibial pulses +1 to +2 both sides. ABDOMEN: Soft. Nontender. Bowel sounds active. No CVA tenderness. No mass felt. EXTREMITIES: No edema. Full range of motion of all extremities, equal. NEUROLOGIC: No focal deficit. Cranial nerves II through XII are grossly intact. No headache, no double vision or headache. SKIN: Not dry. Intact. Turgor - normal. LYMPHATIC: No palpable lymph nodes/no lymphedema. MUSCULOSKELETAL: Normal joints with no swelling. Muscle tone is normal. ASSESSMENT: 1. Respiratory failure, seems to be under control 2. COPD 3. CHF 4. Dementia 5. Anemia PLAN: 1. Continue steroids 2. Advised patient to walk 3. Pulmonary rehab advised. TIME SPENT: More than 30 minutes. Plan and coordination of the patient's care discussed in the presence of nurse. TY
--- NOTE | 2017-09-29 12:38 | PN ---
DATE OF SERVICE: 09/28/17 SUBJECTIVE: 72 year old white female hospitalized with acute respiratory failure. The patient's condition has improved. She is eating better and she is sleeping at times. REVIEW OF SYSTEMS: CONSTITUTIONAL: No night sweats. No fatigue, malaise, lethargy. No fever or chills. HEENT: Eyes: No visual changes. No eye pain. No eye discharge. ENT: No runny nose. No epistaxis. No sinus pain. No sore throat. No odynophagia. No congestion. RESPIRATORY: Mild cough, no congestion. No hemoptysis. Shortness of breath on exertion. CARDIOVASCULAR: No angina symptoms. No CHF symptoms. No atypical chest pain for CAD. No palpitations. No orthopnea. GASTROINTESTINAL: No abdominal pain. No nausea or vomiting. No diarrhea or constipation. No hematemesis. No hematochezia. Appetite has improved. GENITOURINARY: No urgency. No frequency. No dysuria. No hematuria. No obstructive symptoms. No discharge. No pain. No significant abnormal bleeding. MUSCULOSKELETAL: No musculoskeletal pain; no joint swelling. NEUROLOGICAL: No headache. No neck pain. No syncope. No seizures. No dizziness. PSYCHIATRIC: Not anxious. No depression. No suicidal thoughts. No homicidal thoughts. SKIN: No rash. No lesions. No wounds. ENDOCRINE: No unexplained weight loss. No weight gain. HEMATOLOGIC/LYMPHATIC: No anemia. No purpura. No petechiae. No prolonged or excessive bleeding. No palpable lymph nodes. PHYSICAL EXAMINATION: GENERAL: The patient is oriented to time, place and person. VITAL SIGNS: Temperature 97.8, pulse 66, respiratory rate 12, blood pressure 150/70 and pulse ox 95%. HEENT: Head normocephalic, atraumatic. Eyes: Extraocular muscles are intact. Pupils are equal, round and reactive to light and accommodation. Ears: No lesions. Nose appeared normal. Throat: No exudate or erythema. NECK: Supple. No JVD, no carotid bruit. No lymphadenopathy or thyromegaly. LUNGS: Decreased breath sounds but clear to auscultation. Percussion note normal. Chest symmetrical. HEART: S1, S2, no S3. No murmurs. No cyanosis or clubbing. No ascites. Pulses: Dorsalis pedis and posterior tibial pulses +1 to +2 both sides. ABDOMEN: Soft. Nontender. Bowel sounds active. No CVA tenderness. No mass felt. EXTREMITIES: No edema. Full range of motion of all extremities, equal. NEUROLOGIC: No focal deficit. Cranial nerves II through XII are grossly intact. No headache, no double vision or headache. SKIN: Not dry. Intact. Turgor - normal. LYMPHATIC: No palpable lymph nodes/no lymphedema. MUSCULOSKELETAL: Normal joints with no swelling. Muscle tone is normal. ASSESSMENT: 1. Respiratory failure under control 2. Chronic respiratory failure 3. COPD 4. Congestive heart failure 5. Anemia PLAN: 1. Continue to monitor for CHF 2. Telemetry, The patient's rhythm is stable. 3. The patient's declines any Novel Blood thinners, she understands atrial fibrillation and it's complications. 4. Continue NEBS and steroids. CONDITIONS: Stable. The patient's daughter is trying to take care of her and she is doing the best she could. TIME SPENT: More than 30 minutes. Plan and coordination of the patient's care discussed in the presence of nurse. TY
--- NOTE | 2017-09-29 13:10 | PCM.PROG ---
Attending Provider: ATTENDING PROVIDER: Dr. ROSALINO MCKEON This patient is seen with Elsy Estrada, Nurse Practitioner. DATE OF SERVICE: 09/29/17 SUBJECTIVE: This 72 year old WHITE/ F was hospitalized 09/24/17. The patient is sitting in chair, alert. She states she is ready to go home. She has been eating well. REVIEW OF SYSTEMS: CONSTITUTIONAL: No night sweats. No fatigue, malaise, lethargy. No fever or chills. HEENT: Eyes: No visual changes. No eye pain. No eye discharge. ENT: No runny nose. No epistaxis. No sinus pain. No odynophagia. No congestion. RESPIRATORY: No cough, no congestion. No hemoptysis. Shortness of breath as usual. CARDIOVASCULAR: No angina symptoms. No CHF symptoms. No atypical chest pain for CAD. No palpitations. No orthopnea.. GASTROINTESTINAL: No abdominal pain. No nausea or vomiting. No diarrhea or constipation. No hematemesis. No hematochezia. GENITOURINARY: No urgency. No frequency. No dysuria. No hematuria. No obstructive symptoms. No discharge. No pain. No significant abnormal bleeding. MUSCULOSKELETAL: No musculoskeletal pain; no joint swelling. NEUROLOGICAL: Awake, alert, oriented to time, place and person. No headache. No neck pain. No syncope. No seizures. No dizziness. PSYCHIATRIC: Not anxious. No depression. No suicidal thoughts. No homicidal thoughts. SKIN: No rash. No lesions. No wounds. ENDOCRINE: No unexplained weight loss. No weight gain. HEMATOLOGIC/LYMPHATIC: No anemia. No purpura. No petechiae. No prolonged or excessive bleeding. No palpable lymph nodes. PHYSICAL EXAMINATION: GENERAL: The patient is awake, alert and oriented, sitting in chair in no distress. VITAL SIGNS: Temperature 97.0 F, Pulse 73, Respiratory Rate 20, BP 157/81, Pulse Ox 93% HEENT: Head normocephalic, atraumatic. Eyes: Extraocular muscles are intact. Pupils are equal, round and reactive to light and accommodation. Ears: No lesions. Nose appeared normal. Throat: No exudate or erythema. NECK: Supple. No JVD, no carotid bruit. No lymphadenopathy or thyromegaly. LUNGS: Diminished breath sounds. Clear to auscultation. Percussion note normal. Chest symmetrical. HEART: Irregular heart rate. S1, S2, no S3. No murmurs. No cyanosis or clubbing. No ascites. Pulses: Dorsalis pedis and posterior tibial pulses +1 to +2 both sides. ABDOMEN: Soft. Non-tender. Bowel sounds active. No CVA tenderness. No mass felt. EXTREMITIES: Trace edema left lower extremity. Full range of motion of all extremities, equal. NEUROLOGIC: No focal deficit. Cranial nerves II through XII are grossly intact. No headache, no double vision or headache. SKIN: Not dry. Intact. Turgor-normal. LYMPHATIC: No palpable lymph nodes/no lymphedema. MUSCULOSKELETAL: Normal joints with no swelling. Muscle tone is normal. LAB REVIEW: 09/29/17 04:30 09/29/17 04:30 09/29/17 04:30: Sodium 134 L, Potassium 4.8, Chloride 97 L, Carbon Dioxide 28, Anion Gap 13.8, BUN 28 H, Creatinine 0.90, Estimated GFR (MDRD) 61.00, BUN/ Creatinine Ratio 31.11, Glucose 151 H, Calcium 8.5, Total Bilirubin 0.4, AST 29 , ALT 22, Total Protein 6.6, Albumin 3.6, Globulin 3.0, Albumin/Globulin Ratio 1.20 09/29/17 04:30: WBC 13.88 H, RBC 3.78 L, Hgb 10.4 L, Hct 32.7 L, MCV 86.5, MCH 27.5, MCHC 31.8, RDW Coeff of Alisha 16.7 H, Plt Count 194, Neutrophils % (Manual) 86.0 H, Lymphocytes % (Manual) 6.0 L, Monocytes % (Manual) 5.0, Eosinophils % ( Manual) 1.0, Reactive Lymphocytes 2.0, Anisocytosis Not present ASSESSMENT: 1. CHRONIC RESPIRATORY FAILURE 2. HYPERKALEMIA, RESOLVED 3. CHF 4. ATRIAL FIBRILLATION 5. ANEMIA PLAN: 1. Protonix 40 mg b.i.d. 2. Repeat chest x-ray 3. D/C Lazcano 4. Anticipate D/C today Plan and coordination of the patient's care discussed in the presence of Ortho Nurse and nurse. CONDITION: Stable SCRIBED BY: MAKI REBOLLEDO Gasfitter scribed while in presence of service performed by Dr. Mckeon/Elsy Estrada APRN on 09/29/17 ([id number])
[2017-09-29] MEDS: ATIVAN PO PRN ×2 (14:25→20:48)
--- NOTE | 2017-09-29 15:28 | PN ---
DATE OF SERVICE: 09/29/17 SUBJECTIVE: 72 year old white female hospitalized with respiratory failure and CHF. The patient's condition has improved and her breathing is a lot better. Oxygen saturation is 91-92% on room air, blood pressure 157/81 today. The patient's condition is stable with hgb of 10.4, hct 32, creatinine 0.9, BUN 37. The patient will be on Protonix 40mg twice a day. The patient was seen and examined with the Nurse Practitioner. TIME SPENT: More than 30 minutes. Plan and coordination of the patient's care discussed in the presence of nurse. TY
--- NOTE | 2017-09-29 15:59 | DI ---
Exam: Single x-ray of the chest. Comparison: 09/24/2017. Reason for exam: Pulmonary vascular congestion. FINDINGS: Operative changes are seen after implanted intracardiac device placement. The cardiac silhouette remains mildly prominent in size. Patchy airspace opacities are seen in the l eft lung base likely accentuated by body habitus. There is mild persistent pulmonary vascular congest ion. Impression: Persistent mild pulmonary vascular congestion with probable patchy airspace opacities in the left kaylene g base likely accentuated by summation. If clinical concern exists, two-view chest x-ray may be perf ormed for further characterization.
[2017-09-29] MEDS: TYLENOL PO PRN (16:20)
[2017-09-29] MEDS: TORADOL IVP PRN (18:51)
[2017-09-29] MEDS: REQUIP PO SCH (20:48)
[2017-09-29] MEDS: NON-FORMULARY MEDICATION (Melatonin [Melatonin] 10 MG) PO SCH (20:54)
[2017-09-30] MEDS: PULMICORT 0.5 MG/2 ML NEB SCH (04:50)
[2017-09-30] MEDS: XOPENEX 1.25 MG NEB SCH ×3 (04:52→11:05)
[2017-09-30 05:04] VITALS: BP 141/77; TEMP 98
[2017-09-30] MEDS: LASIX TAB PO SCH (05:36)
[2017-09-30] MEDS: SYNTHROID PO SCH (05:36)
[2017-09-30] MEDS: PROTONIX PO SCH (05:36)
[2017-09-30] MEDS: MICRO-K CAP PO SCH (08:50)
[2017-09-30] MEDS: ASPIRIN EC PO SCH (08:50)
[2017-09-30] MEDS: GLUCOPHAGE PO SCH (08:51)
[2017-09-30] MEDS: MULTIVITAMIN TABLET PO SCH (09:01)
[2017-09-30] MEDS: ATIVAN PO PRN (09:01)
[2017-09-30] MEDS: LOPRESSOR PO SCH (09:02)
[2017-09-30] MEDS: LANOXIN PO SCH (09:02)
[2017-09-30] MEDS: APRESOLINE PO SCH (09:03)
[2017-09-30] MEDS: JANUVIA PO SCH (09:03)
[2017-09-30] MEDS: CALCIUM 500 + VIT D 200 MG TABLET PO SCH (09:04)
[2017-09-30] MEDS: PROZAC PO SCH (09:04)
[2017-09-30] MEDS: NORCO 5-325 PO SCH (09:04)
[2017-09-30] MEDS: CARDIZEM PO SCH (09:04)
[2017-09-30] MEDS: COZAAR PO SCH (09:05)
--- NOTE | 2017-09-30 09:16 | PCM.PROG ---
Attending Provider: ATTENDING PROVIDER: Dr. ROSALINO GRAY This patient is seen with Elsy Estrada, Nurse Practitioner. DATE OF SERVICE: 09/30/17 SUBJECTIVE: This 72 year old WHITE/ F was hospitalized 09/24/17. The patient is sitting in chair, ready to go home. The daughter has agreed for Hospice referral once home. She has been eating well. Labs are stable. REVIEW OF SYSTEMS: CONSTITUTIONAL: No night sweats. No fatigue, malaise, lethargy. No fever or chills. HEENT: Eyes: No visual changes. No eye pain. No eye discharge. ENT: No runny nose. No epistaxis. No sinus pain. No odynophagia. No congestion. RESPIRATORY: No cough, no congestion. No hemoptysis. Shortness of breath as usual. CARDIOVASCULAR: No angina symptoms. No CHF symptoms. No atypical chest pain for CAD. No palpitations. No orthopnea.. GASTROINTESTINAL: No abdominal pain. Nausea as usual. No vomiting. No diarrhea or constipation. No hematemesis. No hematochezia. GENITOURINARY: No urgency. No frequency. No dysuria. No hematuria. No obstructive symptoms. No discharge. No pain. No significant abnormal bleeding. MUSCULOSKELETAL: No musculoskeletal pain; no joint swelling. NEUROLOGICAL: Awake, alert, oriented to place and person. No headache. No neck pain. No syncope. No seizures. No dizziness. PSYCHIATRIC: Anxious. No depression. No suicidal thoughts. No homicidal thoughts. SKIN: No rash. No lesions. No wounds. ENDOCRINE: No unexplained weight loss. No weight gain. HEMATOLOGIC/LYMPHATIC: No anemia. No purpura. No petechiae. No prolonged or excessive bleeding. No palpable lymph nodes. PHYSICAL EXAMINATION: GENERAL: The patient is awake, alert and oriented, sitting in chair in no distress. VITAL SIGNS: Temperature 98.0 F, Pulse 73, Respiratory Rate 16, BP 141/77, Pulse Ox 100% HEENT: Head normocephalic, atraumatic. Eyes: Extraocular muscles are intact. Pupils are equal, round and reactive to light and accommodation. Ears: No lesions. Nose appeared normal. Throat: No exudate or erythema. NECK: Supple. No JVD, no carotid bruit. No lymphadenopathy or thyromegaly. LUNGS: Diminished breath sounds. Clear to auscultation. Percussion note normal. Chest symmetrical. HEART: Irregular heart rate. S1, S2, no S3. No murmurs. No cyanosis or clubbing. No ascites. Pulses: Dorsalis pedis and posterior tibial pulses +1 to +2 both sides. ABDOMEN: Soft. Non-tender. Bowel sounds active. No CVA tenderness. No mass felt. EXTREMITIES: No edema. Full range of motion of all extremities, equal. NEUROLOGIC: No focal deficit. Cranial nerves II through XII are grossly intact. No headache, no double vision or headache. SKIN: Not dry. Intact. Turgor-normal. LYMPHATIC: No palpable lymph nodes/no lymphedema. MUSCULOSKELETAL: Normal joints with no swelling. Muscle tone is normal. LAB REVIEW: 09/30/17 04:45 09/30/17 04:45 09/30/17 04:45: Sodium 132 L, Potassium 5.1, Chloride 94 L, Carbon Dioxide 29, Anion Gap 14.1, BUN 27 H, Creatinine 0.87, Estimated GFR (MDRD) 64.00, BUN/ Creatinine Ratio 31.03, Glucose 149 H, Calcium 9.3, Total Bilirubin 0.5, AST 32 , ALT 25, Alkaline Phosphatase 61, Total Protein 6.4, Albumin 3.2 L, Globulin 3.2, Albumin/Globulin Ratio 1.00 09/30/17 04:45: WBC 11.50 H, RBC 3.64 L, Hgb 9.8 L, Hct 31.2 L, MCV 85.7, MCH 26.9 L, MCHC 31.4 L, RDW Coeff of Alisha 16.6 H, Plt Count 191, Immature Gran % ( Auto) 0.6, Neut % (Auto) 82.8, Lymph % (Auto) 7.8 L, [place] % (Auto) 7.7, Eos % ( Auto) 0.8, Baso % (Auto) 0.3, Immature Gran # (Auto) 0.1, Neut # (Auto) 9.5 H, Lymph # (Auto) 0.9, [place] # (Auto) 0.9, Eos # (Auto) 0.1, Baso # (Auto) 0.0 ASSESSMENT: 1. CHRONIC RESPIRATORY FAILURE 2. HYPERKALEMIA, RESOLVED 3. CHF 4. ATRIAL FIBRILLATION 5. ANEMIA PLAN: 1. Continue Protonix b.i.d. 2. Lasix and potassium daily 3. Baby Aspirin 4. Ativan 0.5 mg b.i.d. TOM 5. D/C Valium 6. Hospice referral at home Plan and coordination of the patient's care discussed in the presence of Bronc Breaker and nurse. CONDITION: Stable SCRIBED BY: MAKI REBOLLEDO Recreation Professor scribed while in presence of service performed by Dr. Gray/Elsy Estrada APRN on 09/30/17 ([id number])
--- NOTE | 2017-09-30 11:27 | CM.DICTOOL ---
ADMISSION: 09/24/17 12:03 DISCHARGE: SEPTEMBER 30, 2017 DATE OF SERVICE: 09/30/17 FINAL DIAGNOSIS CONGESTIVE HEART FAILURE RESPIRATORY FAILURE CHRONIC RESPIRATORY FAILURE COPD, OXYGEN DEPENDENT ANEMIA, HISTORY OF TRANSFUSION (2017) PNEUMONIA (08/2017) ATRIAL FIBRILLATION HISTORY OF CVA DIABETES, TYPE 2 CAD RLS OSTEOARTHRITIS DYSLIPIDEMIA DJD SPINE INSOMNIA DEPRESSION HYPOTHYROID DEMENTIA ANXIETY HYPERKALEMIA CATARACT EXTRACTION GASTRIC SURGERY ([place]) HYSTERECTOMY APPENDECTOMY PACEMAKER INSERTION ECHOCARDIOGRAM: MILD TO MODERATE LVH WITH ENLARGED LEFT ATRIAL CAVITY. LVEF 73% (September,) LAST VITALS Temp Pulse Resp BP Pulse Ox 98.0 F 93 H 16 141/77 H 100 09/30/17 05:03 09/30/17 09:02 09/30/17 05:03 09/30/17 05:03 09/30/17 05:03 TAKE THESE MEDICATIONS Hydrocodone Bitart/Acetaminophen ([place] 5-325) 1 tab PO BID [facility] Last Admin: 09/30/17 09:04 Dose: 1 tab Aspirin (Aspirin Ec) 81 mg PO DAILYWM [facility] Last Admin: 09/30/17 08:50 Dose: 81 mg Duoneb 1 vial Neb treatment every 6 hours PRN Last Admin: Calcium/Vitamin D (Calcium 500 + Vit D 200 Mg Tablet) 1 each PO DAILY [facility] Last Admin: 09/30/17 09:04 Dose: 1 each Digoxin (Lanoxin) 125 mcg PO DAILY [facility] Last Admin: 09/30/17 09:02 Dose: 125 mcg Diltiazem HCl (Cardizem) 120 mg PO BID [facility] Last Admin: 09/30/17 09:04 Dose: 120 mg Fluoxetine HCl (Prozac) 10 mg PO DAILY [facility] Last Admin: 09/30/17 09:04 Dose: 10 mg Fluoxetine HCl (Prozac) 20 mg PO BEDTIME [facility] Last Admin: 09/29/17 20:48 Dose: 20 mg Furosemide (Lasix Tab) 20 mg PO QDAC [facility] Last Admin: 09/30/17 05:36 Dose: 20 mg Hydralazine HCl (Apresoline) 50 mg PO BID [facility] Last Admin: 09/30/17 09:03 Dose: 50 mg Levothyroxine Sodium (Synthroid) 50 mcg PO QDAC [facility] Last Admin: 09/30/17 05:36 Dose: 50 mcg Lorazepam (Ativan) 0.5 mg PO BID Schedule Last Admin: 09/30/17 09:01 Dose: 0.5 mg Losartan Potassium (Cozaar) 50 mg PO DAILY [facility] Last Admin: 09/30/17 09:05 Dose: 50 mg Metformin HCl (Glucophage) 500 mg PO BIDWM [facility] Last Admin: 09/30/17 08:51 Dose: 500 mg Metoprolol Tartrate (Lopressor) 100 mg PO BID [facility] Last Admin: 09/30/17 09:02 Dose: 100 mg Multivitamins (Multivitamin Tablet) 1 tab PO DAILY [facility] Last Admin: 09/30/17 09:01 Dose: 1 tab Non-Formulary Medication (Melatonin [Melatonin]) 10 mg PO BEDTIME [facility] Last Admin: 09/29/17 20:54 Dose: Not Given Pantoprazole Sodium (Protonix) 40 mg PO BIDAC [facility] Last Admin: 09/30/17 05:36 Dose: 40 mg Potassium Chloride (Micro-K Cap) 10 meq PO DAILYWM [facility] Last Admin: 09/30/17 08:50 Dose: 10 meq Ropinirole HCl (Requip) 2 mg PO BEDTIME [facility] Last Admin: 09/29/17 20:48 Dose: 2 mg Sitagliptin Phosphate (Januvia) 100 mg PO DAILY [facility] Last Admin: 09/30/17 09:03 Dose: 100 mg MEDICATIONS THAT HAVE BEEN DISCONTINUED Valium (diazepam) ALLERGIES No Known Allergies Allergy (Verified 08/25/17 11:16) NEW PRESCRIPTIONS: Ativan 0.5 mg BID Protonix 40 mg BID SMOKING: Not Applicable DISEASE SPECIFIC EDUCATION: COPD Nutrition LAB REVIEW: 09/30/17 04:45 09/30/17 04:45 09/30/17 04:45: Sodium 132 L, Potassium 5.1, Chloride 94 L, Carbon Dioxide 29, Anion Gap 14.1, BUN 27 H, Creatinine 0.87, Estimated GFR (MDRD) 64.00, BUN/ Creatinine Ratio 31.03, Glucose 149 H, Calcium 9.3, Total Bilirubin 0.5, AST 32 , ALT 25, Alkaline Phosphatase 61, Total Protein 6.4, Albumin 3.2 L, Globulin 3.2, Albumin/Globulin Ratio 1.00 09/30/17 04:45: WBC 11.50 H, RBC 3.64 L, Hgb 9.8 L, Hct 31.2 L, MCV 85.7, MCH 26.9 L, MCHC 31.4 L, RDW Coeff of Alisha 16.6 H, Plt Count 191, Immature Gran % ( Auto) 0.6, Neut % (Auto) 82.8, Lymph % (Auto) 7.8 L, [place] % (Auto) 7.7, Eos % ( Auto) 0.8, Baso % (Auto) 0.3, Immature Gran # (Auto) 0.1, Neut # (Auto) 9.5 H, Lymph # (Auto) 0.9, [place] # (Auto) 0.9, Eos # (Auto) 0.1, Baso # (Auto) 0.0 PLAN: Discharge home with daughterTrini Diet: Regular as tolerated Activity: Resume as tolerated Oxygen at 3 liters per nasal cannula Nebulizer treatments, duonebs 3-4 times daily or every 6 hours An appointment is scheduled with Dr. Mckeon on October 08 at 11:15 am A referral has been made to [facility]; patient to be admitted to [facility] post discharge due to chronic respiratory failure Equipment has been delivered by [facility] Ms. Montilla is alert and oriented x 3. She is independent with feeding and bed mobility. She transfers from the bed to the chair and chair to the bedside commode with CGA assistance of 1 staff member. Ms Montilla is ambulatory with use of a rolling walker and oxygen to the bathroom and in the hallway. Ms. Montilla is short of air at rest and with exertion. Oxygen per nasal cannula is in continuous use at 3 liters. She is continent of urine and bowel, but has urinary frequency and urgency due to lasix. Meal intakes are good at 100% despite her complaints of nausea. Last BM reported x 2 yesterday. Gilbert Mckeon MD Elsy Estrada APRN
[2017-09-30] MEDS: HUMULIN R SUBCUT PRN (11:38)
--- NOTE | 2017-10-01 09:51 | DS ---
DATE OF SERVICE: 09/30/17 FINAL DIAGNOSIS: 1. CONGESTIVE HEART FAILURE 2. RESPIRATORY FAILURE 3. CHRONIC RESPIRATORY FAILURE 4. COPD, OXYGEN DEPENDENT 5. ANEMIA, HISTORY OF TRANSFUSION (2017) 6. PNEUMONIA (08/2017) 7. ATRIAL FIBRILLATION 8. HISTORY OF CVA 9. DIABETES, TYPE 2 10. CAD 11. RLS 12. OSTEOARTHRITIS 13. DYSLIPIDEMIA 14. DJD SPINE 15. INSOMNIA 16. DEPRESSION 17. HYPOTHYROID 18. DEMENTIA 19. ANXIETY 20. HYPERKALEMIA 21. CATARACT EXTRACTION 22. GASTRIC SURGERY ([place]) 23. HYSTERECTOMY 24. APPENDECTOMY 25. PACEMAKER INSERTION DISCHARGE INSTRUCTIONS: 1. Followup appointment is scheduled with Dr. Mckeon on 10/08/17 at 11:15 a.m. 2. Oxygen at 3L per nasal cannula. 3. Nebulizer treatments, Duonebs 3-4 times daily or every 6 hours. 4. A referral has been made to [facility]; patient to be admitted to [facility] post discharge due to chronic respiratory failure. 5. Equipment has been delivered by [facility]. MEDICATIONS AT DISCHARGE: Hydrocodone Bitart/Acetaminophen ([place] 5-325) one tab p.o. b.i.d. [facility] Aspirin 81 mg p.o. daily with meal [facility] Duoneb one neb treatment every 6 hours p.r.n. Calcium/Vitamin D (Calcium 500 + Vit D 200 mg tablet) one each p.o. daily [facility] Digoxin (Lanoxin) 125 mcg p.o. daily [facility] Diltiazem (Cardizem) 120 mg p.o. b.i.d. [facility] Fluoxetine (Prozac) 10 mg p.o. daily [facility] Furosemide (Lasix) 20 mg p.o. q.d a.c. [facility] Hydralazine (Apresoline) 50 mg p.o. b.i.d. [facility] Levothyroxine (Synthroid) 50 mcg p.o. q.d. a.c. [facility] Lorazepam (Ativan) 0.5 mg p.o. b.i.d. Losartan (Cozaar) 50 mg p.o. daily [facility] Metformin (Glucophage) 500 mg p.o. b.i.d. with meal [facility] Metoprolol (Lopressor) 100 mg p.o. b.i.d. [facility] Multivitamins one tab p.o. daily [facility]OM Melatonin 10 mg p.o. bedtime [facility] Protonix 40 mg p.o. b.i.d. a.c. [facility] Micro-K Cap 10 mEq p.o. daily with meal [facility] Ropinirole (Requip) 2 mg p.o. bedtime [facility] Sitagliptin (Januvia) 100 mg p.o. daily [facility] MEDICATIONS THAT HAVE BEEN DISCONTINUED: Valium (Diazepam) NEW PRESCRIPTIONS: Ativan 0.5 mg b.i.d. Protonix 40 mg b.i.d. DIET INSTRUCTIONS: Regular as tolerated ACTIVITY: Resume as tolerated SMOKING: N/A DISEASE SPECIFIC EDUCATION: COPD Nutrition HOSPITAL COURSE: This is a 72-year-old white female with a history of chronic respiratory failure , chronic congestive heart failure. She is oxygen dependent, COPD. She has atrial fibrillation. She currently lives at home with her daughter. She has been in and out of the hospital multiple times here recently for both worsening congestive heart failure and worsening respiratory failure. She was brought in with shortness of breath in the emergency room with oxygen, saturation to the low 80s. She had had some weight gain despite having Lasix at home. She was admitted, given IV Lasix. Initially started on a Venti mask, responded quickly after the IV Lasix. Her vital signs have all been stable. Temperature 98, heart rate 93, respirations 16, BP 141/77, pulse ox 100% on 3L today. Due to her worsening conditions and poor prognosis she also has some anemia which is stable at 9.8 to 10. She did have stool positive for blood on her previous admission. She does experience some anxiety along with severe GERD which is improved with Protonix twice daily. During this hospital stay she had been on Valium 2 mg b.i.d. This did cause her to sleep most of the time. We changed this to Ativan 0.5 mg b.i.d which she has tolerated well. Initially, upon admission she was on Lasix 3 to 4 times a week p.r.n with potassium along with the Lasix. Since being hospitalized we have put her on Lasix 20 mg p.o. daily along with potassium 10 mEq p.o. daily. She will be discharged home on this. After talking with the daughter and the patient, they have both agreed and decided upon hospice referral at home due to her poor prognosis, poor respiratory status and heart failure status so she will be discharged home with [facility]. She is discharged in stable condition. TIME SPENT: More than 60 minutes. TY
--- NOTE | 2017-10-03 08:12 | PN ---
DATE OF SERVICE: 10/01/17 SUBJECTIVE: The patient was seen with Nurse Practitioner. The patient's condition is more or less stable. She has stage 2-3 congestive failure and chronic respiratory failure. She doesn't seem to be in distress. Her oxygen saturation is 94% with oxygen. The patient is going to be discharged home and she is going to be picked up [facility]. CONDITION: Stable PROGNOSIS: Poor. TIME SPENT: More than 30 minutes. Plan and coordination of the patient's care discussed in the presence of nurse. TY
--- NOTE | 2017-10-03 08:15 | PN ---
09/24/17: Level 5 09/25/17: Intermediate 09/26/17: Intermediate 09/27/17: Intermediate 09/28/17: Intermediate 09/29/17: Intermediate 09/30/17: D as in discharge. MTDD
== END 2017-09-30 14:05 | disposition hospice, home (50) | DRG 291 ==
LOC: MEDSURG A 12:03
PROVIDERS: ADMIT Internal Medicine; ATTEND Internal Medicine
DX: I50.9 Heart failure, unspecified (principal); J96.20 Acute and chronic respiratory failure, unspecified whether with hypoxia or hypercapnia; I48.91 Unspecified atrial fibrillation; I10 Essential (primary) hypertension; J44.9 Chronic obstructive pulmonary disease, unspecified; I42.2 Other hypertrophic cardiomyopathy; I51.7 Cardiomegaly; E11.9 Type 2 diabetes mellitus without complications; D64.9 Anemia, unspecified; E78.5 Hyperlipidemia, unspecified; G47.00 Insomnia, unspecified; F41.8 Other specified anxiety disorders; E03.9 Hypothyroidism, unspecified; M19.90 Unspecified osteoarthritis, unspecified site; M47.9 Spondylosis, unspecified; G25.81 Restless legs syndrome; Z79.84 Long term (current) use of oral hypoglycemic drugs; Z79.899 Other long term (current) drug therapy; Z86.73 Personal history of transient ischemic attack (TIA), and cerebral infarction without residual deficits; Z95.0 Presence of cardiac pacemaker; Z91.14 Patient's other noncompliance with medication regimen; F03.90 Unspecified dementia, unspecified severity, without behavioral disturbance, psychotic disturbance, mood disturbance, and anxiety
CPT/HCPCS: 36415; 80053; 80162; 81001; 82550; 82803; 82962; 83880; 84443; 84484; 85007; 85025; 87070; 87081; 93005; 93010; 94640